=== PATIENT | female | born 1975 | race Caucasian/White ===

== ENCOUNTER → 2017-05-19 10:27 | Outpatient (CLI) | payer OTHER, SELFPAY ==
--- NOTE | 2017-05-19 10:32 | NM_ITS ---
HEPATOBILIARY SCAN WITH CCK ORDERING PHYSICIAN : Andrés Rain MD PATIENT AGE: 41 years GENDER: Female HISTORY: Right upper quadrant pain and nausea Following 8.02 millicuries Tc Choletec, images of the RUQ were obtained. There is prompt uptake of radionuclide by the liver which is grossly unremarkable. Small bowel is visualized. This initial portion of the study is normal. The gallbladder was allowed to fill out to 30 minutes. CCK was administered via infusion pump over 30 minutes 1.5 MCG CCK. Right arm IV.. The obtain data was analyzed and reveals a 85 % gallbladder ejection fraction (normal greater than 50%; borderline 35-50%). This is normal value . Visual inspection supports that there is adequate contraction of the gallbladder as well. IMPRESSION: Normal functioning gallbladder. 85 gallbladder ejection fraction by computer analysis. No pain with CCK administration
== END ==
PROVIDERS: Family Provider Emergency Medicine; PCP Emergency Medicine; Visit Provider Emergency Medicine
DX: K82.8 Other specified diseases of gallbladder (principal)
CPT/HCPCS: 78227; A9537; J2805

== ENCOUNTER → 2017-05-23 13:41 | Outpatient (REF) | payer OTHER, SELFPAY ==
[2017-05-23 20:20] LABS: Amphetamine/Metha Screen,Urine Negative ng/mL (<1000); Barbiturates Screen,Urine Negative ng/mL (<200); Benzodiazepines Screen,Urine Negative ng/mL (200); Cannabinoid Screen,Urine Negative ng/mL (<50); Cocaine Screen,Urine Negative ng/g (<300); Methadone Screen,Urine Negative ng/mL (<300); Opiate Screen,Urine Negative ng/mL (<300); Phencyclidine Screen,Urine Negative ng/mL (<25)
== END ==
LOC: LAB 13:41
PROVIDERS: Visit Provider Nurse Practitioner Family
DX: Z79.899 Other long term (current) drug therapy (principal)
CPT/HCPCS: 80305

== ENCOUNTER → 2017-10-14 14:13 | Outpatient (REF) | payer OTHER, SELFPAY ==
[2017-10-14 19:53] LABS: Amphetamine/Metha Screen,Urine Negative ng/mL (<1000); Barbiturates Screen,Urine Negative ng/mL (<200); Benzodiazepines Screen,Urine Positive ng/mL (200); Cannabinoid Screen,Urine Positive ng/mL (<50); Cocaine Screen,Urine Negative ng/g (<300); Methadone Screen,Urine Negative ng/mL (<300); Opiate Screen,Urine Negative ng/mL (<300); Phencyclidine Screen,Urine Negative ng/mL (<25)
== END ==
LOC: LAB 14:13
PROVIDERS: Visit Provider Nurse Practitioner Family
DX: Z79.899 Other long term (current) drug therapy (principal)
CPT/HCPCS: 80305

== ENCOUNTER → 2017-12-25 15:24 | Outpatient (REF) | payer OTHER, SELFPAY ==
[2017-12-25 18:33] LABS: Amphetamine/Metha Screen,Urine Negative ng/mL (<1000); Barbiturates Screen,Urine Negative ng/mL (<200); Benzodiazepines Screen,Urine Negative ng/mL (<200); Cannabinoid Screen,Urine Positive ng/mL (<50); Cocaine Screen,Urine Negative ng/mL (<300); Methadone Screen,Urine Negative ng/mL (<300); Opiate Screen,Urine Negative ng/mL (<300); Phencyclidine Screen,Urine Negative ng/mL (<25)
== END ==
LOC: LAB 15:24
PROVIDERS: Visit Provider Nurse Practitioner Family
DX: Z79.899 Other long term (current) drug therapy (principal)
CPT/HCPCS: 80305

== ENCOUNTER → 2018-01-28 14:42 | Outpatient (CLI) | payer OTHER, SELFPAY ==
--- NOTE | 2018-01-28 15:43 | XR_ITS ---
XR chest 2V HISTORY: ITS.REASON: cough ORDERING PHYSICIAN: Johnna Fox PATIENT AGE: 42 years COMPARISON: 03/05/2016 FINDINGS: The cardiomediastinal silhouette and pulmonary vascularity are within normal limits. The lungs are clear without infiltrates, suspicious nodules, or pleural effusions. No acute bony abnormalities. IMPRESSION: Negative chest, no acute finding
[2018-01-28 19:30] LABS: Amphetamine/Metha Screen,Urine Negative ng/mL (<1000); Barbiturates Screen,Urine Negative ng/mL (<200); Benzodiazepines Screen,Urine Positive ng/mL (<200); Cannabinoid Screen,Urine Positive ng/mL (<50); Cocaine Screen,Urine Negative ng/mL (<300); Methadone Screen,Urine Negative ng/mL (<300); Opiate Screen,Urine Negative ng/mL (<300); Phencyclidine Screen,Urine Negative ng/mL (<25)
== END ==
LOC: LAB 14:43 → RAD 15:45
PROVIDERS: PCP Nurse Practitioner Family; Visit Provider Nurse Practitioner Family
DX: R05 Cough (principal); Z79.899 Other long term (current) drug therapy
CPT/HCPCS: 71046; 80305

== ENCOUNTER → 2018-02-02 09:41 | Outpatient (CLI) | payer OTHER, SELFPAY ==
--- NOTE | 2018-02-02 09:43 | US_ITS ---
US breast LT complete INDICATION: Breast pain ORDERING PHYSICIAN: Johnna Fox PATIENT AGE: 42 years COMPARISON: None TECHNIQUE: Standard left breast ultrasound with axilla FINDINGS: No cystic or solid lesions demonstrated. IMPRESSION: Negative left breast ultrasound BI-RADS Category 1 negative. Recommend screening mammogram. Patient was due for screening mammogram September 2017 (A letter has been sent to the patient regarding results of the study.)
== END ==
PROVIDERS: Family Provider Emergency Medicine; PCP Nurse Practitioner Family; Visit Provider Nurse Practitioner Family
DX: N64.4 Mastodynia (principal)
CPT/HCPCS: 76641

== ENCOUNTER → 2018-03-04 20:10 | Outpatient (CLI) | payer OTHER, SELFPAY ==
[2018-03-04 20:48] LABS: Amphetamine/Metha Screen,Urine Negative ng/mL (<1000); Barbiturates Screen,Urine Negative ng/mL (<200); Benzodiazepines Screen,Urine Negative ng/mL (<200); Cannabinoid Screen,Urine Negative ng/mL (<50); Cocaine Screen,Urine Negative ng/mL (<300); Methadone Screen,Urine Negative ng/mL (<300); Opiate Screen,Urine Negative ng/mL (<300); Phencyclidine Screen,Urine Negative ng/mL (<25)
== END ==
PROVIDERS: Visit Provider Nurse Practitioner Family
DX: Z79.899 Other long term (current) drug therapy (principal)
CPT/HCPCS: 80305

== ENCOUNTER → 2018-04-02 17:55 | Outpatient (CLI) | payer OTHER, SELFPAY ==
[2018-04-02 19:46] LABS: Amphetamine/Metha Screen,Urine Negative ng/mL (<1000); Barbiturates Screen,Urine Negative ng/mL (<200); Benzodiazepines Screen,Urine Negative ng/mL (<200); Cannabinoid Screen,Urine Negative ng/mL (<50); Cocaine Screen,Urine Negative ng/mL (<300); Methadone Screen,Urine Negative ng/mL (<300); Opiate Screen,Urine Negative ng/mL (<300); Phencyclidine Screen,Urine Negative ng/mL (<25)
== END ==
PROVIDERS: Visit Provider Nurse Practitioner Family
DX: Z79.899 Other long term (current) drug therapy (principal)
CPT/HCPCS: 80305

== ENCOUNTER → 2018-05-29 18:12 | Outpatient (CLI) | payer OTHER, SELFPAY ==
[2018-05-29 20:26] LABS: Amphetamine/Metha Screen,Urine Negative ng/mL (<1000); Barbiturates Screen,Urine Negative ng/mL (<200); Benzodiazepines Screen,Urine Negative ng/mL (<200); Cannabinoid Screen,Urine Negative ng/mL (<50); Cocaine Screen,Urine Negative ng/mL (<300); Methadone Screen,Urine Negative ng/mL (<300); Opiate Screen,Urine Negative ng/mL (<300); Phencyclidine Screen,Urine Negative ng/mL (<25)
== END ==
LOC: LAB 18:13 → LAB.DROPOF 18:17
PROVIDERS: Visit Provider Nurse Practitioner Family
DX: Z79.899 Other long term (current) drug therapy (principal)
CPT/HCPCS: 80305

== ENCOUNTER → 2018-07-29 16:50 | Outpatient (CLI) | payer OTHER, SELFPAY ==
[2018-07-29 18:39] LABS: Amphetamine/Metha Screen,Urine Negative ng/mL (<1000); Barbiturates Screen,Urine Negative ng/mL (<200); Benzodiazepines Screen,Urine Negative ng/mL (<200); Cannabinoid Screen,Urine Negative ng/mL (<50); Cocaine Screen,Urine Negative ng/mL (<300); Methadone Screen,Urine Negative ng/mL (<300); Opiate Screen,Urine Negative ng/mL (<300); Phencyclidine Screen,Urine Negative ng/mL (<25)
== END ==
PROVIDERS: Visit Provider Nurse Practitioner Family
DX: Z79.899 Other long term (current) drug therapy (principal)
CPT/HCPCS: 80305

== ENCOUNTER 2018-08-14 09:00 | Outpatient (RCR) | payer OTHER, SELFPAY ==
--- NOTE | 2018-07-21 15:36 | HMH.PTOPEV ---
PT Outpatient Evaluation Rehab PT Outpatient Evaluation Start: 07/21/18 15:24 Freq: Status: Active Protocol: Document 07/21/18 15:24 VANIA (Rec: 07/21/18 15:35 VANIA [id number]) Electronically Signed By Murphy Ayoub, PT 07/21/18 15:24 Outpatient Therapy Subjective History Subjective History Pt reports injury to R ankle on 06/10/18, fall/twist inversion sprain to R ankle. Pt reports improved R ankle s/ s since initial injury, however, pt reports progress has slowed. Pt reports lingering anterio-lateral R ankle pain, chastity. w/prolonged wt. bearing. Chief Complaint Pain Stiff Swelling Weakness Symptom Type Ache Dull Symptoms Relieved By Prescription Meds Symptoms Aggravated By Twisting Walking Prior Functional Limitations Housework Standing Walking Current Functional Limitations Housework Standing Walking Stairs Symptom Description Intermittent Level of pain today (0-10) 2 Pain scale - at its best (0-10) 0 Pain scale - at its worst (0-10) 10 Ankle/Foot Eval Gait Observation General Gait Pattern Observation Antalgic Gait Assistive Device Ambulation Assistive Device None Palpation Tenderness right Ankle/Foot Palpation Findings Tenderness Ankle/Foot Palpation Overall Comment 3-4/4 ATF TTP positive PTF TTP positive CF TTP positive Deltoid ligament TTP positive ROM left Ankle/Foot Dorsiflexion w/Knee Extended 0-12 Active Range Motion (degrees) Ankle/Foot Plantar Flexion Active Range 0-60 of Motion (degrees) Ankle/Foot Eversion Active Range of 0-20 Motion (degrees) Ankle/Foot Inversion Active Range of 0-45 Motion (degrees) right Ankle/Foot Dorsiflexion w/Knee Extended 0-8 Active Range Motion (degrees) Ankle/Foot Plantar Flexion Active Range 0-35 of Motion (degrees) Ankle/Foot Eversion Active Range of 0-20 Motion (degrees) Ankle/Foot Inversion Active Range of 0-40 Motion (degrees) MMT left Ankle Dorsiflexion Strength Grade 5 Normal Ankle Plantarflexion Strength Grade 5
== END 2018-08-14 09:05 | disposition home or self-care (01) ==
LOC: PT 09:00
PROVIDERS: Visit Provider Podiatrist
DX: M76.71 Peroneal tendinitis, right leg (principal); M79.671 Pain in right foot
CPT/HCPCS: 97010; 97014; 97033; 97035; 97110; 97163; 97760; G0283

== ENCOUNTER → 2018-08-28 14:37 | Outpatient (CLI) | payer OTHER, SELFPAY ==
[2018-08-31 12:13] LABS: Amphetamine/Metha Screen,Urine Negative ng/mL (<1000); Barbiturates Screen,Urine Negative ng/mL (<200); Benzodiazepines Screen,Urine Positive ng/mL (<200); Cannabinoid Screen,Urine Negative ng/mL (<50); Cocaine Screen,Urine Negative ng/mL (<300); Methadone Screen,Urine Negative ng/mL (<300); Opiate Screen,Urine Negative ng/mL (<300); Phencyclidine Screen,Urine Negative ng/mL (<25)
== END ==
PROVIDERS: Visit Provider Nurse Practitioner Family
DX: F41.9 Anxiety disorder, unspecified (principal)
CPT/HCPCS: 80305

== ENCOUNTER → 2018-09-25 16:13 | Outpatient (CLI) | payer OTHER, SELFPAY ==
--- NOTE | 2018-09-25 16:15 | NVE_ITS ---
Venous Exam Indications: 729.81 Swelling of limb. IMPRESSIONS 1. There is no evidence of significant Reflux. 2. No evidence of deep or superficial vein thrombosis involving the left lower extremity Left lower extremity venous duplex evaluation. Doppler flow study including spectral analysis, color and burgos scale imaging. Location: Vascular laboratory. Patient status: Outpatient. CRITICAL FINDINGS - Reported to: Cortney Rain's office - 09/25/2018 - 16:27 pm - Neg for DVT Tables: Venous flow and imaging: + +-------+ + Location Overall Flow properties + +-------+ + Left common femoral Patent Normal phasicity; spontaneous; normal augmentation; compressible + +-------+ + Left saphenofemoral junction Patent Compressible + +-------+ + Left profunda femoral Patent Compressible + +-------+ + Left femoral Patent Normal phasicity; spontaneous; normal augmentation; compressible + +-------+ + Left greater saphenous Patent Normal phasicity; spontaneous; normal augmentation; compressible + +-------+ + Left popliteal Patent Normal phasicity; spontaneous; normal augmentation; compressible + +-------+ + Left posterior tibial Patent Compressible + +-------+ + Left peroneal Patent Compressible + +-------+ + Left gastrocnemius Patent Compressible + +-------+ + Left soleal Patent Compressible + +-------+ + (Report amended ) Electronically signed by: Moe Smart [id number]
== END ==
PROVIDERS: PCP Nurse Practitioner Family; Visit Provider Nurse Practitioner Family
DX: R60.9 Edema, unspecified (principal); M79.605 Pain in left leg
CPT/HCPCS: 93971

== ENCOUNTER → 2018-10-28 18:11 | Outpatient (CLI) | payer OTHER, SELFPAY ==
[2018-10-28 19:03] LABS: Amphetamine/Metha Screen,Urine Negative ng/mL (<1000); Barbiturates Screen,Urine Negative ng/mL (<200); Benzodiazepines Screen,Urine Negative ng/mL (<200); Cannabinoid Screen,Urine Negative ng/mL (<50); Cocaine Screen,Urine Negative ng/mL (<300); Methadone Screen,Urine Negative ng/mL (<300); Opiate Screen,Urine Negative ng/mL (<300); Phencyclidine Screen,Urine Negative ng/mL (<25)
== END ==
PROVIDERS: Visit Provider Nurse Practitioner Family
DX: Z79.899 Other long term (current) drug therapy (principal)
CPT/HCPCS: 80305

== ENCOUNTER 2019-12-18 13:53 | Emergency (ER) | payer OTHER, SELFPAY ==
[2019-12-18 14:02] VITALS: BP 162/96; PULSE 76; RESP 17; TEMP 37; O2SAT 96; BMI 29.6
--- NOTE | 2019-12-18 14:09 | CT_ITS ---
PROCEDURE: CT ABDOMEN PELVIS W CON CLINICAL INDICATION: right lower quadrant pain Right lower quadrant pain COMPARISON: CT CT ABDOMEN PELVIS W CON from 03/26/2019 TECHNIQUE: IV Contrast: 75ML OPTIRAY 350 Oral Contrast None Axial images obtained with sagittal and coronal reformats. All CT scans at the facility use one or more dose reduction, viz: automated exposure control, ma/kV adjustment per patient size (including targeted exams where dose is matched to indication, i.e. head), or iterative reconstruction technique. FINDINGS: LOWER THORAX: No acute finding there is small hiatal hernia with nonspecific thickening of the distal esophagus at the GE junction. ABDOMEN & PELVIS: The liver, spleen, adrenal glands, and pancreas have an unremarkable appearance. No renal or ureteral calculi. 5 mm hypodensity left kidney suggestive of a small cyst. No intestinal obstruction or free air. No evidence of appendicitis. There are post hysterectomy changes. No pelvic mass or abnormal fluid collection. No acute bony anomaly. IMPRESSION: No acute abdominal or pelvic findings. Dictated by: Moe Smart MD 12/19/2019 07:35 Moe Smart MD in [place] 12/19/2019 07:35
--- NOTE | 2019-12-18 14:10 | HMH.EDGENADL ---
ED Disposition Clinical Impression: Abdominal pain Qualifiers: Abdominal location: right lower quadrant Qualified Code(s): R10.31 - Right lower quadrant pain Disposition: Home, Self-Care Condition on Discharge: Good Instructions: DI for Acute Abdomen Additional Instructions: Follow up with your PCP. If you have any new, changing, worsening, or concerning symptoms, come back to the ED. Referrals: PCP,No [Non-Staff] - Time of Disposition: 17:44 - Critical Care Critical Care Time: No Attestation: On 12/18/19, the high probability of a clinically significant, sudden or life threatening deterioration of the following system(s) required my full and direct attention, intervention and personal management. The time I documented below is in addition to time spent performing reported procedures but includes the following listed in this critical care notation. Medical Decision Making - Medical Records Medical records reviewed: Yes: I reviewed the patient's medical records. MR Comment: 44-year-old female presents the emergency department with right lower quadrant abdominal pain that radiates to her vagina. She arrives to the ED hemodynamically stable, with reassuring vital signs, and looks well on exam. This is been constant pain for the last 4 to 5 days, UTI considered as well as ovarian pathology or appendicitis. She is nontender on exam. Will get labs and CT scan and reassess. On reassessment, patient remains well. CT scan personally reviewed and read by radiology and she does not have any concerning acute pathology. Labs with leukocytosis, otherwise not actionable. Appendix normal. She is tolerating PO and repeat abdominal exam remains benign. No UTI. She maintains history of ovarian cysts and is status post hysterecotmy. No large cysts visible on CT, US showing no free fluid and good flow. Advised followup with PCP for further evaluation. She was given strict return precautions and discharge instructions and verbalized an understanding and agreed to the plan. Safe to discharge. - Jay Inquiry Pt receiving controlled substance: No Vital Signs: 12/18/19 14:02 Temperature 98.6 F Temperature Source Oral Pulse Rate [Right Radial] 76 Respiratory Rate 17 Blood Pressure [Right Arm] 162/96 H Blood Pressure Mean [Right Arm] 118 02 Sat by Pulse Oximetry 96 - Lab Data Lab Results 12/18/19 14:20: Urine Color Yellow, Urine Appearance Clear, Urine pH 6.0, Ur Specific [place] 1.025, Urine Protein Negative, Urine Glucose (UA) Negative, Urine Ketones Negative, Urine Blood Negative, Urine Nitrate Negative, Urine Bilirubin Negative, Urine Urobilinogen 0.2, Ur Leukocyte Esterase 1+ A, Urine RBC Occasional, Urine WBC 3-5, Ur Squamous Epith Cells 3-5, Urine Bacteria None 12/18/19 15:20: WBC 16.1 H, RBC 4.58, Hgb 15.0, Hct 42.8, MCV 93.4, MCH 32.7 H, MCHC 35.0, RDW 13.1, Plt Count 231, MPV 7.0 L, Neut % (Auto) 76.6, Lymph % (Auto) 17.5, [place] % (Auto) 3.8, Eos % (Auto) 1.7, Baso % (Auto) 0.3, Neut # (Auto) 12.4 H, Lymph # (Auto) 2.8, [place] # (Auto) 0.6, Eos # (Auto) 0.3, Baso # (Auto) 0.1, Total Counted 100, Neutrophils % (Manual) 65, Lymphocytes % (Manual) 28, Monocytes % (Manual) 3, Eosinophils % (Manual) 4 H, Platelet Estimate Normal, RBC Morphology Normal 12/18/19 15:20: Sodium 140, Potassium 3.8, Chloride 105, Carbon Dioxide 24, Anion Gap 14.8, BUN 7, Creatinine 0.60, Estimated Creat Clear 139, Estimated GFR 109, Est GFR ( Amer) 131, Glucose 95, Calcium 9.8, Total Bilirubin 0.5, AST 30, ALT 21, Alkaline Phosphatase 62, Total Protein 7.6, Albumin 4.4, Globulin 3.2, Albumin/Globulin Ratio 1.4, Amylase 73, Lipase 82 Result diagrams: 12/18/19 15:20 12/18/19 15:20 Orders (Tests/Meds): ED MEDICATIONS Discontinued Medications Generic Name Dose Route Start Last Admin Trade Name Freq PRN Reason Stop Dose Admin Ioversol 50 ml 12/18/19 14:41 12/18/19 14:43 Rad-Optiray 320 50ml Syringe IV 12/18/19 14:42 50 ml ONCE ONE A
[2019-12-18 14:39] LABS: Microscopic, Urine URINE MICROSCOPIC (MICROSCOPIC)
[2019-12-18 14:42] LABS: Appearance,Urine CLEAR (Clear); Bilirubin,Urine Negative (Negative); Blood, Urine Negative (Negative); Color,Urine YELLOW (Yellow); Glucose,Urine (UA) Negative (Negative); Ketones,Urine Negative (Negative); Leukocyte Esterase,Urine 1+ (Negative); Nitrate,Urine Negative (Negative); Protein,Urine Negative (Negative); Specific Gravity, Urine 1.025 (1.005-1.030); Urobilinogen,Urine 0.2 EU/dl (0.2)
[2019-12-18 14:48] LABS: RBC,Urine Occasional #/hpf (0-3)
--- NOTE | 2019-12-18 14:51 | PC.NURSE ---
pt returned from rad
[2019-12-18 15:34] LABS: Basophils # 0.1 K/mm3 (0-0.2); Basophils % 0.3 % (0.1-2.0); Eosinophils # 0.3 K/mm3 (0.0-0.4); Eosinophils % 1.7 % (0.1-12.0); Hematocrit 42.8 % (37.0-47.0); Lymphocytes # 2.8 K/mm3 (0.7-4.5); Lymphocytes % 17.5 % (10-50); Mean Corpuscular Hemoglobin 32.7 pg (27.0-31.2); Mean Corpuscular Volume 93.4 fl (81-99); Monocytes # 0.6 K/mm3 (0.1-1.0); Monocytes % 3.8 % (1.7-9.3); Neutrophils # 12.4 K/mm3 (1.8-7.8); Neutrophils % 76.6 % (37.0-80.0); Platelet Count 231 K/mm3 (142-424); Red Blood Count 4.58 M/mm3 (4.20-5.40); Red Cell Distribution Width 13.1 % (11.5-17.5); White Blood Count 16.1 K/mm3 (4.8-10.8)
[2019-12-18 15:37] LABS: MANUAL DIFFERENTIAL MANUAL DIFFERENTIAL (MANUAL DIFF)
[2019-12-18 15:40] LABS: Chloride 105 mmol/L (98-107); Potassium 3.8 mmoL/L (3.5-5.1); Sodium 140 mmol/L (136-145)
[2019-12-18 15:43] LABS: Alanine Aminotransferase 21 U/L (12-78); Alkaline Phosphatase 62 U/L (38-126); Amylase 73 U/L (30-110); Anion Gap 14.8 mEq/L (5-15); Aspartate Amino Transferase 30 U/L (14-36); Bilirubin,Total 0.5 mg/dl (0.2-1.3); Blood Urea Nitrogen 7 mg/dl (7-17); Calcium 9.8 mg/dl (8.4-10.2); Carbon Dioxide 24 mmol/L (22.0-30.0); Creatinine Clearance Estimated 139 mL/min (50-200); Estimated Glomerular Filt Rate 109 ml/min (>60); GFR (African American) 131 ML/MIN (>60); Glucose 95 mg/dl (74-100)
[2019-12-18 15:44] LABS: Albumin Level 4.4 g/dl (3.5-5.0); Albumin/Globulin Ratio 1.4 (1.1-1.8); Globulin 3.2 g/dL (1.3-3.2); Lipase 82 U/L (23-300); Total Protein,Serum 7.6 g/dl (6.3-8.2)
[2019-12-18 15:51] LABS: Eosinophils % 4 % (0-3); Lymphocytes % 28 % (10-50); Monocytes % 3 % (2-9); Neutrophils % 65 % (42-76); Total Cells Counted 100
[2019-12-18 15:52] LABS: Platelet Estimate Normal; RBC Morphology Normal
--- NOTE | 2019-12-18 16:47 | US_ITS ---
PROCEDURE: US TRANSVAGINAL CLINICAL INDICATION: right lower quadrant pain COMPARISON: No exams were available for comparison FINDINGS: Prior hysterectomy. Right ovary is 2.2 x 1.6 cm. Left ovary is 1 point by 1 2 cm. There is bilateral ovarian blood flow. No adnexal mass or cul-de-sac fluid. IMPRESSION: Prior hysterectomy, no acute finding Dictated by: Moe Smart MD 12/19/2019 07:37 Moe Smart MD in [place] 12/19/2019 07:37
[2019-12-18 17:48] VITALS: BP 162/96; PULSE 76; RESP 17; TEMP 37; O2SAT 96
== END 2019-12-18 17:48 | disposition home or self-care (01) ==
PROVIDERS: Emergency Provider Emergency Medicine; PCP Nurse Practitioner Family
DX: R10.31 Right lower quadrant pain (principal); F41.8 Other specified anxiety disorders; K21.9 Gastro-esophageal reflux disease without esophagitis; G43.709 Chronic migraine without aura, not intractable, without status migrainosus; Z79.899 Other long term (current) drug therapy; Z90.79 Acquired absence of other genital organ(s); F17.210 Nicotine dependence, cigarettes, uncomplicated
CPT/HCPCS: 74177; 76830; 80053; 81001; 82150; 83690; 85007; 85025; 87086; 99283; Q9967

== ENCOUNTER → 2020-02-05 15:08 | Outpatient (CLI) | payer OTHER, SELFPAY ==
[2020-02-07 16:37] LABS: Covid-19 Nasal PCR Sendout UK Not Detected
== END ==
PROVIDERS: PCP Nurse Practitioner Family; Visit Provider Nurse Practitioner Family
DX: Z03.818 Encounter for observation for suspected exposure to other biological agents ruled out (principal)
CPT/HCPCS: U0003

== ENCOUNTER 2020-07-18 20:44 | Emergency (ER) | payer OTHER, SELFPAY ==
[2020-07-18 20:44] VITALS: BP 151/84; PULSE 71; RESP 14; TEMP 36.5; O2SAT 97; BMI 30.7
--- NOTE | 2020-07-18 20:46 | CT_ITS ---
PROCEDURE: CT HEAD/BRAIN WO CON CLINICAL INDICATION: paresthesia COMPARISON: CT HDWO CT HEAD W/O CONTRAST from 01/17/2017 TECHNIQUE: Axial images obtained. All CT scans at the facility use one or more dose reduction, viz: automated exposure control, ma/kV adjustment per patient size (including targeted exams where dose is matched to indication, i.e. head), or iterative reconstruction technique. FINDINGS: No midline shift, mass effect, intracranial hemorrhage, hydrocephalus, or extra-axial fluid collection is evident. The calvarium has an unremarkable appearance. The mastoid air cells and visualized paranasal sinuses are clear. IMPRESSION: No acute intracranial abnormality. Dictated by: Jaimie Chopra 07/19/2020 08:55 Jaimie Chopra in [place] 07/19/2020 08:55
--- NOTE | 2020-07-18 20:50 | HMH.EDGENADL ---
ED Disposition Clinical Impression: Migraine Qualifiers: Migraine type: unspecified Status migrainosus presence: without status migrainosus Intractability: not intractable Qualified Code(s): G43.909 - Migraine, unspecified, not intractable, without status migrainosus Disposition: Home, Self-Care Condition on Discharge: Good Referrals: Johnna Fox APRN [Primary Care Provider] - 3 days Time of Disposition: 21:52 - Critical Care Critical Care Time: No Attestation: On , the high probability of a clinically significant, sudden or life threatening deterioration of the following system(s) required my full and direct attention, intervention and personal management. The time I documented below is in addition to time spent performing reported procedures but includes the following listed in this critical care notation. Medical Decision Making - Jay Inquiry Pt receiving controlled substance: No Vital Signs: 07/18/20 20:44 07/18/20 21:31 Temperature 97.7 F Temperature Source Oral Pulse Rate 73 Pulse Rate [Left] 71 Respiratory Rate 14 Blood Pressure 115/62 Blood Pressure [Left Arm] 151/84 H Blood Pressure Mean 79 Blood Pressure Mean [Left Arm] 106 02 Sat by Pulse Oximetry 97 97 Oxygen Delivery Method Room Air - Lab Data Lab results reviewed: Yes: I reviewed the patient's lab results. Lab Results 07/18/20 21:00: WBC 9.7, RBC 4.72, Hgb 14.9, Hct 44.1, MCV 93.4, MCH 31.6 H, MCHC 33.8, RDW 13.2, Plt Count 252, MPV 6.9 L, Neut % (Auto) 60.3, Lymph % (Auto) 32.0, [place] % (Auto) 5.7, Eos % (Auto) 1.6, Baso % (Auto) 0.5, Neut # (Auto) 5.8, Lymph # (Auto) 3.1, [place] # (Auto) 0.6, Eos # (Auto) 0.2, Baso # (Auto) 0.1 07/18/20 21:00: Sodium 139, Potassium 4.1, Chloride 108 H, Carbon Dioxide 21 L, Anion Gap 14.1, BUN 13, Creatinine 0.80, Estimated Creat Clear 108, Estimated GFR 78, Est GFR ( Amer) 94, Glucose 135 H, Calcium 9.2, Troponin I < 0.01 07/18/20 21:52: Urine Color Yellow, Urine Appearance Clear, Urine pH 6.0, Ur Specific [place] >= 1.030, Urine Protein Negative, Urine Glucose (UA) Negative, Urine Ketones Negative, Urine Blood Negative, Urine Nitrate Negative, Urine Bilirubin Negative, Urine Urobilinogen 0.2, Ur Leukocyte Esterase Trace Result diagrams: 07/18/20 21:00 07/18/20 21:00 Orders (Tests/Meds): ORDERS Category Date Time Status CT head/brain wo con Stat Cat Scan 07/18/20 20:46 Taken Drug Screen,Urine Stat Lab 07/18/20 21:52 Received Urinalysis and Microscopic Stat Lab 07/18/20 21:52 Results Urine , HCG Qual. Stat Lab 07/18/20 21:52 Received - ECG Data Tracing #1 Sinus bradycardia, 57 bpm, possible incomplete right bundle branch block, no ST elevation or depression, normal intervals. ECG initial impression date: 07/18/20 ECG initial impression time: 21:02 Normal Sinus Rhythm: Yes Medical Decision Narrative: 44yo F evaluated for lightheadedness and right-sided paresthesia. Patient is in no acute distress on initial evaluation. She ambulates into the emergency department on her own power with no difficulty. Patient denies any significant past medical history. Her physical exam is benign. Her NIH stroke scale score is 0. While patient complains of paresthesia throughout her right body. She drops abruptly to sharp stimulus to her right upper and lower extremities while her eyes are closed. CT of the head shows no intracranial abnormality. Patient's blood work is benign. Pending urine studies at this time. General Adult HPI - General Stated complaint: numbnes on R side Time Seen by Provider: 07/18/20 20:50 Mode of Arrival: Ambulatory Source of Information: Patient Limitations: No Limitations - History of Present Illness HPI narrative: 44yo F with past medical history significant for chronic tobacco use, chronic marijuana use, recently diagnosed with migraine and otitis externa reports emergency department secondary to entire right side of her body paresth
--- NOTE | 2020-07-18 21:02 | ECG_ITS ---
APPROVED REPORT Exam: Resting ECG HR:57 bpm ECG Measurements Heart Rate 57 AXES [place] 156 P 72 QRSd 78 QRS 68 QT 428 T 49 QTc 416 Conclusion Sinus bradycardia Old septal changes Abnormal ECG Electronically signed by : Eulalio Roberts, 07/19/2020 13:21:36
[2020-07-18 21:15] LABS: Chloride 108 mmol/L (98-107); Potassium 4.1 mmoL/L (3.5-5.1); Sodium 139 mmol/L (136-145)
[2020-07-18 21:16] LABS: Basophils # 0.1 K/mm3 (0-0.2); Basophils % 0.5 % (0.1-2.0); Eosinophils # 0.2 K/mm3 (0.0-0.4); Eosinophils % 1.6 % (0.1-12.0); Hematocrit 44.1 % (37.0-47.0); Hemoglobin 14.9 g/dL (12.2-16.2); Lymphocytes # 3.1 K/mm3 (0.7-4.5); Mean Corpuscular HGB Conc 33.8 g/dL (31.8-35.4); Mean Corpuscular Hemoglobin 31.6 pg (27.0-31.2); Mean Corpuscular Volume 93.4 fl (81-99); Mean Platelet Volume 6.9 fl (7.4-10.4); Monocytes # 0.6 K/mm3 (0.1-1.0); Monocytes % 5.7 % (1.7-9.3); Neutrophils # 5.8 K/mm3 (1.8-7.8); Neutrophils % 60.3 % (37.0-80.0); Platelet Count 252 K/mm3 (142-424); Red Blood Count 4.72 M/mm3 (4.20-5.40); Red Cell Distribution Width 13.2 % (11.5-17.5); White Blood Count 9.7 K/mm3 (4.8-10.8)
[2020-07-18 21:18] LABS: Anion Gap 14.1 mEq/L (5-15); Blood Urea Nitrogen 13 mg/dl (7-17); Calcium 9.2 mg/dl (8.4-10.2); Carbon Dioxide 21 mmol/L (22.0-30.0); Creatinine Clearance Estimated 108 mL/min (50-200); Estimated Glomerular Filt Rate 78 ml/min (>60); GFR (African American) 94 ML/MIN (>60); Glucose 135 mg/dl (74-100)
[2020-07-18 21:31] VITALS: BP 115/62; PULSE 73; O2SAT 97
[2020-07-18 21:31] LABS: Troponin I < 0.01 ng/ml (0.00-0.034)
[2020-07-18 21:56] LABS: Microscopic, Urine URINE MICROSCOPIC (MICROSCOPIC)
[2020-07-18 22:03] LABS: Appearance,Urine CLEAR (Clear); Bilirubin,Urine Negative (Negative); Blood, Urine Negative (Negative); Color,Urine YELLOW (Yellow); Glucose,Urine (UA) Negative (Negative); Ketones,Urine Negative (Negative); Leukocyte Esterase,Urine TRACE (Negative); Nitrate,Urine Negative (Negative); Protein,Urine Negative (Negative); Specific Gravity, Urine >= 1.030 (1.005-1.030); Urobilinogen,Urine 0.2 EU/dl (0.2)
[2020-07-18 22:08] LABS: Urine Pregnancy, HCG Qual. Negative (Negative)
[2020-07-18 22:09] LABS: Barbiturates Screen,Urine Negative ng/ml (<200)
[2020-07-18 22:10] LABS: Amphetamine/Metha Screen,Urine Negative ng/ml (<1000); Benzodiazepines Screen,Urine Negative ng/ml (<200)
[2020-07-18 22:11] LABS: Methadone Screen,Urine Negative ng/ml (<300)
[2020-07-18 22:12] LABS: Cannabinoid Screen,Urine Positive ng/ml (<50)
[2020-07-18 22:13] VITALS: BP 121/74; PULSE 75; RESP 14; TEMP 36.5; O2SAT 97
[2020-07-18 22:13] LABS: Cocaine Screen,Urine Negative ng/ml (<300); Opiate Screen,Urine Negative ng/ml (<300)
[2020-07-18 22:14] LABS: Phencyclidine Screen,Urine Negative ng/ml (<25)
[2020-07-18 22:29] LABS: Bacteria,Urine 1+ /lpf; Mucus,Urine 1+ /lpf
== END 2020-07-18 22:31 | disposition home or self-care (01) ==
PROVIDERS: Emergency Provider Family Medicine; PCP Nurse Practitioner Family
DX: G43.909 Migraine, unspecified, not intractable, without status migrainosus (principal); J45.909 Unspecified asthma, uncomplicated; K21.9 Gastro-esophageal reflux disease without esophagitis; F41.8 Other specified anxiety disorders; F17.210 Nicotine dependence, cigarettes, uncomplicated; F12.10 Cannabis abuse, uncomplicated
CPT/HCPCS: 70450; 80048; 80305; 81001; 81025; 84484; 85025; 93005; 99283

== ENCOUNTER → 2020-08-03 07:36 | Outpatient (CLI) | payer OTHER, SELFPAY ==
--- NOTE | 2020-08-03 07:36 | MR_ITS ---
PROCEDURE: MR HEAD/BRAIN WO CON CLINICAL INDICATION: Headache right-sided facial numbness and hand numbness Pt c/o hx of migraines that have gotten worse in the last 3 weeks. Pt has had episodes of rt sided facial and hand numbness. Prior CT brain done 07/18/2020. COMPARISON: CT CT HEAD/BRAIN WO CON from 07/18/2020 TECHNIQUE: Routine multiplanar multi echo sequences are performed without gadolinium enhancement. FINDINGS: No midline shift, mass effect, intracranial hemorrhage, or hydrocephalus is evident. The cerebellopontine angles, cerebellum, and brainstem have an unremarkable appearance. Unremarkable white matter signal the pituitary, optic chiasm, corpus callosum, and craniocervical junction have an unremarkable appearance. No mastoid effusion or sinus air-fluid level. Expected flow void noted within the basilar artery and carotid arteries. IMPRESSION: Negative MRI of the brain without contrast. No acute intracranial findings. Dictated by: Moe Smart MD 08/04/2020 15:01 Moe Smart MD in [place] 08/04/2020 15:01
== END ==
PROVIDERS: PCP Nurse Practitioner Family; Visit Provider Nurse Practitioner Family
DX: G43.909 Migraine, unspecified, not intractable, without status migrainosus (principal)
CPT/HCPCS: 70551

== ENCOUNTER → 2020-08-22 12:40 | Outpatient (CLI) | payer OTHER, SELFPAY ==
--- NOTE | 2020-08-22 12:41 | MR_ITS ---
PROCEDURE: MR CERVICAL SPINE WO CON CLINICAL INDICATION: neck pain, hyperreflexia COMPARISON: No exams were available for comparison TECHNIQUE: Standard multiplanar multiecho sequences are performed without contrast. 3-D MIP and myelographic images are also rendered and reviewed FINDINGS: There is normal alignment. The craniocervical junction has an unremarkable appearance. There is mild degree of motion artifact on the sagittal T2 weighted images despite repeating the exam. C2-C3, C3-C4, C4-C5, C5-C6, C6-C7, and C7-T1 disc spaces have an unremarkable appearance. No disc herniation canal stenosis or foraminal stenosis apparent. No cord impingement. No evidence of acute fracture or dislocation. There is normal alignment. The spinal cord itself has an unremarkable appearance. IMPRESSION: Negative MRI of the cervical spine. Dictated by: oMe Smart MD 08/23/2020 11:24 Moe Smart MD in [place] 08/23/2020 11:24
--- NOTE | 2020-08-22 13:33 | XR_ITS ---
PROCEDURE: XR CERVICAL SPINE W FLEX/EXT CLINICAL INDICATION: neck pain, hyperflexia COMPARISON: No exams were available for comparison FINDINGS: No fracture or dislocation. No lytic or blastic change. There is normal mineralization. Normal alignment. The disc spaces are well preserved. No foraminal narrowing. There is minimal head tilt toward the right. No abnormal subluxation in flexion or extension Other findings:None. IMPRESSION: Negative cervical spine with flexion and extension Dictated by: Moe Smart MD 08/22/2020 14:45 Moe Smart MD in [place] 08/22/2020 14:45
[2020-08-22 14:38] LABS: Basophils % 0.3 % (0.1-2.0); Eosinophils # 0.1 K/mm3 (0.0-0.4); Eosinophils % 0.7 % (0.1-12.0); Hematocrit 43.3 % (37.0-47.0); Hemoglobin 14.4 g/dL (12.2-16.2); Lymphocytes # 2.8 K/mm3 (0.7-4.5); Mean Corpuscular HGB Conc 33.3 g/dL (31.8-35.4); Mean Corpuscular Hemoglobin 31.4 pg (27.0-31.2); Mean Corpuscular Volume 94.2 fl (81-99); Monocytes # 0.6 K/mm3 (0.1-1.0); Monocytes % 4.6 % (1.7-9.3); Neutrophils # 8.6 K/mm3 (1.8-7.8); Neutrophils % 71.4 % (37.0-80.0); Platelet Count 244 K/mm3 (142-424); Red Cell Distribution Width 12.9 % (11.5-17.5)
[2020-08-22 15:14] LABS: Alanine Aminotransferase 17 U/L (12-78); Albumin Level 4.3 g/dl (3.5-5.0); Albumin/Globulin Ratio 1.7 (1.1-1.8); Alkaline Phosphatase 65 U/L (38-126); Anion Gap 8.9 mEq/L (5-15); Aspartate Amino Transferase 20 U/L (14-36); Bilirubin,Total 0.4 mg/dl (0.2-1.3); Blood Urea Nitrogen 12 mg/dl (7-17); Calcium 9.4 mg/dl (8.4-10.2); Carbon Dioxide 21 mmol/L (22.0-30.0); Chloride 110 mmol/L (98-107); Estimated Glomerular Filt Rate 91 ml/min (>60); GFR (African American) 110 ML/MIN (>60); Globulin 2.6 g/dL (1.3-3.2); Glucose 89 mg/dl (74-100); Potassium 3.9 mmoL/L (3.5-5.1); Sodium 136 mmol/L (136-145); Total Protein,Serum 6.9 g/dl (6.3-8.2)
[2020-08-22 15:46] LABS: Thyroid Stimulating Hormone 1.29 uIU/mL (0.465-4.68)
[2020-08-22 16:21] LABS: Vitamin B12 310 pg/mL (239-931)
[2020-08-22 16:41] LABS: Folate 6.73 ng/mL
== END ==
PROVIDERS: Nurse Practitioner Family; PCP Nurse Practitioner Family; Visit Provider Specialist
DX: M54.2 Cervicalgia (principal); R29.2 Abnormal reflex; R51.9 Headache, unspecified
CPT/HCPCS: 36415; 72052; 72141; 76376; 80053; 82525; 82607; 82746; 84443; 85025; 86618

== ENCOUNTER 2020-11-07 19:14 | Emergency (ER) | payer OTHER, SELFPAY ==
[2020-11-07 19:15] VITALS: BP 160/95; PULSE 74; RESP 16; TEMP 36.8; O2SAT 99; BMI 30.2
[2020-11-07 19:50] VITALS: BP 160/95; PULSE 74; RESP 16; TEMP 36.8; O2SAT 99; BMI 30.3
--- NOTE | 2020-11-07 20:30 | HMH.EDUTC ---
[facility] [place] Clinical Impression: Sinusitis Qualifiers: Sinusitis location: unspecified location Chronicity: unspecified Qualified Code(s): J32.9 - Chronic sinusitis, unspecified Acute bronchitis Qualifiers: Bronchitis organism: unspecified organism Qualified Code(s): J20.9 - Acute bronchitis, unspecified Shingles Qualifiers: Herpes zoster complications: without complications Qualified Code(s): B02.9 - Zoster without complications Disposition: Home, Self-Care Condition on Discharge: Good Instructions: Sinusitis, Acute Bronchitis, DI for Shingles, DI for Sinusitis Additional Instructions: Take medication as prescribed for Shingles ? Start antibiotic today. Be sure to complete entire prescription even if feeling better ? Monitor temp. Tylenol every 4 hours as needed and / or ibuprofen every 6 hours as needed ( As long as your primary care physician has told you that it ok to take both. For fever/aches/pains ER if no less than 101 despite Tylenol or Motrin ? Humidifier/vaporizer or hot steamy shower ? Inhaler every 4-6 hours as needed like we discussed. If unsure how to use it, ask pharmacist to demonstrate how. Should help open airways and improve cough, wheezing, and shortness of breath ? Mucinex during the day for your cough and cough suppressant only at night. Be sure to drink lots of water. Insurance may not cover a prescriptions for mucinex. Might be cheaper to get 400mg tablets and take 2 tablet in the morning, mid-day and evening with lots of water. *Start steroid today. Helps with inflammation therefore, cough and wheezing. Follow directions on the package. Reviewed side effects. Patient reports taking them before. Follow up IMMEDIATELY for new or worsening of symptoms OR no noticeable improvement over the next 48-72 hours. 911 immediately for any life threatening symptoms such as chest pain or difficulty breathing Prescriptions: Acyclovir 800 mg PO 5XDAY 7 Days #35 tab Transmission Status: Received by [facility] predniSONE [Deltasone 10mg tablet] 10 mg PO BID 5 Days #10 tab Transmission Status: Received by [facility] Cefdinir [Omnicef 300mg Capsule] 300 mg PO BID #20 cap Transmission Status: Received by [facility] Referrals: Fryman,[place], [employer] [Primary Care Provider] - As needed Time of Disposition: 20:42 Medical Decision Making - Jay Inquiry Pt receiving controlled substance: No Jay was queried for this patient: No Vital Signs: 11/07/20 19:15 11/07/20 19:50 Temperature 98.2 F 98.2 F Temperature Source Oral Oral Pulse Rate [Left Radial] 74 74 Respiratory Rate 16 16 Blood Pressure [Left Arm] 160/95 H 160/95 H Blood Pressure Mean [Left Arm] 116 116 Blood Pressure Source [Left Arm] Automatic Cuff Automatic Cuff Blood Pressure Position [Left Arm] Sitting Sitting 02 Sat by Pulse Oximetry 99 99 Oxygen Delivery Method Room Air Room Air Orders (Tests/Meds): ED MEDICATIONS Generic Name Dose Route Start Last Admin Trade Name Freq PRN Reason Stop Dose Admin Albuterol Sulfate 2 puffs 11/07/20 20:37 11/07/20 20:53 Albuterol-Hfa 90mcg/Puff Inhaler 8gm IH 12/07/20 20:36 2 puffs Q4HP PRN Administration Shortness Of Breath Discontinued Medications Generic Name Dose Route Start Last Admin Trade Name Freq PRN Reason Stop Dose Admin Ceftriaxone Sodium 1 gm 11/07/20 20:37 11/07/20 20:56 Ceftriaxone 1gm Vial IM 11/07/20 20:38 1 gm ONCE ONE Administration Protocol Lidocaine HCl 0 ml 11/07/20 20:37 11/07/20 20:56 Lidocaine 1% 5ml Pf Vial IM 11/07/20 20:38 2.1 ml ONCE ONE Administration Miscellaneous 1 unit 11/07/20 20:37 11/07/20 20:57 Aerochamber/Optihaler MC 11/07/20 20:38 1 unit ONCE ONE Administration Prednisone 20 mg 11/07/20 20:49 11/07/20 20:57 Prednisone 20mg Tab PO 11/07/20 20:50 20 mg ONCE ONE Administration [facility] [place] General Stated complaint: possible
[2020-11-07 21:10] VITALS: BP 160/95; PULSE 74; RESP 16; TEMP 36.8; O2SAT 99
== END 2020-11-07 21:13 | disposition home or self-care (01) ==
PROVIDERS: Emergency Provider Nurse Practitioner; PCP Nurse Practitioner Family
DX: J20.9 Acute bronchitis, unspecified (principal); J32.9 Chronic sinusitis, unspecified; B02.9 Zoster without complications; G43.709 Chronic migraine without aura, not intractable, without status migrainosus; F41.8 Other specified anxiety disorders; K21.9 Gastro-esophageal reflux disease without esophagitis; F17.210 Nicotine dependence, cigarettes, uncomplicated; Z88.2 Allergy status to sulfonamides; Z79.899 Other long term (current) drug therapy
CPT/HCPCS: 96372; 99202; G0463

== ENCOUNTER → 2021-04-10 12:29 | Outpatient (CLI) | payer OTHER, SELFPAY | PROVIDERS: PCP Nurse Practitioner Family; Visit Provider Nurse Practitioner Family | DX: G47.00 Insomnia, unspecified (principal); R51.9 Headache, unspecified; R06.89 Other abnormalities of breathing; R53.83 Other fatigue; G43.909 Migraine, unspecified, not intractable, without status migrainosus | CPT/HCPCS: 95806 ==

== ENCOUNTER 2021-07-11 13:00 | Outpatient (RCR) | payer OTHER, SELFPAY ==
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
== END 2021-08-15 10:13 | disposition home or self-care (01) ==
LOC: PT.CARL 13:00
PROVIDERS: PCP Nurse Practitioner Family; Visit Provider Nurse Practitioner Family
DX: G43.719 Chronic migraine without aura, intractable, without status migrainosus (principal)
CPT/HCPCS: 97010; 97035; 97110; 97140; 97163

== ENCOUNTER 2021-12-26 07:28 | Emergency (ER) | payer OTHER, SELFPAY ==
[2021-12-26 07:29] VITALS: BP 151/91; PULSE 64; RESP 18; TEMP 36.6; O2SAT 98; BMI 32.9
--- NOTE | 2021-12-26 07:47 | PC.NURSE ---
DR. CHAUDHARY AT BEDSIDE FOR EVALUATION
--- NOTE | 2021-12-26 07:50 | HMH.EDSKAF ---
Discharge Plan Disposition Patient Disposition: Home, Self-Care Prescriptions Prescriptions: New valacyclovir [Valtrex] 1 gram tablet 1,000 mg PO Q8H Qty: 21 0RF No Action ubrogepant [Ubrelvy] 100 mg tablet 0RF Emgality Pen 120 mg/mL pen injector 120 mg SQ QMONTH 30 Days Qty: 1 5RF Rx Instructions: bring to clinic for initial dose, do not self administer first injection Ubrelvy 100 mg tablet 100 mg PO ONCE PRN (Reason: migraine ) Qty: 16 5RF Rx Instructions: Take 100 mg at onset of headache. May repeat after 2 hours if symptoms persist. Max dose 2 tablets in 24 hours. topiramate 50 mg tablet 150 mg PO DAILY MDD 150 mg Rx Instructions: 3 tablets at night Referrals Follow up/Referrals: Johnna Fox APRN [Primary Care Provider] - See instructions Clinical Impressions Clinical Impression: Shingles Instructions Patient Instructions: DI for Shingles Discharge ED Provider: Andrés Rain Skin/Abscess/FB HPI General Chief complaint: Skin/Abscess/Foreign Body Stated complaint: rash on left leg Time Seen by Provider: 12/26/21 07:50 Mode of Arrival: Ambulatory Source of Information: Patient and Medical Record Limitations: No Limitations Description of Symptoms (Recalled from ER Triage Doc. by RN): PT WITH QUARTER SIZE, RED BLISTERED AREA TO LEFT UPPER THIGH. STATES SHE HAS HAD SHINGLES BEFORE AND THIS IS SIMILAR History of Present Illness HPI narrative: has rash to lt thigh with hx of shingles MD complaint: rash Onset (ago): hour(s) Tetanus up to date: unsure Location: LLE Severity: moderate Quality: pruritic Context: other (recurrent shingles ) Associated symptoms: denies other symptoms Treatments prior to arrival: none Related Data Home Medications Medication Instructions Recorded Confirmed topiramate 50 mg tablet 150 mg PO DAILY MIGRAINES 04/05/21 06/05/21 Previous Rx's Medication Instructions Recorded galcanezumab-gnlm 120 mg/mL 120 mg SQ QMONTH migraine 06/05/21 subcutaneous pen injector prevention 30 days #1 mL (Emgality Pen) ubrogepant 100 mg tablet (Ubrelvy) 100 mg PO ONCE PRN migraine 06/05/21 #16 tabs valacyclovir 1 gram tablet 1,000 mg PO Q8H #21 tabs 12/26/21 (Valtrex) Allergies Allergy/AdvReac Type Severity Reaction Status Date / Time sulfamethoxazole Allergy Unknown Verified 06/05/21 11:10 [SULFAMETHOXAZOLE] trimethoprim [TRIMETHOPRIM] Allergy Unknown Ver[facility] 06/05/21 11[facility] Medical History (Updated 12/26/21 @ 07:57 by Andrés Rain MD) Anxiety Asthma History of gastroesophageal reflux (GERD) Surgical History (Updated 12/26/21 @ 07:42 by Mariama Lion RN) History of hysterectomy Family History (Updated 12/26/21 @ 07:42 by Mariama Lion, RN) No significant family history Social History (Updated 12/26/21 @ 07:43 by Mariama Lion RN) Smoking Status: Current every day smoker tobacco type: cigarettes packs per day: 1 and e-cigarettes alcohol intake: never substance use type: marijuana current occupational status: unemployed Travel in the last 8 weeks: None household members: none housing: house ROS Obtained: Yes All systems reviewed & no additional complaints except as documented Physical Exam General General appearance: alert Head Head exam: normocephalic Eye Eye exam: Present PERRL and EOMI ENT ENT exam: Present normal oropharynx Neck Neck exam: Present trachea midline Respiratory Respiratory exam: Absent respiratory distress Cardiovascular Cardiovascular exam: Present regular rate Extremities Exam Extremities exam: Present full ROM Neurological Exam Neurological exam: Present alert, oriented X3 and CN II-XII intact Skin Skin exam: Present rash (consistent with shingles ) Medical Decision Making Medical Records Medical records reviewed: Yes I reviewed the patient's medical records. Jay Inquiry Pt receiving contro
[2021-12-26 08:30] VITALS: BP 151/91; PULSE 64; RESP 18; TEMP 36.6; O2SAT 98
== END 2021-12-26 08:32 | disposition home or self-care (01) ==
PROVIDERS: Emergency Provider Emergency Medicine; PCP Nurse Practitioner Family
DX: B02.9 Zoster without complications (principal); Z88.8 Allergy status to other drugs, medicaments and biological substances; F41.9 Anxiety disorder, unspecified; J45.909 Unspecified asthma, uncomplicated; K21.9 Gastro-esophageal reflux disease without esophagitis; Z72.0 Tobacco use
CPT/HCPCS: 99283

== ENCOUNTER → 2022-02-21 07:49 | Outpatient (CLI) | payer OTHER, SELFPAY ==
--- NOTE | 2022-02-21 07:50 | MM_ITS ---
PROCEDURE INFORMATION: Exam: MG Bilateral Screening 3D Mammography Exam date and time: 02/21/2022 7:56 AM Age: 46 years old Clinical indication: Screening examination TECHNIQUE: Imaging protocol: Bilateral Screening tomosynthesis and 2D mammography including computer-aided detection (CAD) when performed. COMPARISON: 1. MG DMSB DIG MAMM-SCREEN NO W/CAD 09/27/2016 10:42 AM 2. BREASTLT US breast LT complete 02/02/2018 10:16 AM FINDINGS: MAMMOGRAPHY: Breast composition: There are scattered areas of fibroglandular density. Mass: None. Architectural distortion: None. Calcifications: No suspicious calcifications. Asymmetric density: None. Skin thickening: None. Axillary adenopathy: None. IMPRESSION: No mammographic evidence of malignancy. Annual screening is recommended unless otherwise clinically indicated. ASSESSMENT: BI-RADS Category 1: Negative
== END ==
PROVIDERS: PCP Nurse Practitioner Family; Visit Provider Nurse Practitioner Obstetrics & Gynecology
DX: Z12.31 Encounter for screening mammogram for malignant neoplasm of breast (principal)
CPT/HCPCS: 77063; 77067

== ENCOUNTER 2023-02-08 19:10 | Emergency (ER) | payer OTHER, SELFPAY ==
[2023-02-08] VITALS (9 sets, daily range): BP systolic 116–178; BP diastolic 79–92; PULSE 55–70; RESP 14–20; TEMP 36.9; O2SAT 98–99; BMI 35.6
--- NOTE | 2023-02-08 19:10 | ECG_ITS ---
APPROVED REPORT Exam: Resting ECG HR:70 bpm ECG Measurements Heart Rate 70 AXES FL 149 P 66 QRSd 88 QRS 64 QT 372 T 41 QTc 393 Conclusion SINUS RHYTHM NORMAL ECG UNCONFIRMED REPORT Electronically signed by : Eulalio Roberts MD 02/10/2023 08:33:23
--- NOTE | 2023-02-08 19:36 | XR_ITS ---
PROCEDURE INFORMATION: Exam: XR Chest Exam date and time: 02/08/2023 8:13 PM Age: 47 years old Clinical indication: Pain; Chest pressure; Additional info: Chest pain TECHNIQUE: Imaging protocol: Radiologic exam of the chest. Views: 1 view. COMPARISON: CR CXR2V XR chest 2V 01/28/2018 3:48 PM FINDINGS: Lungs: No evidence of acute pulmonary disease or infiltrates; lung wright appear clear. Pleural spaces: No evidence of pleural effusion, pneumothorax, or pleural thickening in the visualized pleural spaces. Heart/Mediastinum: No evidence of mediastinal widening or cardiac silhouette enlargement; the mediastinum and heart appear within normal limits for contour and size. Bones/joints: No evidence of acute osseous abnormalities within the visualized portions of the thoracic spine and ribs. Osseous structures appear appropriate for patient age. IMPRESSION: Negative study. No acute cardiopulmonary abnormalities identified. Osseous structures within the visualized portions of the thoracic spine and ribs show no acute abnormalities and appear appropriate for patient age.
--- NOTE | 2023-02-08 19:40 | HMH.EDGENADL ---
Discharge Plan Disposition Patient Disposition: Home, Self-Care Chief Complaint: Chest Pain Prescriptions Prescriptions: No Action Ubrelvy 100 mg tablet 100 mg PO ONCE PRN (Reason: Episodic migraine) Qty: 10 5RF Rx Instructions: Take 100 mg at onset of symptoms. May repeat after 2 hours if symptoms persist. Max dose 200 mg in 24 hours. Gemtesa 75 mg tablet 75 mg PO DAILY topiramate 50 mg tablet 150 mg PO DAILY 90 Days Qty: 270 1RF Referrals Follow up/Referrals: Mikhail Singer MD [Staff Physician] - See instructions Provider,MD Jarrell [Primary Care Provider] - See instructions Activity Restrictions/Add. Instructions Additional Instructions/Restrictions: At this time it was felt you are safe to be discharged home. If new or worsening symptoms please do not hesitate to return the emergency department. Please call and schedule a follow-up with Dr. Singer early next week Clinical Impressions Clinical Impression: Chest pain Discharge ED Provider: Benjamin Washburn General Adult HPI General Chief complaint: Chest Pain Stated complaint: Chest pain Time Seen by Provider: 02/08/23 19:26 Mode of Arrival: Ambulatory Limitations: No Limitations Description of Symptoms (Recalled from ER Triage Doc. by RN): Presents to ED with c/o mid sternal chest pain that radiates down left elbow that began this morning at approx. 0630 when she was laying down. Denies cardiac hx or SOA. Patient reports hx of anxiety and is not on any medications. History of Present Illness HPI narrative: Patient is a 47-year-old female with past medical history of anxiety who presents emergency department for evaluation of chest pain. Onset was acute, occurring this morning, radiating up into her left shoulder. Patient has had multiple episodes before which she attributes to anxiety which have spontaneously abated however due to persistence she presents here for continued evaluation. No other acute complaints at this time. Related Data Home Medications Medication Instructions Recorded Confirmed vibegron 75 mg tablet (Gemtesa) 75 mg PO DAILY 12/31/22 12/31/22 Previous Rx's Medication Instructions Recorded ubrogepant 100 mg tablet (Ubrelvy) 100 mg PO ONCE PRN Episodic 11/19/22 migraine #10 tabs topiramate 50 mg tablet 150 mg PO DAILY migraine 12/31/22 prevention 90 days #270 tabs Allergies Allergy/AdvReac Type Severity Reaction Status Date / Time sulfamethoxazole Allergy Unknown Verified 12/31/22 14:05 [SULFAMETHOXAZOLE] trimethoprim [TRIMETHOPRIM] Allergy Unknown Verified 12/31/22 14:05 [facility] Disclaimer: The information contained in this section may have been updated after the patient was seen, as this information can be updated by other users. Medical History Anxiety Asthma History of gastroesophageal reflux (GERD) Surgical History History of bladder repair surgery History of hysterectomy Family History Other Cancer No significant family history Social History Smoking Status: Current every day smoker tobacco type: cigarettes packs per day: 1 and e-cigarettes alcohol intake: never substance use type: marijuana current occupational status: unemployed Travel in the last 8 weeks: None household members: none housing: house ROS Obtained: Yes Systems reviewed as appropriate & no additional complaints except as documented Physical Exam General General appearance: alert and in no apparent distress Head Head exam: atraumatic and normocephalic Eye Eye exam: Present PERRL and EOMI ENT ENT exam: Present mucous membranes moist Neck Neck exam: Present normal inspection Chest Chest inspection: Present normal inspection and symmetric chest wall r
[2023-02-08 19:44] LABS: Basophils % 0.4 % (0.1-2.0); Chloride 113 mmol/L (98-107); Eosinophils # 0.2 K/mm3 (0.0-0.4); Eosinophils % 1.5 % (0.1-12.0); Hematocrit 43.6 % (37.0-47.0); Lymphocytes % 25.1 % (10-50); Mean Corpuscular HGB Conc 34.3 g/dL (31.8-35.4); Mean Corpuscular Hemoglobin 32.8 pg (27.0-31.2); Mean Corpuscular Volume 95.6 fl (81-99); Mean Platelet Volume 7.9 fl (7.4-10.4); Monocytes # 0.7 K/mm3 (0.1-1.0); Monocytes % 5.5 % (1.7-9.3); Neutrophils % 67.5 % (37.0-80.0); Platelet Count 214 K/mm3 (142-424); Potassium 3.8 mmoL/L (3.5-5.1); Red Blood Count 4.56 M/mm3 (4.20-5.40); Red Cell Distribution Width 13.4 % (11.5-17.5); Sodium 138 mmol/L (136-145); White Blood Count 11.8 K/mm3 (4.8-10.8)
[2023-02-08 19:46] LABS: Alanine Aminotransferase 27 U/L (12-78); Aspartate Amino Transferase 29 U/L (14-36); Blood Urea Nitrogen 12 mg/dl (7-17); Creatinine Clearance Estimated 121 mL/min (50-200); Estimated Glomerular Filt Rate 77 ml/min (>60); GFR (African American) 93 ML/MIN (>60)
[2023-02-08 19:47] LABS: Albumin Level 4.2 g/dl (3.5-5.0); Albumin/Globulin Ratio 1.4 (1.1-1.8); Alkaline Phosphatase 54 U/L (38-126); Anion Gap 9.8 mEq/L (5-15); Bilirubin,Total < 0.1 mg/dl (0.2-1.3); Calcium 8.7 mg/dl (8.4-10.2); Carbon Dioxide 19 mmol/L (22.0-30.0); Globulin 2.9 g/dL (1.3-3.2); Glucose 141 mg/dl (74-100); Total Protein,Serum 7.1 g/dl (6.3-8.2)
--- NOTE | 2023-02-08 19:50 | PC.NURSE ---
rounded on pt no needs at this time
[2023-02-08 20:13] LABS: Troponin I < 0.01 ng/ml (0.00-0.034)
--- NOTE | 2023-02-08 22:35 | PC.NURSE ---
Rounded on patient. Provided patient crackers and a drink. nothing else needed at this time. Updated on plan of care. Call light within reach
[2023-02-08 22:54] LABS: Troponin I < 0.01 ng/ml (0.00-0.034)
--- NOTE | 2023-02-08 22:56 | PC.NURSE ---
rounded on pt, no new complaints at this time. pt denies pain.
== END 2023-02-08 23:05 | disposition home or self-care (01) ==
PROVIDERS: Emergency Provider Emergency Medicine
DX: R07.9 Chest pain, unspecified (principal); F17.210 Nicotine dependence, cigarettes, uncomplicated; J45.909 Unspecified asthma, uncomplicated; K21.9 Gastro-esophageal reflux disease without esophagitis; F41.9 Anxiety disorder, unspecified
CPT/HCPCS: 36415; 71045; 80053; 84484; 85025; 93005; 96374; 96375; 99284; J0131; J2405

== ENCOUNTER 2023-02-10 20:29 | Emergency (ER) | payer OTHER, SELFPAY ==
[2023-02-10] VITALS (9 sets, daily range): BP systolic 102–174; BP diastolic 73–109; PULSE 19–92; RESP 16–28; TEMP 36.4; O2SAT 96–98; BMI 34.0
--- NOTE | 2023-02-10 20:28 | ECG_ITS ---
APPROVED REPORT Exam: Resting ECG HR:72 bpm ECG Measurements Heart Rate 72 AXES PA 151 P 66 QRSd 89 QRS 67 QT 375 T 41 QTc 398 Conclusion SINUS RHYTHM NONSPECIFIC T-WAVE ABNORMALITY BORDERLINE ECG UNCONFIRMED REPORT Electronically signed by : Eulalio Roberts MD 02/11/2023 14:42:14
--- NOTE | 2023-02-10 21:07 | CT_ITS ---
PROCEDURE INFORMATION: Exam: CTA Chest With Contrast Exam date and time: 02/10/2023 9:46 PM Age: 47 years old Clinical indication: Pain; Chest pressure; Additional info: Jeremi dowd TECHNIQUE: Imaging protocol: Computed tomographic angiography of the chest with contrast. Exam focused on the arteries. 3D rendering (Not supervised by radiologist): MIP and/or 3D reconstructed images were created by the technologist. Radiation optimization: All CT scans at this facility use at least one of these dose optimization techniques: automated exposure control; mA and/or kV adjustment per patient size (includes targeted exams where dose is matched to clinical indication); or iterative reconstruction. Contrast material: ISO 370; Contrast volume: 100 ml; Contrast route: INTRAVENOUS (IV); REPORTING DATA: Count of CT and Cardiac NM exams in prior 12 months: This patient has received 0 known CTs and 0 known cardiac nuclear medicine studies in the 12 months prior to the current study. COMPARISON: CR XR CHEST PORTABLE 02/08/2023 8:13 PM FINDINGS: Pulmonary arteries: Normal. No pulmonary emboli. Aorta: Unremarkable. No aortic aneurysm. No aortic dissection. Lungs: Emphysema. No consolidation. Right apical scarring. Pleural spaces: Unremarkable. No pneumothorax. No pleural effusion. Heart: Unremarkable. No cardiomegaly. No pericardial effusion. Lymph nodes: Unremarkable. No enlarged lymph nodes. Bones/joints: Unremarkable. No acute fracture. Soft tissues: Unremarkable. IMPRESSION: No acute findings.
--- NOTE | 2023-02-10 21:10 | CT_ITS ---
PROCEDURE INFORMATION: Exam: CT Left Upper Extremity With Contrast, Upper Arm Exam date and time: 02/10/2023 9:53 PM Age: 47 years old Clinical indication: Pain; Upper arm; Left; Additional info: Pain out of proportion to exam TECHNIQUE: Imaging protocol: Computed tomography of the left upper extremity with contrast. Exam focused on the upper arm. Radiation optimization: All CT scans at this facility use at least one of these dose optimization techniques: automated exposure control; mA and/or kV adjustment per patient size (includes targeted exams where dose is matched to clinical indication); or iterative reconstruction. Contrast material: ISOVUE; Contrast volume: 70 ml; Contrast route: IV; REPORTING DATA: Count of CT and Cardiac NM exams in prior 12 months: This patient has received 0 known CTs and 0 known cardiac nuclear medicine studies in the 12 months prior to the current study. COMPARISON: CT ANGIO CHEST 02/10/2023 9:46 PM FINDINGS: Bones/joints: Normal. No acute fracture or dislocation. Soft tissues: There is ill-defined hyperdensity in the region of the glenoid labrum.No abscess. No soft tissue gas. IMPRESSION: There is ill-defined the areas of wispy hyperdensity in the region of the glenoid labrum. This could reflect an area of possible infection or hematoma. Recommend MRI to further evaluate these findings. No abscess or soft tissue gas.
--- NOTE | 2023-02-10 21:12 | HMH.EDGENADL ---
Discharge Plan Disposition Patient Disposition: Home, Self-Care Condition: Good Prescriptions Prescriptions: No Action Ubrelvy 100 mg tablet 100 mg PO ONCE PRN (Reason: Episodic migraine) Qty: 10 5RF Rx Instructions: Take 100 mg at onset of symptoms. May repeat after 2 hours if symptoms persist. Max dose 200 mg in 24 hours. Gemtesa 75 mg tablet 75 mg PO DAILY topiramate 50 mg tablet 150 mg PO DAILY 90 Days Qty: 270 1RF Referrals Follow up/Referrals: Chong Cali DO [Staff Physician] - See instructions Provider,Referral, [Primary Care Provider] - See instructions Activity Restrictions/Add. Instructions Additional Instructions/Restrictions: At this time it was felt you are safe to be discharged home. If new or worsening symptoms please do not hesitate to return the emergency department. Please follow-up with Dr. Cali tomorrow or at his clinic for continued evaluation. Please continue to follow-up with Dr. Singer as discussed. Clinical Impressions Clinical Impression: Chest pain, Acute shoulder pain, Inflammation of joint of left shoulder region Instructions Patient Instructions: DI for Atypical Chest Pain Discharge ED Provider: Vani Alcala General Adult HPI <Benjamin Washburn MD - Last Filed: 02/10/23 23:29> General Chief complaint: Chest Pain Stated complaint: chest pain Time Seen by Provider: 02/10/23 20:40 Mode of Arrival: Ambulatory Source of Information: Patient Limitations: No Limitations Description of Symptoms (Recalled from ER Triage Doc. by RN): pt c/o sharp, 01/28, L chest pain that radiates down her L arm to her elbow and up her neck. pt states she was here 02/08 for the same thing. pt states she has has a follow up from 02/[address] Singer on 02/13. History of Present Illness HPI narrative: Patient is a 47-year-old female who presents to the emergency department for evaluation of chest pain. Patient was recently evaluated by me in the emergency department and presents for repeat evaluation of chest pain. It is left-sided, substernal radiating up into her shoulder and down her proximal left upper extremity. Pain in her proximal left upper extremity has worsened since previously. Denies trauma. Previous work-up reviewed by me, hematologic labs were nonactionable and serial troponins were below detectable limit. Chest x-ray shows no acute findings. No other acute complaints at this time. Related Data Home Medications Medication Instructions Recorded Confirmed vibegron 75 mg tablet (Gemtesa) 75 mg PO DAILY 12/31/22 12/31/22 Previous Rx's Medication Instructions Recorded ubrogepant 100 mg tablet (Ubrelvy) 100 mg PO ONCE PRN Episodic 11/19/22 migraine #10 tabs topiramate 50 mg tablet 150 mg PO DAILY migraine 12/31/22 prevention 90 days #270 tabs Allergies Allergy/AdvReac Type Severity Reaction Status Date / Time sulfamethoxazole Allergy Unknown Verified 02/10/23 20:39 [SULFAMETHOXAZOLE] trimethoprim [TRIMETHOPRIM] Allergy Unknown Verified 02/10/23 20:39 REPLACED BY [facility] <Benjamin Washburn MD - Last Filed: 02/10/23 23:29> REPLACED BY [facility] Disclaimer: The information contained in this section may have been updated after the patient was seen, as this information can be updated by other users. Medical History Anxiety Asthma History of gastroesophageal reflux (GERD) Surgical History History of bladder repair surgery History of hysterectomy Family History Other Cancer No significant family history Social History Smoking Status: Current every day smoker tobacco type: cigarettes packs per day: 1 and e-cigarettes alcohol intake: never substance use type: marijuana current occupational status: unemployed Travel i
[2023-02-10 21:18] LABS: Basophils % 0.3 % (0.1-2.0); Eosinophils # 0.1 K/mm3 (0.0-0.4); Eosinophils % 0.8 % (0.1-12.0); Hematocrit 41.4 % (37.0-47.0); Hemoglobin 14.5 g/dL (12.2-16.2); Lymphocytes # 2.8 K/mm3 (0.7-4.5); Lymphocytes % 21.1 % (10-50); Mean Corpuscular HGB Conc 35.1 g/dL (31.8-35.4); Mean Corpuscular Hemoglobin 32.9 pg (27.0-31.2); Mean Corpuscular Volume 93.9 fl (81-99); Mean Platelet Volume 7.6 fl (7.4-10.4); Monocytes # 0.7 K/mm3 (0.1-1.0); Monocytes % 5.5 % (1.7-9.3); Neutrophils # 9.5 K/mm3 (1.8-7.8); Neutrophils % 72.3 % (37.0-80.0); Platelet Count 216 K/mm3 (142-424); Red Blood Count 4.41 M/mm3 (4.20-5.40); Red Cell Distribution Width 13.4 % (11.5-17.5); White Blood Count 13.1 K/mm3 (4.8-10.8)
[2023-02-10 21:20] LABS: Alanine Aminotransferase 30 U/L (12-78); Albumin Level 4.3 g/dl (3.5-5.0); Albumin/Globulin Ratio 1.3 (1.1-1.8); Alkaline Phosphatase 66 U/L (38-126); Anion Gap 13.5 mEq/L (5-15); Aspartate Amino Transferase 29 U/L (14-36); Bilirubin,Total 0.6 mg/dl (0.2-1.3); Blood Urea Nitrogen 9 mg/dl (7-17); Calcium 8.7 mg/dl (8.4-10.2); Carbon Dioxide 18 mmol/L (22.0-30.0); Chloride 108 mmol/L (98-107); Creatinine Clearance Estimated 116 mL/min (50-200); Estimated Glomerular Filt Rate 77 ml/min (>60); GFR (African American) 93 ML/MIN (>60); Globulin 3.2 g/dL (1.3-3.2); Glucose 158 mg/dl (74-100); Potassium 3.5 mmoL/L (3.5-5.1); Sodium 136 mmol/L (136-145); Total Protein,Serum 7.5 g/dl (6.3-8.2)
[2023-02-10 21:26] LABS: C-Reactive Protein 27.3 mg/L (0-4)
[2023-02-10 21:38] LABS: Troponin I < 0.01 ng/ml (0.00-0.034)
[2023-02-11 00:34] LABS: Troponin I < 0.01 ng/ml (0.00-0.034)
[2023-02-11 00:47] VITALS: BP 122/78; PULSE 92; RESP 16; TEMP 36.6; O2SAT 97
== END 2023-02-11 00:48 | disposition home or self-care (01) ==
PROVIDERS: Emergency Medicine; Emergency Provider Emergency Medicine
DX: R07.9 Chest pain, unspecified (principal); M25.519 Pain in unspecified shoulder; M19.012 Primary osteoarthritis, left shoulder
CPT/HCPCS: 71275; 73201; 80053; 84484; 85025; 86140; 93005; 96374; 99285; J0131; Q9967

== ENCOUNTER → 2023-02-13 09:38 | Outpatient (CLI) | payer OTHER, SELFPAY ==
[2023-02-13 10:01] LABS: Basophils % 0.4 % (0.1-2.0); Eosinophils # 0.1 K/mm3 (0.0-0.4); Eosinophils % 1.6 % (0.1-12.0); Hemoglobin 13.8 g/dL (12.2-16.2); Lymphocytes # 2.2 K/mm3 (0.7-4.5); Lymphocytes % 24.1 % (10-50); Mean Corpuscular HGB Conc 35.5 g/dL (31.8-35.4); Mean Corpuscular Hemoglobin 33.6 pg (27.0-31.2); Mean Corpuscular Volume 94.7 fl (81-99); Mean Platelet Volume 7.5 fl (7.4-10.4); Monocytes # 0.4 K/mm3 (0.1-1.0); Monocytes % 4.4 % (1.7-9.3); Neutrophils # 6.3 K/mm3 (1.8-7.8); Neutrophils % 69.5 % (37.0-80.0); Platelet Count 247 K/mm3 (142-424); Red Blood Count 4.12 M/mm3 (4.20-5.40); Red Cell Distribution Width 13.2 % (11.5-17.5); White Blood Count 9.1 K/mm3 (4.8-10.8)
[2023-02-13 11:29] LABS: Alanine Aminotransferase 22 U/L (12-78); Albumin Level 4.1 g/dl (3.5-5.0); Alkaline Phosphatase 61 U/L (38-126); Anion Gap 14.1 mEq/L (5-15); Aspartate Amino Transferase 25 U/L (14-36); Bilirubin,Direct 0.2 mg/dl (0.0-0.4); Bilirubin,Total 0.2 mg/dl (0.2-1.3); Blood Urea Nitrogen 15 mg/dl (7-17); Calcium 9.3 mg/dl (8.4-10.2); Carbon Dioxide 20 mmol/L (22.0-30.0); Chloride 113 mmol/L (98-107); Chol/HDL Ratio 2.8 (1-3.5); Cholesterol 133 mg/dl (140-200); Estimated Glomerular Filt Rate 77 ml/min (>60); GFR (African American) 93 ML/MIN (>60); Glucose 87 mg/dl (74-100); HDL Cholesterol 48 mg/dl (40-60); Magnesium 1.7 mg/dl (1.6-2.3); Potassium 4.1 mmoL/L (3.5-5.1); Sodium 143 mmol/L (136-145); Total Protein,Serum 6.9 g/dl (6.3-8.2); Triglycerides 86 mg/dl (30-150); VLDL Cholesterol 17 mg/dL (0-40)
[2023-02-13 11:40] LABS: Direct LDL Cholesterol 70.86 mg/dL (100-129)
[2023-02-13 11:45] LABS: Free T4 (Free Thyroxine) 1.06 ng/dl (0.78-2.19)
[2023-02-13 11:59] LABS: Thyroid Stimulating Hormone 1.71 uIU/mL (0.465-4.68)
[2023-02-13 14:14] LABS: Hemoglobin A1C 5.5 % (4.0-6.0)
== END ==
PROVIDERS: PCP Emergency Medicine; Visit Provider Physician Assistant
DX: R06.00 Dyspnea, unspecified (principal); R07.9 Chest pain, unspecified; F41.9 Anxiety disorder, unspecified; M25.512 Pain in left shoulder
CPT/HCPCS: 36415; 80048; 80061; 80076; 83036; 83735; 84439; 84443; 85025

== ENCOUNTER → 2023-02-18 09:39 | Outpatient (CLI) | payer OTHER, SELFPAY ==
--- NOTE | 2023-02-18 09:43 | XR_ITS ---
FINAL REPORT CLINICAL HISTORY: Lt shoulder Pain POSSIBLE INFECTION COMPARISON: None FINDINGS: LEFT SHOULDER Two views demonstrate no acute fracture or dislocation. The joint spaces appear normal. The visualized bony structures are well aligned. No soft tissue abnormality is seen. IMPRESSION: No acute process. Reviewed, Interpreted and Dictated by Chidi Scott III, MD Transcribed by Vanessa Hagan Authenticated and [facility]
== END ==
PROVIDERS: PCP Emergency Medicine; Visit Provider Orthopaedic Surgery
DX: M25.512 Pain in left shoulder (principal)
CPT/HCPCS: 73030

== ENCOUNTER → 2023-02-19 07:01 | Outpatient (CLI) | payer OTHER, SELFPAY ==
--- NOTE | 2023-02-19 07:02 | NM_ITS ---
APPROVED REPORT Exam: Nuclear Stress Test Indication: chest pain..soa..tobacco use..family hx Patient Location: Outpatient Stress Tech: Elma Plasencia [place] Tech:COMPA Pro RT(R)(N) Ht: 5 ft 2 in Wt: 182 lbs Bra Size: 36dd HR: 64 bpm BP: 137/69 mmHg BSA: 1.84 m2 TID: 1.35 BMI: 33.2 History: chest pain..soa..tobacco use..family hx Procedure: Patient received 0.4 mg of intravenous Adenosine, resting heart rate 64 bpm, resting blood pressure 137/69 mmHg, with Adenosine maximum heart rate achieved was 110 bpm which is 85 % of the maximum predicted heart rate and blood pressure was 162/90 mmHg. With Lexiscan, patient denied any complaint of chest pain. Cardiac Stress and Resting SPECT Images: Cardiac Stress and Resting SPECT images were obtained using technetium 99m Myoview 31.4 mCi stress and 10.10 mCi at rest. Resting and stress imaging in supine and prone positions demonstrate a medium sized, mild, partially reversible perfusion defect in the anterior LV wall. There is increased transient ischemic dilatation ratio (TID 1.35), suggestive of possible multivessel disease or balanced ischemia. Gated imaging demonstrates low-normal global and regional LV systolic function. LVEF is calculated at 51%. Conclusion: Medium sized, mild, partially reversible perfusion defect in the anterior LV wall. Findings are suggestive of partial reversible ischemia. There is increased transient ischemic dilatation ratio (TID 1.35), suggestive of possible multivessel disease or balanced ischemia. Gated imaging demonstrates low-normal global and regional LV systolic function. LVEF is calculated at 51%. Electronically signed by : Hermelinda Romero MD 02/21/2023 23:00:54
--- NOTE | 2023-02-19 07:36 | CA_ITS ---
APPROVED REPORT EXAM: Comprehensive 2D, Doppler, and color-flow Echocardiogram Whipper Beater: Erna Man RVT Ht: 5 ft 2 in Wt: 185lbs BSA: 1.85 BP: 152/62 mmHg Indications: SOA,CP,EDEMA,SMOKER,ASTHMA 2D Dimensions IVSd 0.92 cm F: 0.6-1.0 LVEF (Visual) 53.20 % PWd 0.60 cm F: 0.6 - 1.0 LA Volume 40.80 mL LVDd 4.68 cm F: 3.9 - 5.3 LA Volume Index 22.05 mL/m2 (M/F) 16-34 LVDs 3.40 cm F: 2.2 - 3.5 LVOT 2.18 cm (M/F) 1.5-2.5 M-Mode Dimensions LA Diam 3.18 cm (1.9-4.0) Ao Diam 2.82 cm (2.0-3.7) TAPSE 2.70 (<1.7) LV Diastology E Decel Time 150.00 (160-240 msec) E/A Ratio 1.3 Aortic Valve LVOT Max 110.00 (70-110 cm/s) LVOT VTI 24.68 cm AoV Peak Jermaine. 142.00 (50-130 cm/s) AO Peak GR. 8.10 mmHg AO Mean GR. 3.30 (<5 mmHg) AO VTI 28.38 (18-25 cm) KLAUS (VTI) 3.25 (2.5-4.5 cm2) Mitral Valve MV E Max Jermaine. 81.00 (40-130 cm/s) MV A Velocity 61.00 (40-130 cm/s) E/A Ratio 1.32 MV Decel. Time 150.00 (160-240 ms) MV PHT 44.00 ms Pulmonary Valve PV Peak Velocity 101.00 (50-150 cm/s) Left Ventricle The left ventricle is normal size. The left ventricular systolic function is normal. The left ventricular ejection fraction is within the normal range. There is normal left ventricular wall thickness. There is mild hypokinesis inferior and inferior lateral LV wilkerson. The left ventricular diastolic function is normal. LVEF is 55%. Right Ventricle The right ventricle is normal size. The right ventricular systolic function is normal. Atria The left atrium size is normal. The right atrium size is normal. There is no Doppler evidence of interatrial shunt. Aortic Valve The aortic valve is mildly thickened. There is no aortic valvular stenosis. Trace aortic regurgitation. Mitral Valve The mitral valve is normal in structure. No evidence of mitral valve stenosis. Trace mitral regurgitation. Tricuspid Valve The tricuspid valve leaflets are thin and pliable. Trace tricuspid regurgitation. There is insufficient TR jet to estimate RVSP. Pulmonic Valve The pulmonary valve is normal in structure. Trace pulmonic regurgitation. Great Vessels The aortic root is normal in size. The ascending aorta is not well visualized. IVC is normal in size and collapses >50% with inspiration. Pericardium There is no pericardial effusion. Other Information Study Quality: Fair Conclusion Normal biventricular systolic function. Mild hypokinesis inferior and inferior lateral LV wilkerson. No significant valvular stenosis or regurgitation. Electronically signed by : Hermelinda Romero MD 02/21/2023 21:20:01
--- NOTE | 2023-02-19 10:32 | CA_ITS ---
APPROVED REPORT Exam: Pharmacologic Technologist: Elma Nance, Ht: 5 ft 3 in Wt: 182 lbs BSA: 1.86 m2 HR: 56 bpm BP: 137/69 mmHg Rhythm: NSR Medical History Medications: Asa,,,,, TopIRAMATE,,,,, DOxycycline,,,,, UBrogepant,,,,, MonOHYDRATE,,,,, ViBegnon,,,,, Stress Test Details Test: LEXISCAN Reason for pharmacologic stress test: physical limitation. HR Resting HR: 64 bpm Max Heart Rate (APMHR): 173 bpm Max HR Achieved: 110 bpm Target HR (85% APMHR): 147 bpm % of APMHR: 64 Recovery HR: 78 bpm BP Resting BP: 137.0/69.0 mmHg Max BP: 162.0/90.0 mmHg Recovery BP: 131.0/79.0 mmHg ECG Resting ECG: Sinus bradycardia Stress ECG: New T-wave changes in inferolateral leads Arrhythmia: PVCs Clinical Exercise duration: 04:00 min Highest Stage Achieved: Exercise capacity: 1.0 METs Stress ECG Conclusion Symptoms: mild chest discomfort, SOA, head discomfort, stomach discomfort. Arrhythmias/Ectopy: frequent PVCs ST-T Changes: New T-wave changes in inferolateral leads Conclusion: ECG changes suggestive of possible ischemia following administration of Lexiscan. Myoview images reported separately. Test Summary REST . . . . . . . Resting REST 01:34 . . 64 . 137/ 69 . . Stage 1 01:00 . . 99 . . . . Stage 2 01:00 . . 110 . . . . Stage 3 01:00 . . 101 . 160/ 90 . . Stage 4 01:00 . . 95 . 161/ 79 . Stop exercise at 04:00 RECOVERY 01:00 . . 82 . 160/ 82 . . RECOVERY 02:00 . . 79 . 154/ 79 . . RECOVERY 03:00 . . 78 . 131/ 79 . . RECOVERY 03:23 . . 80 . 131/ 79 . . Electronically signed by : Hermelinda Romero MD 02/21/2023 22:56:29
== END ==
PROVIDERS: PCP Emergency Medicine; Visit Provider Physician Assistant
DX: R06.00 Dyspnea, unspecified (principal); R07.9 Chest pain, unspecified; F41.9 Anxiety disorder, unspecified; M25.512 Pain in left shoulder
CPT/HCPCS: 78452; 93017; 93018; 93306; A9502; J2785

== ENCOUNTER → 2023-02-21 07:18 | Outpatient (CLI) | payer OTHER, SELFPAY ==
--- NOTE | 2023-02-21 07:24 | MR_ITS ---
FINAL REPORT CLINICAL HISTORY: lt shoulder pain. NO INJURY OR TRAUMA. LIMITED ROM COMPARISON: None FINDINGS: Multiplanar MR imaging of the left shoulder was performed without contrast. There is motion on many sequences which somewhat limits overall image quality. The tendons of the rotator cuff are intact without evidence of rotator cuff tear. There is mild acromioclavicular degenerative change. There is a small amount of fluid present in the subacromial subdeltoid bursa. The glenoid labrum is intact. The long head of the biceps tendon is intact. No significant glenohumeral joint effusion is seen. There is no evidence of fracture or dislocation. The musculature is intact. There is thickening of the joint capsule in the axillary recess consistent with adhesive capsulitis, with adjacent soft tissue edema. IMPRESSION: Mild acromioclavicular degenerative change with a small amount of fluid in the bursa. Thickening of the joint capsule in the axillary recess, consistent with adhesive capsulitis, with adjacent soft tissue edema. Reviewed, Interpreted and Dictated by Chidi Scott III, MD Transcribed by Vanessa Hagan Authenticated and [facility]
== END ==
PROVIDERS: PCP Emergency Medicine; Visit Provider Orthopaedic Surgery
DX: M19.012 Primary osteoarthritis, left shoulder (principal)
CPT/HCPCS: 73221

== ENCOUNTER 2023-03-25 07:02 | Day surgery (SDC) | payer OTHER, SELFPAY ==
[2023-03-25] VITALS (15 sets, daily range): BP systolic 112–186; BP diastolic 62–104; PULSE 53–71; RESP 17–18; O2SAT 94–100; BMI 33.3
--- NOTE | 2023-03-25 | IR_ITS ---
APPROVED REPORT Patient Location: Outpatient Cardiac/Vascular Sonographer: COMPA Diaz RT (R) PROCEDURES Left heart catheterization Left ventriculogram Selective coronary angiogram Drug-eluting stent deployment to the proximal to mid LAD Drug-eluting stent deployment into the ostial proximal first diagonal artery INDICATION High risk abnormal Myoview, Angina pectoris, Coronary artery disease Informed consent was obtained prior to the procedure. COMPLICATIONS None Estimated Blood Loss: Less than 10 mls TECHNIQUE One percent lidocaine used to anesthetize the right anterior aspect of the wrist. The right radial artery was accessed via the Seldinger technique. A 6 Macanese sheath was placed in the right radial artery. 2.5 mg of Verapamil, 800 mcg of nitroglycerin, 1mg Lidocaine and 5000 U Heparin were given through the arterial sheath. The papa catheter and 6 Macanese JR 3 guide catheter were also used to perform left heart catheterization, left ventriculogram and selective coronary angiogram. At the end of the diagnostic angiogram therapeutic heparin was administered giving a therapeutic ACT and the guide catheter was placed in left main artery followed by Choice PT extra-support wire being placed down the LAD. A 2.75 x 18 mm Perry frontier stent was deployed at 18 lillian reducing the stenosis. An additional wire was placed in the first diagonal artery and the struts were opened using a 2 mm compliant balloon. Following this an additional 2.75 x 12 mm Perry frontier stent was placed into the LAD extending into the first diagonal artery and deployed at 18 lillian. An additional wire was placed into the LAD and the struts from the diagonal artery asked were then dilated and a 3 mm x 8 mm noncompliant balloon was deployed at 20 lillian proximally in the LAD advanced into the mid LAD at the bifurcation of the first diagonal artery and then deployed at 12 mmHg. Excellent angiographic results were obtained with MARK-3 flow being present down the LAD and diagonal artery before and after the procedure. At the end the procedure the apparatus was removed the sheath was removed and hemostasis was achieved using TR banding patient was transferred to the postop holding in stable condition. IV labetalol and arterial nitroglycerin was administered during the procedure for hypertension ANGIOGRAPHIC RESULTS The left main artery Normal The left anterior descending artery Has proximal concentric 70% stenosis with remaining vessel being normal. Large first diagonal artery has an ostial 70 to 80% stenosis with remaining vessel being normal The circumflex artery Nondominant and normal The right coronary artery Large dominant and normal The ZAIDI ventriculogram reveals Normal at 65% The left ventricular end-diastolic pressure Elevated at 25 to 30 mmHg IMPRESSION Severe proximal LAD disease which extended into the ostial segment of the large first diagonal artery Successful stenting of the proximal LAD with bifurcating stent into a large first diagonal artery reducing the severe stenosis to 0% with 2 drug-eluting stents placed in a bifurcating manner as described above Normal ejection fraction Moderate to severely elevated LVEDP likely secondary to hypertensive heart disease PLAN 1. Effient 10 mg daily plus aspirin 81 mg daily 2. Tight control of hypertension 3. Avoidance of tobacco products 4. LDL less than 55 to be achieved with high intensity statin 5. Cardiac rehabilitation 6. Aggressive risk factor modification Electronically signed by : Mikhail Singer MD 03/25/2023 10:55:36
[2023-03-25 08:16] LABS: Basophils # 0.1 K/mm3 (0-0.2); Basophils % 0.6 % (0.1-2.0); Eosinophils # 0.1 K/mm3 (0.0-0.4); Eosinophils % 1.2 % (0.1-12.0); Hematocrit 44.5 % (37.0-47.0); Hemoglobin 14.9 g/dL (12.2-16.2); Lymphocytes # 2.3 K/mm3 (0.7-4.5); Lymphocytes % 21.2 % (10-50); Mean Corpuscular HGB Conc 33.5 g/dL (31.8-35.4); Mean Corpuscular Volume 95.3 fl (81-99); Mean Platelet Volume 7.9 fl (7.4-10.4); Monocytes # 0.4 K/mm3 (0.1-1.0); Monocytes % 3.7 % (1.7-9.3); Neutrophils % 73.3 % (37.0-80.0); Platelet Count 252 K/mm3 (142-424); Red Blood Count 4.67 M/mm3 (4.20-5.40); Red Cell Distribution Width 13.3 % (11.5-17.5); White Blood Count 10.9 K/mm3 (4.8-10.8)
[2023-03-25 08:23] LABS: Chloride 111 mmol/L (98-107); Sodium 141 mmol/L (136-145)
[2023-03-25 08:26] LABS: Blood Urea Nitrogen 13 mg/dl (7-17); Creatinine Clearance Estimated 113 mL/min (50-200); Estimated Glomerular Filt Rate 77 ml/min (>60); GFR (African American) 93 ML/MIN (>60)
[2023-03-25 08:27] LABS: Carbon Dioxide 23 mmol/L (22.0-30.0); Glucose 106 mg/dl (74-100)
[2023-03-25 08:35] LABS: HCG Qualitative, Serum Negative (Negative)
[2023-03-25 14:48] LABS: CATHL Activated Clotting Time > 400 SEC (74-125)
== END 2023-03-25 14:52 | disposition home or self-care (01) ==
PROVIDERS: PCP Emergency Medicine; Visit Provider Internal Medicine
DX: R07.9 Chest pain, unspecified (principal); I25.118 Atherosclerotic heart disease of native coronary artery with other forms of angina pectoris; Z79.899 Other long term (current) drug therapy; F17.210 Nicotine dependence, cigarettes, uncomplicated; R06.09 Other forms of dyspnea; I11.9 Hypertensive heart disease without heart failure
CPT/HCPCS: 80048; 84703; 85025; 85347; 92928; 92929; 93458; 99152; 99153; C1725; C1769; C1876; C9600; C9601; J1644; Q9967

== ENCOUNTER → 2023-04-02 08:56 | Outpatient (CLI) | payer OTHER, SELFPAY ==
[2023-04-02 09:24] LABS: Basophils # 0.1 K/mm3 (0-0.2); Basophils % 0.5 % (0.1-2.0); Eosinophils # 0.1 K/mm3 (0.0-0.4); Eosinophils % 0.9 % (0.1-12.0); Hematocrit 44.7 % (37.0-47.0); Hemoglobin 15.3 g/dL (12.2-16.2); Lymphocytes # 2.2 K/mm3 (0.7-4.5); Lymphocytes % 17.3 % (10-50); Mean Corpuscular HGB Conc 34.2 g/dL (31.8-35.4); Mean Corpuscular Hemoglobin 31.9 pg (27.0-31.2); Mean Corpuscular Volume 93.2 fl (81-99); Mean Platelet Volume 7.5 fl (7.4-10.4); Monocytes # 0.6 K/mm3 (0.1-1.0); Monocytes % 4.9 % (1.7-9.3); Neutrophils # 9.5 K/mm3 (1.8-7.8); Neutrophils % 76.5 % (37.0-80.0); Platelet Count 267 K/mm3 (142-424); Red Cell Distribution Width 13.4 % (11.5-17.5); White Blood Count 12.5 K/mm3 (4.8-10.8)
[2023-04-02 10:22] LABS: Chloride 110 mmol/L (98-107); Sodium 140 mmol/L (136-145)
[2023-04-02 10:23] LABS: Potassium 3.7 mmoL/L (3.5-5.1)
[2023-04-02 10:25] LABS: Blood Urea Nitrogen 10 mg/dl (7-17); Estimated Glomerular Filt Rate 77 ml/min (>60); GFR (African American) 93 ML/MIN (>60)
[2023-04-02 10:26] LABS: Anion Gap 11.7 mEq/L (5-15); Calcium 8.9 mg/dl (8.4-10.2); Carbon Dioxide 22 mmol/L (22.0-30.0); Glucose 95 mg/dl (74-100)
== END ==
PROVIDERS: PCP Internal Medicine; Visit Provider Internal Medicine
DX: I25.10 Atherosclerotic heart disease of native coronary artery without angina pectoris (principal); Z98.61 Coronary angioplasty status; Z72.0 Tobacco use
CPT/HCPCS: 36415; 80048; 85025

== ENCOUNTER 2023-04-15 11:57 | Emergency (ER) | payer OTHER, SELFPAY ==
[2023-04-15] VITALS (8 sets, daily range): BP systolic 107–149; BP diastolic 66–83; PULSE 53–71; RESP 10–24; TEMP 36.7; O2SAT 97–100; BMI 28.1
--- NOTE | 2023-04-15 11:59 | ECG_ITS ---
APPROVED REPORT Exam: Resting ECG HR:71 bpm ECG Measurements Heart Rate 71 AXES TX 161 P 60 QRSd 87 QRS 40 QT 374 T 40 QTc 397 Conclusion SINUS RHYTHM NONSPECIFIC T-WAVE ABNORMALITY BORDERLINE ECG UNCONFIRMED REPORT Electronically signed by : Eulalio Roberts MD 04/16/2023 09:01:46
--- NOTE | 2023-04-15 12:03 | XR_ITS ---
FINAL REPORT TECHNIQUE: Chest PA & Lateral CLINICAL HISTORY: Precordial chest pain COMPARISON: 02/08/2023 FINDINGS: 2 views of the chest were performed. The heart size is normal. The mediastinum is within normal limits. There is no acute cardiopulmonary process. There are no pleural effusions. There is no pneumothorax. The bony thorax appears intact. IMPRESSION: No acute cardiopulmonary process. Reviewed, Interpreted and Dictated by Gal Castillo MD Transcribed by Mandie Nichols Authenticated and [facility]
[2023-04-15 12:13] LABS: Basophils # 0.1 K/mm3 (0-0.2); Basophils % 0.4 % (0.1-2.0); Eosinophils # 0.2 K/mm3 (0.0-0.4); Eosinophils % 2.3 % (0.1-12.0); Hematocrit 41.9 % (37.0-47.0); Hemoglobin 14.3 g/dL (12.2-16.2); Lymphocytes # 2.1 K/mm3 (0.7-4.5); Lymphocytes % 20.3 % (10-50); Mean Corpuscular Hemoglobin 32.5 pg (27.0-31.2); Mean Corpuscular Volume 95.6 fl (81-99); Mean Platelet Volume 7.1 fl (7.4-10.4); Monocytes # 0.5 K/mm3 (0.1-1.0); Neutrophils # 7.4 K/mm3 (1.8-7.8); Platelet Count 238 K/mm3 (142-424); Red Blood Count 4.39 M/mm3 (4.20-5.40); Red Cell Distribution Width 13.5 % (11.5-17.5); White Blood Count 10.2 K/mm3 (4.8-10.8)
--- NOTE | 2023-04-15 12:13 | PC.NURSE ---
Pt gone to RAD via wheelchair
--- NOTE | 2023-04-15 12:15 | PC.NURSE ---
Pt returned from RAD
[2023-04-15 12:30] LABS: Alanine Aminotransferase 26 U/L (12-78); Albumin Level 4.2 g/dl (3.5-5.0); Albumin/Globulin Ratio 1.4 (1.1-1.8); Alkaline Phosphatase 62 U/L (38-126); Anion Gap 7.5 mEq/L (5-15); Aspartate Amino Transferase 27 U/L (14-36); Bilirubin,Total 0.4 mg/dl (0.2-1.3); Blood Urea Nitrogen 8 mg/dl (7-17); Calcium 8.6 mg/dl (8.4-10.2); Carbon Dioxide 21 mmol/L (22.0-30.0); Chloride 110 mmol/L (98-107); Estimated Glomerular Filt Rate 67 ml/min (>60); GFR (African American) 81 ML/MIN (>60); Globulin 2.9 g/dL (1.3-3.2); Glucose 132 mg/dl (74-100); Potassium 3.5 mmoL/L (3.5-5.1); Sodium 135 mmol/L (136-145); Total Protein,Serum 7.1 g/dl (6.3-8.2)
--- NOTE | 2023-04-15 12:39 | HMH.EDGENADL ---
Discharge Plan Disposition Patient Disposition: Home, Self-Care Condition: Good Prescriptions Prescriptions: New isosorbide mononitrate 30 mg tablet extended release 24 hr 30 mg PO DAILY Qty: 30 0RF ranolazine [Ranexa] 500 mg tablet extended release 12 hr 500 mg PO BID Qty: 60 0RF No Action doxycycline monohydrate 100 mg capsule 100 mg PO BID 10 Days Qty: 20 0RF aspirin 81 mg tablet,delayed release (DR/EC) 81 mg PO DAILY Qty: 30 2RF Ubrelvy 100 mg tablet 100 mg PO ONCE PRN (Reason: Episodic migraine) Qty: 10 5RF Rx Instructions: Take 100 mg at onset of symptoms. May repeat after 2 hours if symptoms persist. Max dose 200 mg in 24 hours. Gemtesa 75 mg tablet 75 mg PO DAILY topiramate 50 mg tablet 150 mg PO DAILY 90 Days Qty: 270 1RF lidocaine HCl 10 mg/mL (1 %) solution 10 mg IJ ONCE Qty: 1 0RF triamcinolone acetonide [Kenalog] 40 mg/mL suspension 40 mg IJ ONCE Qty: 1 0RF topiramate 100 mg tablet 100 mg PO DAILY ibuprofen 800 mg tablet 800 mg PO TID Qty: 90 1RF nicotine 21-14-7 mg/24 hr patch, TD daily, sequential 1 patch transdermal Q24H Qty: 56 0RF Rx Instructions: Start with the 21 mg Nicotine Patch for 14 Days 14 mg patch for 14 days 7 mg patch for 7 days bupropion HCl (smoking deter) 150 mg tablet extended release 12 hr 150 mg PO DAILY Qty: 90 0RF Rx Instructions: take one tablet once a day for the first three days and then take one tablet twice a day for remainder furosemide [Lasix] 20 mg tablet 20 mg PO DAILY Qty: 30 5RF prasugrel [Effient] 10 mg Tablet 10 mg PO DAILY 30 Days Qty: 30 3RF atorvastatin [Lipitor] 40 mg Tablet 40 mg PO HS 30 Days Qty: 30 3RF bisoprolol fumarate 5 mg Tablet 5 mg PO DAILY 30 Days Qty: 30 3RF Referrals Follow up/Referrals: Provider,Referral, MD [Referring] - See instructions Activity Restrictions/Add. Instructions Additional Instructions/Restrictions: You were evaluated in the emergency department today. Please follow-up closely with Dr. Singer. supervisor asbestos removal your prescriptions and take them as prescribed. Return to the emergency department for new or worsening symptoms. Clinical Impressions Clinical Impression: Chest pain Stand Alone Forms Stand Alone Forms: Work/School Release Instructions Patient Instructions: DI for Atypical Chest Pain Discharge ED Provider: Vani Alcala General Adult HPI <Lucero Hart MD - Last Filed: 04/15/23 15:06> General Chief complaint: Chest Pain Stated complaint: chest pain Time Seen by Provider: 04/15/23 12:31 History of Present Illness HPI narrative: Patient is a 47-year-old female who is status post left heart cath and multiple stents placed presents today with chest pain that started about 1 hour prior to arrival now has since resolved. Was substernal nonradiating was associated with diaphoresis and nausea symptoms have since completely resolved. Patient denies any fevers chills cough or any other symptoms preceding this. There is no exertional component to this during the middle of the episode. Related Data Home Medications Medication Instructions Recorded Confirmed vibegron 75 mg tablet (Gemtesa) 75 mg PO DAILY 12/31/22 04/10/23 topiramate 100 mg tablet 100 mg PO DAILY 03/06/23 04/10/23 Previous Rx's Medication Instructions Recorded ubrogepant 100 mg tablet (Ubrelvy) 100 mg PO ONCE PRN Episodic 11/19/22 migraine #10 tabs topiramate 50 mg tablet 150 mg PO DAILY migraine 12/31/22 prevention 90 days #270 tabs aspirin 81 mg tablet,delayed 81 mg PO DAILY #30 tabs 02/13/23 release doxycycline monohydrate 100 mg 100 mg PO BID 10 days #20 caps 02/13/23 capsule ibuprofen 800 mg tablet 800 mg PO TID pain #90 tabs 03/06/23 atorvastatin 40 mg tablet (Lipitor) 40 mg PO HS 30 days #30 tabs 03/25/23 bisoprolol fumarate 5 mg tablet 5 mg PO DAILY 30 days #30 tabs 03/25/23 prasugrel 10 mg tablet (Eff
[2023-04-15 12:48] LABS: Troponin I < 0.01 ng/ml (0.00-0.034)
--- NOTE | 2023-04-15 13:31 | ECG_ITS ---
APPROVED REPORT Exam: Resting ECG HR:61 bpm ECG Measurements Heart Rate 61 AXES AL 154 P 50 QRSd 81 QRS 39 QT 388 T 35 QTc 391 Conclusion SINUS RHYTHM NORMAL ECG UNCONFIRMED REPORT Electronically signed by : Eulalio Roberts MD 04/16/2023 09:01:22
--- NOTE | 2023-04-15 14:17 | PC.NURSE ---
Pt ambulatory to bathroom and back to bed. Warm blanket provided. Call light within reach.
[2023-04-15 15:45] LABS: Troponin I < 0.01 ng/ml (0.00-0.034)
--- NOTE | 2023-04-15 16:24 | PC.NURSE ---
Dr. Alcala at BS to update pt on results and POC
--- NOTE | 2023-04-15 16:29 | PC.NURSE ---
Dr Singer paged
--- NOTE | 2023-04-15 16:29 | PC.NURSE ---
Dr Alcala speaking to dr diaz
== END 2023-04-15 17:09 | disposition home or self-care (01) ==
PROVIDERS: Student in an Organized Health Care Education/Training Program; Emergency Provider Emergency Medicine; PCP Internal Medicine
DX: R07.9 Chest pain, unspecified (principal); J45.909 Unspecified asthma, uncomplicated; I25.10 Atherosclerotic heart disease of native coronary artery without angina pectoris; E78.5 Hyperlipidemia, unspecified; I10 Essential (primary) hypertension; F17.210 Nicotine dependence, cigarettes, uncomplicated
CPT/HCPCS: 71046; 80053; 84484; 85025; 93005; 96361; 96374; 99285; J2405

== ENCOUNTER 2023-04-23 10:26 | Emergency (ER) | payer OTHER, SELFPAY ==
[2023-04-23] VITALS (10 sets, daily range): BP systolic 127–187; BP diastolic 75–93; PULSE 47–60; RESP 15–18; TEMP 36.6–36.8; O2SAT 97–99; BMI 32.3
--- NOTE | 2023-04-23 | ECG_ITS ---
APPROVED REPORT Exam: Resting ECG HR:54 bpm ECG Measurements Heart Rate 54 AXES NV 173 P 73 QRSd 96 QRS 69 QT 420 T 48 QTc 407 Conclusion SINUS BRADYCARDIA NONSPECIFIC T-WAVE ABNORMALITY BORDERLINE ECG UNCONFIRMED REPORT Electronically signed by : Eulalio Roberts MD 04/24/2023 20:34:18
--- NOTE | 2023-04-23 10:31 | PC.NURSE ---
Dr. Brooks at BS for pt eval
--- NOTE | 2023-04-23 10:36 | XR_ITS ---
FINAL REPORT CLINICAL HISTORY: chest pain recent stent COMPARISON: 04/15/2023 FINDINGS: SINGLE-VIEW CHEST The heart size is normal. The mediastinum is normal. The lungs are clear. There is no pneumothorax. IMPRESSION: No acute cardiopulmonary process. Reviewed, Interpreted and Dictated by Chidi Scott III, MD Transcribed by Carmen Stinson Authenticated and . [facility]
[2023-04-23 10:44] LABS: Basophils # 0.1 K/mm3 (0-0.2); Basophils % 0.6 % (0.1-2.0); Eosinophils # 0.2 K/mm3 (0.0-0.4); Eosinophils % 1.6 % (0.1-12.0); Hematocrit 42.4 % (37.0-47.0); Hemoglobin 14.3 g/dL (12.2-16.2); Lymphocytes # 2.3 K/mm3 (0.7-4.5); Lymphocytes % 24.3 % (10-50); Mean Corpuscular HGB Conc 33.8 g/dL (31.8-35.4); Mean Corpuscular Hemoglobin 32.7 pg (27.0-31.2); Mean Corpuscular Volume 96.6 fl (81-99); Mean Platelet Volume 7.3 fl (7.4-10.4); Monocytes # 0.5 K/mm3 (0.1-1.0); Monocytes % 5.5 % (1.7-9.3); Neutrophils # 6.5 K/mm3 (1.8-7.8); Platelet Count 246 K/mm3 (142-424); Red Blood Count 4.39 M/mm3 (4.20-5.40); Red Cell Distribution Width 13.7 % (11.5-17.5); White Blood Count 9.6 K/mm3 (4.8-10.8)
[2023-04-23 10:46] LABS: Alanine Aminotransferase 22 U/L (12-78); Albumin Level 4.3 g/dl (3.5-5.0); Albumin/Globulin Ratio 1.5 (1.1-1.8); Alkaline Phosphatase 70 U/L (38-126); Anion Gap 11.5 mEq/L (5-15); Aspartate Amino Transferase 22 U/L (14-36); Bilirubin,Total 0.3 mg/dl (0.2-1.3); Blood Urea Nitrogen 10 mg/dl (7-17); Carbon Dioxide 22 mmol/L (22.0-30.0); Chloride 107 mmol/L (98-107); Creatinine Clearance Estimated 98 mL/min (50-200); Estimated Glomerular Filt Rate 67 ml/min (>60); GFR (African American) 81 ML/MIN (>60); Globulin 2.9 g/dL (1.3-3.2); Glucose 117 mg/dl (74-100); Lipase 43 U/L (23-300); Potassium 3.5 mmoL/L (3.5-5.1); Sodium 137 mmol/L (136-145); Total Protein,Serum 7.2 g/dl (6.3-8.2)
[2023-04-23 10:59] LABS: Troponin I < 0.01 ng/ml (0.00-0.034)
--- NOTE | 2023-04-23 11:01 | PC.NURSE ---
portable xray at bedside
--- NOTE | 2023-04-23 11:08 | HMH.EDGENADL ---
Discharge Plan Disposition Patient Disposition: Home, Self-Care Condition: Good Prescriptions Prescriptions: No Action doxycycline monohydrate 100 mg capsule 100 mg PO BID 10 Days Qty: 20 0RF aspirin 81 mg tablet,delayed release (DR/EC) 81 mg PO DAILY Qty: 30 2RF Ubrelvy 100 mg tablet 100 mg PO ONCE PRN (Reason: Episodic migraine) Qty: 10 5RF Rx Instructions: Take 100 mg at onset of symptoms. May repeat after 2 hours if symptoms persist. Max dose 200 mg in 24 hours. Gemtesa 75 mg tablet 75 mg PO DAILY topiramate 50 mg tablet 150 mg PO DAILY 90 Days Qty: 270 1RF lidocaine HCl 10 mg/mL (1 %) solution 10 mg IJ ONCE Qty: 1 0RF triamcinolone acetonide [Kenalog] 40 mg/mL suspension 40 mg IJ ONCE Qty: 1 0RF topiramate 100 mg tablet 100 mg PO DAILY ibuprofen 800 mg tablet 800 mg PO TID Qty: 90 1RF nicotine 21-14-7 mg/24 hr patch, TD daily, sequential 1 patch transdermal Q24H Qty: 56 0RF Rx Instructions: Start with the 21 mg Nicotine Patch for 14 Days 14 mg patch for 14 days 7 mg patch for 7 days bupropion HCl (smoking deter) 150 mg tablet extended release 12 hr 150 mg PO DAILY Qty: 90 0RF Rx Instructions: take one tablet once a day for the first three days and then take one tablet twice a day for remainder furosemide [Lasix] 20 mg tablet 20 mg PO DAILY Qty: 30 5RF prasugrel [Effient] 10 mg Tablet 10 mg PO DAILY 30 Days Qty: 30 3RF atorvastatin [Lipitor] 40 mg Tablet 40 mg PO HS 30 Days Qty: 30 3RF bisoprolol fumarate 5 mg Tablet 5 mg PO DAILY 30 Days Qty: 30 3RF isosorbide mononitrate 30 mg tablet extended release 24 hr 30 mg PO DAILY Qty: 30 0RF ranolazine [Ranexa] 500 mg tablet extended release 12 hr 500 mg PO BID Qty: 60 0RF Referrals Follow up/Referrals: Provider,Referral, MD [Primary Care Provider] - See instructions Activity Restrictions/Add. Instructions Additional Instructions/Restrictions: Call your family doctor to establish care for this visit to the emergency department and schedule follow-up within 48 hours to ensure improvement. If you have any worsening of your condition or any other concerning signs or symptoms, return to the emergency department or your primary care doctor for further evaluation. Talk to your manager housekeeping as well about following up with future appointment. Clinical Impressions Clinical Impression: Chest pain Discharge ED Provider: Guillermo Brooks [facility] Adult HPI General Chief complaint: Chest Pain Stated complaint: CP Time Seen by Provider: 04/23/23 10:28 Mode of Arrival: EMS Source of Information: Patient Limitations: No Limitations Description of Symptoms (Recalled from ER Triage Doc. by RN): pt reports substernal chest pain that started 12 hours ago and has been intermittent, ems states they were called to her house last night where they performed an ekg noted nsr and pt refused to come in, pt states she was at work and work was the one who called 911, denies cough, denies any other symptoms, reports hx of 2 stents History of Present Illness HPI narrative: 47-year-old female history of CAD stenting in March 2023, hypertension Anthony, anxiety presenting with chest pain and arm pain. 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 Started having chest pain that radiates to her left shoulder and left side of her neck in the middle of the night. Did not go away, so she came to the emergency department. Denies vomiting, fevers or chills, shortness of breath, but did have diaphoresis and nausea. Self abated not currently having symptoms, but came for further reassurance. Related Data Home Medications Medication Instructions Recorded Confirmed vibegron 75 mg tablet (Gemtesa) 75 mg PO DAILY 12/31/22 04/16/23 topiramate 100 mg tablet 100 mg PO DAILY 03/06/23 04/16/23 Previous Rx's Medication Instructions Recorded ubrogepant 100 mg tablet (Ubrelvy) 100 mg PO ONCE PRN Episodic 11/19/22 migraine #10 tabs topiramate 50 mg tablet 150 mg PO DAILY migraine 12/31/22 prevention 90 days #270 tabs aspirin 81 mg tablet,delayed 81 mg PO DAILY #30 tabs 02/13/23 release doxycycline monohydrate 100 mg 100 mg PO BID 10 days #20 caps 02/13/23 capsule ibuprofen 800 mg tablet 800 mg PO TID pain #90 tabs 03/06/23 atorvastatin 40 mg tablet (Lipitor) 40 mg PO HS 30 days #30 tabs 03/25/23 bisoprolol fumarate 5 mg tablet 5 mg PO DAILY 30 days #30 tabs 03/25/23 prasugrel 10 mg tablet (Effient) 10 mg PO DAILY 30 days #30 tabs 03/25/23 bupropion HCl (smoking deter) 150 150 mg PO DAILY #90 tabs 04/02/23 mg tablet,12 hr sustained-release(smoking deterrent) furosemide 20 mg tablet (Lasix) 20 mg PO DAILY #30 tabs 04/02/23 nicotine 1 patch transdermal Q24H #56 04/02/23 21mg/24hr-14mg/24hr-7mg/24hr daily patches transderm patches,sequentl isosorbide mononitrate 30 mg 30 mg PO DAILY #30 tabs 04/15/23 tablet,extended release 24 hr ranolazine 500 mg tablet,extended 500 mg PO BID #60 tabs 04/15/23 release,12 hr (Ranexa) Allergies Allergy/AdvReac Type Severity Reaction Status Date / Time sulfamethoxazole Allergy Unknown Verified 04/23/23 10:31 [SULFAMETHOXAZOLE] trimethoprim [TRIMETHOPRIM] Allergy Unknown Verified 04/23/23 10:31 [facility] Disclaimer: The information contained in this section may have been updated after the patient was seen, as this information can be updated by other users. Medical History Anxiety Asthma Coronary artery disease Dyspnea Elevated left ventricular end-diastolic pressure (LVEDP) History of gastroesophageal reflux (GERD) Hyperlipidemia Hypertension Tobacco dependence syndrome Surgical History History of bladder repair surgery History of hysterectomy Stented coronary artery Family History Other Cancer Heart attack No significant family history Social History Smoking Status: Former smoker tobacco type: cigarettes packs per day: 1 and e-cigarettes alcohol intake: never substance use type: marijuana current occupational status: unemployed Travel in the last 8 weeks: None household members: none housing: house ROS Obtained: Yes All systems reviewed & no additional complaints except as documented Physical Exam General General appearance: alert Head Head exam: atraumatic and normocephalic Eye Eye exam: Present normal appearance, PERRL and EOMI ENT ENT exam: Present mucous membranes moist Neck Neck exam: Present trachea midline Chest Chest inspection: Present normal inspection and symmetric chest wall rise Respiratory Respiratory exam: Present normal lung sounds bilaterally; Absent respiratory distress, wheezes, stridor, accessory muscle use or prolonged expiratory phase Cardiovascular Cardiovascular exam: Present regular rate and normal rhythm Abdominal Exam Abdominal exam: Present soft; Absent distention, tenderness, guarding, rebound or rigidity Extremities Exam Extremities exam: Absent edema Neurological Exam Neurological exam: Present alert, oriented X3 and CN II-XII intact Skin Skin exam: Present warm and dry; Absent cyanosis, diaphoresis or pallor Medical Decision Making Medical Records Medical records reviewed: Yes I reviewed the patient's medical records. Jay Inquiry Pt receiving controlled substance: No Jay was queried for this patient: No Vital Signs: 04/23/23 10:23 04/23/23 10:30 04/23/23 10:31 Temperature 97.8 F Temperature Source Oral Pulse Rate 57 L 60 Pulse Rate [Left Radial] 57 L Respiratory Rate 16 Blood Pressure 187/93 H Blood Pressure [Right Arm] 156/87 H Blood Pressure Mean Blood Pressure Mean [Right Arm] 110 Blood Pressure Source Blood Pressure Source [Right Arm] Automatic Cuff Blood Pressure Position Blood Pressure Position [Right Arm] Sitting 02 Sat by Pulse Oximetry 98 99 Oxygen Delivery Method Room Air 04/23/23 11:15 04/23/23 11:31 04/23/23 12:01 Temperature Temperature Source Pulse Rate 52 L 56 L 52 L Pulse Rate [Left Radial] Respiratory Rate Blood Pressure 153/88 H 127/75 Blood Pressure [Right Arm] Blood Pressure Mean Blood Pressure Mean [Right Arm] Blood Pressure Source Blood Pressure Source [Right Arm] Blood Pressure Position Blood Pressure Position [Right Arm] 02 Sat by Pulse Oximetry 99 99 98 Oxygen Delivery Method Room Air Room Air 04/23/23 12:30 04/23/23 13:00 04/23/23 13:30 Temperature Temperature Source Pulse Rate 47 L 57 L 54 L Pulse Rate [Left Radial] Respiratory Rate 16 15 Blood Pressure 137/81 150/85 H 129/85 Blood Pressure [Right Arm] Blood Pressure Mean 94 99 Blood Pressure Mean [Right Arm] Blood Pressure Source Blood Pressure Source [Right Arm] Blood Pressure Position Blood Pressure Position [Right Arm] 02 Sat by Pulse Oximetry 99 98 97 Oxygen Delivery Method Room Air Room Air 04/23/23 14:19 Temperature 98.3 F Temperature Source Oral Pulse Rate 54 L Pulse Rate [Left Radial] Respiratory Rate 18 Blood Pressure 130/87 Blood Pressure [Right Arm] Blood Pressure Mean Blood Pressure Mean [Right Arm] Blood Pressure Source Automatic Cuff Blood Pressure Source [Right Arm] Blood Pressure Position Sitting Blood Pressure Position [Right Arm] 02 Sat by Pulse Oximetry Oxygen Delivery Method Room Air Lab Data Lab Results 04/23/23 10:25: WBC 9.6, RBC 4.39, Hgb 14.3, Hct 42.4, MCV 96.6, MCH 32.7 H, MCHC 33.8, RDW 13.7, Plt Count 246, MPV 7.3 L, Neut % (Auto) 68.0, Lymph % (Auto) 24.3, [place] % (Auto) 5.5, Eos % (Auto) 1.6, Baso % (Auto) 0.6, Neut # (Auto) 6.5, Lymph # (Auto) 2.3, [place] # (Auto) 0.5, Eos # (Auto) 0.2, Baso # (Auto) 0.1, Sodium 137, Potassium 3.5, Chloride 107, Carbon Dioxide 22, Anion Gap 11.5, BUN 10, Creatinine 0.90, Estimated Creat Clear 98, Estimated GFR 67, Est GFR ( Amer) 81, Glucose 117 H, Calcium 9.0, Total Bilirubin 0.3, AST 22, ALT 22, Alkaline Phosphatase 70, Troponin I < 0.01, Total Protein 7.2, Albumin 4.3, Globulin 2.9, Albumin/Globulin Ratio 1.5, Lipase 43 04/23/23 13:10: Troponin I < 0.01 04/23/23 10:25 04/23/23 10:25 Orders (Tests/Meds): ED MEDICATIONS Discontinued Medications Generic Name Dose Route Start Last Admin Trade Name Freq PRN Reason Stop Dose Admin Sodium Chloride 10 ml 04/23/23 10:33 Sodium Chloride 0.9% 10ml Flush Syringe IV 05/23/23 10:32 NEEDED PRN Maintain IV Site ORDERS Category Date Time Status XR chest portable Stat Exams 04/23/23 10:36 Completed Complete Blood Count Auto Diff Stat Lab 04/23/23 10:25 Completed Comprehensive Metabolic Panel Stat Lab 04/23/23 10:25 Completed Lipase Stat Lab 04/23/23 10:25 Completed Troponin I Q3H Lab 04/23/23 13:10 Completed Troponin I Stat Lab 04/23/23 10:25 Completed HEART Score History (anamnesis): Moderately suspicious ECG: Normal Age: 45-65 years Risk factors: 3 or more risk factors Troponin: </= normal limit HEART Score: 4 Medical Decision Narrative: 47-year-old female history of CAD stenting in March 2023, hypertension Anthony, anxiety presenting with chest pain and arm pain. 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 Started having chest pain that radiates to her left shoulder and left side of her neck in the middle of the night. Did not go away, so she came to the emergency department. Denies vomiting, fevers or chills, shortness of breath, but did have diaphoresis and nausea. Self abated not currently having symptoms, but came for further reassurance. History was obtained via conversation with patient. On arrival, patient hemodynamically stable, alert, oriented x4, appropriate, GCS 15, moving all extremities spontaneously, pupils equal and reactive to light. Full physical exam performed and significant for well-appearing woman in no acute distress. Cardiopulmonary exam within normal limits. Lungs clear to auscultation bilaterally. No lower extremity edema. Differential includes ACS, AK, pneumothorax, PE, dissection, pneumothorax, aortic aneurysm, pneumonia, bronchitis, among others. Patient was given 324 mg aspirin with EMS on the way for symptomatic management and correction of underlying abnormalities. Workup independently interpreted and significant for troponin negative. Nonactionable CBC or chemistry. Lipase negative. Chest x-ray with no acute cardiopulmonary airspace disease. see radiology read for full review of final results. Independent interpretation of EKG shows sinus rhythm 54 beats a minute without ST or T wave changes concerning for acute ischemia. HI, QRS, QT intervals within normal limits. Heart score 4. Patient was placed in observation beginning at 1025 in order to rule out serial troponins and monitor patient and determine need for admission versus home-going. The patient was provided cardiac monitoring while awaiting results. Independent interpretation of results demonstrated negative delta troponin. On reevaluation, patient resting comfortably bed. At this time, I feel patient is appropriate for discharge. Total observation time 3 hours. Given patient presentation, workup, history, this most likely represents cardiac chest pain without ACS. Patient has follow-up with with cardiology tomorrow, was encouraged to keep this appointment. Because patient at baseline without signs or symptoms of clinical decompensation, deemed appropriate for discharge. Results were relayed to patient who voiced understanding and were agreeable to outpatient management and follow up. At the time of discharge the patient was hemodynamically stable, tolerating PO, and mobilizing appropriately. Critical Care Critical Care Time Critical Care Time: No
--- NOTE | 2023-04-23 12:38 | PC.NURSE ---
Rounded on pt. Updated that we would be drawing a second troponin. No other needs voiced. Call light within reach.
--- NOTE | 2023-04-23 13:11 | PC.NURSE ---
Second trop drawn and sent to lab
[2023-04-23 13:54] LABS: Troponin I < 0.01 ng/ml (0.00-0.034)
== END 2023-04-23 14:19 | disposition home or self-care (01) ==
PROVIDERS: Emergency Provider Emergency Medicine
DX: R07.9 Chest pain, unspecified (principal); M54.2 Cervicalgia; M25.512 Pain in left shoulder; I25.10 Atherosclerotic heart disease of native coronary artery without angina pectoris; J45.909 Unspecified asthma, uncomplicated; E78.5 Hyperlipidemia, unspecified; Z87.891 Personal history of nicotine dependence
CPT/HCPCS: 71045; 80053; 83690; 84484; 85025; 93005; 99285

== ENCOUNTER 2023-05-30 15:44 | Outpatient (CLI) | payer OTHER, SELFPAY ==
--- NOTE | 2023-05-30 15:45 | MR_ITS ---
FINAL REPORT CLINICAL HISTORY: Cervical Spine Pain left shoulder pain FINDINGS: Multiplanar MR imaging of the cervical spine was performed without contrast. On the sagittal T2-weighted images, disc degeneration is seen at multiple levels. There is no evidence of fracture. The vertebral alignment is normal. The cervical spinal cord has an unremarkable appearance without evidence of mass, edema or syrinx. No significant canal stenosis is identified. The cervicomedullary junction is normal. C2-3: There is no significant canal stenosis or neural foraminal narrowing. C3-4: A disc bulge is present with uncovertebral osteophytes. No significant neural foraminal narrowing is seen. C4-5: A disc bulge is present. No significant canal stenosis or neural foraminal narrowing is seen. C5-6: A disc bulge is present with small uncovertebral osteophytes. No significant neural foraminal narrowing is seen. C6-7: A mild disc bulge is present. No significant neural foraminal narrowing is identified. C7-T1: There is no significant canal stenosis or neural foraminal narrowing. IMPRESSION: Multilevel mild degenerative disc disease and spondylosis. No focal disc protrusion or significant central canal stenosis. Authenticated and ERN
== END 2023-05-30 23:59 ==
LOC: RAD 15:45
PROVIDERS: PCP Physician Assistant; Visit Provider Orthopaedic Surgery
DX: M54.2 Cervicalgia (principal)
CPT/HCPCS: 72141; 76376

== ENCOUNTER 2023-06-11 13:29 | Emergency (ER) | payer OTHER, SELFPAY ==
[2023-06-11 15:13] VITALS: BP 126/75; PULSE 57; RESP 16; TEMP 36.4; O2SAT 100; BMI 32.0
--- NOTE | 2023-06-11 15:20 | EXP.UTC ---
Discharge Plan Disposition Patient Disposition: Home, Self-Care Condition: Good Prescriptions Prescriptions: No Action Ubrelvy 100 mg tablet 100 mg PO ONCE PRN (Reason: Episodic migraine) Qty: 10 5RF Rx Instructions: Take 100 mg at onset of symptoms. May repeat after 2 hours if symptoms persist. Max dose 200 mg in 24 hours. Gemtesa 75 mg tablet 75 mg PO DAILY topiramate 50 mg tablet 150 mg PO DAILY 90 Days Qty: 270 1RF lidocaine HCl 10 mg/mL (1 %) solution 10 mg IJ ONCE Qty: 1 0RF triamcinolone acetonide [Kenalog] 40 mg/mL suspension 40 mg IJ ONCE Qty: 1 0RF ibuprofen 800 mg tablet 800 mg PO TID Qty: 90 1RF bupropion HCl (smoking deter) 150 mg tablet extended release 12 hr 150 mg PO DAILY Qty: 90 0RF Rx Instructions: take one tablet once a day for the first three days and then take one tablet twice a day for remainder furosemide [Lasix] 20 mg tablet 20 mg PO DAILY Qty: 30 5RF pantoprazole 20 mg tablet,delayed release (DR/EC) 20 mg PO DAILY Qty: 30 2RF ranolazine 1,000 mg tablet extended release 12 hr 1,000 mg PO BID Qty: 60 2RF citalopram [Celexa] 20 mg tablet 20 mg PO DAILY Qty: 30 2RF magnesium citrate Solution 150 ml PO BID Qty: 296 0RF Rx Instructions: Mix with 8 ounces of Gatorade polyethylene glycol 3350 [Miralax] 17 gram/dose powder 17 g PO DAILY Qty: 510 0RF aspirin 81 mg tablet,delayed release (DR/EC) See Rx Instructions .ROUTE .COMPLEX Qty: 90 3RF Dose Instruction: TAKE ONE TABLET BY MOUTH ONCE A DAY Rx Instructions: TAKE ONE TABLET BY MOUTH ONCE A DAY prasugrel [Effient] 10 mg Tablet 10 mg PO DAILY 30 Days Qty: 30 3RF atorvastatin [Lipitor] 40 mg Tablet 40 mg PO HS 30 Days Qty: 30 3RF bisoprolol fumarate 5 mg Tablet 5 mg PO DAILY 30 Days Qty: 30 3RF Referrals Follow up/Referrals: Yuki Ortega PA [Primary Care Provider] - See instructions Activity Restrictions/Add. Instructions Additional Instructions/Restrictions: *Monitor Temp, Over the counter Motrin or Tylenol as directed/as needed Tylenol every 4 hours and Motrin every 6 hours (as long as your family doctor has told you that you can take it) for fever or pain. and straight to ER if unable to lower temp less than 101.0 after medication given *Warm salt water gargles may help to soothe the throat *Throat Lozenges? *Warm fluids like tea with honey may help to soothe the throat? *Sleep elevated *Humidifier/Vaporizer Your throat swab was sent for culture. Those results are typically sent to your primary care. Be sure to follow up in 2-3 days with your family doctor/primary care physician if no improvement so they can review those result and treat if necessary. If you don?t have a primary care doctor, I recommend you get one but in the mean time, you will have to return to a walk in clinic Follow up IMMEDIATELY for new or worsening symptoms or no Noticeable improvement over the next 48-72 hours. 911 for difficulty breathing or swallowing You were tested for today for Upper Respiratory Panel with COVID19 your test result should be back in the next 24hours, you may Check your Results on the [facility] if your COVID test is positive you must Quarantine for 5 days Clinical Impressions Clinical Impression: Viral syndrome Stand Alone Forms Stand Alone Forms: Work/School Release Instructions Patient Instructions: Sore Throat, DI for Ear Pain-Adult Discharge ED Provider: Kallie Pierre [facility] HPI General Stated complaint: sore throat, headache, L ear pain Mode of Arrival: Ambulatory Source of Information: Patient Limitations: No Limitations Time Seen by Provider: 06/11/23 15:20 Description of Symptoms (Recalled from Triage Doc. by RN): Patient complaint of sore throat, headache, and right ear being clogged. HEENT Symptoms (Recalled from RN notes): Yes Resp Symptoms (Recalled from RN notes): No Skin Symptoms (Recalled from RN notes): No MS Symptoms (Recalled from RN notes): No Functional Status (Recalled from RN notes): wnl History of Present Illness Provider Complaint: Patient states that for the last couple of days she has been having sore throat, headache, pain in her ears and feels like her right ear is clogged up so today when she was still not feeling any better she came in to get checked Related Data Home Medications Medication Instructions Recorded Confirmed vibegron 75 mg tablet (Gemtesa) 75 mg PO DAILY 12/31/22 06/05/23 Previous Rx's Medication Instructions Recorded ubrogepant 100 mg tablet (Ubrelvy) 100 mg PO ONCE PRN Episodic 11/19/22 migraine #10 tabs topiramate 50 mg tablet 150 mg PO DAILY migraine 12/31/22 prevention 90 days #270 tabs ibuprofen 800 mg tablet 800 mg PO TID pain #90 tabs 03/06/23 atorvastatin 40 mg tablet (Lipitor) 40 mg PO HS 30 days #30 tabs 03/25/23 bisoprolol fumarate 5 mg tablet 5 mg PO DAILY 30 days #30 tabs 03/25/23 prasugrel 10 mg tablet (Effient) 10 mg PO DAILY 30 days #30 tabs 03/25/23 bupropion HCl (smoking deter) 150 150 mg PO DAILY #90 tabs 04/02/23 mg tablet,12 hr sustained-release(smoking deterrent) furosemide 20 mg tablet (Lasix) 20 mg PO DAILY #30 tabs 04/02/23 pantoprazole 20 mg tablet,delayed 20 mg PO DAILY #30 tabs 04/24/23 release ranolazine 1,000 mg 1,000 mg PO BID #60 tabs 04/24/23 tablet,extended release,12 hr citalopram 20 mg tablet (Celexa) 20 mg PO DAILY #30 tabs 04/30/23 magnesium citrate 150 ml PO BID #296 mL 04/30/23 polyethylene glycol 3350 17 17 g PO DAILY #510 grams 04/30/23 gram/dose oral powder (Miralax) aspirin 81 mg tablet,delayed See Rx Instructions .Route 05/26/23 release .COMPLEX #90 tabs Allergies Allergy/AdvReac Type Severity Reaction Status Date / Time sulfamethoxazole Allergy Unknown Verified 06/05/23 09:08 [SULFAMETHOXAZOLE] trimethoprim [TRIMETHOPRIM] Allergy Unknown Verified 06/05/23 09:08 Worker's Comp Is this a Worker's Comp case?: No [facility] Disclaimer: The information contained in this section may have been updated after the patient was seen, as this information can be updated by other users. Medical History Anxiety Trial Celexa Asthma Coronary artery disease Dyspnea Elevated left ventricular end-diastolic pressure (LVEDP) History of gastroesophageal reflux (GERD) Hyperlipidemia Hypertension Tobacco dependence syndrome Surgical History History of bladder repair surgery History of heart artery stent History of hysterectomy Stented coronary artery Family History Other Cancer Heart attack No significant family history Social History Smoking Status: Former smoker tobacco type: cigarettes packs per day: 1 and e-cigarettes alcohol intake: never substance use type: marijuana current occupational status: unemployed Travel in the last 8 weeks: None household members: none housing: house ROS Obtained: Yes All systems reviewed & no additional complaints except as documented and Yes Systems reviewed as appropriate & no additional complaints except as documented Constitutional Constitutional: Reports system reviewed and no additional complaints, except as documented, Reports as per HPI, Reports body ache and Reports chills ENT Ears, Nose, Mouth, and Throat: Reports system reviewed and no additional complaints, except as documented, Reports as per HPI, Reports otalgia and Reports sore throat Cardiovascular Cardiovascular: Reports system reviewed and no additional complaints, except as documented and Reports as per HPI Respiratory Respiratory: Reports system reviewed and no additional complaints, except as documented and Reports as per HPI Gastrointestinal Gastrointestingal: Reports system reviewed and no additional complaints, except as documented and as per HPI Genitourinary Female Genitourinary: Reports system reviewed and no additional complaints, except as documented and Reports as per HPI Physical Exam General General appearance: alert and in no apparent distress ENT ENT exam: Present mucous membranes moist Expanded ENT Exam TM/Canal exam: Bilateral TM: bulging (clear) Nose exam: Absent sinus tenderness Throat exam: Present tonsillar erythema Respiratory Respiratory exam: Present normal lung sounds bilaterally; Absent respiratory distress or wheezes Cardiovascular Cardiovascular exam: Present regular rate, normal rhythm and normal heart sounds Abdominal Exam Abdominal exam: Present soft and normal bowel sounds; Absent distention or tenderness Neurological Exam Neurological exam: Present alert, oriented X3 and normal gait Medical Decision Making Jay Inquiry Pt receiving controlled substance: No Jay was queried for this patient: No Vital Signs: 06/11/23 15:13 Temperature 97.5 F L Temperature Source Oral Pulse Rate [Radial] 57 L Respiratory Rate 16 Blood Pressure [Right Arm] 126/75 Blood Pressure Mean [Right Arm] 92 Blood Pressure Source [Right Arm] Automatic Cuff Blood Pressure Position [Right Arm] Sitting 02 Sat by Pulse Oximetry 100 Oxygen Delivery Method Room Air Lab Data Lab results reviewed: Yes I reviewed the patient's lab results.
[2023-06-11 15:47] LABS: UTC Influenza A Antigen Negative (Negative); UTC Influenza B Antigen Negative (Negative); UTC Strep Screen (Rapid) Negative (Negative)
[2023-06-11 15:57] VITALS: BP 126/75; PULSE 57; RESP 16; TEMP 36.4; O2SAT 100
[2023-06-11 16:08] LABS: Adenovirus,PCR Not Detected (NotDetected); Coronavirus 229E Not Detected (NotDetected); Coronavirus NL63 Not Detected (NotDetected); Coronavirus OC43 Not Detected (NotDetected); Coronovirus HKU1,PCR Not Detected (NotDetected); Human Metapneumovirus Not Detected (NotDetected); Influenza A, PCR Not Detected (NotDetected); Influenza AH1, 2009 Not Detected (NotDetected); Influenza AH1, PCR Not Detected (NotDetected); Influenza AH3,PCR Not Detected (NotDetected); Influenza B, PCR Not Detected (NotDetected); Parainfluenza 1, PCR Not Detected (NotDetected); Parainfluenza 2, PCR Not Detected (NotDetected); Parainfluenza 3, PCR Not Detected (NotDetected); Parainfluenza 4, PCR Not Detected (NotDetected); Respiratory Syncytial Virus Not Detected (NotDetected); Rhinovirus/Enterovirus Not Detected (NotDetected)
[2023-06-11 19:16] LABS: Coronavirus 19, PCR Detected (NotDetected)
== END 2023-06-11 15:58 | disposition home or self-care (01) ==
PROVIDERS: Emergency Provider Nurse Practitioner; PCP Physician Assistant
DX: U07.1 COVID-19 (principal); R07.0 Pain in throat; R51.9 Headache, unspecified; H92.03 Otalgia, bilateral; I11.9 Hypertensive heart disease without heart failure; I25.10 Atherosclerotic heart disease of native coronary artery without angina pectoris; E78.5 Hyperlipidemia, unspecified; K21.9 Gastro-esophageal reflux disease without esophagitis; Z87.891 Personal history of nicotine dependence; Z95.5 Presence of coronary angioplasty implant and graft
CPT/HCPCS: 87632; 87635; 87804; 87880; 99212; 99213; G0463

== ENCOUNTER 2023-06-25 10:15 | Day surgery (SDC) | payer OTHER, SELFPAY ==
[2023-06-23 12:48] VITALS: BMI 25.8
[2023-06-25 10:33] VITALS: BP 124/70; PULSE 67; RESP 18; TEMP 36.3; O2SAT 99
[2023-06-25] MEDS: LACTATED RINGERS 1000ML 1,000 ML 25 ML IV (10:44)
[2023-06-25 12:45] VITALS: BP 87/56; PULSE 55; RESP 16; TEMP 36.1; O2SAT 94
[2023-06-25 12:55] VITALS: BP 96/60; PULSE 57; RESP 16; O2SAT 95
--- NOTE | 2023-06-25 12:55 | EXP.OP.NOTE ---
Date of procedure: 06/25/23 Pre-op Diagnosis:: Left shoulder adhesive capsulitis Post-op Diagnosis:: Same Procedure performed:: Left shoulder manipulation under anesthesia Surgeon:: Chong Cali DO BUSINESS DEVELOPMENT MANAGER:: Neeraj Garland Anesthesia: MAC Estimated blood loss (mL): 0 Operative findings:: Severely restricted frozen shoulder Operative note:: Patient identified preoperatively. Left shoulder marked with yes my initials. Transferred operative suite. Given sedation. Once sedated final operative timeout performed to identify proper patient procedure and extremity. Everyone involved the case agreed. No count indication beginning. Once sedation was adequate the left shoulder was taken first through forward flexion very gentle forward flexion was held and there was a palpable release of the shoulder capsule and full forward flexion was obtained and then the shoulder was taken very gently in the abduction to maintain abduction of the shoulder and restore range of motion this was also fully restored internal and external rotation was performed as well so full range of motion was obtained of the shoulder. Patient then waken for sedation taken recovery in stable condition. Condition: stable Disposition: PACU Complications:: None apparent
[2023-06-25 13:05] VITALS: BP 142/77; PULSE 50; RESP 18; O2SAT 98
[2023-06-25 13:15] VITALS: BP 146/78; PULSE 54; RESP 18; O2SAT 99
[2023-06-25] MEDS: KETOROLAC 60MG/2ML VIAL 60 MG IV (13:15)
== END 2023-06-25 13:25 | disposition home or self-care (01) ==
PROVIDERS: PCP Physician Assistant; Visit Provider Orthopaedic Surgery
PROC: (CPT 23700; principal; 2023-06-25 11:15)
DX: M75.02 Adhesive capsulitis of left shoulder (principal); Z79.899 Other long term (current) drug therapy; I25.10 Atherosclerotic heart disease of native coronary artery without angina pectoris; I10 Essential (primary) hypertension; E78.5 Hyperlipidemia, unspecified; F17.210 Nicotine dependence, cigarettes, uncomplicated
CPT/HCPCS: 23700

== ENCOUNTER 2023-08-12 08:10 | Outpatient (CLI) | payer OTHER, SELFPAY ==
[2023-08-12 08:25] LABS: Basophils # 0.1 K/mm3 (0-0.2); Basophils % 0.7 % (0.1-2.0); Eosinophils # 0.1 K/mm3 (0.0-0.4); Hematocrit 42.1 % (37.0-47.0); Hemoglobin 13.8 g/dL (12.2-16.2); Lymphocytes # 2.6 K/mm3 (0.7-4.5); Lymphocytes % 29.5 % (10-50); Mean Corpuscular HGB Conc 32.8 g/dL (31.8-35.4); Mean Corpuscular Hemoglobin 32.3 pg (27.0-31.2); Mean Corpuscular Volume 98.7 fl (81-99); Mean Platelet Volume 7.6 fl (7.4-10.4); Monocytes # 0.4 K/mm3 (0.1-1.0); Monocytes % 4.7 % (1.7-9.3); Neutrophils # 5.6 K/mm3 (1.8-7.8); Neutrophils % 63.9 % (37.0-80.0); Platelet Count 285 K/mm3 (142-424); Red Blood Count 4.27 M/mm3 (4.20-5.40); Red Cell Distribution Width 13.6 % (11.5-17.5); White Blood Count 8.8 K/mm3 (4.8-10.8)
[2023-08-12 08:59] LABS: Alanine Aminotransferase 12 U/L (12-78); Albumin Level 3.9 g/dl (3.5-5.0); Alkaline Phosphatase 64 U/L (38-126); Anion Gap 12.1 mEq/L (5-15); Aspartate Amino Transferase 16 U/L (14-36); Bilirubin,Direct 0.1 mg/dl (0.0-0.4); Bilirubin,Indirect 0.5 mg/dL (0.0-0.9); Bilirubin,Total 0.6 mg/dl (0.2-1.3); Bilirubin,Unconjugated 0.4 mg/dL (0.0-1.1); Blood Urea Nitrogen 9 mg/dl (7-17); Calcium 9.4 mg/dl (8.4-10.2); Carbon Dioxide 23 mmol/L (22.0-30.0); Chloride 110 mmol/L (98-107); Chol/HDL Ratio 2.7 (1-3.5); Cholesterol 107 mg/dl (140-200); Estimated Glomerular Filt Rate 67 ml/min (>60); GFR (African American) 81 ML/MIN (>60); Glucose 115 mg/dl (74-100); HDL Cholesterol 40 mg/dl (40-60); Magnesium 1.7 mg/dl (1.6-2.3); Potassium 4.1 mmoL/L (3.5-5.1); Sodium 141 mmol/L (136-145); Total Protein,Serum 6.6 g/dl (6.3-8.2); Triglycerides 107 mg/dl (30-150); VLDL Cholesterol 21 mg/dL (0-40)
[2023-08-12 09:10] LABS: Direct LDL Cholesterol 47.67 mg/dL (100-129)
[2023-08-12 09:31] LABS: Thyroid Stimulating Hormone 1.35 uIU/mL (0.465-4.68)
== END 2023-08-12 23:59 | disposition home or self-care (01) ==
PROVIDERS: PCP Physician Assistant; Visit Provider Physician Assistant
DX: I25.10 Atherosclerotic heart disease of native coronary artery without angina pectoris (principal); R94.30 Abnormal result of cardiovascular function study, unspecified; R94.31 Abnormal electrocardiogram [ECG] [EKG]; E78.5 Hyperlipidemia, unspecified; I10 Essential (primary) hypertension; F17.200 Nicotine dependence, unspecified, uncomplicated; Z95.5 Presence of coronary angioplasty implant and graft
CPT/HCPCS: 36415; 80048; 80061; 80076; 83735; 84439; 84443; 85025; 93270

== ENCOUNTER 2023-10-03 15:12 | Emergency (ER) | payer OTHER, SELFPAY ==
--- NOTE | 2023-10-03 15:26 | ED_ITS ---
Discharge Plan Disposition Patient Disposition: Home, Self-Care Condition: Good Prescriptions Prescriptions: New doxycycline monohydrate 100 mg tablet 100 mg PO BID Qty: 20 0RF prednisone 20 mg tablet 20 mg PO BID Qty: 10 0RF dextromethorphan-guaifenesin [Mucinex DM] 60-1,200 mg tablet extended release 12 hr 1 tab PO BID PRN (Reason: cough) Qty: 14 0RF budesonide-formoterol [Symbicort] 160-4.5 mcg/actuation HFA aerosol inhaler 1 inh inhalation BID Qty: 10.2 0RF No Action citalopram [Celexa] 20 mg tablet 20 mg PO DAILY Qty: 90 3RF furosemide [Lasix] 20 mg tablet 20 mg PO DAILY Qty: 90 3RF ranolazine 1,000 mg tablet extended release 12 hr 1,000 mg PO BID 90 Days Qty: 180 3RF tramadol 50 mg tablet 50 mg PO BID PRN (Reason: post op pain) Qty: 40 0RF atorvastatin [Lipitor] 40 mg tablet 40 mg PO HS Qty: 90 3RF clopidogrel [Plavix] 75 mg tablet 75 mg PO DAILY Qty: 90 3RF Ubrelvy 100 mg tablet 100 mg PO ONCE PRN (Reason: Episodic migraine) Qty: 10 5RF Rx Instructions: Take 100 mg at onset of symptoms. May repeat after 2 hours if symptoms persist. Max dose 200 mg in 24 hours. Gemtesa 75 mg tablet 75 mg PO DAILY topiramate 50 mg tablet 150 mg PO DAILY 90 Days Qty: 270 1RF ibuprofen 800 mg tablet 800 mg PO TID Qty: 90 1RF bupropion HCl (smoking deter) 150 mg tablet extended release 12 hr 150 mg PO DAILY Qty: 90 0RF Rx Instructions: take one tablet once a day for the first three days and then take one tablet twice a day for remainder pantoprazole 20 mg tablet,delayed release (DR/EC) 20 mg PO DAILY Qty: 30 2RF polyethylene glycol 3350 [Miralax] 17 gram/dose powder 17 g PO DAILY Qty: 510 0RF amlodipine [Norvasc] 5 mg tablet 5 mg PO DAILY Qty: 30 2RF aspirin 81 mg tablet,delayed release (DR/EC) See Rx Instructions .ROUTE .COMPLEX Qty: 90 3RF Dose Instruction: TAKE ONE TABLET BY MOUTH ONCE A DAY Rx Instructions: TAKE ONE TABLET BY MOUTH ONCE A DAY benzonatate 200 mg capsule See Rx Instructions .ROUTE .COMPLEX Qty: 30 0RF Dose Instruction: TAKE ONE CAPSULE BY MOUTH 3 TIMES A DAY NEEDED FOR COUGH Rx Instructions: TAKE ONE CAPSULE BY MOUTH 3 TIMES A DAY NEEDED FOR COUGH albuterol sulfate 90 mcg/actuation HFA aerosol inhaler See Rx Instructions .ROUTE .COMPLEX Qty: 8.5 0RF Dose Instruction: INHALE 2 PUFFS BY MOUTH EVERY 6 HOURS Rx Instructions: INHALE 2 PUFFS BY MOUTH EVERY 6 HOURS Referrals Follow up/Referrals: Yuki Ortega PA [Primary Care Provider] - See instructions Clinical Impressions Clinical Impression: Bronchitis Instructions Patient Instructions: DI for Acute Bronchitis Discharge ED Provider: [place]uki Ortega [facility] [place] Stated complaint: Cough,Sneezing,congestion Time Seen by Provider: 10/03/23 16:29 History of Present Illness Provider Complaint: Cough, congestion, chest tightness X 2 weeks. Cough non productive. No fever. Feels like she has pleurisy in her right lung. Onset (ago): week(s) Location: chest Relieving factors: none Exacerbating factors: none Associated symptoms: cough Treatments prior to arrival: none Related Data Home Medications Medication Instructions Recorded Confirmed vibegron 75 mg tablet (Gemtesa) 75 mg PO DAILY 12/31/22 10/03/23 Previous Rx's Medication Instructions Recorded ubrogepant 100 mg tablet (Ubrelvy) 100 mg PO ONCE PRN Episodic 11/19/22 migraine #10 tabs topiramate 50 mg tablet 150 mg (3 x 50 mg) PO DAILY 12/31/22 migraine prevention 90 days #270 tabs ibuprofen 800 mg tablet 800 mg PO TID pain #90 tabs 03/06/23 bupropion HCl (smoking deter) 150 150 mg PO DAILY #90 tabs 04/02/23 mg tablet,12 hr sustained-release(smoking deterrent) pantoprazole 20 mg tablet,delayed 20 mg PO DAILY #30 tabs 04/24/23 release polyethylene glycol 3350 17 17 g PO DAILY #510 grams 04/30/23 gram/dose oral powder (Miralax) aspirin 81 mg tablet,delayed See Rx Instructions .Route 05/26/23 release .COMPLEX #90 tabs citalopram 20 mg tablet (Celexa) 20 mg PO DAILY #90 tabs 06/19/23 albuterol sulfate 90 mcg/actuation See Rx Instructions .Route 07/04/23 aerosol inhaler .COMPLEX #8.5 grams benzonatate 200 mg capsule See Rx Instructions .Route 07/04/23 .COMPLEX #30 caps tramadol 50 mg tablet 50 mg PO BID PRN post op pain #40 07/10/23 tabs furosemide 20 mg tablet (Lasix) 20 mg PO DAILY #90 tabs 08/12/23 ranolazine 1,000 mg 1,000 mg PO BID 90 days #180 tabs 08/12/23 tablet,extended release,12 hr amlodipine 5 mg tablet (Norvasc) 5 mg PO DAILY #30 tabs 08/26/23 atorvastatin 40 mg tablet (Lipitor) 40 mg PO HS #90 tabs 09/25/23 clopidogrel 75 mg tablet (Plavix) 75 mg PO DAILY #90 tabs 09/25/23 budesonide-formoterol HFA 160 1 inh inhalation BID #10.2 grams 10/03/23 mcg-4.5 mcg/actuation aerosol inhaler (Symbicort) dextromethorphan-guaifenesin ER 60 1 tab PO BID PRN cough #14 tabs 10/03/23 mg-1,200 mg tab,extend release,12hr (Mucinex DM) doxycycline monohydrate 100 mg 100 mg PO BID #20 tabs 10/03/23 tablet prednisone 20 mg tablet 20 mg PO BID #10 tabs 10/03/23 Allergies Allergy/AdvReac Type Severity Reaction Status Date / Time sulfamethoxazole Allergy Unknown Verified 10/03/23 15:46 [SULFAMETHOXAZOLE] trimethoprim [TRIMETHOPRIM] Allergy Unknown Verified 10/03/23 15:46 [facility] Disclaimer: The information contained in this section may have been updated after the patient was seen, as this information can be updated by other users. Medical History Left shoulder pain Bradycardia Hyperlipidemia Hypertension Elevated left ventricular end-diastolic pressure (LVEDP) Tobacco dependence syndrome Coronary artery disease Dyspnea Asthma History of gastroesophageal reflux (GERD) Anxiety RF Celexa Surgical History History of heart artery stent Stented coronary artery History of bladder repair surgery History of hysterectomy Family History Other Cancer Heart attack No significant family history Social History Smoking Status: Current every day smoker tobacco type: cigarettes packs per day: 1 and e-cigarettes alcohol intake: never substance use type: marijuana current occupational status: employed Travel in the last 8 weeks: None household members: none housing: house ROS Obtained: Yes All systems reviewed & no additional complaints except as documented Cardiovascular Cardiovascular: Reports dyspnea Respiratory Respiratory: Reports chest congestion, Reports cough, Reports dyspnea and Reports pain with breathing Physical Exam General General appearance: alert and in no apparent distress Head Head exam: atraumatic, normocephalic and normal inspection Eye Eye exam: Present normal appearance, PERRL and EOMI ENT ENT exam: Present normal exam, normal oropharynx, mucous membranes moist, TM's normal bilaterally and normal external ear exam Neck Neck exam: Present normal inspection, full ROM and trachea midline; Absent meningismus or lymphadenopathy Chest Chest inspection: Present normal inspection and symmetric chest wall rise; Absent tenderness Respiratory Respiratory exam: Present wheezes; Absent respiratory distress Cardiovascular Cardiovascular exam: Present regular rate and normal rhythm; Absent JVD Abdominal Exam Abdominal exam: Present soft and normal bowel sounds; Absent distention, tenderness or guarding Extremities Exam Extremities exam: Present normal inspection, full ROM and normal capillary refill; Absent calf tenderness Back Exam Back exam: Present normal inspection; Absent tenderness Neurological Exam Neurological exam: Present alert and oriented X3 Psychiatric Psychiatric exam: Present normal affect and normal mood Skin Skin exam: Present warm, dry, intact and normal color Lymphatic Lymphatic Findings: no adenopathy Medical Decision Making Jay Inquiry Pt receiving controlled substance: No Radiology Data #1: Image(s): Chest Image Reviewed: Yes I reviewed the patient's radiology results Preliminary Findings: Normal/NAD
[2023-10-03 15:35] VITALS: BP 169/85; PULSE 85; RESP 19; TEMP 36.9; O2SAT 96; BMI 26.6
--- NOTE | 2023-10-03 15:42 | XR_ITS ---
FINAL REPORT CLINICAL HISTORY: Nonspecific cough COMPARISON: 04/15/2023 FINDINGS: Two views of the chest were obtained. The heart size and pulmonary vascularity are within normal limits. The mediastinum is normal. No acute pulmonary abnormality is identified. There is no pneumothorax. The bony thorax is intact. IMPRESSION: No active cardiopulmonary disease. Reviewed, Interpreted and Dictated by Chidi Scott III, MD Transcribed by Mandie Nichols Authenticated and [facility]
--- NOTE | 2023-10-03 15:46 | PC.NURSE ---
Pt's blood pressure is 169/85 she is aware and has not taken her blood pressure medication today.
--- NOTE | 2023-10-03 15:48 | PC.NURSE ---
Pt denies chest pain. She stated I know what chest pain is this is not related to my heart. This is lung pain. I see a heart doctor.
[2023-10-03 16:40] VITALS: BP 169/85; PULSE 85; RESP 19; TEMP 36.7; O2SAT 96
== END 2023-10-03 16:40 | disposition home or self-care (01) ==
PROVIDERS: Emergency Provider Physician Assistant; PCP Physician Assistant
DX: R07.1 Chest pain on breathing; R09.81 Nasal congestion; R05.9 Cough, unspecified; F17.210 Nicotine dependence, cigarettes, uncomplicated; J20.9 Acute bronchitis, unspecified; J44.89 Other specified chronic obstructive pulmonary disease
CPT/HCPCS: 71046; 99212; 99214; G0463

== ENCOUNTER 2023-10-23 22:49 | Emergency (ER) | payer OTHER, SELFPAY ==
[2023-10-23 22:49] VITALS: BP 120/87; PULSE 76; RESP 17; TEMP 36.6; O2SAT 97; BMI 25.7
--- NOTE | 2023-10-23 22:49 | ECG_ITS ---
APPROVED REPORT Exam: Resting ECG HR:75 bpm ECG Measurements Heart Rate 75 AXES MD 168 P 58 QRSd 77 QRS 45 QT 336 T 49 QTc 364 Conclusion SINUS RHYTHM WITH OCCASIONAL VENTRICULAR PREMATURE COMPLEXES Electronically signed by : ALEXEI LO, 10/24/2023 23:07:00
[2023-10-23 22:53] VITALS: PULSE 80
--- NOTE | 2023-10-23 22:53 | XR_ITS ---
PROCEDURE INFORMATION: Exam: XR Chest Exam date and time: 10/23/2023 11:02 PM Age: 48 years old Clinical indication: Pain; Angina pectoris; Additional info: Chest pain TECHNIQUE: Imaging protocol: Radiologic exam of the chest. Views: 1 view. COMPARISON: CR XR CHEST 2V 10/03/2023 3:37 PM FINDINGS: Lungs: Unremarkable. No consolidation. Pleural spaces: Unremarkable. No pleural effusion. No pneumothorax. Heart/Mediastinum: Unremarkable. No cardiomegaly. Bones/joints: Unremarkable. IMPRESSION: No acute findings.
--- NOTE | 2023-10-23 22:58 | ED_ITS ---
Discharge Plan Disposition Patient Disposition: Home, Self-Care Prescriptions Prescriptions: No Action atorvastatin 40 mg tablet 40 mg PO HS valacyclovir 1 gram tablet 1,000 mg PO BID clopidogrel 75 mg tablet 75 mg PO DAILY amlodipine 5 mg tablet 5 mg PO DAILY aspirin 81 mg tablet,delayed release (DR/EC) 81 mg PO DAILY bisoprolol fumarate 5 mg tablet 5 mg PO DAILY citalopram 20 mg tablet 20 mg PO DAILY pantoprazole 40 mg tablet,delayed release (DR/EC) 40 mg PO DAILY furosemide 20 mg tablet 20 mg PO DAILY budesonide-formoterol [Symbicort] 160-4.5 mcg/actuation HFA aerosol inhaler 1 inh INHALATION DAILY ranolazine 1,000 mg tablet extended release 12 hr 1,000 mg PO DAILY prasugrel 10 mg tablet 10 mg PO DAILY Gemtesa 75 mg tablet 75 mg PO DAILY Referrals Follow up/Referrals: Provider,Referral, MD [Referring] - See instructions Activity Restrictions/Add. 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 Please return to the emergency department if you develop any new or worsening symptoms or become concerned for your health. Clinical Impressions Clinical Impression: Chest pain Discharge ED Provider: Donis Rasmussen General Adult HPI General Chief complaint: Chest Pain Stated complaint: Chest pain/Pressure Time Seen by Provider: 10/23/23 22:58 Mode of Arrival: EMS Source of Information: Patient and EMS Limitations: No Limitations Description of Symptoms (Recalled from ER Triage Doc. by RN): 48 F presents from home via EMS with c/o chest pain/pressure that started approximately 2205 [address]. Patient reports cardiac history with last [place] March 2023. Patient had 4mg IVP Zofran, 324mg ASA, and 2 subligual 0.4mg nitro. Pain was 10/10 and after the Nitro she is 5/10. NAD on arrival, 18g RAC per EMS History of Present Illness HPI narrative: 48-year-old female with history of coronary artery disease, PTSD, COPD, got 2 stents in March 2023 at [facility], on aspirin and clopidogrel, presents for central chest pain. Reports some shortness of breath. She reports the chest pain started this afternoon maybe around 3, but got worse this evening shortly prior to arrival. She was given full dose aspirin and nitro x 2 with EMS with significant improvement in pain. Also given Zofran. She reports no abdominal pain. No recent surgery or immobilization, no history of DVT or PE Related Data Home Medications Medication Instructions Recorded Confirmed amlodipine 5 mg tablet 5 mg PO DAILY 10/23/23 10/23/23 aspirin 81 mg tablet,delayed 81 mg PO DAILY 10/23/23 10/23/23 release atorvastatin 40 mg tablet 40 mg PO HS 10/23/23 10/23/23 bisoprolol fumarate 5 mg tablet 5 mg PO DAILY 10/23/23 10/23/23 budesonide-formoterol HFA 160 1 inh inhalation DAILY 10/23/23 10/23/23 mcg-4.5 mcg/actuation aerosol inhaler (Symbicort) citalopram 20 mg tablet 20 mg PO DAILY 10/23/23 10/23/23 clopidogrel 75 mg tablet 75 mg PO DAILY 10/23/23 10/23/23 furosemide 20 mg tablet 20 mg PO DAILY 10/23/23 10/23/23 pantoprazole 40 mg tablet,delayed 40 mg PO DAILY 10/23/23 10/23/23 release prasugrel 10 mg tablet 10 mg PO DAILY 10/23/23 10/23/23 ranolazine 1,000 mg 1,000 mg PO DAILY 10/23/23 10/23/23 tablet,extended release,12 hr valacyclovir 1 gram tablet 1,000 mg PO BID 10/23/23 10/23/23 vibegron 75 mg tablet (Gemtesa) 75 mg PO DAILY 10/23/23 10/23/23 Allergies Allergy/AdvReac Type Severity Reaction Status Date / Time sulfamethoxazole Allergy Unknown Hives Verified 10/23/23 23:00 [SULFAMETHOXAZOLE] trimethoprim [TRIMETHOPRIM] Allergy Unknown Hives Verified 10/23/23 23:00 [facility] Disclaimer: The information contained in this section may have been updated after the patient was seen, as this information can be updated by other users. Medical History Left shoulder pain Bradycardia Hyperlipidemia Hypertension Elevated left ventricular end-diastolic pressure (LVEDP) Tobacco dependence syndrome Coronary artery disease Dyspnea Asthma History of gastroesophageal reflux (GERD) Anxiety RF Celexa Surgical History History of heart artery stent Stented coronary artery History of bladder repair surgery History of hysterectomy Family History Other Cancer Heart attack No significant family history Social History Smoking Status: Current every day smoker tobacco type: cigarettes packs per day: 1 and e-cigarettes alcohol intake: never substance use type: marijuana current occupational status: employed Travel in the last 8 weeks: None household members: none housing: house ROS Obtained: Yes All systems reviewed & no additional complaints except as documented Physical Exam General General appearance: alert and in no apparent distress Head Head exam: atraumatic and normocephalic Eye Eye exam: Present normal appearance, PERRL and EOMI ENT ENT exam: Present normal oropharynx and normal external ear exam Neck Neck exam: Present normal inspection and full ROM Chest Chest inspection: Present normal inspection and symmetric chest wall rise; Absent tenderness Respiratory Respiratory exam: Present normal lung sounds bilaterally; Absent respiratory distress Cardiovascular Cardiovascular exam: Present regular rate and normal rhythm Abdominal Exam Abdominal exam: Present soft; Absent distention, tenderness or guarding Extremities Exam Extremities exam: Present normal inspection; Absent edema or joint swelling Back Exam Back exam: Present normal inspection; Absent tenderness Neurological Exam Neurological exam: Present alert and oriented X3; Absent motor sensory deficit Psychiatric Psychiatric exam: Present normal affect and normal mood Skin Skin exam: Present warm, dry and normal color Lymphatic Lymphatic Findings: no adenopathy Medical Decision Making Medical Records Medical records reviewed: Yes I reviewed the patient's medical records. Jay Inquiry Pt receiving controlled substance: No Jay was queried for this patient: No Vital Signs: 10/23/23 22:49 10/23/23 22:53 10/23/23 23:00 Temperature 97.8 F Temperature Source Oral Pulse Rate 80 71 Pulse Rate [Left] 76 Respiratory Rate 17 18 Blood Pressure 136/84 Blood Pressure [Right Arm] 120/87 Blood Pressure Mean 101 Blood Pressure Mean [Right Arm] 98 Blood Pressure Source [Right Arm] Automatic Cuff Blood Pressure Position [Right Arm] Supine 02 Sat by Pulse Oximetry 97 97 Oxygen Delivery Method Room Air Room Air 10/23/23 23:30 10/24/23 00:00 10/24/23 00:30 Temperature Temperature Source Pulse Rate 75 69 64 Pulse Rate [Left] Respiratory Rate 14 12 16 Blood Pressure 102/80 L 135/77 129/82 Blood Pressure [Right Arm] Blood Pressure Mean 98 Blood Pressure Mean [Right Arm] Blood Pressure Source [Right Arm] Blood Pressure Position [Right Arm] 02 Sat by Pulse Oximetry 97 99 98 Oxygen Delivery Method Room Air Room Air 10/24/23 01:00 10/24/23 01:31 10/24/23 02:00 Temperature Temperature Source Pulse Rate 66 64 64 Pulse Rate [Left] Respiratory Rate 17 21 22 Blood Pressure 136/80 110/64 130/76 Blood Pressure [Right Arm] Blood Pressure Mean 84 89 Blood Pressure Mean [Right Arm] Blood Pressure Source [Right Arm] Blood Pressure Position [Right Arm] 02 Sat by Pulse Oximetry 98 97 96 Oxygen Delivery Method Room Air Lab Data Lab results reviewed: Yes I reviewed the patient's lab results. Lab Results 10/23/23 22:48: WBC 11.6 H, RBC 4.12 L, Hgb 13.4, Hct 40.1, MCV 97.3, MCH 32.5 H , MCHC 33.4, RDW 14.1, Plt Count 282, MPV 7.3 L, Neut % (Auto) 65.6, Lymph % (Auto) 26.7, [place] % (Auto) 5.3, Eos % (Auto) 1.5, Baso % (Auto) 1.0, Neut # (Auto) 7.6, Lymph # (Auto) 3.1, [place] # (Auto) 0.6, Eos # (Auto) 0.2, Baso # (Auto) 0.1, PT 10.5, INR 0.93, APTT 27.3, Sodium 136, Potassium 3.5, Chloride 111 H, Carbon Dioxide 23, Anion Gap 5.5, BUN 4 L, Creatinine 0.70, Estimated Creat Clear 102, Estimated GFR 89, Est GFR ( Amer) 108, Glucose 102 H, Calcium 9.1, Total Bilirubin 0.2, AST 17, ALT 14, Alkaline Phosphatase 86, Troponin I < 0.01, Total Protein 6.6, Albumin 3.7, Globulin 2.9, Albumin/Globulin Ratio 1.3, Lipase 58 10/24/23 02:00: Troponin I < 0.01 10/23/23 22:48 10/23/23 22:48 Orders (Tests/Meds): ED MEDICATIONS Generic Name Dose Route Start Last Admin Trade Name Caydenq PRN Reason Stop Dose Admin Sodium Chloride 10 ml 10/23/23 22:53 Sodium Chloride 0.9% 10ml Flush Syringe IV 11/22/23 22:52 NEEDED PRN Maintain IV Site Discontinued Medications Generic Name Dose Route Start Last Admin Trade Name Caydenq PRN Reason Stop Dose Admin Acetaminophen 1,000 mg 10/23/23 23:26 10/23/23 23:35 Acetaminophen 500mg Tab PO 10/23/23 23:27 1,000 mg ONCE ONE Administration Lidocaine HCl 15 ml 10/23/23 23:26 10/23/23 23:36 Lidocaine 2% Viscous Olive 15ml Udc PO 10/23/23 23:27 15 ml ONCE ONE Administration ORDERS Category Date Time Status XR chest portable Stat Exams 10/23/23 22:53 Completed Activated Partial Thrombo Time Stat Lab 10/23/23 22:48 Completed Complete Blood Count Auto Diff Stat Lab 10/23/23 22:48 Completed Comprehensive Metabolic Panel Stat Lab 10/23/23 22:48 Completed Lipase Stat Lab 10/23/23 22:48 Completed Prothrombin Time INR Stat Lab 10/23/23 22:48 Completed Troponin I Q3H Lab 10/23/23 22:48 Completed Troponin I Q3H Lab 10/24/23 02:00 Completed Troponin I Q3H Lab 10/24/23 05:00 Ordered ECG Data Tracing #1: I reviewed this ECG and interpreted as documented below: Sinus rhythm, rate of 75, no significant ST changes. No evidence of arrhythmia ECG initial impression date: 10/23/23 ECG initial impression time: 22:59 HEART Score History (anamnesis): Moderately suspicious ECG: Normal Age: 45-65 years Risk factors: Atherosclerosis history Troponin: </= normal limit HEART Score: 4 Medical Decision Narrative: 48-year-old female with history of coronary artery disease status post stent in March, hypertension, PTSD presents for 1 day of worsening central chest pain.. History was obtained via interactive discussion with patient, family, chart review. On arrival, patient is [afebrile, hemodynamically stable, satting appropriately, alert, oriented x4, GCS 15], moving all extremities spontaneously. Full physical exam performed and significant for no significant physical exam abnormalities. Differential includes but is not limited to ACS, PE, musculoskeletal chest pain, GERD, pneumonia, pneumothorax. Patient was given full dose aspirin and nitro x 2 by EMS prior to arrival. For symptomatic management and correction of underlying abnormalities. Given viscous lidocaine and Tylenol in ED. Workup initiated including CBC CMP troponin lipase chest x-ray EKG. D-dimer was considered but deemed unnecessary given patient is PERC negative.. On re-evaluation, patient [remains afebrile, HD stable.] Laboratory workup independently interpreted by me and significant for negative initial troponin, mild leukocytosis, normal renal function, no significant electrolyte derangement.. Given this, patient requires observation for repeat troponin to establish need for admission. Patient placed in observation at 2330. Imaging independently interpreted by me and significant for clear lungs bilaterally without evidence of opacity or pneumothorax.. See radiology read for full review of final results. After period of observation, patient's chest pain is resolved. Repeat troponin is undetectably low. Given this, it is felt the patient is low risk and is appropriate for discharge at this time with PCP and cardiology follow-up. Total time in observation 3 hours. Interactive discussion was had with patient regarding her presentation. Less than 30 minutes was utilized in preparing patient's discharge. Procedures Risk/Benefits of Procedure(s) Were Explained: Yes Critical Care Critical Care Time Critical Care Time: No
[2023-10-23 22:59] LABS: Basophils # 0.1 K/mm3 (0-0.2); Eosinophils # 0.2 K/mm3 (0.0-0.4); Eosinophils % 1.5 % (0.1-12.0); Hematocrit 40.1 % (37.0-47.0); Hemoglobin 13.4 g/dL (12.2-16.2); Lymphocytes # 3.1 K/mm3 (0.7-4.5); Lymphocytes % 26.7 % (10-50); Mean Corpuscular HGB Conc 33.4 g/dL (31.8-35.4); Mean Corpuscular Hemoglobin 32.5 pg (27.0-31.2); Mean Corpuscular Volume 97.3 fl (81-99); Mean Platelet Volume 7.3 fl (7.4-10.4); Monocytes # 0.6 K/mm3 (0.1-1.0); Monocytes % 5.3 % (1.7-9.3); Neutrophils # 7.6 K/mm3 (1.8-7.8); Neutrophils % 65.6 % (37.0-80.0); Platelet Count 282 K/mm3 (142-424); Red Blood Count 4.12 M/mm3 (4.20-5.40); Red Cell Distribution Width 14.1 % (11.5-17.5); White Blood Count 11.6 K/mm3 (4.8-10.8)
[2023-10-23 23:00] VITALS: BP 136/84; PULSE 71; RESP 18; O2SAT 97
[2023-10-23 23:01] LABS: Chloride 111 mmol/L (98-107); Sodium 136 mmol/L (136-145)
[2023-10-23 23:02] LABS: Potassium 3.5 mmoL/L (3.5-5.1)
[2023-10-23 23:04] LABS: Alanine Aminotransferase 14 U/L (12-78); Albumin Level 3.7 g/dl (3.5-5.0); Albumin/Globulin Ratio 1.3 (1.1-1.8); Alkaline Phosphatase 86 U/L (38-126); Anion Gap 5.5 mEq/L (5-15); Aspartate Amino Transferase 17 U/L (14-36); Bilirubin,Total 0.2 mg/dl (0.2-1.3); Blood Urea Nitrogen 4 mg/dl (7-17); Carbon Dioxide 23 mmol/L (22.0-30.0); Creatinine Clearance Estimated 102 mL/min (50-200); Estimated Glomerular Filt Rate 89 ml/min (>60); GFR (African American) 108 ML/MIN (>60); Globulin 2.9 g/dL (1.3-3.2); Total Protein,Serum 6.6 g/dl (6.3-8.2)
[2023-10-23 23:05] LABS: Calcium 9.1 mg/dl (8.4-10.2); Glucose 102 mg/dl (74-100)
[2023-10-23 23:07] LABS: Activated Partial Thrombo Time 27.3 seconds (22.8-30.6); INR 0.93 (0.9-1.1); Prothrombin Time 10.5 seconds (10.1-12.5)
[2023-10-23 23:21] LABS: Troponin I < 0.01 ng/ml (0.00-0.034)
[2023-10-23 23:30] VITALS: BP 102/80; PULSE 75; RESP 14; O2SAT 97
[2023-10-23] MEDS: ACETAMINOPHEN 500MG TAB 1000 MG PO (23:35)
[2023-10-23 23:36] LABS: Lipase 58 U/L (23-300)
[2023-10-23] MEDS: LIDOCAINE 2% VISCOUS SOL 15ML UDC 15 ML PO (23:36)
[2023-10-24] VITALS (7 sets, daily range): BP systolic 110–136; BP diastolic 64–83; PULSE 64–69; RESP 12–22; TEMP 36.6; O2SAT 96–99
[2023-10-24 02:25] LABS: Troponin I < 0.01 ng/ml (0.00-0.034)
== END 2023-10-24 02:54 | disposition home or self-care (01) ==
PROVIDERS: Emergency Medicine; Emergency Provider Emergency Medicine; PCP Physician Assistant
DX: R07.9 Chest pain, unspecified (principal); J44.9 Chronic obstructive pulmonary disease, unspecified; F17.210 Nicotine dependence, cigarettes, uncomplicated; E78.5 Hyperlipidemia, unspecified; I11.9 Hypertensive heart disease without heart failure; I25.10 Atherosclerotic heart disease of native coronary artery without angina pectoris; K21.9 Gastro-esophageal reflux disease without esophagitis; Z95.5 Presence of coronary angioplasty implant and graft
CPT/HCPCS: 71045; 80053; 83690; 84484; 85025; 85610; 85730; 93005; 99284

== ENCOUNTER 2023-10-31 14:53 | Outpatient (CLI) | payer OTHER, SELFPAY ==
--- NOTE | 2023-10-31 15:20 | PC.NURSE ---
Pt unable to complete a full PFT due to coughing. Able to do a before and after PFT. Yuki Vineland office staff notified.
== END 2023-10-31 23:59 | disposition home or self-care (01) ==
LOC: RT 14:53
PROVIDERS: PCP Physician Assistant; Visit Provider Physician Assistant
DX: J44.89 Other specified chronic obstructive pulmonary disease (principal); F17.210 Nicotine dependence, cigarettes, uncomplicated; F17.290 Nicotine dependence, other tobacco product, uncomplicated
CPT/HCPCS: 94060

== ENCOUNTER 2023-11-11 08:48 | Day surgery (SDC) | payer OTHER, SELFPAY ==
[2023-11-07 14:14] VITALS: BMI 26.5
[2023-11-11 09:10] VITALS: BP 135/86; PULSE 81; RESP 18; TEMP 36.2; O2SAT 97
[2023-11-11] MEDS: LACTATED RINGERS 1000ML 1,000 ML 25 ML IV (09:14)
--- NOTE | 2023-11-11 09:14 | [facility].SCOPE ---
Procedure: Date: 11/11/23 Patient Date of :: 1975 Procedure Performed:: Esophagogastroduodenoscopy with biopsy Indications:: Dysphagia Atypical chest pain Performing Provider:: Nacho Rosas MD Referring Provider:: . Sedation:: Monitored anesthesia care Procedure:: After informed consent was obtained the patient was taken to the endoscopy suite. Sedation ensued after the patient was transferred to the left lateral decubitus position. Pulse, blood pressure, and oxygen saturation were monitored throughout the procedure. The endoscope was advanced beyond the duodenal bulb. Retroflexion within the gastric lumen was accomplished. The gastroscope was carefully removed and the patient was transferred to recovery in stable condition. Please see findings and specimens below for detail. Findings:: Spasm and tortuosity versus extrinsic compression at 22 cm Somewhat patulous/tortuous/dilated esophagus and general Gastroesophageal junction displaced to 31 cm Sliding hiatal hernia Duodenal polyp (distal to sweep ) Specimens:: Duodenal polyp biopsy Antral biopsy Recommendations:: Follow-up pathology Barium swallow and possible modified barium swallow in near future Complications:: No immediate Estimated blood obtained (mL): 1 Colonoscopy Component Colonoscopy Component Was a colonoscopy performed during today's procedure?: No
[2023-11-11 09:25] VITALS: O2SAT 95
[2023-11-11 09:35] VITALS: BP 111/72; PULSE 85; RESP 16; TEMP 36.7; O2SAT 95
--- NOTE | 2023-11-11 09:41 | EXP.ANES.CKL ---
[facility] Disclaimer: The information contained in this section may have been updated after the patient was seen, as this information can be updated by other users. Medical History Anxiety Manic depression Left shoulder pain Bradycardia Hyperlipidemia Hypertension Elevated left ventricular end-diastolic pressure (LVEDP) Tobacco dependence syndrome Coronary artery disease Dyspnea Asthma History of gastroesophageal reflux (GERD) Anxiety Surgical History History of heart artery stent Stented coronary artery History of bladder repair surgery History of hysterectomy Family History Other Cancer Heart attack Social History Smoking Status: Current every day smoker tobacco type: cigarettes packs per day: 1 and e-cigarettes alcohol intake: never substance use type: marijuana current occupational status: employed Travel in the last 8 weeks: None household members: none housing: house [facility] Anesthesia Checklist Patient Identification Patient Identification: Arm Band Structural Data Admitted From: Home Planned Operative Procedure/s: EGD Consent for Planned Operative Procedure(s) Verified: Yes Verified Documents: Surgical Consent and History and Physical NPO Status Verified Time NPO: 00:00 Additional verifications Anesthesia Reactions: No Hx Blood Transfusions: No Blood Transfusion Reaction: No Airway Assessment Mallampati Score:: Class II C-Spine Mobility Assessed: Yes TMJ Mobility Assessed: Yes Dentition: Edentulous Neurological Assessment Level of Consciousness: Awake, Alert and Appropriate Anesthesia Plan Anesthesia Risk discussed: Yes Anesthesia Plan: Verified ASA Class: III Anesthesia Type: MAC
[2023-11-11 09:45] VITALS: BP 121/82; PULSE 81; RESP 16; O2SAT 98
[2023-11-11 09:55] VITALS: BP 113/72; PULSE 76; RESP 18; O2SAT 98
[2023-11-11 10:05] VITALS: BP 129/83; PULSE 76; RESP 16; O2SAT 97
== END 2023-11-11 10:05 | disposition home or self-care (01) ==
PROVIDERS: PCP Physician Assistant; Visit Provider Surgery
PROC: 0DJ08ZZ Inspection of Upper Intestinal Tract, Via Natural or Artificial Opening Endoscopic (ICD-10-PCS; CPT 43235; principal; 2023-11-11 09:30)
DX: R13.10 Dysphagia, unspecified (principal); R07.89 Other chest pain; K44.9 Diaphragmatic hernia without obstruction or gangrene; K31.7 Polyp of stomach and duodenum
CPT/HCPCS: 43239; J7120

== ENCOUNTER 2023-11-28 09:47 | Outpatient (CLI) | payer OTHER, SELFPAY ==
--- NOTE | 2023-11-28 09:48 | FL_ITS ---
FINAL REPORT CLINICAL HISTORY: .dysphagia 335.05 dap .43 fluoro time FINDINGS: ESOPHAGRAM HISTORY: Dysphagia PROCEDURE: The patient ingested barium. Effervescent crystals were also administered. Spot and overhead films were obtained. FINDINGS: There is persistent esophageal narrowing of the esophagus beginning just below the aortic arch. This does not allow passage of a 13 mm barium tablet. The area of narrowing appears to cover several centimeters. There is no hiatal hernia. There is mild gastroesophageal reflux. Peristalsis is normal. IMPRESSION: Narrowing of the distal esophagus not allowing passage of a 13 mm barium tablet. Endoscopic correlation is recommended Fluoroscopy time: 43 seconds Fluoro dose: 335 DAP in [id number] reviewed , interpreted and dictated by Dr. Scott Transcribed by Neeraj Gee PA-C. Reviewed, Interpreted and Dictated by Chidi Scott III, MD Transcribed by ROBERTA Cody Authenticated and [facility]
[2023-11-28] MEDS: BARIUM SULFATE(E-Z-AC);750ML BOTTLE 750 ML PO (11:13)
[2023-11-28] MEDS: BARIUM SULFATE (E-Z-HD 340GM);135ML BOTTLE 135 ML PO (11:13)
== END 2023-11-28 23:59 | disposition home or self-care (01) ==
LOC: RAD 09:48
PROVIDERS: PCP Physician Assistant; Visit Provider Surgery
DX: R13.10 Dysphagia, unspecified (principal)
CPT/HCPCS: 74220

== ENCOUNTER 2023-12-06 13:13 | Emergency (ER) | payer OTHER, SELFPAY ==
[2023-12-06] VITALS (10 sets, daily range): BP systolic 124–183; BP diastolic 72–98; PULSE 64–93; RESP 18–26; TEMP 36.6–36.8; O2SAT 93–97; BMI 27.4
--- NOTE | 2023-12-06 13:15 | ECG_ITS ---
APPROVED REPORT Exam: Resting ECG HR:92 bpm ECG Measurements Heart Rate 92 AXES [place] 163 P 71 QRSd 88 QRS 61 QT 346 T 47 QTc 396 Conclusion SINUS RHYTHM LOW QRS VOLTAGE IN PRECORDIAL LEADS [QRS DEFLECTION < 1.0 mV IN CHEST LEADS] BORDERLINE ECG Electronically signed by : NATACHA HILL, 12/06/2023 15:38:32
--- NOTE | 2023-12-06 13:17 | HMH.EDGENADL ---
Discharge Plan Disposition Chief Complaint: Chest Pain Prescriptions Prescriptions: No Action atorvastatin 40 mg tablet 40 mg PO HS valacyclovir 1 gram tablet 1,000 mg PO BID clopidogrel 75 mg tablet 75 mg PO DAILY amlodipine 5 mg tablet 5 mg PO DAILY aspirin 81 mg tablet,delayed release (DR/EC) 81 mg PO DAILY bisoprolol fumarate 5 mg tablet 5 mg PO DAILY citalopram 20 mg tablet 20 mg PO DAILY pantoprazole 40 mg tablet,delayed release (DR/EC) 40 mg PO DAILY furosemide 20 mg tablet 20 mg PO DAILY budesonide-formoterol [Symbicort] 160-4.5 mcg/actuation HFA aerosol inhaler 1 inh INHALATION DAILY ranolazine 1,000 mg tablet extended release 12 hr 1,000 mg PO DAILY Gemtesa 75 mg tablet 75 mg PO DAILY Referrals Follow up/Referrals: Yuki Ortega PA [Primary Care Provider] - See instructions Print Language Print Language: Norwegian Discharge ED Provider: Silas Manzo General Adult HPI <Jose Maria Loving MD - Last Filed: 12/06/23 15:48> General Chief complaint: Chest Pain Stated complaint: Chest pain Time Seen by Provider: 12/06/23 13:17 History of Present Illness HPI narrative: The patient presents with a chief complaint of severe chest pain that has been ongoing for about a week, with worsening symptoms today. She also reports waking up with facial swelling. The chest pain is described as a heavy sensation, radiating through the chest. The patient has a history of coronary artery disease and has two stents placed. She has been experiencing difficulty swallowing for the past month, with an inability to eat and episodes of vomiting when attempting to consume food. The patient reports that her medication gets caught in her throat and is not providing relief. She has been experiencing constant chest pain and difficulty sleeping due to the pain, with multiple awakenings since 1:30 AM. The chest pain is exacerbated by certain movements, sitting up straight, and lying back. She also reports having a cough, but states it is a chronic issue. The patient is currently taking medications for GERD and to prevent stent spasms, but is unsure of the names. The stents were placed on March 25. She has seen a manager medical affairs for her throat issue and is scheduled for a second scope on Friday. Please note that above description of symptoms, in this electronic medical record under categorization of recalled from ER triage doctor by RN are reflective of an initial nursing assessment, however, is not reflective of my full history and physical exam that was personally taken and clarified. Consequentially, this preceding description of symptoms, which may include the patient's categorized chief complaint in the EMR, do not reflect my personal clinical impression, and the ultimate description of history of present illness and patient stated complaints should be deferred to this section of the note. Unless stated otherwise or congruent with this section of the note, additional signs, symptoms, or incongruence should be interpreted as inaccurate with my clinical impression. Related Data Home Medications ?Medication ?Instructions ?Recorded ?Confirmed amlodipine 5 mg tablet 5 mg PO DAILY 10/23/23 11/19/23 aspirin 81 mg tablet,delayed 81 mg PO DAILY 10/23/23 11/19/23 release atorvastatin 40 mg tablet 40 mg PO HS 10/23/23 11/19/23 bisoprolol fumarate 5 mg tablet 5 mg PO DAILY 10/23/23 11/19/23 budesonide-formoterol HFA 160 1 inh inhalation DAILY 10/23/23 11/19/23 mcg-4.5 mcg/actuation aerosol inhaler (Symbicort) citalopram 20 mg tablet 20 mg PO DAILY 10/23/23 11/19/23 clopidogrel 75 mg tablet 75 mg PO DAILY 10/23/23 11/19/23 furosemide 20 mg tablet 20 mg PO DAILY 10/23/23 11/19/23 pantoprazole 40 mg tablet,delayed 40 mg PO DAILY 10/23/23 11/19/23 release ranolazine 1,000 mg 1,000 mg PO DAILY 10/23/23 11/19/23 tablet,extended release,12 hr valacyclovir 1 gram tablet 1,000 mg PO BID 10/23/23 11/19/23 vibegron 75 mg tablet (Gemtesa) 75 mg PO DAILY 10/23/23 11/19/23 Allergies Allergy/AdvReac Type Severity Reaction Status Date / Time sulfamethoxazole Allergy Unknown Hives Verified 11/19/23 11:04 [SULFAMETHOXAZOLE] trimethoprim [TRIMETHOPRIM] Allergy Unknown Hives Verified 11/19/23 11:04 [facility] <Jose Maria Loving MD - Last Filed: 12/06/23 15:48> [facility] Disclaimer: The information contained in this section may have been updated after the patient was seen, as this information can be updated by other users. Medical History (Updated 11/19/23 @ 12:06 by Nacho Rosas MD) Anxiety Manic depression Left shoulder pain Bradycardia Hyperlipidemia Hypertension Elevated left ventricular end-diastolic pressure (LVEDP) Tobacco dependence syndrome Coronary artery disease Dyspnea Asthma History of gastroesophageal reflux (GERD) Anxiety Surgical History (Updated 11/19/23 @ 11:05 by MAURILIO Tovar) History of esophagogastroduodenoscopy (EGD) History of heart artery stent Stented coronary artery History of bladder repair surgery History of hysterectomy Family History Other Cancer Heart attack Social History Smoking Status: Never smoker alcohol intake: never substance use type: marijuana current occupational status: employed Travel in the last 8 weeks: None household members: none housing: house <Jose Maria Loving MD - Last Filed: 12/06/23 15:48> ROS Obtained: Yes other As per HPI Physical Exam <Jose Maria Loving MD - Last Filed: 12/06/23 15:48> General General appearance: alert and anxious Head Head exam: atraumatic and normocephalic Eye Eye exam: Present normal appearance Neck Neck exam: Present normal inspection Chest Chest inspection: Present normal inspection and symmetric chest wall rise Respiratory Respiratory exam: Present normal lung sounds bilaterally; Absent respiratory distress Cardiovascular Cardiovascular exam: Present regular rate and normal rhythm Abdominal Exam Abdominal exam: Present soft Neurological Exam Neurological exam: Present alert and oriented X3 Psychiatric Psychiatric exam: Present normal affect and normal mood Skin Skin exam: Present warm and dry Medical Decision Making <Jose Maria Loving MD - Last Filed: 12/06/23 15:48> Medical Records Medical records reviewed: Yes I reviewed the patient's medical records. Jay Inquiry Pt receiving controlled substance: No Vital Signs: 12/06/23 13:23 12/06/23 13:45 12/06/23 14:00 Temperature 98.2 F Temperature Source Oral Pulse Rate 75 Pulse Rate [Left Radial] 93 H Respiratory Rate 20 20 Blood Pressure 161/93 H Blood Pressure [Right Arm] 183/96 H Blood Pressure Mean 115 Blood Pressure Mean [Right Arm] 125 02 Sat by Pulse Oximetry 97 97 Oxygen Delivery Method Room Air 12/06/23 14:30 12/06/23 15:00 12/06/23 15:30 Temperature Temperature Source Pulse Rate 67 65 68 Pulse Rate [Left Radial] Respiratory Rate 25 H 26 H 26 H Blood Pressure 139/94 H 154/91 H 124/77 Blood Pressure [Right Arm] Blood Pressure Mean Blood Pressure Mean [Right Arm] 02 Sat by Pulse Oximetry 93 L 95 96 Oxygen Delivery Method 12/06/23 16:00 12/06/23 16:30 12/06/23 17:00 Temperature Temperature Source Pulse Rate 64 66 66 Pulse Rate [Left Radial] Respiratory Rate 23 24 22 Blood Pressure 164/98 H 150/90 H 150/92 H Blood Pressure [Right Arm] Blood Pressure Mean Blood Pressure Mean [Right Arm] 02 Sat by Pulse Oximetry 94 L 95 95 Oxygen Delivery Method Room Air Room Air Lab Data Lab Results 12/06/23 13:17: WBC 8.9, RBC 4.44, Hgb 14.2, Hct 44.7, MCV 100.8 H, MCH 32.1 H, MCHC 31.8, RDW 13.3, Plt Count 274, MPV 6.4 L, Neut % (Auto) 71.2, Lymph % (Auto) 23.0, [place] % (Auto) 4.5, Eos % (Auto) 0.8, Baso % (Auto) 0.5, Neut # (Auto) 6.3, Lymph # (Auto) 2.1, [place] # (Auto) 0.4, Eos # (Auto) 0.1, Baso # (Auto) 0.0, Sodium 138, Potassium 3.2 L, Chloride 107, Carbon Dioxide 24, Anion Gap 10.2, BUN < 2 L, Creatinine 0.70, Estimated GFR 89, Est GFR ( Amer) 108, Glucose 145 H, Calcium 8.9, Magnesium 1.7, Total Bilirubin 0.5, AST 22, ALT 23, Alkaline Phosphatase 77, Troponin I < 0.01, Total Protein 7.0, Albumin 4.1, Globulin 2.9, Albumin/Globulin Ratio 1.4, Lipase 34 12/06/23 16:16: Troponin I < 0.01 12/06/23 13:17 12/06/23 13:17 Orders (Tests/Meds): ED MEDICATIONS Discontinued Medications Generic Name Dose Route Start Last Admin Trade Name Freq PRN Reason Stop Dose Admin Belladonna Alkaloids 60 ml 12/06/23 13:41 12/06/23 13:49 Belladonna Alkaloids 60 Ml Ml PO 12/06/23 13:42 60 ml ONCE ONE Administration Lactated Ringer's 1,000 mls @ 999 mls/hr 12/06/23 13:41 12/06/23 13:49 Lactated Ringer's 1000 Ml Bag IV 12/06/23 14:41 999 mls/hr .Q1H1M ONE Administration ORDERS Category Date Time Status XR chest 2V Stat Exams 12/06/23 13:41 Completed CBC w/Auto Diff [Complete Blood Count Auto Diff] Stat Lab 12/06/23 13:17 Completed CMP [Comprehensive Metabolic Panel] Stat Lab 12/06/23 13:17 Completed Lipase Stat Lab 12/06/23 13:17 Completed MAG [Magnesium] Stat Lab 12/06/23 13:17 Completed Troponin I Q3H Lab 12/06/23 13:17 Completed Troponin I Q3H Lab 12/06/23 16:16 Completed HEART Score History (anamnesis): Slightly suspicious ECG: Non-specific disturbance Age: 45-65 years Risk factors: Atherosclerosis history Troponin: </= normal limit HEART Score: 4 Medical Decision Narrative: Patient with history and exam per above presenting for evaluation of chest pain Diagnoses considered include ACS, costochondritis, referred pain from pneumonia, GERD, esophageal stricture, pancreatitis, among others ED workup and treatment included: ED MEDICATIONS Discontinued Medications Generic Name Dose Route Start Last Admin Trade Name Freq PRN Reason Stop Dose Admin Belladonna Alkaloids 60 ml 12/06/23 13:41 12/06/23 13:49 Belladonna Alkaloids 60 Ml Ml PO 12/06/23 13:42 60 ml ONCE ONE Administration Lactated Ringer's 1,000 mls @ 999 mls/hr 12/06/23 13:41 12/06/23 13:49 Lactated Ringer's 1000 Ml Bag IV 12/06/23 14:41 999 mls/hr .Q1H1M ONE Administration ORDERS Category Date Time Status XR chest 2V Stat Exams 12/06/23 13:41 Completed CBC w/Auto Diff [Complete Blood Count Auto Diff] Stat Lab 12/06/23 13:17 Completed CMP [Comprehensive Metabolic Panel] Stat Lab 12/06/23 13:17 Completed Lipase Stat Lab 12/06/23 13:17 Completed MAG [Magnesium] Stat Lab 12/06/23 13:17 Completed Troponin I Q3H Lab 12/06/23 13:17 Completed Troponin I Q3H Lab 12/06/23 16:45 Ordered Labs were independently interpreted by me, significant for initial troponin undetectable, no other acute findings, second troponin pending Imaging was independently visualized and interpreted by me, significant for possible small right pleural effusion versus atelectasis. Please refer to radiology report for full details. EKG independently visualized and interpreted me significant for normal axis, sinus rhythm, no acute ST changes Care is transferred to incoming physician. <Silas Manzo, - Last Filed: 12/06/23 17:07> Vital Signs: 12/06/23 13:23 12/06/23 13:45 12/06/23 14:00 Temperature 98.2 F Temperature Source Oral Pulse Rate 75 Pulse Rate [Left Radial] 93 H Respiratory Rate 20 20 Blood Pressure 161/93 H Blood Pressure [Right Arm] 183/96 H Blood Pressure Mean 115 Blood Pressure Mean [Right Arm] 125 02 Sat by Pulse Oximetry 97 97 Oxygen Delivery Method Room Air 12/06/23 14:30 12/06/23 15:00 12/06/23 15:30 Temperature Temperature Source Pulse Rate 67 65 68 Pulse Rate [Left Radial] Respiratory Rate 25 H 26 H 26 H Blood Pressure 139/94 H 154/91 H 124/77 Blood Pressure [Right Arm] Blood Pressure Mean Blood Pressure Mean [Right Arm] 02 Sat by Pulse Oximetry 93 L 95 96 Oxygen Delivery Method 12/06/23 16:00 12/06/23 16:30 12/06/23 17:00 Temperature Temperature Source Pulse Rate 64 66 66 Pulse Rate [Left Radial] Respiratory Rate 23 24 22 Blood Pressure 164/98 H 150/90 H 150/92 H Blood Pressure [Right Arm] Blood Pressure Mean Blood Pressure Mean [Right Arm] 02 Sat by Pulse Oximetry 94 L 95 95 Oxygen Delivery Method Room Air Room Air Lab Data Lab Results 12/06/23 13:17: WBC 8.9, RBC 4.44, Hgb 14.2, Hct 44.7, MCV 100.8 H, MCH 32.1 H, MCHC 31.8, RDW 13.3, Plt Count 274, MPV 6.4 L, Neut % (Auto) 71.2, Lymph % (Auto) 23.0, [place] % (Auto) 4.5, Eos % (Auto) 0.8, Baso % (Auto) 0.5, Neut # (Auto) 6.3, Lymph # (Auto) 2.1, [place] # (Auto) 0.4, Eos # (Auto) 0.1, Baso # (Auto) 0.0, Sodium 138, Potassium 3.2 L, Chloride 107, Carbon Dioxide 24, Anion Gap 10.2, BUN < 2 L, Creatinine 0.70, Estimated GFR 89, Est GFR ( Amer) 108, Glucose 145 H, Calcium 8.9, Magnesium 1.7, Total Bilirubin 0.5, AST 22, ALT 23, Alkaline Phosphatase 77, Troponin I < 0.01, Total Protein 7.0, Albumin 4.1, Globulin 2.9, Albumin/Globulin Ratio 1.4, Lipase 34 12/06/23 16:16: Troponin I < 0.01 Orders (Tests/Meds): ED MEDICATIONS Discontinued Medications Generic Name Dose Route Start Last Admin Trade Name Freq PRN Reason Stop Dose Admin Belladonna Alkaloids 60 ml 12/06/23 13:41 12/06/23 13:49 Belladonna Alkaloids 60 Ml Ml PO 12/06/23 13:42 60 ml ONCE ONE Administration Lactated Ringer's 1,000 mls @ 999 mls/hr 12/06/23 13:41 12/06/23 13:49 Lactated Ringer's 1000 Ml Bag IV 12/06/23 14:41 999 mls/hr .Q1H1M ONE Administration ORDERS Category Date Time Status XR chest 2V Stat Exams 12/06/23 13:41 Completed CBC w/Auto Diff [Complete Blood Count Auto Diff] Stat Lab 12/06/23 13:17 Completed CMP [Comprehensive Metabolic Panel] Stat Lab 12/06/23 13:17 Completed Lipase Stat Lab 12/06/23 13:17 Completed MAG [Magnesium] Stat Lab 12/06/23 13:17 Completed Troponin I Q3H Lab 12/06/23 13:17 Completed Troponin I Q3H Lab 12/06/23 16:16 Completed HEART Score HEART Score: 4 Medical Decision Narrative: Patient with history and exam per above presenting for evaluation of chest pain Diagnoses considered include ACS, costochondritis, referred pain from pneumonia, GERD, esophageal stricture, pancreatitis, among others ED workup and treatment included: ED MEDICATIONS Discontinued Medications Generic Name Dose Route Start Last Admin Trade Name Freq PRN Reason Stop Dose Admin Belladonna Alkaloids 60 ml 12/06/23 13:41 12/06/23 13:49 Belladonna Alkaloids 60 Ml Ml PO 12/06/23 13:42 60 ml ONCE ONE Administration Lactated Ringer's 1,000 mls @ 999 mls/hr 12/06/23 13:41 12/06/23 13:49 Lactated Ringer's 1000 Ml Bag IV 12/06/23 14:41 999 mls/hr .Q1H1M ONE Administration ORDERS Category Date Time Status XR chest 2V Stat Exams 12/06/23 13:41 Completed CBC w/Auto Diff [Complete Blood Count Auto Diff] Stat Lab 12/06/23 13:17 Completed CMP [Comprehensive Metabolic Panel] Stat Lab 12/06/23 13:17 Completed Lipase Stat Lab 12/06/23 13:17 Completed MAG [Magnesium] Stat Lab 12/06/23 13:17 Completed Troponin I Q3H Lab 12/06/23 13:17 Completed Troponin I Q3H Lab 12/06/23 16:45 Ordered Labs were independently interpreted by me, significant for initial troponin undetectable, no other acute findings, second troponin pending Imaging was independently visualized and interpreted by me, significant for possible small right pleural effusion versus atelectasis. Please refer to radiology report for full details. EKG independently visualized and interpreted me significant for normal axis, sinus rhythm, no acute ST changes Care is transferred to incoming physician. Care was assumed by Manzo DO pending repeat troponin. Repeat troponin negative. On reassessment patient has positional chest pain that is reproducible with palpation of costochondral junctions. Do not believe patient to have cardiac source of chest pain at this time. Patient has follow-up with her doctor this coming week and has been encouraged to keep this appointment. Patient to return to ED if symptoms worsen. Discharged home with hemodynamically stable vitals Critical Care <Jose Maria Loving MD - Last Filed: 12/06/23 15:48> Critical Care Time Critical Care Time: No
--- NOTE | 2023-12-06 13:41 | XR_ITS ---
PROCEDURE INFORMATION: Exam: XR Chest Exam date and time: 12/06/2023 1:56 PM Age: 48 years old Clinical indication: Pain; Chest pressure; Additional info: SOA, chest pain, dysphagia TECHNIQUE: Imaging protocol: Radiologic exam of the chest. Views: 2 views. COMPARISON: CR XR CHEST PORTABLE 10/23/2023 11:02 PM FINDINGS: Lungs: Unremarkable. No consolidation. Pleural spaces: Possible small right pleural effusion. Heart/Mediastinum: Unremarkable. No cardiomegaly. Bones/joints: Unremarkable. IMPRESSION: Possible small right pleural effusion. No focal consolidation
[2023-12-06] MEDS: BELLADONNA ALKALOIDS 60 ML ML PO (13:49)
[2023-12-06] MEDS: LACTATED RINGERS 1000ML 1,000 ML 999 ML IV (13:49)
[2023-12-06 13:53] LABS: Albumin Level 4.1 g/dl (3.5-5.0); Chloride 107 mmol/L (98-107); Potassium 3.2 mmoL/L (3.5-5.1); Sodium 138 mmol/L (136-145)
[2023-12-06 13:55] LABS: Alanine Aminotransferase 23 U/L (12-78); Aspartate Amino Transferase 22 U/L (14-36); Estimated Glomerular Filt Rate 89 ml/min (>60); GFR (African American) 108 ML/MIN (>60)
[2023-12-06 13:56] LABS: Albumin/Globulin Ratio 1.4 (1.1-1.8); Alkaline Phosphatase 77 U/L (38-126); Anion Gap 10.2 mEq/L (5-15); Basophils % 0.5 % (0.1-2.0); Bilirubin,Total 0.5 mg/dl (0.2-1.3); Calcium 8.9 mg/dl (8.4-10.2); Carbon Dioxide 24 mmol/L (22.0-30.0); Eosinophils # 0.1 K/mm3 (0.0-0.4); Eosinophils % 0.8 % (0.1-12.0); Globulin 2.9 g/dL (1.3-3.2); Glucose 145 mg/dl (74-100); Hematocrit 44.7 % (37.0-47.0); Hemoglobin 14.2 g/dL (12.2-16.2); Lipase 34 U/L (23-300); Lymphocytes # 2.1 K/mm3 (0.7-4.5); Magnesium 1.7 mg/dl (1.6-2.3); Mean Corpuscular HGB Conc 31.8 g/dL (31.8-35.4); Mean Corpuscular Hemoglobin 32.1 pg (27.0-31.2); Mean Corpuscular Volume 100.8 fl (81-99); Mean Platelet Volume 6.4 fl (7.4-10.4); Monocytes # 0.4 K/mm3 (0.1-1.0); Monocytes % 4.5 % (1.7-9.3); Neutrophils # 6.3 K/mm3 (1.8-7.8); Neutrophils % 71.2 % (37.0-80.0); Platelet Count 274 K/mm3 (142-424); Red Blood Count 4.44 M/mm3 (4.20-5.40); Red Cell Distribution Width 13.3 % (11.5-17.5); White Blood Count 8.9 K/mm3 (4.8-10.8)
--- NOTE | 2023-12-06 14:05 | PC.NURSE ---
Pt gone to RAD via wheelchair
--- NOTE | 2023-12-06 14:08 | PC.NURSE ---
Pt returned from RAD
[2023-12-06 14:12] LABS: Blood Urea Nitrogen < 2 mg/dl (7-17); Troponin I < 0.01 ng/ml (0.00-0.034)
[2023-12-06 16:46] LABS: Troponin I < 0.01 ng/ml (0.00-0.034)
--- NOTE | 2023-12-06 17:03 | PC.NURSE ---
Dr. Manzo at BS to update pt on results and POC
== END 2023-12-06 17:20 | disposition home or self-care (01) ==
PROVIDERS: Emergency Medicine; Emergency Provider Student in an Organized Health Care Education/Training Program; PCP Physician Assistant
DX: E87.6 Hypokalemia (principal); R07.9 Chest pain, unspecified; R05.3 Chronic cough; J44.9 Chronic obstructive pulmonary disease, unspecified; K21.9 Gastro-esophageal reflux disease without esophagitis; I11.9 Hypertensive heart disease without heart failure; I25.10 Atherosclerotic heart disease of native coronary artery without angina pectoris; E78.5 Hyperlipidemia, unspecified; Z95.5 Presence of coronary angioplasty implant and graft
CPT/HCPCS: 71046; 80053; 83690; 83735; 84484; 85025; 93005; 96360; 99284; J7120

== ENCOUNTER 2023-12-11 10:58 | Day surgery (SDC) | payer OTHER, SELFPAY ==
--- NOTE | 2023-12-11 11:15 | P.PNANES_ITS ---
[facility] Disclaimer: The information contained in this section may have been updated after the patient was seen, as this information can be updated by other users. Medical History Anxiety Manic depression Left shoulder pain Bradycardia Hyperlipidemia Hypertension Elevated left ventricular end-diastolic pressure (LVEDP) Tobacco dependence syndrome Coronary artery disease Dyspnea Asthma History of gastroesophageal reflux (GERD) Anxiety RF Celexa Surgical History History of esophagogastroduodenoscopy (EGD) History of heart artery stent Stented coronary artery History of bladder repair surgery History of hysterectomy Family History Other Cancer Heart attack Social History Smoking Status: Never smoker alcohol intake: never substance use type: marijuana current occupational status: employed Travel in the last 8 weeks: None household members: none housing: house [facility] Anesthesia Checklist Patient Identification Patient Identification: Arm Band, Family and Verbal (Name & ) Structural Data Admitted From: Home Planned Operative Procedure/s: EGD w/dilation Consent for Planned Operative Procedure(s) Verified: Yes Verified Documents: Surgical Consent and History and Physical NPO Status Verified Time NPO: 20:00 Chart Verification Results Verified: CBC, BMP, ECG and Chest Xray Additional verifications Patient : No Anesthesia Reactions: No Hx Blood Transfusions: No Blood Transfusion Reaction: No Cardiovascular Assessment Heart Sounds: S1 & S2 Pulse Rhythm: Irregular Peripheral Edema: No Airway Assessment Mallampati Score:: Class II C-Spine Mobility Assessed: Yes (FROM) TMJ Mobility Assessed: Yes Dentition: Edentulous Neurological Assessment Level of Consciousness: Awake, Alert, Appropriate and Follows Commands Hx Seizures: No Numbness or tingling in extremities: No Anesthesia Plan Anesthesia Risk discussed: Yes Anesthesia Plan: Verified ASA Class: III Anesthesia Type: MAC
[2023-12-11 11:20] VITALS: BP 141/83; PULSE 85; RESP 18; TEMP 36.1; O2SAT 96; BMI 28.2
[2023-12-11] MEDS: LACTATED RINGERS 1000ML 1,000 ML 25 ML IV (11:25)
[2023-12-11 12:23] VITALS: O2SAT 98
--- NOTE | 2023-12-11 12:51 | HMH.SCOPE ---
Procedure: Date: 12/11/23 Patient Date of :: 1975 Procedure Performed:: Esophagoscopy with dilatation (balloon dilatation to 20 mm) Indications:: Esophageal stricture of undetermined etiology Performing Provider:: Nacho Rosas MD Referring Provider:: . Sedation:: Monitored anesthesia care Procedure:: After informed consent was obtained the patient was taken to the endoscopy suite. Sedation ensued after the patient was transferred to the left lateral decubitus position. Pulse, blood pressure, and oxygen saturation were monitored throughout the procedure. The endoscope was advanced beyond the area of concern to the gastroesophageal junction. Tortuosity and ill-defined stricture / extrinsic compression / focal spasticity noted between 22 and 26 cm. Serial dilatation from 14 mm to 20 mm was completed. No obvious/significant mucosal rents noted. The gastroscope more easily passed beyond the site of stricture; however, normal lumen diameter was not restored. The gastroscope was carefully removed and the patient was transferred to recovery in stable condition. Please see findings and specimens below for detail. Findings:: Tortuosity and ill-defined stricture / extrinsic compression / focal spasticity between 22 and 26 cm Serial pneumatic dilatation from 14 to 20 mm completed Specimens:: None Recommendations:: Discussion with regard to further evaluation (possible repeat esophagogastroduodenoscopy, possible chest CT, etc.) will be ongoing Complications:: No immediate Estimated blood obtained (mL): 0 Colonoscopy Component Colonoscopy Component Was a colonoscopy performed during today's procedure?: No
[2023-12-11 12:55] VITALS: BP 81/35; PULSE 86; RESP 18; TEMP 36.9; O2SAT 95
[2023-12-11 13:10] VITALS: BP 100/63; PULSE 87; RESP 18; O2SAT 95
[2023-12-11 13:25] VITALS: BP 100/73; PULSE 97; RESP 18; O2SAT 96
[2023-12-11 13:40] VITALS: BP 159/74; PULSE 73; RESP 18; O2SAT 96
== END 2023-12-11 13:45 | disposition home or self-care (01) ==
PROVIDERS: PCP Physician Assistant; Visit Provider Surgery
PROC: 0DJ08ZZ Inspection of Upper Intestinal Tract, Via Natural or Artificial Opening Endoscopic (ICD-10-PCS; CPT 43235; principal; 2023-12-11 12:00)
DX: K22.2 Esophageal obstruction (principal); K21.9 Gastro-esophageal reflux disease without esophagitis
CPT/HCPCS: 43249; C1726; J2704; J7120

== ENCOUNTER 2023-12-16 12:09 | Emergency (ER) | payer OTHER, SELFPAY ==
[2023-12-16 12:20] VITALS: BP 140/86; PULSE 77; RESP 20; TEMP 36.5; O2SAT 97; BMI 27.2
--- NOTE | 2023-12-16 12:37 | EXP.UTC ---
Discharge Plan Disposition Patient Disposition: Home, Self-Care Condition: Good Prescriptions Prescriptions: New doxycycline hyclate 100 mg capsule 100 mg PO BID Qty: 20 0RF prednisone 20 mg tablet 20 mg PO BID 5 Days Qty: 10 0RF albuterol sulfate [Proventil HFA] 90 mcg/actuation HFA aerosol inhaler 1 inh inhalation Q4-6H PRN (Reason: shortness of breath or wheezing) Qty: 8.5 0RF guaifenesin [Mucinex] 600 mg tablet extended release 12hr 1,200 mg PO BID PRN (Reason: cough) Qty: 20 0RF No Action atorvastatin 40 mg tablet 40 mg PO DAILY valacyclovir 1 gram tablet 1,000 mg PO DAILY clopidogrel 75 mg tablet 75 mg PO DAILY amlodipine 5 mg tablet 5 mg PO DAILY aspirin 81 mg tablet,delayed release (DR/EC) 81 mg PO DAILY citalopram 20 mg tablet 20 mg PO DAILY pantoprazole 40 mg tablet,delayed release (DR/EC) 40 mg PO DAILY Gemtesa 75 mg tablet 75 mg PO DAILY Referrals Follow up/Referrals: Yuki Ortega PA [Primary Care Provider] - See instructions Activity Restrictions/Add. Instructions Additional Instructions/Restrictions: Start antibiotic today. Be sure to complete entire prescription even if feeling better Monitor temp. Tylenol every 4 hours as needed and / or ibuprofen every 6 hours as needed ( As long as your primary care physician has told you that it ok to take both. For fever/aches/pains ER if no less than 101 despite Tylenol or Motrin Humidifier/vaporizer or hot steamy shower Inhaler every 4-6 hours as needed like we discussed. If unsure how to use it, ask pharmacist to demonstrate how. Should help open airways and improve cough, wheezing, and shortness of breath Mucinex for your cough Be sure to drink lots of water. *Start steroid today. Helps with inflammation therefore, cough and wheezing. Follow directions on the package. Reviewed side effects. Patient reports taking them before. Follow up IMMEDIATELY for new or worsening of symptoms OR no noticeable improvement over the next 48-72 hours. 911 immediately for any life threatening symptoms such as chest pain or difficulty breathing Clinical Impressions Clinical Impression: Bronchitis Instructions Patient Instructions: Acute Bronchitis, DI for Acute Bronchitis Print Language Print Language: Welsh Discharge ED Provider: Kallie Pierre [facility] [place] General Stated complaint: soa lung pain Mode of Arrival: Ambulatory Source of Information: Patient Limitations: No Limitations Time Seen by Provider: 12/16/23 12:37 Description of Symptoms (Recalled from Triage Doc. by RN): PATIENT C/O CHEST TIGHTNESS, LUNG PAIN, SOA AND COUGH THAT STARTED LAST NIGHT HEENT Symptoms (Recalled from RN notes): No Resp Symptoms (Recalled from RN notes): Yes Skin Symptoms (Recalled from RN notes): No MS Symptoms (Recalled from RN notes): No Functional Status (Recalled from RN notes): WNL History of Present Illness Provider Complaint: Patient states that she has been having sinus pain and pressure for about a week then last night she felt like it was trying to move into her chest States that she started coughing last night and feeling tight in her lungs and she has COPD and gets bronchitis easily so today she wanted to come in and get something to help it before it got bad states that she is also out of her albuterol inhaler wanting a refill Related Data Home Medications ?Medication ?Instructions ?Recorded ?Confirmed amlodipine 5 mg tablet 5 mg PO DAILY 12/16/23 12/16/23 aspirin 81 mg tablet,delayed 81 mg PO DAILY 12/16/23 12/16/23 release atorvastatin 40 mg tablet 40 mg PO DAILY 12/16/23 12/16/23 citalopram 20 mg tablet 20 mg PO DAILY 12/16/23 12/16/23 clopidogrel 75 mg tablet 75 mg PO DAILY 12/16/23 12/16/23 pantoprazole 40 mg tablet,delayed 40 mg PO DAILY 12/16/23 12/16/23 release valacyclovir 1 gram tablet 1,000 mg PO DAILY
[2023-12-16 12:50] VITALS: BP 140/86; PULSE 77; RESP 20; TEMP 36.5; O2SAT 97
== END 2023-12-16 12:54 | disposition home or self-care (01) ==
PROVIDERS: Emergency Provider Nurse Practitioner; PCP Physician Assistant
DX: J20.9 Acute bronchitis, unspecified (principal); R07.81 Pleurodynia; R06.02 Shortness of breath; J44.9 Chronic obstructive pulmonary disease, unspecified; Z87.891 Personal history of nicotine dependence
CPT/HCPCS: 99212; 99214; G0463

== ENCOUNTER 2023-12-23 11:46 | Outpatient (CLI) | payer OTHER, SELFPAY ==
[2023-12-23 12:34] LABS: Basophils % 0.6 % (0.1-2.0); Eosinophils % 0.4 % (0.1-12.0); Hematocrit 45.7 % (37.0-47.0); Hemoglobin 14.7 g/dL (12.2-16.2); Lymphocytes # 2.2 K/mm3 (0.7-4.5); Mean Corpuscular HGB Conc 32.2 g/dL (31.8-35.4); Mean Corpuscular Hemoglobin 32.1 pg (27.0-31.2); Mean Corpuscular Volume 99.7 fl (81-99); Mean Platelet Volume 7.3 fl (7.4-10.4); Monocytes # 0.6 K/mm3 (0.1-1.0); Monocytes % 7.1 % (1.7-9.3); Neutrophils # 5.2 K/mm3 (1.8-7.8); Neutrophils % 64.9 % (37.0-80.0); Platelet Count 302 K/mm3 (142-424); Red Blood Count 4.58 M/mm3 (4.20-5.40); Red Cell Distribution Width 13.6 % (11.5-17.5)
[2023-12-23 12:48] LABS: D-Dimer 0.39 ug/mL (0.0-0.5)
[2023-12-23 13:01] LABS: Chloride 106 mmol/L (98-107); Potassium 3.5 mmoL/L (3.5-5.1); Sodium 137 mmol/L (136-145)
[2023-12-23 13:04] LABS: Alanine Aminotransferase 15 U/L (12-78); Alkaline Phosphatase 83 U/L (38-126); Anion Gap 8.5 mEq/L (5-15); Aspartate Amino Transferase 17 U/L (14-36); Bilirubin,Direct 0.4 mg/dl (0.0-0.4); Bilirubin,Indirect 0.2 mg/dL (0.0-0.9); Bilirubin,Total 0.6 mg/dl (0.2-1.3); Bilirubin,Unconjugated 0.2 mg/dL (0.0-1.1); Calcium 9.2 mg/dl (8.4-10.2); Carbon Dioxide 26 mmol/L (22.0-30.0); Cholesterol 149 mg/dl (140-200); Estimated Glomerular Filt Rate 107 ml/min (>60); GFR (African American) 129 ML/MIN (>60); Glucose 101 mg/dl (74-100); Magnesium 1.6 mg/dl (1.6-2.3); Total Protein,Serum 6.6 g/dl (6.3-8.2); Triglycerides 111 mg/dl (30-150); VLDL Cholesterol 22 mg/dL (0-40)
[2023-12-23 13:05] LABS: Chol/HDL Ratio 2.4 (1-3.5); HDL Cholesterol 61 mg/dl (40-60)
[2023-12-23 13:13] LABS: Blood Urea Nitrogen < 2 mg/dl (7-17)
[2023-12-23 13:16] LABS: Direct LDL Cholesterol 59.97 mg/dL (100-129); Troponin I < 0.01 ng/ml (0.00-0.034)
[2023-12-23 13:22] LABS: Free T4 (Free Thyroxine) 1.11 ng/dl (0.78-2.19)
[2023-12-23 13:34] LABS: Thyroid Stimulating Hormone 1.91 uIU/mL (0.465-4.68)
== END 2023-12-23 23:59 | disposition home or self-care (01) ==
LOC: LAB 11:48
PROVIDERS: PCP Physician Assistant; Visit Provider Nurse Practitioner Family
DX: I25.10 Atherosclerotic heart disease of native coronary artery without angina pectoris (principal); F17.200 Nicotine dependence, unspecified, uncomplicated; R06.00 Dyspnea, unspecified; R07.9 Chest pain, unspecified; R94.30 Abnormal result of cardiovascular function study, unspecified; F41.9 Anxiety disorder, unspecified; J90 Pleural effusion, not elsewhere classified; R06.09 Other forms of dyspnea; J44.89 Other specified chronic obstructive pulmonary disease; E78.2 Mixed hyperlipidemia; I10 Essential (primary) hypertension; I25.118 Atherosclerotic heart disease of native coronary artery with other forms of angina pectoris
CPT/HCPCS: 36415; 80048; 80061; 80076; 83735; 84439; 84443; 84484; 85025; 85378

== ENCOUNTER 2023-12-30 07:43 | Outpatient (CLI) | payer OTHER, SELFPAY ==
--- NOTE | 2023-12-30 | CA_ITS ---
APPROVED REPORT Exam: Pharmacologic Technologist: Elma Nance, Ht: 5 ft 2 in Wt: 152 lbs BSA: 1.70 m2 HR: 65 bpm BP: 142/72 mmHg Rhythm: NSR Medical History Medications: Aspirin,,,,, Pantoprazole,,,,, Atorvastatin,,,,, Citalopram,,,,, Albuterol,,,,, CloPIdogrel,,,,, MuCINEX,,,,, Toprol XL,,,,, ValACYCLOVIR,,,,, Isosorbide Monoitrate ER,,,,, Ranolazine ER,,,,, ViBegron,,,,, Stress Test Details Test: LEXISCAN Reason for pharmacologic stress test: physical limitation. HR Resting HR: 65 bpm Max Heart Rate (APMHR): 172 bpm Max HR Achieved: 103 bpm Target HR (85% APMHR): 146 bpm % of APMHR: 60 Recovery HR: 88 bpm BP Resting BP: 142.0/72.0 mmHg Max BP: 151.0/89.0 mmHg Recovery BP: 150.0/87.0 mmHg ECG Resting ECG: NSR Stress ECG: No significant ST changes Arrhythmia: PACs Clinical Exercise duration: 04:01 min Highest Stage Achieved: Stress ECG Conclusion Symptoms: Chest tightness, Dyspnea, nausea. Arrhythmias/Ectopy: PAC ST-T Changes: No significant ST changes Conclusion: EKG unremarkable due to Lexiscan infusion. Myoview images reported separately. Test Summary REST . . . . . . . Resting REST 02:38 . . 65 . 142/ 72 . . Stage 1 . . . . . . . Myoview Injected Stage 1 01:00 . . 92 . . . . Stage 2 01:00 . . 97 . 128/ 84 . . Stage 3 01:00 . . 96 . 132/ 74 . . Stage 4 01:00 . . 95 . 127/ 80 . . Stage 4 01:01 . . 95 . 127/ 80 . Stop exercise at 04:01 RECOVERY 01:00 . . 88 . . . . RECOVERY 02:00 . . 91 . 151/ 89 . . RECOVERY 02:59 . . 87 . 150/ 87 . . Electronically signed by : Hermelinda Romero MD 12/31/2023 12:07:28
--- NOTE | 2023-12-30 07:44 | NM_ITS ---
APPROVED REPORT Exam: Nuclear Stress Test Indication: Chest pain, SOB, HTN, High cholesterol, Tobacco use, CAD, Family history Patient Location: Inpatient Stress Tech: Elma Plasencia [place] Tech:Terri Salamanca, ARRT, RT (R)(N) Ht: 5 ft 2 in Wt: 150 lbs Bra Size: C HR: 65 bpm BP: 142/72 mmHg BSA: 1.69 m2 TID: 1.54 BMI: 27.4 History: Chest pain, SOB, HTN, High cholesterol, Tobacco use, CAD, Family history Procedure: Patient received 0.4 mg of intravenous Lexiscan, resting heart rate 65 bpm, resting blood pressure 142/72 mmHg, with Lexiscan maximum heart rate achieved was 103 bpm which is % of the maximum predicted heart rate and blood pressure was 151/89 mmHg. Cardiac Stress and Resting SPECT Images: Cardiac Stress and Resting SPECT images were obtained using technetium 99m Myoview 31.0 mCi stress and 10.82 mCi at rest. Resting and stress imaging in supine and prone positions are straight a small sized, moderate, fixed perfusion defect in the distal anterior LV wall. There is increase in transient ischemic dilatation ratio (TID 1.57), suggestive of possible multivessel disease or balanced ischemia. Gated imaging demonstrates normal global and regional LV systolic function. LVEF is calculated at 57%. Conclusion: Small sized, moderate, fixed perfusion defect in the distal anterior LV wall. There is increase in transient ischemic dilatation ratio (TID 1.57), suggestive of possible multivessel disease or balanced ischemia. Gated imaging demonstrates normal global and regional LV systolic function. LVEF is calculated at 57%. Electronically signed by : Hermelinda Romero MD 12/31/2023 12:09:38
[2023-12-30] MEDS: SODIUM CHLORIDE 0.9% 10ML SYR (RAD ONLY) 10 ML IV ×2 (09:41)
[2023-12-30] MEDS: ISOTOPE MYOVIEW (PER STUDY) 1 DOSE IV (09:41)
[2023-12-30] MEDS: REGADENOSON 0.4MG/5ML SYRINGE 0.4 MG IV (09:41)
== END 2023-12-30 23:59 | disposition home or self-care (01) ==
LOC: RAD 07:44
PROVIDERS: PCP Physician Assistant; Visit Provider Nurse Practitioner Family
DX: I25.118 Atherosclerotic heart disease of native coronary artery with other forms of angina pectoris (principal); R06.09 Other forms of dyspnea
CPT/HCPCS: 78452; 93017; 93018; A9502; J2785

== ENCOUNTER 2024-01-06 08:51 | Observation (INO) | payer OTHER, SELFPAY ==
[2024-01-06] VITALS (17 sets, daily range): BP systolic 122–187; BP diastolic 55–144; PULSE 58–77; RESP 16–20; TEMP 36.6–36.8; O2SAT 95–98; BMI 25.6; BMI 26.5
--- NOTE | 2024-01-06 09:17 | CT_ITS ---
FINAL REPORT TECHNIQUE: Routine axial images were obtained from the lung apices to below the diaphragm following IV contrast administration. Individualized dose reduction techniques using automated exposure control or adjustment of the mA and/or kV according to the patient size were employed. CLINICAL HISTORY: facial swelling, soa, r/o thoracic outlet vs SVC COMPARISON: None FINDINGS: CT CHEST WITH CONTRAST: At the confluence of the subclavian and internal jugular veins on the right side there is thrombus in the brachiocephalic vein, which extends from the confluence to 3.8 cm within the right brachiocephalic vein. There is a 2.8 x 2.1 cm mass immediately superior to the confluence. There is also a spiculated mass present in the right lung apex, measuring 1.9 x 1.5 cm in size, that may be extending through and invading the medial pleura. A small right pleural effusion is present. There are several enlarged mediastinal lymph nodes in the subcarinal and left hilar regions, as well as a 18 mm mass in the anterior mediastinum with an enhancing margin, that may represent thrombus and an enlarged vein or metastatic adenopathy. 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 Spiculated mass in the right lung apex as described, which may be extending through and invading the medial pleura of the right lung. Right pleural effusion. These results were discussed with Dr. Brooks, 01/06/2024 at 10:50 AM, [facility] emergency department. Reviewed, Interpreted and Dictated by Gal Castillo MD Transcribed by Vanessa Hagan Authenticated and [facility]
--- NOTE | 2024-01-06 09:17 | CT_ITS ---
FINAL REPORT TECHNIQUE: Thin section axial CT images with coronal and sagittal reformats were performed after the administration of IV contrast. This study was performed with techniques to keep radiation doses as low as reasonably achievable (ALARA). Individualized dose reduction techniques using automated exposure control or adjustment of mA and/or kV according to the patient's size were employed. CLINICAL HISTORY: facial swelling, soa, r/o thoracic outlet vs SVC COMPARISON: None FINDINGS: At the confluence of the right subclavian vein and the right internal jugular vein there appears to be thrombus which extends into the right brachiocephalic vein. The length of the thrombus measures 3.8 cm in greatest dimension. There is a 2.8 x 2.1 cm mass immediately superior to the confluence of the right internal jugular and subclavian veins, which may be responsible for the adjacent thrombus. There is a spiculated mass present in the right lung apex, which measures 1.9 x 1.5 cm in size, is adjacent to and may extend through the pleura of the medial right upper lobe. IMPRESSION: Thrombus is present at the confluence of the right subclavian vein and right internal jugular vein, with 3.8 cm of thrombus extending into the brachiocephalic vein. There is a 2.8 x 2.1 cm mass immediately superior to the confluence of the right internal jugular and subclavian veins, that may represent adenopathy. Spiculated mass in the right lung apex, 1.9 x 1.5 cm in size, which appears to extend through the pleura of the medial right upper lobe. These results were discussed with Dr. Brooks, [facility] emergency room, 01/06/2024 at 10:50 AM. Reviewed, Interpreted and Dictated by Gal Castillo MD Transcribed by Vanessa Hagan Authenticated and [facility]
--- NOTE | 2024-01-06 09:17 | XR_ITS ---
FINAL REPORT CLINICAL HISTORY: soa,facial [id number] COMPARISON: None FINDINGS: The heart size is normal. Contrast is present in the left upper extremity venous system. The mediastinum is normal. Mild atelectasis is present in the right lung base. There are no pleural effusions. There is no pneumothorax. There is no osseous abnormality. IMPRESSION: Mild atelectasis in the right lung base. Contrast present in the left upper extremity venous system. Reviewed, Interpreted and Dictated by Gal Castillo MD Transcribed by Vanessa Hagan Authenticated and . [facility]
[2024-01-06 09:42] LABS: Basophils % 0.5 % (0.1-2.0); Eosinophils # 0.2 K/mm3 (0.0-0.4); Eosinophils % 1.9 % (0.1-12.0); Hematocrit 46.5 % (37.0-47.0); Lymphocytes # 2.3 K/mm3 (0.7-4.5); Lymphocytes % 27.2 % (10-50); Mean Corpuscular HGB Conc 32.2 g/dL (31.8-35.4); Mean Corpuscular Hemoglobin 31.8 pg (27.0-31.2); Mean Platelet Volume 6.4 fl (7.4-10.4); Monocytes # 0.5 K/mm3 (0.1-1.0); Monocytes % 5.4 % (1.7-9.3); Neutrophils # 5.4 K/mm3 (1.8-7.8); Neutrophils % 64.9 % (37.0-80.0); Platelet Count 283 K/mm3 (142-424); Red Cell Distribution Width 13.3 % (11.5-17.5); White Blood Count 8.3 K/mm3 (4.8-10.8)
[2024-01-06 09:48] LABS: Albumin Level 4.4 g/dl (3.5-5.0); Chloride 106 mmol/L (98-107); Potassium 3.6 mmoL/L (3.5-5.1); Sodium 137 mmol/L (136-145)
[2024-01-06] MEDS: SODIUM CHLORIDE 0.9% 10ML SYR (RAD ONLY) 10 ML IV (09:49)
[2024-01-06 09:50] LABS: Blood Urea Nitrogen 3 mg/dl (7-17); Creatinine Clearance Estimated 115 mL/min (50-200); Estimated Glomerular Filt Rate 107 ml/min (>60); GFR (African American) 129 ML/MIN (>60)
[2024-01-06] MEDS: IOPAMIDOL-370 (76%);100ML BOTTLE 100 ML IV (09:50)
--- NOTE | 2024-01-06 09:50 | HMH.EDCP ---
Discharge Plan Disposition Patient Disposition: Admitted Prescriptions Prescriptions: No Action ranolazine 1,000 mg tablet extended release 12 hr 1,000 mg PO BID isosorbide mononitrate 30 mg tablet extended release 24 hr 30 mg PO DAILY Qty: 30 2RF metoprolol succinate 25 mg tablet extended release 24 hr 12.5 mg PO DAILY Qty: 30 2RF amlodipine 5 mg tablet 5 mg PO DAILY Qty: 90 1RF furosemide 20 mg tablet 20 mg PO DAILY Qty: 30 2RF atorvastatin 40 mg tablet 40 mg PO DAILY valacyclovir 1 gram tablet 1,000 mg PO BID clopidogrel 75 mg tablet 75 mg PO DAILY aspirin 81 mg tablet,delayed release (DR/EC) 81 mg PO DAILY citalopram 20 mg tablet 20 mg PO DAILY pantoprazole 40 mg tablet,delayed release (DR/EC) 40 mg PO DAILY Gemtesa 75 mg tablet 75 mg PO DAILY albuterol sulfate [Proventil HFA] 90 mcg/actuation HFA aerosol inhaler 1 inh inhalation Q4HP PRN (Reason: shortness of breath or wheezing) Referrals Follow up/Referrals: Yuki Ortega PA [Primary Care Provider] - See instructions Clinical Impressions Clinical Impression: Acute brachiocephalic vein thrombosis, Superior vena cava compression syndrome Print Language Print Language: Luxembourgish Discharge ED Provider: Guillermo Brooks HPI General Chief Complaint: Shortness of Breath/Dyspnea Stated Complaint: soa light headed Time Seen by Provider: 01/06/24 09:01 Mode of Arrival: Ambulatory Source of Information: Patient Limitations: No Limitations Description of Symptoms (Recalled from ER Triage Doc. by RN): Pt c/o of SOB, facial swelling, trouble swallowing and unexplained wt loss. Pt is being followed by cardiology and had a recent stress test. Pt also recently had her esophagus stretched. History of Present Illness HPI narrative: Please note that above description of symptoms, in this electronic medical record under categorization of recalled from ER triage doctor by RN are reflective of an initial nursing assessment, however, is not reflective of my full history and physical exam that was personally taken and clarified. Consequentially, this preceding description of symptoms, which may include the patient's categorized chief complaint in the EMR, do not reflect my personal clinical impression, and the ultimate description of history of present illness and patient stated complaints should be deferred to this section of the note. Unless stated otherwise or congruent with this section of the note, additional signs, symptoms, or incongruence should be interpreted as inaccurate with my clinical impression. Related Data Home Medications ?Medication ?Instructions ?Recorded ?Confirmed aspirin 81 mg tablet,delayed 81 mg PO DAILY 12/16/23 01/06/24 release atorvastatin 40 mg tablet 40 mg PO DAILY 12/16/23 01/06/24 citalopram 20 mg tablet 20 mg PO DAILY 12/16/23 01/06/24 clopidogrel 75 mg tablet 75 mg PO DAILY 12/16/23 01/06/24 pantoprazole 40 mg tablet,delayed 40 mg PO DAILY 12/16/23 01/06/24 release valacyclovir 1 gram tablet 1,000 mg PO BID 12/16/23 01/06/24 vibegron 75 mg tablet (Gemtesa) 75 mg PO DAILY 12/16/23 01/06/24 ranolazine 1,000 mg 1,000 mg PO BID 12/23/23 01/06/24 tablet,extended release,12 hr albuterol sulfate 90 mcg/actuation 1 inh inhalation Q4HP PRN 01/06/24 01/06/24 aerosol inhaler (Proventil HFA) shortness of breath or wheezing Previous Rx's ?Medication ?Instructions ?Recorded amlodipine 5 mg tablet 5 mg PO DAILY #90 tabs 12/23/23 furosemide 20 mg tablet 20 mg PO DAILY #30 tabs 12/23/23 isosorbide mononitrate 30 mg 30 mg PO DAILY #30 tabs 12/23/23 tablet,extended release 24 hr metoprolol succinate 25 mg 12.5 mg (1/2 x 25 mg) PO DAILY #30 12/23/23 tablet,extended release 24 hr tabs Allergies Allergy/AdvReac Type Severity Reaction Status Date / Time sulfamethoxazole Allergy Unknown Hives Verified 01/02/24 13:38 [SULFAMETHOXAZOLE] trimethoprim [TRIMETHOPRIM] Allergy Unknown Hives Verified 01/02/24 13:38 isosorbide AdvReac Mild Headache Verified 01/06/24 14:31 PFSH [facility] Disclaimer: The information contained in this section may have been updated after the patient was seen, as this information can be updated by other users. Medical History (Updated 01/06/24 @ 14:54 by Guillermo Brooks MD) Breast pain, right Abnormal ECG Dyspnea Pleural effusion, right Atypical angina Anxiety Manic depression Left shoulder pain Bradycardia Hyperlipidemia Hypertension Elevated left ventricular end-diastolic pressure (LVEDP) Tobacco dependence syndrome Coronary artery disease Asthma History of gastroesophageal reflux (GERD) Anxiety Surgical History (Updated 01/02/24 @ 13:48 by MAURILIO Nguyen) H/O shoulder surgery History of esophagogastroduodenoscopy (EGD) History of heart artery stent Stented coronary artery History of bladder repair surgery History of hysterectomy Family History Other Cancer Heart attack Social History (Updated 01/02/24 @ 13:48 by MAURILIO Nguyen) Smoking Status: Current every day smoker tobacco type: cigarettes packs per day: 1 and e-cigarettes alcohol intake: never substance use type: marijuana current occupational status: employed Travel in the last 8 weeks: None household members: none housing: house ROS Obtained: Yes All systems reviewed & no additional complaints except as documented Physical Exam General General appearance: alert Head Head exam: other (Subjective facial swelling, confirmed by visitor. Not notably swollen or plethoric) Neck Neck exam: Present trachea midline Chest Chest inspection: Present normal inspection and symmetric chest wall rise Respiratory Respiratory exam: Present normal lung sounds bilaterally; Absent respiratory distress, wheezes, stridor, accessory muscle use or prolonged expiratory phase Cardiovascular Cardiovascular exam: Present regular rate, normal rhythm and other (Pulses equal and symmetric in upper and lower extremities) Extremities Exam Extremities exam: Absent edema Neurological Exam Neurological exam: Present alert, oriented X3 and CN II-XII intact Skin Skin exam: Present warm and dry; Absent cyanosis, diaphoresis or pallor HEART Score HEART Score HEART Score assessment performed?: No Critical Care Critical Care Time Critical Care Time: Yes (vascular) Attestation: On 01/06/24, the high probability of a clinically significant, sudden or life threatening deterioration of the following system(s) required my full and direct attention, intervention and personal management. The time I documented below is in addition to time spent performing reported procedures but includes the following listed in this critical care notation. Total Time Total Critical Care Time: 60 Medical Decision Making Medical Records Medical records reviewed: Yes I reviewed the patient's medical records. Jay Inquiry Pt receiving controlled substance: No Jay was queried for this patient: No Vital Signs Vital Signs: 01/06/24 09:00 01/06/24 09:15 01/06/24 10:00 Pulse Rate 75 69 Pulse Rate [Right Brachial] 75 Respiratory Rate 17 Blood Pressure 149/90 H Blood Pressure [Right Arm] 140/101 H Blood Pressure Mean 115 Blood Pressure Mean [Right Arm] 114 02 Sat by Pulse Oximetry 97 98 97 Oxygen Delivery Method Room Air Room Air 01/06/24 10:30 01/06/24 11:00 01/06/24 11:30 Pulse Rate 61 61 76 Pulse Rate [Right Brachial] Respiratory Rate Blood Pressure 144/93 H 160/92 H 172/144 H Blood Pressure [Right Arm] Blood Pressure Mean 114 109 150 Blood Pressure Mean [Right Arm] 02 Sat by Pulse Oximetry 97 97 98 Oxygen Delivery Method Room Air Room Air Room Air 01/06/24 12:00 01/06/24 13:00 01/06/24 14:00 Pulse Rate 77 64 75 Pulse Rate [Right Brachial] Respiratory Rate Blood Pressure 187/96 H 158/93 H 163/131 H Blood Pressure [Right Arm] Blood Pressure Mean 144 142 Blood Pressure Mean [Right Arm] 02 Sat by Pulse Oximetry 97 96 96 Oxygen Delivery Method Room Air Room Air Lab Data Labs: Lab Results 01/06/24 09:30: WBC 8.3, RBC 4.70, Hgb 15.0, Hct 46.5, MCV 99.0, MCH 31.8 H, MCHC 32.2, RDW 13.3, Plt Count 283, MPV 6.4 L, Neut % (Auto) 64.9, Lymph % (Auto) 27.2, [place] % (Auto) 5.4, Eos % (Auto) 1.9, Baso % (Auto) 0.5, Neut # (Auto) 5.4, Lymph # (Auto) 2.3, [place] # (Auto) 0.5, Eos # (Auto) 0.2, Baso # (Auto) 0.0, PT 11.4, INR 1.02, APTT 28.8 01/06/24 09:30: APTT 29.1 L, Sodium 137, Potassium 3.6, Chloride 106, Carbon Dioxide 29, Anion Gap 5.6, BUN 3 L, Creatinine 0.60, Estimated Creat Clear 115, Estimated GFR 107, Est GFR ( Amer) 129, Glucose 119 H, Calcium 9.4, Total Bilirubin 0.7, AST 21, ALT 20, Alkaline Phosphatase 76, Troponin I < 0.01, NT-Pro-B Natriuret Pep 49.1, Total Protein 7.6, Albumin 4.4, Globulin 3.2, Albumin/Globulin Ratio 1.4 01/06/24 12:52: Troponin I < 0.01 01/06/24 09:30 01/06/24 09:30 Response Orders (Tests/Meds): ED MEDICATIONS Generic Name Dose Route Start Last Admin Trade Name Freq PRN Reason Stop Dose Admin Heparin Sodium/Dextrose 500 mls @ 23 mls/hr 01/06/24 14:00 01/06/24 14:29 Heparin 25,000 Units In D5w 500ml Premix IV 02/05/24 13:59 23 mls/hr .[id number] JENNIFER Administration 1,150 UNITS/HR Discontinued Medications Generic Name Dose Route Start Last Admin Trade Name Freq PRN Reason Stop Dose Admin Heparin Sodium (Porcine) 5,000 unit 01/06/24 11:06 01/06/24 11:41 Heparin Sodium 5,000 Unit/Ml Vial IV 01/06/24 11:07 5,000 unit ONCE ONE Administration Iopamidol 100 ml 01/06/24 09:49 01/06/24 09:50 Iopamidol-370 (76%);100ml Bottle IV 01/06/24 09:50 100 ml ONCE ONE Administration Miscellaneous 1 each 01/06/24 13:45 01/06/24 14:24 Heparin Drip Consult NOTAPPLIC 02/05/24 13:44 1 each CONSULT PHARMACY JENNIFER Administration Sodium Chloride 10 ml 01/06/24 09:49 01/06/24 09:49 Sodium Chloride 0.9% 10ml Syr (Rad Only) IV 01/06/24 09:50 10 ml ONCE ONE Administration ORDERS Category Date Time Status CT chest w con Stat Cat Scan 01/06/24 09:[address] soft tissue neck w con Stat Cat Scan 01/06/24 09:17 Completed CXR --portable [XR chest portable] Stat Exams 01/06/24 09:17 Completed C1 Est.Inhib.Funct. Stat Lab 01/06/24 11:20 Received C1 Esterase Inhibitor Stat Lab 01/06/24 11:20 Received CBC w/Auto Diff [Complete Blood Count Auto Diff] Stat Lab 01/06/24 09:30 Completed CMP [Comprehensive Metabolic Panel] Stat Lab 01/06/24 09:30 Completed Heparin drip PTT [PTT Heparin (inpatient only)] Stat Lab 01/06/24 09:30 Completed Heparin drip PTT [PTT Heparin (inpatient only)] Stat Lab 01/06/24 15:30 Ordered Heparin drip PTT [PTT Heparin (inpatient only)] Stat Lab 01/06/24 17:00 Ordered NT Pro Brain Natriuretic Pep. Stat Lab 01/06/24 09:30 Completed PT INR [Prothrombin Time INR] Stat Lab 01/06/24 09:30 Completed PTT [Activated Partial Thrombo Time] Stat Lab 01/06/24 09:30 Completed Trop I [Troponin I] Stat Lab 01/06/24 09:30 Completed Troponin I Q3H Lab 01/06/24 12:52 Completed Troponin I Q3H Lab 01/06/24 15:30 Ordered MDM Narrative Medical Decision Narrative: Is a 48-year-old female history of hypertension, hyperlipidemia, CAD status post stenting, current tobacco use, no home oxygen, anxiety, illness anxiety disorder, presenting with facial swelling and shortness of breath. Patient states is been going on for weeks to months. Has seen multiple doctors for this, has not gotten diagnosed. States that shortness of breath and facial swelling are made better with being up and immobile. Shortness of breath and facial swelling made worse with lying flat, so she has been sleeping propped up on a couple of pillows. No upper extremity swelling, lower extremity swelling, cough, nausea, vomiting. States that the facial swelling has been getting worse and progressive. Friend at bedside corroborates story and states that her face does appear more swollen than usual. Patient denies vision changes, headache, nausea, vomiting, change in mental status, or any other concern. History was obtained via conversation with patient and friend. On arrival, patient hemodynamically stable, alert, oriented x4, appropriate, GCS 15, moving all extremities spontaneously, pupils equal and reactive to light. Full physical exam performed and significant for face is subjectively swollen, not appreciably so on physical exam. No evidence of angioedema or intraoral changes. Full range of motion of neck without issue. No stridor. No bruit. Cardiac exam without murmurs gallops or rubs, pulses are equal and symmetric in upper and lower extremities without delay or deficit. No edema of upper or lower extremities. Lungs are clear to auscultation anterior and posterior bilaterally. Saturating appropriately on room air. Patient states that her symptoms are made worse with elevating her hands above her head and holding them there for 30 seconds to a minute. Differential includes ACS, HI, CHF, intrathoracic malignancy, SVC syndrome, thoracic inlet versus outlet syndrome, C1 esterase inhibitor deficiency, among others. Patient was given aspirin, heparin bolus and drip for symptomatic management and correction of underlying abnormalities. Patient placed on continuous cardiac monitoring and continuous pulse ox with initial blood pressure 140/101, heart rate 75, saturation 97% on room air. Independent interpretation of EKG shows sinus rhythm 61 beats a minute without ST or T wave changes concerning for acute ischemia. HI, QRS, QT intervals 157, 94, 432 respectively. Normal axis. Workup independently interpreted and significant for 2.8 x 2.1 cm mass right upper lobe which is spiculated, appears to be impinging venous flow. Nonactionable CBC or chemistry, negative troponin and BNP. C1 esterase inhibitor lab pending at time of disposition. Clot extending from brachiocephalic vein into right subclavian and right IJ. Associated right-sided pleural effusion. See radiology read for full review of final results. Thoracic surgery [facility] was contacted and case was discussed at length, recommended vascular surgery. Vascular surgery was attempted be contacted numerous times over a few hours, [facility] vascular surgery was contacted. Facility at [facility], waitlisted patient. Vascular surgery was reached at [facility] around 3:30 PM. Recommended anticoagulation, pulmonology workup for mass, as well as oncology workup. Because we have all of the services at [facility], deemed appropriate for inpatient management here. Because patient high risk for clinical decompensation, deemed appropriate for inpatient admission. Results were relayed to patient who voiced understanding and patient was agreeable to inpatient admission and management. Patient was admitted to the hospital for further definitive management. Certified Medication Aide disclaimer Much of this encounter note is an electronic oil fire specialist spoken language to printed text. Electronic oil fire specialist of the spoken language may permit errors. Although I have reviewed the note, some errors may still exist.
[2024-01-06 09:51] LABS: Alanine Aminotransferase 20 U/L (12-78); Albumin/Globulin Ratio 1.4 (1.1-1.8); Alkaline Phosphatase 76 U/L (38-126); Anion Gap 5.6 mEq/L (5-15); Aspartate Amino Transferase 21 U/L (14-36); Bilirubin,Total 0.7 mg/dl (0.2-1.3); Calcium 9.4 mg/dl (8.4-10.2); Carbon Dioxide 29 mmol/L (22.0-30.0); Globulin 3.2 g/dL (1.3-3.2); Glucose 119 mg/dl (74-100); Total Protein,Serum 7.6 g/dl (6.3-8.2)
[2024-01-06 09:54] LABS: Activated Partial Thrombo Time 28.8 seconds (22.8-30.6); INR 1.02 (0.9-1.1); Prothrombin Time 11.4 seconds (10.1-12.5)
[2024-01-06 10:01] LABS: NT Pro Brain Natriuretic Pep. 49.1 pg/mL (0-125)
[2024-01-06 10:03] LABS: Troponin I < 0.01 ng/ml (0.00-0.034)
--- NOTE | 2024-01-06 10:04 | ECG_ITS ---
APPROVED REPORT Exam: Resting ECG HR:61 bpm ECG Measurements Heart Rate 61 AXES IL 157 P 70 QRSd 94 QRS 82 QT 428 T 66 QTc 432 Conclusion SINUS RHYTHM Electronically signed by : ALEXEI LO, 01/07/2024 07:30:57
[2024-01-06] MEDS: HEPARIN SODIUM 5,000 UNIT/ML VIAL 5000 UNIT IV (11:41)
[2024-01-06 11:52] LABS: PTT Heparin (inpatient only) 29.1 Seconds (50-75)
[2024-01-06 13:32] LABS: Troponin I < 0.01 ng/ml (0.00-0.034)
--- NOTE | 2024-01-06 13:57 | HMH.PHAINT1 ---
Pharmacy Intervention Comments: MEDICATION RECONCILIATION COMPLETED ON PATIENT USING EXTERNAL FILL HISTORY FROM PHARMACY AND LIST FROM CARDIOLOGY OFFICE. -LIZABETH CRABTREE, CHRISTEND
--- NOTE | 2024-01-06 14:04 | P.CONPHA_ITS ---
[facility] Pharmacy Heparin Dosing Demographic Data Admission date:: 01/06/24 Date: 01/06/24 Time: 14:04 Allergies Allergy/AdvReac Type Severity Reaction Status Date / Time sulfamethoxazole Allergy Unknown Hives Verified 01/02/24 13:38 [SULFAMETHOXAZOLE] trimethoprim [TRIMETHOPRIM] Allergy Unknown Hives Verified 01/02/24 13:38 isosorbide AdvReac Mild Headache Verified 01/06/24 14:31 Height: 1.57 m Weight: 63.5 kg Indication Medication therapy:: Heparin Current Indications:: VTE Current Active Problems (Updated 01/06/24 @ 14:54 by Guillermo Brooks MD) Superior vena cava compression syndrome (Acute) Acute brachiocephalic vein thrombosis (Acute) Pleural effusion, right (Acute) Dyspnea (Acute) Atypical angina (Acute) Esophageal stricture (Acute) 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) CVA?: No Bleeding problem?: No Kidney disease?: No MS?: No Desired PTT range:: 50-75 seconds Labs Anticoagulation Lab Results:: 01/06/24 09:30 Hgb 15.0 Hct 46.5 Plt Count 283 Monitoring Dose Monitor 1: Date: 01/06/24 Time: 14:09 PTT Result:: 29.1 Infusion Rate:: HEPARIN BOLUS 5000 UNITS; HEPARIN INFUSION AT 1150 UNITS/HR (23 ML/HR) Dose Monitor 2: Date: 01/06/24 Time: 15:30 PTT Result:: 50.4 Infusion Rate:: 1150 UNITS/HR Dose Monitor 3: Date: 01/06/24 Time: 17:00 PTT Result:: 57.3 Infusion Rate:: HEPARIN 1150 UNITS/HR Dose Monitor 4: Date: 01/06/24 Time: 22:00 PTT Result:: 78.5 Infusion Rate:: HEPARIN DOSE REDUCE TO 1050 UNITS/HR Dose Monitor 5: Date: 01/07/24 Time: 02:05 PTT Result:: 102.2 Infusion Rate:: REDUCE TO HEPARIN 850 UNITS/HR Dose Monitor 6: Date: 01/07/24 Time: 05:50 PTT Result:: 89.3 Infusion Rate:: HEPARIN DOSE REDUCED TO 700 UNIT/HR Dose Monitor 7: Date: 01/07/24 Time: 12:11 Comment:: stopped changed to lovenox Core Measures Is INR > or = 2 at discharge?: No Most Recent Labs:: Laboratory Results - last 24 hr 01/06/24 09:30: WBC 8.3, RBC 4.70, Hgb 15.0, Hct 46.5, MCV 99.0, MCH 31.8 H, MCHC 32.2, RDW 13.3, Plt Count 283, MPV 6.4 L, Neut % (Auto) 64.9, Lymph % (Auto) 27.2, [place] % (Auto) 5.4, Eos % (Auto) 1.9, Baso % (Auto) 0.5, Neut # (Auto) 5.4, Lymph # (Auto) 2.3, [place] # (Auto) 0.5, Eos # (Auto) 0.2, Baso # (Auto) 0.0, PT 11.4, INR 1.02, APTT 28.8 01/06/24 09:30: APTT 29.1 L, Sodium 137, Potassium 3.6, Chloride 106, Carbon Dioxide 29, Anion Gap 5.6, BUN 3 L, Creatinine 0.60, Estimated Creat Clear 115, Estimated GFR 107, Est GFR ( Amer) 129, Glucose 119 H, Calcium 9.4, Total Bilirubin 0.7, AST 21, ALT 20, Alkaline Phosphatase 76, Troponin I < 0.01, NT-Pro-B Natriuret Pep 49.1, Total Protein 7.6, Albumin 4.4, Globulin 3.2, Albumin/Globulin Ratio 1.4 01/06/24 12:52: Troponin I < 0.01 If INR was < than 2.0 why was therapy stopped?: LOVENOX Were Heparin and Warfarin started on the same day?: No If not, why?: LOVENOX
[2024-01-06] MEDS: HEPARIN DRIP CONSULT 1 EACH NOTAPPLIC (14:24)
--- NOTE | 2024-01-06 14:25 | PC.NURSE ---
Called [facility]. [facility] is paging the vascular surgeon. Waiting for a call back.
[2024-01-06] MEDS: HEPARIN 25,000 UNITS/D5W 500 ML 23 UNIT IV (14:29)
--- NOTE | 2024-01-06 16:24 | PC.NURSE ---
HS aware of admission
--- NOTE | 2024-01-06 16:34 | PC.NURSE ---
updated pt on poc
[2024-01-06 16:36] LABS: Troponin I < 0.01 ng/ml (0.00-0.034)
[2024-01-06 16:37] LABS: PTT Heparin (inpatient only) 50.4 Seconds (50-75)
--- NOTE | 2024-01-06 17:06 | PC.NURSE ---
gave report to vera anguiano on 2nd floor and answered questions
[2024-01-06 17:36] LABS: PTT Heparin (inpatient only) 57.3 Seconds (50-75)
[2024-01-06] MEDS: HYDROCODONE/APAP 5/325 MG TABLET 2 TAB PO (17:59)
--- NOTE | 2024-01-06 18:31 | EXP.HP ---
History of Present Illness *Admission Date: 01/06/24 *Reason for visit:: Right-sided chest pain, shortness of breath *History of present illness: Xander Johnson is a 48-year-old female with a medical history significant for COPD (no home O2), CAD s/p DENIA 04/12, esophageal stricture, GERD, HSV presents with worsening right-sided chest pain, shortness of breath for the past 2 months. She went to urgent care about 2 weeks ago and given antibiotics, steroids. Patient finished antibiotics but not the steroids. During this time, patient also states that she has had on and off right-sided facial/neck swelling. She was recently evaluated by cardiology on 12/23/2023 for chest pain and underwent a stress test. Patient states she is supposed to follow-up with cardiology in the next week for the results. Workup in the ED included CT of soft tissue/neck revealed thrombus at the confluence of right subclavian vein and right internal jugular vein, with 3.8 cm thrombus extending into the brachiocephalic vein. There is also a spiculated mass in the right lung apex. Given these findings, ED provider spoke with vascular surgery who recommended medical management with anticoagulation and further evaluation of pulmonary mass. Did not recommend thrombolytics or invasive interventions at this time. [facility] vascular surgery was contacted in the interim awaiting for , and patient is waitlisted at this time. Hospital medicine team was contacted for further evaluation and management. [facility] Disclaimer: The information contained in this section may have been updated after the patient was seen, as this information can be updated by other users. Medical History (Updated 01/06/24 @ 14:54 by Guillermo Brooks MD) Breast pain, right Abnormal ECG Dyspnea Pleural effusion, right Atypical angina Anxiety Manic depression Left shoulder pain Bradycardia Hyperlipidemia Hypertension Elevated left ventricular end-diastolic pressure (LVEDP) Tobacco dependence syndrome Coronary artery disease Asthma History of gastroesophageal reflux (GERD) Anxiety Surgical History (Updated 01/02/24 @ 13:48 by MAURILIO Nguyen) H/O shoulder surgery History of esophagogastroduodenoscopy (EGD) History of heart artery stent Stented coronary artery History of bladder repair surgery History of hysterectomy Family History Other Cancer Heart attack Social History (Updated 01/02/24 @ 13:48 by MAURILIO Nguyen) Smoking Status: Current every day smoker tobacco type: cigarettes packs per day: 1 and e-cigarettes alcohol intake: never substance use type: marijuana current occupational status: employed Travel in the last 8 weeks: None household members: none housing: house Meds Home Medications and Allergies Home Medications ?Medication ?Instructions ?Recorded ?Confirmed ?Type aspirin 81 mg tablet,delayed 81 mg PO DAILY 12/16/23 01/06/24 History release atorvastatin 40 mg tablet 40 mg PO DAILY 12/16/23 01/06/24 History citalopram 20 mg tablet 20 mg PO DAILY 12/16/23 01/06/24 History clopidogrel 75 mg tablet 75 mg PO DAILY 12/16/23 01/06/24 History pantoprazole 40 mg tablet,delayed 40 mg PO DAILY 12/16/23 01/06/24 History release valacyclovir 1 gram tablet 1,000 mg PO BID 12/16/23 01/06/24 History vibegron 75 mg tablet (Gemtesa) 75 mg PO DAILY 12/16/23 01/06/24 History amlodipine 5 mg tablet 5 mg PO DAILY #90 tabs 12/23/23 01/06/24 Rx furosemide 20 mg tablet 20 mg PO DAILY #30 tabs 12/23/23 01/06/24 Rx isosorbide mononitrate 30 mg 30 mg PO DAILY #30 tabs 12/23/23 01/06/24 Rx tablet,extended release 24 hr metoprolol succinate 25 mg 12.5 mg (1/2 x 25 mg) PO DAILY #30 12/23/23 01/06/24 Rx tablet,extended release 24 hr tabs ranolazine 1,000 mg 1,000 mg PO BID 12/23/23 01/06/24 History tablet,extended release,12 hr albuterol sulfate 90 mcg/actuation 1 inh inhalation Q4HP PRN 01/06/24 01/06/24 History aerosol inhaler (Proventil HFA) shortness of breath or wheezing New Prescriptions to Start Prescriptions: Allergies Allergy/AdvReac Type Severity Reaction Status Date / Time sulfamethoxazole Allergy Unknown Hives Verified 01/02/24 13:38 [SULFAMETHOXAZOLE] trimethoprim [TRIMETHOPRIM] Allergy Unknown Hives Verified 01/02/24 13:38 isosorbide AdvReac Mild Headache Verified 01/06/24 14:31 Exam Data for Last 24 hours Vital signs and Labs for Last 24 Hours: Temp Pulse Resp BP Pulse Ox O2 Del Method 98.3 F 73 18 150/79 H 96 Room Air 01/06/24 18:22 01/06/24 18:22 01/06/24 18:22 01/06/24 18:22 01/06/24 18:22 01/06/24 18:22 Laboratory Results - last 24 hr 01/06/24 09:30: WBC 8.3, RBC 4.70, Hgb 15.0, Hct 46.5, MCV 99.0, MCH 31.8 H, MCHC 32.2, RDW 13.3, Plt Count 283, MPV 6.4 L, Neut % (Auto) 64.9, Lymph % (Auto) 27.2, [place] % (Auto) 5.4, Eos % (Auto) 1.9, Baso % (Auto) 0.5, Neut # (Auto) 5.4, Lymph # (Auto) 2.3, [place] # (Auto) 0.5, Eos # (Auto) 0.2, Baso # (Auto) 0.0, PT 11.4, INR 1.02, APTT 28.8 01/06/24 09:30: APTT 29.1 L, Sodium 137, Potassium 3.6, Chloride 106, Carbon Dioxide 29, Anion Gap 5.6, BUN 3 L, Creatinine 0.60, Estimated Creat Clear 115, Estimated GFR 107, Est GFR ( Amer) 129, Glucose 119 H, Calcium 9.4, Total Bilirubin 0.7, AST 21, ALT 20, Alkaline Phosphatase 76, Troponin I < 0.01, NT-Pro-B Natriuret Pep 49.1, Total Protein 7.6, Albumin 4.4, Globulin 3.2, Albumin/Globulin Ratio 1.4 01/06/24 12:52: Troponin I < 0.01 01/06/24 15:55: APTT 50.4, Troponin I < 0.01 01/06/24 17:09: APTT 57.3 I & O for Last 24 hours: Intake & Output 01/03/24 01/04/24 01/05/24 01/06/24 23:59 23:59 23:59 23:59 Intake Total 360 / 360 Balance 360 / 360 Weight 65.799 kg Constitutional Constitutional: no acute distress *Routine HEENT Exam Head: Present normocephalic Eye: Present EOMI and PERRL ENT: Present mucous membranes moist *Routine Neck Exam Neck: Present supple; Absent lymphadenopathy *Routine Respiratory Exam Respiratory: Present wheezes and diminished air movement; Absent accessory muscle use, patient mechanically ventilated or CTA bilaterally *Routine Cardiovascular Exam Cardiovascular: Present RRR *Routine Abdominal Exam Abdominal: Present soft and normoactive bowel sounds; Absent tenderness *Routine Rectal Exam Rectal:: deferred *Routine Genitalia Exam Genitalia:: deferred *Routine Extremities Exam Extremities: Absent cyanosis, clubbing or edema *Routine Skin Exam Skin: Present warm; Absent rash *Routine Neurological Exam Neurological: Present alert and oriented X3 Assessment and Plan *Assessment and plan (1) Acute brachiocephalic vein thrombosis: Status: Acute Category: Medical Code(s): I82.290 - Acute embolism and thrombosis of other thoracic veins (2) Pleural effusion, right: Status: Acute Category: Medical Code(s): J90 - Pleural effusion, not elsewhere classified (3) Dyspnea: Status: Acute Qualifiers: Dyspnea type: dyspnea on exertion Qualified Code(s): R06.09 - Other forms of dyspnea Category: Medical Code(s): R06.00 - Dyspnea, unspecified (4) Atypical angina: Status: Acute Category: Medical Code(s): I20.89 - Other forms of angina pectoris (5) Esophageal stricture: Problem Comment: Pathophysiologic stricture of undefined etiology (extrinsic compression, spasm, tortuosity, etc.) Status: Acute Category: Medical Code(s): K22.2 - Esophageal obstruction (6) COPD (chronic obstructive pulmonary disease) with chronic bronchitis: Status: Chronic Category: Medical Code(s): J44.89 - Other specified chronic obstructive pulmonary disease Plan Xander Johnson is a 48-year-old female with a medical history significant for COPD (no home O2), CAD s/p DENIA 04/12, esophageal stricture, GERD, HSV presents with worsening right-sided chest pain, shortness of breath, and intermittent right sided facial/neck swelling for the past 2 months. Workup in the ED included chest CT revealed thrombus at the confluence of right subclavian vein and right internal jugular vein, with 3.8 cm thrombus extending into the brachiocephalic vein. There is also a spiculated mass in the right lung apex. [facility] vascular surgery recommended medical management with anticoagulation and further evaluation of pulmonary mass. [facility] vascular surgery was contacted in the interim awaiting for [facility], and patient is waitlisted at this time. Case discussed with ED attending and decision was made to admit patient for malignancy associated thrombi, pulmonary mass, and COPD exacerbation. #Thrombus extending into brachiocephalic vein #Right pulmonary mass #Right pleural effusion - Thrombus is present at the confluence of the right subclavian vein and right internal jugular vein, with 3.8 cm of thrombus extending into the brachiocephalic vein. There is a 2.8 x 2.1 cm mass immediately superior to the confluence of the right internal jugular and subclavian veins, that may represent adenopathy. Spiculated mass in the right lung apex, 1.9 x 1.5 cm in size, which appears to extend through the pleura of the medial right upper lobe. ? Sequela are highly suggestive of malignancy associated mass and thrombus. ? [facility] vascular surgery recommend medical management with anticoagulation. ? Pulmonary mass will need biopsy workup. Plan: ? IV heparin drip. ? Pulmonology consulted, appreciate recommendations. ? Percocet for pain control for right sided mass. #COPD exacerbation ? Decreased air movement, mild wheezing in bilateral lung wright with green productive sputum. ? Currently on room air which is baseline for patient. ? DuoNebs scheduled and as needed. ? Pulmicort twice daily. ? Prednisone day 1/5. ? No antibiotics indicated at this time given no purulent sputum. ? Follow-up VBG. #CAD s/p DENIA 04/12 ? Aspirin, Plavix, statin. #Hypertension ? Amlodipine 5 mg. #GERD ? Protonix 40 mg. CODE STATUS: Full code Diet: Cardiac. DVT prophylaxis: Heparin drip
--- NOTE | 2024-01-06 19:10 | PC.NURSE ---
called sue for next ptt order. ptt ordered for 2099.
[2024-01-06 20:47] LABS: Lactate Venous 1.2 mmol/L (0.4-2.0); VBG Base Excess -0.4 mmol/L (-2.4-2.3); VBG HCO3 24.5 mmol/L (23-30); VBG Oxygen Saturation 79.7 % (50-70); VBG PCO2 40.9 mmol/L (35-51); VBG PO2 46.2 mmol/L (28-40); VBG Total CO2 25.7 mmol/L (23-27)
[2024-01-06 20:49] LABS: Adenovirus,PCR Not Detected (NotDetected); Bordetella Pertussis Not Detected (NotDetected); Chlamydophila Pneumoniae, PCR Not Detected (NotDetected); Coronavirus 19, PCR Not Detected (NotDetected); Coronavirus 229E Not Detected (NotDetected); Coronavirus NL63 Not Detected (NotDetected); Coronavirus OC43 Not Detected (NotDetected); Coronovirus HKU1,PCR Not Detected (NotDetected); Human Metapneumovirus Not Detected (NotDetected); Influenza A, PCR Not Detected (NotDetected); Influenza AH1, 2009 Not Detected (NotDetected); Influenza AH1, PCR Not Detected (NotDetected); Influenza AH3,PCR Not Detected (NotDetected); Influenza B, PCR Not Detected (NotDetected); Mycoplasma Pneumoniae, PCR Not Detected (NotDetected); Parainfluenza 1, PCR Not Detected (NotDetected); Parainfluenza 2, PCR Not Detected (NotDetected); Parainfluenza 3, PCR Not Detected (NotDetected); Parainfluenza 4, PCR Not Detected (NotDetected); Respiratory Syncytial Virus Not Detected (NotDetected); Rhinovirus/Enterovirus Not Detected (NotDetected)
[2024-01-06] MEDS: IPRATROPIUM/ALBUTEROL 3 ML NEB IH (21:24)
[2024-01-06 21:52] LABS: PTT Heparin (inpatient only) 78.5 Seconds (50-75)
--- NOTE | 2024-01-06 22:06 | PC.NURSE ---
Spoke with Susan from [facility] about a critical ptt. Heparin drip rate was changed from 1150 units/hr to 1050 units/hr. Recheck ptt at 0200
[2024-01-07] VITALS (7 sets, daily range): BP systolic 120–138; BP diastolic 72–89; PULSE 56–80; RESP 16–18; TEMP 36.4–36.7; O2SAT 95–97; BMI 27.6
[2024-01-07] MEDS: HYDROCODONE/APAP 5/325 MG TABLET 2 TAB PO ×2 (01:18→15:12)
[2024-01-07] MEDS: IPRATROPIUM/ALBUTEROL 3 ML NEB IH ×3 (01:56→12:59)
[2024-01-07 02:41] LABS: PTT Heparin (inpatient only) 102.2 Seconds (50-75)
[2024-01-07] MEDS: HEPARIN 25,000 UNITS/D5W 500 ML 17 UNIT IV (02:54)
--- NOTE | 2024-01-07 06:16 | PC.NURSE ---
Pt is A&OX4 and has tolerated room air. VSS. Pt has remained of a heparin drip. She did call out once complaining of pain on her right side and was treated per MAR. She has ambulated independently to the bathroom. No complaints at this time, call light within reach.
[2024-01-07 06:25] LABS: Alanine Aminotransferase 13 U/L (12-78); Albumin Level 3.3 g/dl (3.5-5.0); Albumin/Globulin Ratio 1.2 (1.1-1.8); Alkaline Phosphatase 66 U/L (38-126); Anion Gap 4.5 mEq/L (5-15); Aspartate Amino Transferase 17 U/L (14-36); Bilirubin,Total 0.4 mg/dl (0.2-1.3); Blood Urea Nitrogen 2 mg/dl (7-17); Calcium 8.9 mg/dl (8.4-10.2); Carbon Dioxide 28 mmol/L (22.0-30.0); Chloride 106 mmol/L (98-107); Chol/HDL Ratio 2.7 (1-3.5); Cholesterol 118 mg/dl (140-200); Creatinine Clearance Estimated 106 mL/min (50-200); Estimated Glomerular Filt Rate 89 ml/min (>60); GFR (African American) 108 ML/MIN (>60); Globulin 2.7 g/dL (1.3-3.2); Glucose 99 mg/dl (74-100); HDL Cholesterol 44 mg/dl (40-60); Potassium 3.5 mmoL/L (3.5-5.1); Sodium 135 mmol/L (136-145); Triglycerides 97 mg/dl (30-150); VLDL Cholesterol 19 mg/dL (0-40)
[2024-01-07 06:36] LABS: Direct LDL Cholesterol 48.16 mg/dL (100-129)
[2024-01-07] MEDS: BUDESONIDE 0.5MG/2ML NEB 0.5 MG IH (06:40)
[2024-01-07 06:54] LABS: PTT Heparin (inpatient only) 89.3 Seconds (50-75)
[2024-01-07] MEDS: hydrOXYzine pamoate 25MG CAPSULE 25 MG PO (08:02)
[2024-01-07] MEDS: ASPIRIN EC 81MG TABLET 81 MG PO (08:39)
[2024-01-07] MEDS: CLOPIDOGREL 75MG TAB 75 MG PO (08:40)
[2024-01-07] MEDS: CITALOPRAM 20MG TABLET 20 MG PO (08:40)
[2024-01-07] MEDS: AMLODIPINE 5MG TABLET 5 MG PO (08:40)
[2024-01-07] MEDS: predniSONE 20MG TAB 40 MG PO (08:40)
--- NOTE | 2024-01-07 09:43 | EXP.PULM.CON ---
History of Present Illness History of present illness: Ms. Johnson is a 48-year-old female with reported history of COPD CAD esophageal stricture GERD presented to the ER with worsening right-sided chest pain shortness of breath for the last 2 months recently received antibiotic and steroids from urgent care recently admitted for further evaluation and management. Patient other complaints include right-sided facial and neck swelling. [facility] Disclaimer: The information contained in this section may have been updated after the patient was seen, as this information can be updated by other users. Medical History (Updated 01/07/24 @ 13:09 by Meena Barnes MD) Venous thromboembolism Pulmonary emphysema Mediastinal lymphadenopathy Lung nodule Breast pain, right Abnormal ECG Dyspnea Pleural effusion, right Atypical angina Anxiety Manic depression Left shoulder pain Bradycardia Hyperlipidemia Hypertension Elevated left ventricular end-diastolic pressure (LVEDP) Tobacco dependence syndrome Coronary artery disease Asthma History of gastroesophageal reflux (GERD) Anxiety Surgical History (Updated 01/02/24 @ 13:48 by MAURILIO Nguyen) H/O shoulder surgery History of esophagogastroduodenoscopy (EGD) History of heart artery stent Stented coronary artery History of bladder repair surgery History of hysterectomy Family History Other Cancer Heart attack Social History (Updated 01/02/24 @ 13:48 by MAURILIO Nguyen) Smoking Status: Current every day smoker tobacco type: cigarettes packs per day: 1 and e-cigarettes alcohol intake: never substance use type: marijuana current occupational status: employed Travel in the last 8 weeks: None household members: none housing: house Review of Systems Constitutional Constitutional: Reports anorexia, Reports body ache(s) and Reports fatigue Eyes Eyes: Denies eye discharge, Denies dry eyes, Denies irritation and Denies itchy eyes ENT Ears, Nose, Mouth, and Throat: Denies epistaxis, Denies facial pain, Denies lip swelling and Denies throat swelling Comments: facial swelling *Cardiovascular Cardiovascular: Denies dyspnea and Reports dyspnea on exertion *Respiratory Respiratory: Denies change in phlegm color, Reports chest congestion, Reports cough, Denies dyspnea, Reports dyspnea on exertion, Denies excessive phlegm production and Denies wheezing *Gastrointestinal Gastrointestinal: Denies abdominal pain, Denies belching and Denies cramping *Musculoskeletal Musculoskeletal: Reports back pain, Reports myalgias and Reports other (No small joint swelling or Pain) Psychiatric Psychiatric: Denies homicidal ideation and Denies suicidal ideation Endocrine Endocrine: Reports fatigue and Denies heat intolerance Hematologic/Lymphatic Hematologic/Lymphatic: Denies easy bleeding and Denies lymphadenopathy Allergic/Immunologic Allergic/Immunologic: Denies itchy eyes, Denies lip swelling, Denies throat swelling and Denies wheezing Pulmonology Exam Inpatient Vital signs and Labs for Last 24 Hours: Temp Pulse Resp BP Pulse Ox O2 Del Method 97.5 F L 78 16 138/89 97 Room Air 01/07/24 07:56 01/07/24 07:56 01/07/24 07:56 01/07/24 07:56 01/07/24 07:56 01/07/24 09:00 Laboratory Results - last 24 hr 01/06/24 09:30: WBC 8.3, RBC 4.70, Hgb 15.0, Hct 46.5, MCV 99.0, MCH 31.8 H, MCHC 32.2, RDW 13.3, Plt Count 283, MPV 6.4 L, Neut % (Auto) 64.9, Lymph % (Auto) 27.2, [place] % (Auto) 5.4, Eos % (Auto) 1.9, Baso % (Auto) 0.5, Neut # (Auto) 5.4, Lymph # (Auto) 2.3, [place] # (Auto) 0.5, Eos # (Auto) 0.2, Baso # (Auto) 0.0, PT 11.4, INR 1.02, APTT 28.8 01/06/24 09:30: APTT 29.1 L, Sodium 137, Potassium 3.6, Chloride 106, Carbon Dioxide 29, Anion Gap 5.6, BUN 3 L, Creatinine 0.60, Estimated Creat Clear 115, Estimated GFR 107, Est GFR ( Amer) 129, Glucose 119 H, Calcium 9.4, Total Bilirubin 0.7, AST 21, ALT 20, Alkaline Phosphatase 76, Troponin I < 0.01, NT-Pro-B Natriuret Pep 49.1, Total Protein 7.6, Albumin 4.4, Globulin 3.2, Albumin/Globulin Ratio 1.4 01/06/24 12:52: Troponin I < 0.01 01/06/24 15:55: APTT 50.4, Troponin I < 0.01 01/06/24 17:09: APTT 57.3 01/06/24 18:55: VBG pH 7.40, VBG pCO2 40.9, VBG pO2 46.2 H, VBG HCO3 24.5, VBG Total CO2 25.7, VBG O2 Saturation 79.7 H, VBG Base Excess -0.4, VBG Lactic Acid 1.2 01/06/24 20:16: Chlamy pneumoniae PCR Not detected, Adenovirus (PCR) Not detected, B. pertussis DNA (PCR) Not detected, Coronavirus OC43 (PCR) Not detected, Coronavirus HKU1 (PCR) Not detected, Coronavirus 229E (PCR) Not detected, SARS-CoV-2 (PCR) Not detected, Coronavirus NL63 (PCR) Not detected, Human Metapneumovir PCR Not detected, Influenza A (H1) PCR Not detected, Influ A (H1N1/09) PCR Not detected, Influenza A (H3) PCR Not detected, Influenza Type A (PCR) Not detected, Influenza Type B (PCR) Not detected, M. pneumoniae (PCR) Not detected, Parainfluenza 1 (PCR) Not detected, Parainfluenza 2 (PCR) Not detected, Parainfluenza 3 (PCR) Not detected, Parainfluenza 4 (PCR) Not detected, RSV (PCR) Not detected, Entero/Rhino (PCR) Not detected 01/06/24 21:00: APTT 78.5 H* 01/07/24 02:05: APTT 102.2 H* 01/07/24 05:50: APTT 89.3 H*, Sodium 135 L, Potassium 3.5, Chloride 106, Carbon Dioxide 28, Anion Gap 4.5 L, BUN 2 L D, Creatinine 0.70, Estimated Creat Clear 106, Estimated GFR 89, Est GFR ( Amer) 108, Glucose 99, Calcium 8.9, Total Bilirubin 0.4, AST 17, ALT 13 D, Alkaline Phosphatase 66, Total Protein 6.0 L, Albumin 3.3 L D, Globulin 2.7, Albumin/Globulin Ratio 1.2, Triglycerides 97, Cholesterol 118 L, LDL Cholesterol Direct 48.16 L, VLDL Cholesterol 19, HDL Cholesterol 44, Cholesterol/HDL Ratio 2.7 I & O for Labs for Last 24 Hours: Intake & Output 01/04/24 01/05/24 01/06/24 01/07/24 23:59 23:59 23:59 23:59 Intake Total 360 / 660 1180 / 1180 Output Total 0 / 0 Balance 360 / 660 1180 / 1180 Weight 145 lb 1 oz 150 lb 8 oz Constitutional: Present moderate distress Head: Present normocephalic and atraumatic ENT: Present normal exam, normal oropharynx and mucous membranes moist Neck: Present normal inspection and full ROM Respiratory: Present able to speak in complete sentences; Absent respiratory distress, wheezes, crackles or diminished air movement Cardiac: Present S1/S2, Tachycardia and radial pulses present GI: Present soft and distention; Absent tenderness or guarding Rectal (female): Present deferred (female): Present deferred Skin: Present intact; Absent cyanosis or jaundice Neuro: Present alert, awake and oriented x 3 Extremities: Present normal inspection; Absent clubbing or cyanosis Psychiatric: Present normal affect and cooperative Meds Home Medications and Allergies Home Medications ?Medication ?Instructions ?Recorded ?Confirmed ?Type aspirin 81 mg tablet,delayed 81 mg PO DAILY 12/16/23 01/06/24 History release atorvastatin 40 mg tablet 40 mg PO DAILY 12/16/23 01/06/24 History citalopram 20 mg tablet 20 mg PO DAILY 12/16/23 01/06/24 History clopidogrel 75 mg tablet 75 mg PO DAILY 12/16/23 01/06/24 History pantoprazole 40 mg tablet,delayed 40 mg PO DAILY 12/16/23 01/06/24 History release valacyclovir 1 gram tablet 1,000 mg PO BID 12/16/23 01/06/24 History vibegron 75 mg tablet (Gemtesa) 75 mg PO DAILY 12/16/23 01/06/24 History amlodipine 5 mg tablet 5 mg PO DAILY #90 tabs 12/23/23 01/06/24 Rx furosemide 20 mg tablet 20 mg PO DAILY #30 tabs 12/23/23 01/06/24 Rx ranolazine 1,000 mg 1,000 mg PO BID 12/23/23 01/06/24 History tablet,extended release,12 hr albuterol sulfate 90 mcg/actuation 1 inh inhalation Q4HP PRN 01/06/24 01/06/24 History aerosol inhaler (Proventil HFA) shortness of breath or wheezing enoxaparin 80 mg/0.8 mL 70 mg (0.7 mL) SQ Q12H 30 days #42 01/07/24 Rx subcutaneous syringe mL hydrocodone 5 mg-acetaminophen 325 2 tab PO Q6HP PRN Moderate To 01/07/24 Rx mg tablet Severe Pain (4-10) 7 days #28 tabs New Prescriptions to Start Prescriptions: hydrocodone-acetaminophen Jayden Rausch enoxaparin Jayden Rausch Allergies Allergy/AdvReac Type Severity Reaction Status Date / Time sulfamethoxazole Allergy Unknown Hives Verified 01/02/24 13:38 [SULFAMETHOXAZOLE] trimethoprim [TRIMETHOPRIM] Allergy Unknown Hives Verified 01/02/24 13:38 isosorbide AdvReac Mild Headache Verified 01/06/24 14:31 Results Laboratory Findings 01/06/24 09:30 01/07/24 05:50 PT/INR, D-dimer PT 11.4 seconds (10.1-12.5) 01/06/24 09:30 INR 1.02 (0.9-1.1) 01/06/24 09:30 Abnormal lab findings: Abnormal Labs 01/06/24 01/06/24 01/06/24 09:30 18:55 21:00 MCH 31.8 H MPV 6.4 L APTT 29.1 L 78.5 H* VBG pO2 46.2 H VBG O2 Saturation 79.7 H Sodium Anion Gap BUN 3 L Glucose 119 H Total Protein Albumin Cholesterol LDL Cholesterol Direct 01/07/24 01/07/24 02:05 05:50 MCH MPV APTT 102.2 H* 89.3 H* VBG pO2 VBG O2 Saturation Sodium 135 L Anion Gap 4.5 L BUN 2 L D Glucose Total Protein 6.0 L Albumin 3.3 L D Cholesterol 118 L LDL Cholesterol Direct 48.16 L Assessment and Plan *Assessment and plan (1) Lung nodule: Status: Acute Category: Medical Code(s): R91.1 - Solitary pulmonary nodule (2) Mediastinal lymphadenopathy: Status: Acute Category: Medical Code(s): R59.0 - Localized enlarged lymph nodes (3) Pulmonary emphysema: Status: Acute Category: Medical Code(s): J43.9 - Emphysema, unspecified (4) Pleural effusion, right: Status: Acute Category: Medical Code(s): J90 - Pleural effusion, not elsewhere classified (5) Venous thromboembolism: Status: Acute Category: Medical Code(s): I82.90 - Acute embolism and thrombosis of unspecified vein Plan Ms. Johnson is a 48-year-old female with reported history of COPD CAD esophageal stricture GERD presented to the ER with worsening right-sided chest pain shortness of breath for the last 2 months recently received antibiotic and steroids from urgent care recently admitted for further evaluation and management. Patient other complaints include right-sided facial and neck swelling. CT upon admission right upper lobe spiculated mass at 2 cm in size along with station 7 lymphadenopathy. Smallright pleural effusion noted. The concerning right upper lobe lesion has been present on her CT from 2022 appeared to be slightly worsening. Other than station 7 lymphadenopathy no other lymph node stations appreciated. Will other noted findings include extensive clot burden in the right subclavian and internal jugular and brachiocephalic veins. Also concerning mass in the anterior mediastinum. Patient also complains of breast tenderness, due to undergo mammography. No obvious lesions noted on the CT scan. Afebrile. Hemodynamically stable. On room air. Patient does not appear to be in any respiratory distress. On room air. Plan: Albuterol/DuoNebs every 6 hours on as-needed basis Will follow-up with the mammogram to determine any accessible lesions for biopsy and if mammogram is unremarkable then we will proceed with a PET CT scan before biopsy. Will follow the patient in pulmonary clinic 01/12/2024 Recommend to be on anticoagulation to Lovenox 1 mg/kg twice daily for the noted venous thromboembolism
[2024-01-07] MEDS: ENOXAPARIN 80MG/0.8ML SYRINGE 70 MG SQ (12:12)
--- NOTE | 2024-01-08 14:59 | CARE MANAGER ---
Contacted patient related to hospital discharge. She states she is doing about the same as when she left and she does have her new medication. She contacted bag maker as she felt inhaler wasn't working and he is ordering a nebulizer. They also rescheduled her appt as he wants a scan prior to her visit. She denies any questions or concerns at this time. JOYA Mitchell
[2024-01-09 12:42] LABS: C1 Esterase Inhibitor 38 mg/dL (21-39)
[2024-01-12 19:27] LABS: C1 Est.Inhib.Funct. >110 (.)
--- NOTE | 2024-01-14 13:36 | EXP.DC.SUM ---
General Admission date:: 01/06/24 HPI HPI HPI: Xander Johnson is a 48-year-old female with a medical history significant for COPD (no home O2), CAD s/p DENIA 04/12, esophageal stricture, GERD, HSV presents with worsening right-sided chest pain, shortness of breath for the past 2 months. She went to urgent care about 2 weeks ago and given antibiotics, steroids. Patient finished antibiotics but not the steroids. During this time, patient also states that she has had on and off right-sided facial/neck swelling. She was recently evaluated by cardiology on 12/23/2023 for chest pain and underwent a stress test. Patient states she is supposed to follow-up with cardiology in the next week for the results. Workup in the ED included CT of soft tissue/neck revealed thrombus at the confluence of right subclavian vein and right internal jugular vein, with 3.8 cm thrombus extending into the brachiocephalic vein. There is also a spiculated mass in the right lung apex. Given these findings, ED provider spoke with vascular surgery who recommended medical management with anticoagulation and further evaluation of pulmonary mass. Did not recommend thrombolytics or invasive interventions at this time. [facility] vascular surgery was contacted in the interim awaiting for , and patient is waitlisted at this time. Hospital medicine team was contacted for further evaluation and management. Hospital Course Hospital Course Hospital Course: #Right chest pain #Thrombus extending into brachiocephalic vein #Right pulmonary mass #Right pleural effusion #History of breast cancer - CT chest revealing thrombus is present at the confluence of the right subclavian vein and right internal jugular vein, with 3.8 cm of thrombus extending into the brachiocephalic vein. There is a 2.8 x 2.1 cm mass immediately superior to the confluence of the right internal jugular and subclavian veins, that may represent adenopathy. Spiculated mass in the right lung apex, 1.9 x 1.5 cm in size, which appears to extend through the pleura of the medial right upper lobe. - Clinically stable, normal respiratory status on room air. ? Sequela are highly suggestive of malignancy associated mass and thrombus. ? [facility] vascular surgery consulted in the ED before admission and recommend medical management with anticoagulation. - Patient also states she has a strong family history of breast cancer, and has an upcoming mammogram this Friday. There is some right sided chest pain worse with palpation over the right lateral breast. Patient was advised to keep this appointment for further evaluation. - Patient was started on heparin drip, then transitioned to Lovenox. ? Pulmonology consulted, plan to perform bronchoscopy outpatient. - Discharged to therapeutic Lovenox BID in the setting of likely upcoming procedures such as bronchoscopy, and [place] for pain control. - Advised to hold metoprolol, imdur started by cardiology 2 weeks ago as right sided chest pain mostly likely from mass effect from right pulmonary mass and/or right breast pain. ? Patient will follow up with pulmonology next Friday further evaluation and management. ? #COPD exacerbation ? Decreased air movement, mild wheezing in bilateral lung wright with green productive sputum. ? Improved with Duonebs, Pulmicort breathing treatments and prednisone. ? Currently on room air which is baseline for patient. Exam Data for Last 24 hours Vital signs and Labs for Last 24 Hours: Temp Pulse Resp BP Pulse Ox O2 Del Method 97.9 F 77 18 120/72 96 Room Air 01/07/24 12:00 01/07/24 12:59 01/07/24 12:00 01/07/24 12:00 01/07/24 12:00 01/07/24 15:00 Constitutional Constitutional: no acute distress *Routine HEENT Exam Head: Present normocephalic Eye: Present EOMI and PERRL ENT: Present mucous membranes moist *Routine Neck Exam Neck: Present supple; Absent lymphadenopathy *Routine Respiratory Exam Respiratory: Present CTA bilaterally *Routine Cardiovascular Exam Cardiovascular: Present RRR *Routine Abdominal Exam Abdominal: Present soft and normoactive bowel sounds; Absent tenderness *Routine Extremities Exam Extremities: Absent cyanosis, clubbing or edema *Routine Skin Exam Skin: Present warm; Absent rash *Routine Neurological Exam Neurological: Present alert and oriented X3 DS: Diagnosis Discharge Diagnosis (1) Lung nodule: Status: Acute Code(s): R91.1 - Solitary pulmonary nodule (2) Mediastinal lymphadenopathy: Status: Acute Code(s): R59.0 - Localized enlarged lymph nodes (3) Pulmonary emphysema: Status: Acute Code(s): J43.9 - Emphysema, unspecified (4) Pleural effusion, right: Status: Acute Code(s): J90 - Pleural effusion, not elsewhere classified (5) Venous thromboembolism: Status: Deleted Code(s): I82.90 - Acute embolism and thrombosis of unspecified vein Meds Home Medications and Allergies Home Medications ?Medication ?Instructions ?Recorded ?Confirmed ?Type aspirin 81 mg tablet,delayed 81 mg PO DAILY 12/16/23 01/14/24 History release atorvastatin 40 mg tablet 40 mg PO DAILY 12/16/23 01/14/24 History citalopram 20 mg tablet 20 mg PO DAILY 12/16/23 01/14/24 History clopidogrel 75 mg tablet 75 mg PO DAILY 12/16/23 01/14/24 History pantoprazole 40 mg tablet,delayed 40 mg PO DAILY 12/16/23 01/14/24 History release valacyclovir 1 gram tablet 1,000 mg PO BID 12/16/23 01/14/24 History vibegron 75 mg tablet (Gemtesa) 75 mg PO DAILY 12/16/23 01/14/24 History amlodipine 5 mg tablet 5 mg PO DAILY #90 tabs 12/23/23 01/14/24 Rx furosemide 20 mg tablet 20 mg PO DAILY #30 tabs 12/23/23 01/14/24 Rx ranolazine 1,000 mg 1,000 mg PO BID 12/23/23 01/14/24 History tablet,extended release,12 hr albuterol sulfate 90 mcg/actuation 1 inh inhalation Q4HP PRN 01/06/24 01/14/24 History aerosol inhaler (Proventil HFA) shortness of breath or wheezing enoxaparin 80 mg/0.8 mL 70 mg (0.7 mL) SQ Q12H 30 days #42 01/07/24 01/14/24 Rx subcutaneous syringe mL hydrocodone 5 mg-acetaminophen 325 2 tab PO Q6H PRN pain 3 days #24 01/07/24 01/14/24 Rx mg tablet tabs hydrocodone 5 mg-acetaminophen 325 2 tab PO Q6HP PRN Moderate To 01/07/24 01/14/24 Rx mg tablet Severe Pain (4-10) 7 days #28 tabs New Prescriptions to Start Prescriptions: enoxaparin Jayden Rausch hydrocodone-acetaminophen Jayden Rausch hydrocodone-acetaminophen Leroy Rowe Allergies Allergy/AdvReac Type Severity Reaction Status Date / Time sulfamethoxazole Allergy Unknown Hives Verified 01/14/24 13:45 [SULFAMETHOXAZOLE] trimethoprim [TRIMETHOPRIM] Allergy Unknown Hives Verified 01/14/24 13:45 isosorbide AdvReac Mild Headache Verified 01/14/24 13:45 Discharge Plan Disposition Patient Disposition: Home, Self-Care Condition: Fair Follow up Plan Follow up with: Meena Barnes MD [Physician] - 01/12/24 1:00 pm Prescriptions/Medication Reconciliation: New enoxaparin 80 mg/0.8 mL Syringe 70 mg SQ Q12H 30 Days Qty: 42 0RF hydrocodone-acetaminophen 5-325 mg Tablet 2 tab PO Q6HP PRN (Reason: Moderate To Severe Pain (4-10)) 7 Days Qty: 28 0RF hydrocodone-acetaminophen 5-325 mg tablet 2 tab PO Q6H PRN (Reason: pain) 3 Days Qty: 24 0RF Continued ranolazine 1,000 mg tablet extended release 12 hr 1,000 mg PO BID amlodipine 5 mg tablet 5 mg PO DAILY Qty: 90 1RF furosemide 20 mg tablet 20 mg PO DAILY Qty: 30 2RF atorvastatin 40 mg tablet 40 mg PO DAILY valacyclovir 1 gram tablet 1,000 mg PO BID clopidogrel 75 mg tablet 75 mg PO DAILY aspirin 81 mg tablet,delayed release (DR/EC) 81 mg PO DAILY citalopram 20 mg tablet 20 mg PO DAILY pantoprazole 40 mg tablet,delayed release (DR/EC) 40 mg PO DAILY Gemtesa 75 mg tablet 75 mg PO DAILY albuterol sulfate [Proventil HFA] 90 mcg/actuation HFA aerosol inhaler 1 inh inhalation Q4HP PRN (Reason: shortness of breath or wheezing) Discontinued isosorbide mononitrate 30 mg tablet extended release 24 hr 30 mg PO DAILY Qty: 30 2RF metoprolol succinate 25 mg tablet extended release 24 hr 12.5 mg PO DAILY Qty: 30 2RF metoprolol succinate 25 mg tablet extended release 24 hr 12.5 mg PO DAILY Qty: 30 2RF Problem Reconciliation Problems Reviewed?: Yes Patient Discharge Instructions ACTIVITY: Ambulate as tolerated DIET: cardiac Additional Instructions: Please follow-up our program management manager Dr. Barnes on 01/11 for further evaluation of your right lung mass. Take Lovenox twice a day. Your program management manager will continue to manage this medication. Patient Instructions: Chronic Obstructive Pulmonary Disease (Alternative Therapy), Chronic Obstructive Pulmonary Disease, Be a Partner in Your COPD Care, COPD: When to Call for Help, Physical Activity for People with COPD Print Language: [place] Citizen Providers Primary Care Provider: Yuki Ortega Admit Provider: Jayden Rausch Attending Provider: Jayden Rausch
== END 2024-01-07 16:07 | disposition home or self-care (01) ==
LOC: ER 15:32 → 2ND 16:51
PROVIDERS: Nurse Practitioner Family; Admitting Provider Student in an Organized Health Care Education/Training Program; Emergency Provider Emergency Medicine; PCP Physician Assistant; Visit Provider Student in an Organized Health Care Education/Training Program
DX: I82.290 Acute embolism and thrombosis of other thoracic veins (principal); J90 Pleural effusion, not elsewhere classified; J44.9 Chronic obstructive pulmonary disease, unspecified; K22.2 Esophageal obstruction; R91.1 Solitary pulmonary nodule; R59.0 Localized enlarged lymph nodes; E78.5 Hyperlipidemia, unspecified; I10 Essential (primary) hypertension; F17.210 Nicotine dependence, cigarettes, uncomplicated; K21.9 Gastro-esophageal reflux disease without esophagitis; Z79.899 Other long term (current) drug therapy; I25.118 Atherosclerotic heart disease of native coronary artery with other forms of angina pectoris
CPT/HCPCS: 70491; 71045; 71260; 80053; 80061; 82803; 83880; 84484; 85025; 85610; 85730; 86161; 87265; 87486; 87581; 87632; 87635; 93005; 94640; 99291; G0378; J1644; J1650; J7620; Q9967

== ENCOUNTER 2024-01-09 09:50 | Outpatient (CLI) | payer OTHER, SELFPAY ==
--- NOTE | 2024-01-09 09:50 | US_ITS ---
PROCEDURE INFORMATION: Exam: US Right Breast, Complete MG Bilateral Screening 3D Mammography Exam date and time: 01/09/2024 9:59 AM Age: 48 years old Clinical indication: Screening mammogram. Diffuse right breast pain. TECHNIQUE: Imaging protocol: Complete ultrasound of all four quadrants of the right breast and the retroareolar regions, including ultrasound of the axilla when performed. Bilateral Screening tomosynthesis and 2D mammography including computer-aided detection (CAD) when performed. COMPARISON: MG MM DIG SCREENING MAMM BI W/CAD 01/09/2024 9:46 AM FINDINGS: MAMMOGRAPHY: Breast composition: There are scattered areas of fibroglandular density. No new mass, architectural distortion, or suspicious calcifications have developed to suggest malignancy. No axillary adenopathy. ULTRASOUND: Right breast 4 quadrants and retroareolar breast ultrasound and right axilla ultrasound Only normal glandular structures are present in the regions assessed No suspicious solid or cystic mass is present. No benign-appearing solid or cystic mass is present. No architectural distortion or shadowing is present. No axillary adenopathy is present. IMPRESSION: No mammographic or sonographic evidence of malignancy. Annual screening is recommended unless otherwise clinically indicated. ASSESSMENT: Screening mammogram BIRADS: BI-RADS category 1: Negative Overall BIRADS: BI-RADS category 1: Negative
== END 2024-01-09 23:59 | disposition home or self-care (01) ==
LOC: RAD 09:50
PROVIDERS: PCP Physician Assistant; Visit Provider Obstetrics & Gynecology
DX: N64.4 Mastodynia (principal); Z12.31 Encounter for screening mammogram for malignant neoplasm of breast
CPT/HCPCS: 76641; 77063; 77067

== ENCOUNTER 2024-01-16 10:23 | Outpatient (CLI) | payer OTHER, SELFPAY ==
--- NOTE | 2024-01-16 10:24 | US_ITS ---
FINAL REPORT CLINICAL HISTORY: Effusion-rt-- pt schd for thora but not enough fluid seen on us to do procedure per michael araujo FINDINGS: Ultrasound limited Clinical history: Patient presents for thoracentesis. Findings: Ultrasound imaging for thoracentesis reveals only a minimal pleural effusion. This is of insufficient amount to allow for safe thoracentesis. Examination was discontinued. IMPRESSION: Insufficient amount of pleural fluid for thoracentesis. Films reviewed , interpreted and dictated by Dr. Baird. Transcribed by Michael Gee PA-C. Reviewed, Interpreted and Dictated by Nusrat Baird MD Transcribed by ROBERTA Cody Authenticated and [facility]
[2024-01-16 10:43] VITALS: BMI 27.0
[2024-01-16 10:50] VITALS: BP 131/80; PULSE 63; RESP 18; TEMP 36.3; O2SAT 95
== END 2024-01-16 23:59 | disposition home or self-care (01) ==
LOC: RAD 10:24
PROVIDERS: PCP Internal Medicine; Visit Provider Internal Medicine Pulmonary Disease
DX: J90 Pleural effusion, not elsewhere classified (principal)
CPT/HCPCS: 76604

== ENCOUNTER 2024-01-22 07:42 | Day surgery (SDC) | payer OTHER, SELFPAY ==
[2024-01-22] VITALS (13 sets, daily range): BP systolic 97–142; BP diastolic 57–94; PULSE 57–72; RESP 16–18; TEMP 36.9; O2SAT 90–100; BMI 27.6
--- NOTE | 2024-01-22 07:17 | IR_ITS ---
APPROVED REPORT Patient Location: Outpatient Crime Investigator Special Agent: COMPA Jara RT (R) PROCEDURES Left heart catheterization Left ventriculogram Selective coronary angiogram INDICATION Recurrent angina pectoris, Known coronary artery disease Informed consent was obtained prior to the procedure. COMPLICATIONS none Estimated Blood Loss: less than 10ml TECHNIQUE One percent lidocaine used to anesthetize the right anterior aspect of the wrist. The right radial artery was accessed via the Seldinger technique. A 6 [place] sheath was placed in the right radial artery. 2.5 mg of Verapamil, 800 mcg of nitroglycerin, 1mg Lidocaine and 5000 U Heparin were given through the arterial sheath. The papa catheter was also used to perform left heart catheterization, left ventriculogram and selective coronary angiogram. At the end of the procedure the sheath was removed good hemostasis was achieved using Traclet band, patient was transferred to the postop holding area in stable condition. ANGIOGRAPHIC RESULTS The left main artery Normal The left anterior descending artery Has a stent in the proximal LAD which is widely patent free of in-stent restenosis. A large first diagonal artery has a bifurcating stent of the LAD and has an ostial 40% nonflow limiting stenosis and is otherwise widely patent The circumflex artery Normal The right coronary artery Nondominant normal The ZAIDI ventriculogram reveals Normal 65% The left ventricular end-diastolic pressure 10 mmHg IMPRESSION Patent coronary arteries as described above with moderate in-stent restenosis in the ostial segment of a large first diagonal artery Normal ejection fraction Normal LVEDP PLAN 1. Recommend medical management 2. Maximize antianginal medications with aggressive risk factor modification Electronically signed by : Mikhail Singer MD 01/22/2024 10:21:48
[2024-01-22 08:16] LABS: Basophils % 0.3 % (0.1-2.0); Eosinophils # 0.1 K/mm3 (0.0-0.4); Eosinophils % 0.8 % (0.1-12.0); Hematocrit 41.4 % (37.0-47.0); Hemoglobin 13.5 g/dL (12.2-16.2); Lymphocytes # 1.4 K/mm3 (0.7-4.5); Lymphocytes % 10.9 % (10-50); Mean Corpuscular HGB Conc 32.5 g/dL (31.8-35.4); Mean Corpuscular Hemoglobin 32.2 pg (27.0-31.2); Mean Platelet Volume 6.4 fl (7.4-10.4); Monocytes # 0.6 K/mm3 (0.1-1.0); Monocytes % 4.7 % (1.7-9.3); Neutrophils # 10.8 K/mm3 (1.8-7.8); Neutrophils % 83.3 % (37.0-80.0); Platelet Count 283 K/mm3 (142-424); Red Blood Count 4.19 M/mm3 (4.20-5.40); Red Cell Distribution Width 13.7 % (11.5-17.5)
[2024-01-22 08:20] LABS: Chloride 99 mmol/L (98-107); Potassium 3.2 mmoL/L (3.5-5.1); Sodium 132 mmol/L (136-145)
[2024-01-22 08:23] LABS: Anion Gap 11.2 mEq/L (5-15); Blood Urea Nitrogen 7 mg/dl (7-17); Calcium 9.7 mg/dl (8.4-10.2); Carbon Dioxide 25 mmol/L (22.0-30.0); Creatinine Clearance Estimated 124 mL/min (50-200); Estimated Glomerular Filt Rate 107 ml/min (>60); GFR (African American) 129 ML/MIN (>60); Glucose 101 mg/dl (74-100)
[2024-01-22] MEDS: VERAPAMIL 2.5MG/ML 2ML VIAL 2.5 MG IV (09:01)
[2024-01-22] MEDS: HEPARIN 1,000 UNITS/ML 10ML VIAL (CATH LAB) 10000 UNIT IV (09:02)
[2024-01-22] MEDS: LIDOCAINE 1% 10ML MDV 20 ML IJ (09:02)
[2024-01-22] MEDS: diphenhydrAMINE 50MG/ML VIAL 50 MG IV (09:02)
[2024-01-22] MEDS: NITROGLYCERIN 800MCG/8ML SYR (CATH LAB) 800 MCG IA (09:03)
[2024-01-22] MEDS: HEPARIN 1,000 UNITS/500ML NS (CATH LAB) 3000 UNIT IV (09:03)
[2024-01-22] MEDS: 0.9 % SODIUM CHLORIDE 500 ML 25 ML IV (09:03)
[2024-01-22] MEDS: FENTANYL 100MCG/2ML VIAL 50 MCG IV (09:32)
[2024-01-22] MEDS: MIDAZOLAM HCL 1MG/1ML 5ML VIAL 1 MG IV (09:32)
[2024-01-22] MEDS: IOPAMIDOL-370 (76%);100ML BOTTLE 50 ML IV (11:39)
== END 2024-01-22 13:29 | disposition home or self-care (01) ==
PROVIDERS: PCP Family Medicine; Visit Provider Internal Medicine
DX: R93.1 Abnormal findings on diagnostic imaging of heart and coronary circulation (principal); I25.118 Atherosclerotic heart disease of native coronary artery with other forms of angina pectoris; F17.210 Nicotine dependence, cigarettes, uncomplicated; Z79.899 Other long term (current) drug therapy; Z95.5 Presence of coronary angioplasty implant and graft; T82.855A Stenosis of coronary artery stent, initial encounter; Y83.1 Surgical operation with implant of artificial internal device as the cause of abnormal reaction of the patient, or of later complication, without mention of misadventure at the time of the procedure
CPT/HCPCS: 80048; 85025; 93458; 99152; C1769; J1200; J1644; J2250; J3010; Q9967

== ENCOUNTER 2024-02-06 07:48 | Outpatient (CLI) | payer OTHER, SELFPAY ==
--- NOTE | 2024-02-06 08:36 | PC.NURSE ---
Pt unable to perform PFT due to SOA. 6MWT performed. Pt taken to Dr Barnes's office.
== END 2024-02-06 23:59 | disposition home or self-care (01) ==
LOC: RT 07:49
PROVIDERS: PCP Family Medicine; Visit Provider Internal Medicine Pulmonary Disease
DX: R06.02 Shortness of breath (principal)
CPT/HCPCS: 94618

== ENCOUNTER 2024-02-06 09:00 | Inpatient (IN) | payer OTHER, SELFPAY ==
[2024-02-06] VITALS (11 sets, daily range): BP systolic 101–151; BP diastolic 59–96; PULSE 66–92; RESP 16–29; TEMP 36.3–36.7; O2SAT 92–99; BMI 27.4; BMI 26.6; BMI 27.3
--- NOTE | 2024-02-06 09:04 | HMH.EDGENADL ---
Discharge Plan Disposition Patient Disposition: Admitted Clinical Impressions Clinical Impression: Pleural effusion, Respiratory failure Discharge ED Provider: Jose Maria Loving General Adult HPI General Chief complaint: Shortness of Breath/Dyspnea Stated complaint: soa Time Seen by Provider: 02/06/24 09:04 History of Present Illness HPI narrative: The patient presents with a chief complaint of worsening shortness of breath, which has been ongoing for an unspecified duration. She reports that the breathing difficulty has progressively worsened since the diagnosis of a mass. She is currently using an albuterol inhaler and albuterol breathing treatment for symptom management. Her condition worsened today, with the patient stating that she slept all day yesterday due to not feeling well and experiencing slightly worse breathing than usual. She has a history of COPD and a blood clot in one of her veins, for which she is taking blood thinners. The last dose of blood thinners was taken last night. She denies any leg pain or leg swelling. After receiving a breathing treatment, she reports feeling slightly better, with reduced wheezing. Additionally, she was unable to take her usual pulmonary medications today due to pulmonary function testing. She mentions feeling worse today compared to yesterday, describing it as a lot worse. 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 Please note that above description of symptoms, in this electronic medical record under categorization of recalled from ER triage doctor by RN are reflective of an initial nursing assessment, however, is not reflective of my full history and physical exam that was personally taken and clarified. Consequentially, this preceding description of symptoms, which may include the patient's categorized chief complaint in the EMR, do not reflect my personal clinical impression, and the ultimate description of history of present illness and patient stated complaints should be deferred to this section of the note. Unless stated otherwise or congruent with this section of the note, additional signs, symptoms, or incongruence should be interpreted as inaccurate with my clinical impression. Related Data Home Medications ?Medication ?Instructions ?Recorded ?Confirmed aspirin 81 mg tablet,delayed 81 mg PO DAILY 12/16/23 02/06/24 release atorvastatin 40 mg tablet 40 mg PO DAILY 12/16/23 02/06/24 citalopram 20 mg tablet 20 mg PO DAILY 12/16/23 02/06/24 clopidogrel 75 mg tablet 75 mg PO DAILY 12/16/23 02/06/24 pantoprazole 40 mg tablet,delayed 40 mg PO DAILY 12/16/23 02/06/24 release valacyclovir 1 gram tablet 1,000 mg PO BID 12/16/23 02/06/24 vibegron 75 mg tablet (Gemtesa) 75 mg PO DAILY 12/16/23 02/06/24 ranolazine 1,000 mg 1,000 mg PO BID 12/23/23 02/06/24 tablet,extended release,12 hr albuterol sulfate 90 mcg/actuation 1 inh inhalation Q4HP PRN 01/06/24 02/06/24 aerosol inhaler (Proventil HFA) shortness of breath or wheezing enoxaparin 80 mg/0.8 mL 70 mg SQ Q12H 02/03/24 02/06/24 subcutaneous syringe metoprolol succinate 25 mg 25 mg PO DAILY 02/03/24 02/06/24 tablet,extended release 24 hr Previous Rx's ?Medication ?Instructions ?Recorded amlodipine 5 mg tablet 5 mg PO DAILY #90 tabs 12/23/23 furosemide 20 mg tablet 20 mg PO DAILY #30 tabs 12/23/23 ipratropium 0.5 mg-albuterol 3 mg 3 ml inhalation QID PRN shortness 01/14/24 (2.5 mg base)/3 mL nebulization of breath or wheezing 90 days #270 soln mL tiotropium 2.5 mcg-olodaterol 2.5 2 puff inhalation DAILY 90 days #4 01/14/24 mcg/actuation mist for inhalation grams (Stiolto Respimat) nicotine (polacrilex) 4 mg buccal 4 mg buccal Q6H PRN nicotine 02/03/24 lozenge cravings #72 ea oxycodone 10 mg tablet 10 mg PO Q6H PRN pain #60 tabs 02/03/24 enoxaparin 80 mg/0.8 mL 80 mg (0.8 mL) SQ Q12H 14 days 02/06/24 subcutaneous syringe (Lovenox) #22.4 mL Allergies Allergy/AdvReac Type Severity Reaction Status Date / Time sulfamethoxazole Allergy Unknown Hives Verified 02/06/24 08:32 [SULFAMETHOXAZOLE] trimethoprim [TRIMETHOPRIM] Allergy Unknown Hives Verified 02/06/24 08:32 isosorbide AdvReac Mild Headache Verified 02/06/24 08:32 [facility] Disclaimer: The information contained in this section may have been updated after the patient was seen, as this information can be updated by other users. Medical History Tobacco abuse Mass of right lung Benign polyp of duodenum Preserved villous architecture and gastric metaplasia suggestive of possible peptic injury noted Herpes simplex Bronchitis Inflammation of joint of left shoulder region Abnormal gastrointestinal PET scan Smoking greater than 30 pack years Atypical angina Abnormal findings on diagnostic imaging of heart and coronary circulation Viral syndrome Constipation Pulmonary emphysema Mediastinal lymphadenopathy Lung nodule Breast pain, right Abnormal ECG Dyspnea Pleural effusion, right Anxiety Manic depression Left shoulder pain Bradycardia Hyperlipidemia Hypertension Elevated left ventricular end-diastolic pressure (LVEDP) Tobacco dependence syndrome Coronary artery disease Asthma History of gastroesophageal reflux (GERD) Anxiety RF Celexa Surgical History H/O shoulder surgery History of esophagogastroduodenoscopy (EGD) History of heart artery stent Stented coronary artery History of bladder repair surgery History of hysterectomy Family History Other Cancer Heart attack Social History Smoking Status: Current every day smoker tobacco type: cigarettes packs per day: 1 and e-cigarettes alcohol intake: never substance use type: marijuana current occupational status: employed Travel in the last 8 weeks: None household members: none housing: house Other Medical History Have you received the Flu Vaccine for this season: No Have you received the Pneumonia Vaccine: No ROS Obtained: Yes other As per HPI Physical Exam General General appearance: alert Comment: Increased work of breathing Head Head exam: atraumatic and normocephalic Eye Eye exam: Present normal appearance Neck Neck exam: Present normal inspection Chest Chest inspection: Present normal inspection and symmetric chest wall rise Respiratory Respiratory exam: Present wheezes and prolonged expiratory phase Cardiovascular Cardiovascular exam: Present regular rate and normal rhythm Abdominal Exam Abdominal exam: Present soft Neurological Exam Neurological exam: Present alert and oriented X3 Psychiatric Psychiatric exam: Present normal affect and normal mood Skin Skin exam: Present warm and dry Medical Decision Making Medical Records Medical records reviewed: Yes I reviewed the patient's medical records. Screening: Per USPSTF and CDC recommendations, given the prevalence of disease in our region, it is our hospital?s policy to screen for HIV and viral Hepatitis for all patients aged 18 and over and those with ongoing risk factors. Jay Inquiry Pt receiving controlled substance: No Vital Signs: 02/06/24 09:03 02/06/24 10:36 02/06/24 11:00 Temperature 97.8 F Temperature Source Oral Pulse Rate 87 66 Pulse Rate [Right] 79 Respiratory Rate 29 H Blood Pressure 151/86 H 140/84 Blood Pressure [Right Arm] 141/96 H Blood Pressure Mean [Right Arm] 111 Blood Pressure Source Blood Pressure Source [Right Arm] Automatic Cuff Blood Pressure Position 02 Sat by Pulse Oximetry 95 95 93 L Oxygen Delivery Method Room Air Room Air Room Air 02/06/24 12:00 02/06/24 12:30 02/06/24 13:00 Temperature Temperature Source Pulse Rate 75 78 82 Pulse Rate [Right] Respiratory Rate Blood Pressure 128/72 124/81 133/67 Blood Pressure [Right Arm] Blood Pressure Mean [Right Arm] Blood Pressure Source Blood Pressure Source [Right Arm] Blood Pressure Position 02 Sat by Pulse Oximetry 99 99 93 L Oxygen Delivery Method Room Air 02/06/24 18:28 Temperature 98.0 F Temperature Source Oral Pulse Rate 82 Pulse Rate [Right] Respiratory Rate 16 Blood Pressure 133/67 Blood Pressure [Right Arm] Blood Pressure Mean [Right Arm] Blood Pressure Source Automatic Cuff Blood Pressure Source [Right Arm] Blood Pressure Position Sitting 02 Sat by Pulse Oximetry Oxygen Delivery Method Room Air Lab Data Lab Results 02/06/24 09:30: SARS-CoV-2 (PCR) Not detected, Influenza A Untype (PCR) Not detected, Influenza Type B (PCR) Not detected 02/06/24 09:38: WBC 12.9 H, RBC 4.34, Hgb 13.9, Hct 40.6, MCV 93.7, MCH 32.1 H, MCHC 34.2, RDW 14.4, Plt Count 310, MPV 6.8 L, Neut % (Auto) 82.1 H, Lymph % (Auto) 11.6, [place] % (Auto) 5.4, Eos % (Auto) 0.6, Baso % (Auto) 0.3, Neut # (Auto) 10.6 H, Lymph # (Auto) 1.5, [place] # (Auto) 0.7, Eos # (Auto) 0.1, Baso # (Auto) 0.0, Sodium 135 L, Potassium 3.2 L, Chloride 102, Carbon Dioxide 28, Anion Gap 8.2, BUN 3 L, Creatinine 0.60, Estimated Creat Clear 131, Estimated GFR 107, Est GFR ( Amer) 129, Glucose 126 H, Calcium 9.6, Magnesium 1.5 L, Total Bilirubin 0.7, AST 20, ALT 18, Alkaline Phosphatase 80, Troponin I < 0.01, NT-Pro-B Natriuret Pep 94.3, Total Protein 6.7, Albumin 3.9, Globulin 2.8, Albumin/Globulin Ratio 1.4, Procalcitonin 0.096, HIV 1&2 Antibody Rapid Nonreactive 02/06/24 10:08: VBG pH 7.46 H, VBG pCO2 37.6, VBG pO2 45.9 H, VBG HCO3 25.8, VBG Total CO2 27.0, VBG O2 Saturation 82.3 H, VBG Base Excess 1.9, VBG Lactic Acid 1.5 02/06/24 12:34: Troponin I < 0.01 02/06/24 09:38 02/06/24 09:38 Orders (Tests/Meds): ED MEDICATIONS Generic Name Dose Route Start Last Admin Trade Name Freq PRN Reason Stop Dose Admin Sodium Chloride 10 ml 02/06/24 09:48 Sodium Chloride 0.9% 10ml Flush Syringe IV 03/07/24 09:47 NEEDED PRN Maintain IV Site Sodium Chloride 10 ml 02/06/24 12:49 02/06/24 12:51 Sodium Chloride 0.9% 10ml Syr (Rad Only) IV 03/07/24 12:48 10 ml NEEDED PRN Administration Maintain IV Site Discontinued Medications Generic Name Dose Route Start Last Admin Trade Name Freq PRN Reason Stop Dose Admin Albuterol/Ipratropium 9 ml 02/06/24 09:22 02/06/24 09:22 Ipratropium/Albuterol 3 Ml Neb IH 02/06/24 09:23 9 ml ONCE ONE Administration Albuterol/Ipratropium 3 ml 02/06/24 11:27 02/06/24 11:34 Ipratropium/Albuterol 3 Ml Neb IH 02/06/24 11:28 3 ml ONCE ONE Administration Magnesium Sulfate 2 gm in 50 mls @ 50 mls/hr 02/06/24 10:07 02/06/24 10:37 Magnesium Sulfate 2gm/50ml Premix IV 02/06/24 11:06 50 mls/hr ONCE ONE Administration Iopamidol 70 ml 02/06/24 12:49 02/06/24 12:51 Iopamidol-370 (76%);100ml Bottle IV 02/06/24 12:50 70 ml ONCE ONE Administration Ketorolac Tromethamine 15 mg 02/06/24 11:27 02/06/24 11:34 Ketorolac 30mg/Ml Vial IV 02/06/24 11:28 15 mg ONCE ONE Administration Methocarbamol 1,000 mg 02/06/24 11:27 02/06/24 11:34 Methocarbamol 500mg Tablet PO 02/06/24 11:28 1,000 mg ONCE ONE Administration Methylprednisolone Sodium Succinate 80 mg 02/06/24 10:07 02/06/24 10:37 Methylprednisolone Sod Succ 40mg Vial IV 02/06/24 10:08 80 mg ONCE ONE Administration Ondansetron HCl 4 mg 02/06/24 11:27 02/06/24 11:34 Ondansetron 4mg/2ml Vial IV 02/06/24 11:28 4 mg ONCE ONE Administration Sodium Chloride 50 ml 02/06/24 12:49 02/06/24 12:51 0.9 % Sodium Chloride 50 Ml Vial IV 02/06/24 12:50 50 ml ONCE ONE Administration ORDERS Category Date Time Status CTA Chest [CT angio chest PE protocol] Stat Cat Scan 02/06/24 10:08 Completed BNP [NT Pro Brain Natriuretic Pep.] Stat Lab 02/06/24 09:38 Completed CBC w/Auto Diff [Complete Blood Count Auto Diff] Stat Lab 02/06/24 09:38 Completed CMP [Comprehensive Metabolic Panel] Stat Lab 02/06/24 09:38 Completed HIV (1&2) Antibody Rapid Stat Lab 02/06/24 09:38 Completed Hep C Ab with Reflex to RNA Stat Lab 02/06/24 09:38 Received MAG [Magnesium] Stat Lab 02/06/24 09:38 Completed Procalcitonin Stat Lab 02/06/24 09:38 Completed Rapid PCR Covid and Flu A/B Stat Lab 02/06/24 09:30 Completed Troponin I Q3H Lab 02/06/24 09:38 Completed Troponin I Q3H Lab 02/06/24 12:34 Completed VBG [Venous Blood Gas] Stat RT 02/06/24 10:08 Completed Medical Decision Narrative: Patient with history and exam per above presenting for evaluation of shortness of breath Diagnoses considered include COPD, pulmonary embolism, ACS, pneumonia, neoplasm, among others ED workup and treatment included: ED MEDICATIONS Generic Name Dose Route Start Last Admin Trade Name Freq PRN Reason Stop Dose Admin Sodium Chloride 10 ml 02/06/24 09:48 Sodium Chloride 0.9% 10ml Flush Syringe IV 03/07/24 09:47 NEEDED PRN Maintain IV Site Sodium Chloride 10 ml 02/06/24 12:49 02/06/24 12:51 Sodium Chloride 0.9% 10ml Syr (Rad Only) IV 03/07/24 12:48 10 ml NEEDED PRN Administration Maintain IV Site Discontinued Medications Generic Name Dose Route Start Last Admin Trade Name Freq PRN Reason Stop Dose Admin Albuterol/Ipratropium 9 ml 02/06/24 09:22 02/06/24 09:22 Ipratropium/Albuterol 3 Ml Neb IH 02/06/24 09:23 9 ml ONCE ONE Administration Albuterol/Ipratropium 3 ml 02/06/24 11:27 02/06/24 11:34 Ipratropium/Albuterol 3 Ml Neb IH 02/06/24 11:28 3 ml ONCE ONE Administration Magnesium Sulfate 2 gm in 50 mls @ 50 mls/hr 02/06/24 10:07 02/06/24 10:37 Magnesium Sulfate 2gm/50ml Premix IV 02/06/24 11:06 50 mls/hr ONCE ONE Administration Iopamidol 70 ml 02/06/24 12:49 02/06/24 12:51 Iopamidol-370 (76%);100ml Bottle IV 02/06/24 12:50 70 ml ONCE ONE Administration Ketorolac Tromethamine 15 mg 02/06/24 11:27 02/06/24 11:34 Ketorolac 30mg/Ml Vial IV 02/06/24 11:28 15 mg ONCE ONE Administration Methocarbamol 1,000 mg 02/06/24 11:27 02/06/24 11:34 Methocarbamol 500mg Tablet PO 02/06/24 11:28 1,000 mg ONCE ONE Administration Methylprednisolone Sodium Succinate 80 mg 02/06/24 10:07 02/06/24 10:37 Methylprednisolone Sod Succ 40mg Vial IV 02/06/24 10:08 80 mg ONCE ONE Administration Ondansetron HCl 4 mg 02/06/24 11:27 02/06/24 11:34 Ondansetron 4mg/2ml Vial IV 02/06/24 11:28 4 mg ONCE ONE Administration Sodium Chloride 50 ml 02/06/24 12:49 02/06/24 12:51 0.9 % Sodium Chloride 50 Ml Vial IV 02/06/24 12:50 50 ml ONCE ONE Administration ORDERS Category Date Time Status CTA Chest [CT angio chest PE protocol] Stat Cat Scan 02/06/24 10:08 Completed BNP [NT Pro Brain Natriuretic Pep.] Stat Lab 02/06/24 09:38 Completed CBC w/Auto Diff [Complete Blood Count Auto Diff] Stat Lab 02/06/24 09:38 Completed CMP [Comprehensive Metabolic Panel] Stat Lab 02/06/24 09:38 Completed HIV (1&2) Antibody Rapid Stat Lab 02/06/24 09:38 Completed Hep C Ab with Reflex to RNA Stat Lab 02/06/24 09:38 Received MAG [Magnesium] Stat Lab 02/06/24 09:38 Completed Procalcitonin Stat Lab 02/06/24 09:38 Completed Rapid PCR Covid and Flu A/B Stat Lab 02/06/24 09:30 Completed Troponin I Q3H Lab 02/06/24 09:38 Completed Troponin I Q3H Lab 02/06/24 12:34 Completed VBG [Venous Blood Gas] Stat RT 02/06/24 10:08 Completed Labs were independently interpreted by me, significant for leukocytosis, hypokalemia, mild hyponatremia Imaging was independently visualized and interpreted by me, significant for worsening right-sided pleural effusion Please refer to radiology report for full details. Given severity of symptoms and unclear etiology, transudative versus exudative of new worsening pleural effusion, patient will benefit from admission for further workup and treatment. Patient was admitted to hospital medicine service. Critical Care Critical Care Time Critical Care Time: No
[2024-02-06] MEDS: IPRATROPIUM/ALBUTEROL 3 ML NEB 9 ML IH (09:22)
--- NOTE | 2024-02-06 09:23 | ECG_ITS ---
APPROVED REPORT Exam: Resting ECG HR:65 bpm ECG Measurements Heart Rate 65 AXES NH 159 P 84 QRSd 86 QRS 80 QT 389 T 67 QTc 400 Conclusion SINUS RHYTHM WITH OCCASIONAL VENTRICULAR PREMATURE COMPLEXES LOW QRS VOLTAGE IN PRECORDIAL LEADS [QRS DEFLECTION < 1.0 mV IN CHEST LEADS] NONSPECIFIC T-WAVE ABNORMALITY BORDERLINE ECG UNCONFIRMED REPORT Electronically signed by : RICCI SANDHU, 02/08/2024 06:10:15
[2024-02-06 09:34] LABS: Coronavirus 19, PCR Not Detected (NotDetected); Influenza A, PCR Not Detected (NotDetected); Influenza B, PCR Not Detected (NotDetected)
[2024-02-06 10:01] LABS: Basophils % 0.3 % (0.1-2.0); Eosinophils # 0.1 K/mm3 (0.0-0.4); Eosinophils % 0.6 % (0.1-12.0); Hematocrit 40.6 % (37.0-47.0); Hemoglobin 13.9 g/dL (12.2-16.2); Lymphocytes # 1.5 K/mm3 (0.7-4.5); Lymphocytes % 11.6 % (10-50); Mean Corpuscular HGB Conc 34.2 g/dL (31.8-35.4); Mean Corpuscular Hemoglobin 32.1 pg (27.0-31.2); Mean Corpuscular Volume 93.7 fl (81-99); Mean Platelet Volume 6.8 fl (7.4-10.4); Monocytes # 0.7 K/mm3 (0.1-1.0); Monocytes % 5.4 % (1.7-9.3); Neutrophils # 10.6 K/mm3 (1.8-7.8); Neutrophils % 82.1 % (37.0-80.0); Platelet Count 310 K/mm3 (142-424); Red Blood Count 4.34 M/mm3 (4.20-5.40); Red Cell Distribution Width 14.4 % (11.5-17.5); White Blood Count 12.9 K/mm3 (4.8-10.8)
--- NOTE | 2024-02-06 10:03 | PC.NURSE ---
Dr. Loving at bedside
--- NOTE | 2024-02-06 10:08 | CT_ITS ---
PROCEDURE INFORMATION: Exam: CTA Chest With Contrast Exam date and time: 02/06/2024 12:43 PM Age: 48 years old Clinical indication: Dyspnea; Additional info: SOA, HX svc syndrome TECHNIQUE: Imaging protocol: Computed tomographic angiography of the chest with contrast. Exam focused on the arteries. 3D rendering (Not supervised by radiologist): MIP and/or 3D reconstructed images were created by the technologist. Radiation optimization: All CT scans at this facility use at least one of these dose optimization techniques: automated exposure control; mA and/or kV adjustment per patient size (includes targeted exams where dose is matched to clinical indication); or iterative reconstruction. Contrast material: ISOVUE 370; Contrast volume: 70 ml; Contrast route: INTRAVENOUS (IV); COMPARISON: 1. CT ANGIO CHEST 02/10/2023 9:[address] CHEST W CON 01/06/2024 9:50 AM FINDINGS: Pulmonary arteries: Normal. No pulmonary emboli. Aorta: Unremarkable. No aortic aneurysm. No aortic dissection. 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 Numerous right chest wall venous collaterals. Lungs: Multiple subpleural blebs at the lung apices. There are 2 pleural-based pulmonary masses of the right apex measuring about 1.9 and 1.1 cm each. The 1.9 cm right apical mass is stable but the 1.1 cm mass has increased in size as it previously had measured 8-9 mm. Pleural spaces: The previously identified small right pleural effusion is now large. There is a new, small left pleural effusion. Heart: Stable small pericardial effusion. The heart is normal in size. Coronary arteries: There is calcified coronary artery disease. Mediastinal space: Stable confluence soft tissue mass along the right paratracheal, subcarinal and right hilar regions. Lymph nodes: Stable 1.9 cm nodule in the anterior mediastinal space likely representing adenopathy. Adrenal glands: Stable 10 mm low-density nodule in the left adrenal gland likely representing a adrenal adenoma which is not significantly changed from the prior study. Bones/joints: Unremarkable. No acute fracture. Soft tissues: Unremarkable. IMPRESSION: 1. 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 2. Stable appearing right-sided mediastinal and subcarinal adenopathy. 3. There is a large right pleural effusion and new small left pleural effusion. The right pleural effusion was small at the time of the previous study but has significantly enlarged. 4. No evidence of PE and the thoracic aorta is unremarkable. 5. There are two right upper lobe spiculated pulmonary nodules. The 1.9 cm is stable but the 1.1 cm nodule has slightly increased in size over the past 1 month. Consider biopsy.
[2024-02-06 10:20] LABS: Albumin Level 3.9 g/dl (3.5-5.0); Chloride 102 mmol/L (98-107); Potassium 3.2 mmoL/L (3.5-5.1); Procalcitonin 0.096 ng/mL (0.0-2.0); Sodium 135 mmol/L (136-145); Troponin I < 0.01 ng/ml (0.00-0.034)
[2024-02-06 10:22] LABS: Blood Urea Nitrogen 3 mg/dl (7-17); Creatinine Clearance Estimated 131 mL/min (50-200); Estimated Glomerular Filt Rate 107 ml/min (>60); GFR (African American) 129 ML/MIN (>60)
[2024-02-06 10:23] LABS: Alanine Aminotransferase 18 U/L (12-78); Albumin/Globulin Ratio 1.4 (1.1-1.8); Alkaline Phosphatase 80 U/L (38-126); Anion Gap 8.2 mEq/L (5-15); Aspartate Amino Transferase 20 U/L (14-36); Bilirubin,Total 0.7 mg/dl (0.2-1.3); Calcium 9.6 mg/dl (8.4-10.2); Carbon Dioxide 28 mmol/L (22.0-30.0); Globulin 2.8 g/dL (1.3-3.2); Glucose 126 mg/dl (74-100); Magnesium 1.5 mg/dl (1.6-2.3); Total Protein,Serum 6.7 g/dl (6.3-8.2)
[2024-02-06 10:32] LABS: NT Pro Brain Natriuretic Pep. 94.3 pg/mL (0-125)
[2024-02-06] MEDS: MAGNESIUM SULFATE IN WATER 2 GM/50 ML PIGGYBACK IV (10:37)
[2024-02-06] MEDS: METHYLPREDNISOLONE SOD SUCC 40MG VIAL 80 MG IV (10:37)
--- NOTE | 2024-02-06 10:42 | PC.NURSE ---
rounded on patient, pillow given at this time and vitals obtained at this time.
--- NOTE | 2024-02-06 10:43 | PC.NURSE ---
patient gone to CT at this time.
[2024-02-06 10:44] LABS: HIV (1&2) Antibody Rapid NONREACTIVE (NONREACTIVE)
--- NOTE | 2024-02-06 10:44 | HMH.ITSTN ---
patient states she is unable to lay down for CT scan at this time. Patient taken back to ER room.
--- NOTE | 2024-02-06 10:57 | PC.NURSE ---
PT REPORTS UNABLE TO HAVE CT SCAN. REPORTS SHORTNESS OF BREATH AND BACK PAIN, UNABLE TO LIE FLAT. DR HOUSTON NOTIFIED
[2024-02-06 11:00] LABS: Lactate Venous 1.5 mmol/L (0.4-2.0); VBG Base Excess 1.9 mmol/L (-2.4-2.3); VBG HCO3 25.8 mmol/L (23-30); VBG Oxygen Saturation 82.3 % (50-70); VBG PCO2 37.6 mmol/L (35-51); VBG PH 7.46 mmol/L (7.31-7.41); VBG PO2 45.9 mmol/L (28-40)
[2024-02-06] MEDS: METHOCARBAMOL 500MG TABLET 1000 MG PO (11:34)
[2024-02-06] MEDS: KETOROLAC 30MG/ML VIAL 15 MG IV (11:34)
[2024-02-06] MEDS: IPRATROPIUM/ALBUTEROL 3 ML NEB IH ×2 (11:34→20:50)
[2024-02-06] MEDS: ONDANSETRON 4MG/2ML VIAL 4 MG IV (11:34)
[2024-02-06] MEDS: IOPAMIDOL-370 (76%);100ML BOTTLE 70 ML IV (12:51)
[2024-02-06] MEDS: SODIUM CHLORIDE 0.9% 10ML SYR (RAD ONLY) 10 ML IV (12:51)
[2024-02-06] MEDS: 0.9 % SODIUM CHLORIDE 50 ML VIAL IV (12:51)
[2024-02-06 13:06] LABS: Troponin I < 0.01 ng/ml (0.00-0.034)
--- NOTE | 2024-02-06 14:25 | PC.NURSE ---
Dr. Loving notified of ct scan has resulted.
--- NOTE | 2024-02-06 15:26 | PC.NURSE ---
Macie rounded on patient, voiced no needs at this time. Call light within reach, family at bedside.
--- NOTE | 2024-02-06 17:27 | PC.NURSE ---
DR NEELY SPEAKING WITH HOSPITALIST
--- NOTE | 2024-02-06 18:12 | PC.NURSE ---
Report given to Med Surg.
--- NOTE | 2024-02-06 18:27 | PC.NURSE ---
arrived by w/c from ED
--- NOTE | 2024-02-06 20:37 | PC.NURSE ---
RT notified at this time to admin PRN richard
[2024-02-06] MEDS: ENOXAPARIN 80MG/0.8ML SYRINGE 70 MG SQ (20:38)
[2024-02-06] MEDS: OXYCODONE 5MG IMMEDIATE RELEASE TABLET 10 MG PO (21:11)
--- NOTE | 2024-02-06 21:30 | P.HP_ITS ---
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 On arrival, patient was saturating appropriately on room air but did have increased work of breathing. She was given breathing treatments. Chest CTA revealed worsening to now large right pleural effusion, and stable severe stenosis of the SVC. On exam however, patient did have mild diffuse facial swelling from SVC syndrome. Other workup in the ED significant for WBC 12.9 and relatively normal VBG. Case discussed with ED provider, and given worsening shortness of breath with growing right-sided pleural effusion decision was made to admit patient for further evaluation and management of right-sided pleural effusion, pulmonary nodules, SVC syndrome. [facility] Disclaimer: The information contained in this section may have been updated after the patient was seen, as this information can be updated by other users. Medical History (Updated 02/13/24 @ 10:50 by Guilherme Foote) COPD (chronic obstructive pulmonary disease) Pleural effusion, bilateral Multiple lung nodules on CT Tobacco abuse Mass of right lung Benign polyp of duodenum Herpes simplex Bronchitis Inflammation of joint of left shoulder region Abnormal gastrointestinal PET scan Smoking greater than 30 pack years Atypical angina Abnormal findings on diagnostic imaging of heart and coronary circulation Viral syndrome Constipation Pulmonary emphysema Mediastinal lymphadenopathy Lung nodule Breast pain, right Abnormal ECG Dyspnea Pleural effusion, right Anxiety Manic depression Left shoulder pain Bradycardia Hyperlipidemia Hypertension Elevated left ventricular end-diastolic pressure (LVEDP) Tobacco dependence syndrome Coronary artery disease Asthma History of gastroesophageal reflux (GERD) Anxiety Surgical History H/O shoulder surgery History of esophagogastroduodenoscopy (EGD) History of heart artery stent Stented coronary artery History of bladder repair surgery History of hysterectomy Family History Other Cancer Heart attack Social History (Updated 02/13/24 @ 10:52 by Guilherme Foote) Smoking Status: Current every day smoker tobacco type: cigarettes packs per day: 1 and e-cigarettes alcohol intake: never substance use type: marijuana current occupational status: employed Travel in the last 8 weeks: None household members: none housing: house Other Medical History Have you received the Flu Vaccine for this season: No Have you received the Pneumonia Vaccine: No Meds Home Medications and Allergies Home Medications ?Medication ?Instructions ?Recorded ?Confirmed ?Type atorvastatin 40 mg tablet 40 mg PO HS 12/16/23 02/13/24 History citalopram 20 mg tablet 20 mg PO DAILY 12/16/23 02/13/24 History clopidogrel 75 mg tablet 75 mg PO DAILY 12/16/23 02/13/24 History pantoprazole 40 mg tablet,delayed 40 mg PO HS 12/16/23 02/13/24 History release vibegron 75 mg tablet (Gemtesa) 75 mg PO DAILY 12/16/23 02/13/24 History amlodipine 5 mg tablet 5 mg PO DAILY #90 tabs 12/23/23 02/13/24 Rx furosemide 20 mg tablet 20 mg PO DAILY #30 tabs 12/23/23 02/13/24 Rx ranolazine 1,000 mg 1,000 mg PO BID 12/23/23 02/13/24 History tablet,extended release,12 hr albuterol sulfate 90 mcg/actuation 1 inh inhalation Q4HP PRN 01/06/24 02/13/24 History aerosol inhaler (Proventil HFA) shortness of breath or wheezing tiotropium 2.5 mcg-olodaterol 2.5 2 puff inhalation DAILY 90 days #4 01/14/24 02/13/24 Rx mcg/actuation mist for inhalation grams (Stiolto Respimat) enoxaparin 80 mg/0.8 mL 70 mg SQ Q12H 02/03/24 02/13/24 History subcutaneous syringe metoprolol succinate 25 mg 25 mg PO DAILY 02/03/24 02/13/24 History tablet,extended release 24 hr ipratropium 0.5 mg-albuterol 3 mg 3 ml inhalation QIDP PRN Shortness 02/07/24 02/13/24 History (2.5 mg base)/3 mL nebulization Of Breath Or Wheezing soln nicotine (polacrilex) 4 mg buccal 4 mg buccal Q6HP PRN nicotine 02/07/24 02/13/24 History lozenge cravings oxycodone 10 mg tablet 10 mg PO Q6HP PRN Severe Pain 02/07/24 02/13/24 History (Scale Score 7-10) amoxicillin 500 mg capsule 500 mg PO BID 02/13/24 02/13/24 History ondansetron HCl 4 mg tablet 4 mg PO Q6H PRN Nausea 02/13/24 02/13/24 History prednisone 20 mg tablet 20 mg PO DAILY 02/13/24 02/13/24 History New Prescriptions to Start Prescriptions: Allergies Allergy/AdvReac Type Severity Reaction Status Date / Time sulfamethoxazole Allergy Unknown Hives Verified 02/13/24 10:58 [SULFAMETHOXAZOLE] trimethoprim [TRIMETHOPRIM] Allergy Unknown Hives Verified 02/13/24 10:58 isosorbide AdvReac Mild Headache Verified 02/13/24 10:58 Exam Data for Last 24 hours Vital signs and Labs for Last 24 Hours: Temp Pulse Resp BP Pulse Ox O2 Del Method O2 Flow Rate 97.6 F 85 16 111/71 96 Nasal Cannula 2 02/06/24 19:51 02/06/24 20:55 02/06/24 19:51 02/06/24 19:51 02/06/24 20:55 02/06/24 20:55 02/06/24 20:55 Laboratory Results - last 24 hr 02/06/24 09:30: SARS-CoV-2 (PCR) Not detected, Influenza A Untype (PCR) Not detected, Influenza Type B (PCR) Not detected 02/06/24 09:38: WBC 12.9 H, RBC 4.34, Hgb 13.9, Hct 40.6, MCV 93.7, MCH 32.1 H, MCHC 34.2, RDW 14.4, Plt Count 310, MPV 6.8 L, Neut % (Auto) 82.1 H, Lymph % (Auto) 11.6, [place] % (Auto) 5.4, Eos % (Auto) 0.6, Baso % (Auto) 0.3, Neut # (Auto) 10.6 H, Lymph # (Auto) 1.5, [place] # (Auto) 0.7, Eos # (Auto) 0.1, Baso # (Auto) 0.0, Sodium 135 L, Potassium 3.2 L, Chloride 102, Carbon Dioxide 28, Anion Gap 8.2, BUN 3 L, Creatinine 0.60, Estimated Creat Clear 131, Estimated GFR 107, Est GFR ( Amer) 129, Glucose 126 H, Calcium 9.6, Magnesium 1.5 L , Total Bilirubin 0.7, AST 20, ALT 18, Alkaline Phosphatase 80, Troponin I < 0.01, NT-Pro-B Natriuret Pep 94.3, Total Protein 6.7, Albumin 3.9, Globulin 2.8, Albumin/Globulin Ratio 1.4, Procalcitonin 0.096, HIV 1&2 Antibody Rapid Nonreactive 02/06/24 10:08: VBG pH 7.46 H, VBG pCO2 37.6, VBG pO2 45.9 H, VBG HCO3 25.8, VBG Total CO2 27.0, VBG O2 Saturation 82.3 H, VBG Base Excess 1.9, VBG Lactic Acid 1.5 02/06/24 12:34: Troponin I < 0.01 I & O for Last 24 hours: Intake & Output 02/03/24 02/04/24 02/05/24 02/06/24 23:59 23:59 23:59 23:59 Weight 67.67 kg Constitutional Constitutional: no acute distress *Routine HEENT Exam Head: Present normocephalic Eye: Present EOMI and PERRL ENT: Present mucous membranes moist *Routine Neck Exam Neck: Present supple; Absent lymphadenopathy *Routine Respiratory Exam Respiratory: Present CTA bilaterally *Routine Cardiovascular Exam Cardiovascular: Present RRR *Routine Abdominal Exam Abdominal: Present soft and normoactive bowel sounds; Absent tenderness *Routine Rectal Exam Rectal:: deferred *Routine Genitalia Exam Genitalia:: deferred *Routine Extremities Exam Extremities: Absent cyanosis, clubbing or edema *Routine Skin Exam Skin: Present warm; Absent rash *Routine Neurological Exam Neurological: Present alert and oriented X3 Assessment and Plan *Assessment and plan (1) Superior vena cava compression syndrome: Status: Acute Category: Medical Code(s): I87.1 - Compression of vein (2) Mass of right lung: Status: Acute Category: Medical Code(s): R91.8 - Other nonspecific abnormal finding of lung field Plan Xander Johnson is a 48-year-old female with a medical history significant for SVC syndrome, 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 On arrival, patient was saturating appropriately on room air but did have increased work of breathing. She was given breathing treatments. Chest CTA revealed worsening to now large right pleural effusion, and stable severe stenosis of the SVC. On exam however, patient did have mild diffuse facial swelling from SVC syndrome. Other workup in the ED significant for WBC 12.9 and relatively normal VBG. Case discussed with ED provider, and given worsening shortness of breath with growing right-sided pleural effusion decision was made to admit patient for further evaluation and management of right-sided pleural effusion, pulmonary nodules, SVC syndrome. #Right pulmonary masses #Right-sided pleural effusion #Suspected lung malignancy ? Known right pulmonary masses, being evaluated in the pulmonology clinic. ? Chest CTA reveals 1.9 cm stable, however second nodule has grown to 1.1 cm in the last month. Negative for PE. ? Patient has had a PET which was unremarkable for uptake from these nodules. ? However, this constellation of findings is very suspicious for lung malignancy. Patient has a smoking history. ? Spoke with Dr. Barnes who plans for thoracentesis on Friday. N.p.o. at midnight. Hold Lovenox that morning. ? Ultimately, patient will need biopsy of these masses which will be done outpatient. #Severe stenosis of SVC #SVC syndrome ? Known severe stenosis SVC, stable per CTA chest on admission. ? Mild facial swelling over the past 2 weeks. Vital signs stable. ? Etiology likely from underlying malignancy as above. ? Continue therapeutic Lovenox. ? Bed elevation, patient advised to keep upright position to help reduce symptoms. #COPD #Tobacco use ? COPD currently stable. ? Continue home Stiolto. DuoNebs as needed. ? Nicotine patch. #CAD ? Continue home aspirin, Plavix, ranolazine, metoprolol, statin. Full code Therapeutic Lovenox
[2024-02-07] VITALS (7 sets, daily range): BP systolic 102–134; BP diastolic 63–82; PULSE 63–88; RESP 16–19; TEMP 36.4–36.7; O2SAT 92–100; BMI 27.4
--- NOTE | 2024-02-07 04:53 | PC.NURSE ---
Pt is alert and oriented x4 nd currently tolerating 2L well and sating at 95%. At the beginning of this shift pt did not have her O2 on, and had a persistent cough and was SOB. Pt was asked to place O2 back on, and this nurse notified RT and requested a PRN duoneb. Continuous pulse ox was placed on pt at that time to monitor O2 sats. Pt has c/o of mild to moderate pain, and was treated per JUN. Pt has slept intermittently this shift. Pt denies needs and pain at this time. Daughter at bedside.
--- NOTE | 2024-02-07 05:04 | PC.NURSE ---
Rt notified at this time for PRN richard.
[2024-02-07] MEDS: IPRATROPIUM/ALBUTEROL 3 ML NEB IH (05:12)
[2024-02-07] MEDS: ENOXAPARIN 80MG/0.8ML SYRINGE 70 MG SQ ×2 (06:30→18:45)
[2024-02-07 06:55] LABS: Basophils % 0.2 % (0.1-2.0); Eosinophils % 0.1 % (0.1-12.0); Hemoglobin 12.7 g/dL (12.2-16.2); Lymphocytes # 1.8 K/mm3 (0.7-4.5); Lymphocytes % 16.7 % (10-50); Mean Corpuscular HGB Conc 34.2 g/dL (31.8-35.4); Mean Corpuscular Hemoglobin 31.5 pg (27.0-31.2); Mean Corpuscular Volume 92.1 fl (81-99); Mean Platelet Volume 6.7 fl (7.4-10.4); Monocytes # 0.8 K/mm3 (0.1-1.0); Monocytes % 6.9 % (1.7-9.3); Neutrophils # 8.3 K/mm3 (1.8-7.8); Platelet Count 298 K/mm3 (142-424); Red Blood Count 4.02 M/mm3 (4.20-5.40); Red Cell Distribution Width 14.5 % (11.5-17.5)
[2024-02-07 06:57] LABS: Chloride 104 mmol/L (98-107); Potassium 3.7 mmoL/L (3.5-5.1); Sodium 137 mmol/L (136-145)
--- NOTE | 2024-02-07 06:59 | PC.NURSE ---
When giving morning dose of lovenox this nurse noted moderate swelling around both eyes. Pt denies signs and symptoms of allergic reation and seems to have no other issues. Dr. Urbina notified and made aware.
[2024-02-07 07:00] LABS: Anion Gap 8.7 mEq/L (5-15); Blood Urea Nitrogen 4 mg/dl (7-17); Calcium 9.6 mg/dl (8.4-10.2); Carbon Dioxide 28 mmol/L (22.0-30.0); Creatinine Clearance Estimated 122 mL/min (50-200); Estimated Glomerular Filt Rate 107 ml/min (>60); GFR (African American) 129 ML/MIN (>60); Glucose 103 mg/dl (74-100)
[2024-02-07 08:11] LABS: C-Reactive Protein 15.6 mg/L (0-4)
[2024-02-07 08:28] LABS: HCV Ab Non Reactive (Non Reactive)
[2024-02-07 08:37] LABS: Erythrocyte Sedimentation Rate 26 mm/hr (0-20)
[2024-02-07] MEDS: CLOPIDOGREL 75MG TAB 75 MG PO (09:49)
[2024-02-07] MEDS: RANOLAZINE 500MG ER TABLET 1000 MG PO ×2 (09:49→20:03)
[2024-02-07] MEDS: METOPROLOL SUCCINATE XL 25MG TABLET 25 MG PO (09:49)
[2024-02-07] MEDS: FUROSEMIDE 20MG TABLET 20 MG PO (09:50)
[2024-02-07] MEDS: STIOLTO RESPIMAT 2 EACH IH (09:51)
--- NOTE | 2024-02-07 09:52 | HMH.PHAINT1 ---
Pharmacy Intervention Comments: MEDICATION RECONCILIATION COMPLETE USING EXTERNAL PHARMACY FILL HISTORY AND RECENT MD OFFICE VISIT NOTES (CARDIOLOGY, DR LOPEZ, AND PULMONOLOGY).
[2024-02-07] MEDS: OXYCODONE 5MG IMMEDIATE RELEASE TABLET 10 MG PO ×2 (11:08→18:48)
--- NOTE | 2024-02-07 16:55 | PC.NURSE ---
Pt is A&O x4. Currently resting in bed with head elevated per MD request. Pt continues have have periorbital edema. No other edema noted to any other areas. Pt stated to MD that she has Hx of difficulty swallowing. She has tolerated swallowing her PO medication and [facility]. VS have remained stable. O2 titrated as needed. Pt was on 2L NC initially. She is currently on RA. Has ambulated to BR without difficulty. Call light within reach.
--- NOTE | 2024-02-07 17:43 | P.PN_ITS ---
Subjective *Date: 02/07/24 *Time: 17:43 Exam Data for Last 24 hours Vital signs and Labs for Last 24 Hours: Temp Pulse Resp BP Pulse Ox O2 Del Method O2 Flow Rate 97.7 F 63 19 102/63 L 93 L Room Air 1 02/07/24 16:00 02/07/24 16:00 02/07/24 16:00 02/07/24 16:00 02/07/24 16:00 02/07/24 16:53 02/07/24 16:00 Laboratory Results - last 24 hr 02/06/24 09:38: Hepatitis C Antibody Non reactive 02/07/24 06:00: ESR 26 H, C-Reactive Protein 15.6 H 02/07/24 06:11: WBC 11.0 H, RBC 4.02 L, Hgb 12.7, Hct 37.0, MCV 92.1, MCH 31.5 H , MCHC 34.2, RDW 14.5, Plt Count 298, MPV 6.7 L, Neut % (Auto) 76.0, Lymph % (Auto) 16.7, [place] % (Auto) 6.9, Eos % (Auto) 0.1, Baso % (Auto) 0.2, Neut # (Auto) 8.3 H, Lymph # (Auto) 1.8, [place] # (Auto) 0.8, Eos # (Auto) 0.0, Baso # ( Auto) 0.0, Sodium 137, Potassium 3.7, Chloride 104, Carbon Dioxide 28, Anion Gap 8.7, BUN 4 L D, Creatinine 0.60, Estimated Creat Clear 122, Estimated GFR 107, Est GFR ( Amer) 129, Glucose 103 H, Calcium 9.6 I & O for Last 24 hours: Intake & Output 02/04/24 02/05/24 02/06/24 02/07/24 23:59 23:59 23:59 23:59 Intake Total 980 / 980 Output Total 0 / 0 Balance 980 / 980 Weight 67.67 kg 67.67 kg Constitutional Constitutional: no acute distress Comments: Mild facial swelling. *Routine HEENT Exam Head: Present normocephalic Eye: Present EOMI and PERRL ENT: Present mucous membranes moist *Routine Neck Exam Neck: Present supple; Absent lymphadenopathy *Routine Respiratory Exam Respiratory: Present CTA bilaterally *Routine Cardiovascular Exam Cardiovascular: Present RRR *Routine Abdominal Exam Abdominal: Present soft and normoactive bowel sounds; Absent tenderness *Routine Extremities Exam Extremities: Absent cyanosis, clubbing or edema *Routine Skin Exam Skin: Present warm; Absent rash *Routine Neurological Exam Neurological: Present alert and oriented X3 Assessment and Plan *Assessment and plan (1) Superior vena cava compression syndrome: Status: Acute Category: Medical Code(s): I87.1 - Compression of vein Plan Xander Johnson is a 48-year-old female with a medical history significant for SVC syndrome, 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 On arrival, patient was saturating appropriately on room air but did have increased work of breathing. She was given breathing treatments. Chest CTA revealed worsening to now large right pleural effusion, and stable severe stenosis of the SVC. On exam however, patient did have mild diffuse facial swelling from SVC syndrome. Other workup in the ED significant for WBC 12.9 and relatively normal VBG. Case discussed with ED provider, and given worsening shortness of breath with growing right-sided pleural effusion decision was made to admit patient for further evaluation and management of right-sided pleural effusion, pulmonary nodules, SVC syndrome. #Right pulmonary masses #Right-sided pleural effusion #Suspected lung malignancy ? Known right pulmonary masses, being evaluated in the pulmonology clinic. ? Chest CTA reveals 1.9 cm stable, however second nodule has grown to 1.1 cm in the last month. Negative for PE. ? Patient has had a PET which was unremarkable for uptake from these nodules. ? However, this constellation of findings is very suspicious for lung malignancy. Patient has a smoking history. ? Spoke with Dr. Barnes who plans for thoracentesis on Friday. N.p.o. at midnight. Hold Lovenox that morning. ? Ultimately, patient will need biopsy of these masses which will be done outpatient. #Severe stenosis of SVC #SVC syndrome ? Known severe stenosis SVC, stable per CTA chest on admission. ? However, patient endorses worsening facial swelling, dysphagia over the past 2 weeks. - Given this, I reached out to [facility] and their vascular surgeon advised that this can be followed up outpatient for potential endovascular treatment of SVC stenosis. ? Etiology likely from underlying malignancy as above. ? Continue therapeutic Lovenox. ? Bed elevation, patient advised to keep upright position to help reduce symptoms. #COPD #Tobacco use ? COPD currently stable. ? Continue home Stiolto. DuoNebs as needed. ? Nicotine patch. #CAD ? Continue home aspirin, Plavix, ranolazine, metoprolol, statin. Full code Therapeutic Lovenox
[2024-02-07] MEDS: PANTOPRAZOLE 40MG TABLET 40 MG PO (20:03)
[2024-02-07] MEDS: ATORVASTATIN 40MG TABLET 40 MG PO (20:03)
[2024-02-08] VITALS (7 sets, daily range): BP systolic 90–123; BP diastolic 51–69; PULSE 55–70; RESP 16–18; TEMP 36.4–36.8; O2SAT 94–97; BMI 28.5
[2024-02-08] MEDS: ENOXAPARIN 80MG/0.8ML SYRINGE 70 MG SQ ×2 (06:18→20:13)
[2024-02-08 06:24] LABS: Basophils # 0.1 K/mm3 (0-0.2); Basophils % 0.5 % (0.1-2.0); Eosinophils % 0.3 % (0.1-12.0); Hematocrit 37.1 % (37.0-47.0); Hemoglobin 12.6 g/dL (12.2-16.2); Lymphocytes % 19.5 % (10-50); Mean Corpuscular HGB Conc 33.9 g/dL (31.8-35.4); Mean Corpuscular Hemoglobin 31.5 pg (27.0-31.2); Mean Platelet Volume 6.9 fl (7.4-10.4); Monocytes # 0.7 K/mm3 (0.1-1.0); Monocytes % 6.5 % (1.7-9.3); Neutrophils # 7.4 K/mm3 (1.8-7.8); Neutrophils % 73.2 % (37.0-80.0); Platelet Count 296 K/mm3 (142-424); Red Blood Count 3.98 M/mm3 (4.20-5.40); Red Cell Distribution Width 14.4 % (11.5-17.5); White Blood Count 10.2 K/mm3 (4.8-10.8)
[2024-02-08] MEDS: STIOLTO RESPIMAT 2 EACH IH (06:28)
[2024-02-08] MEDS: IPRATROPIUM/ALBUTEROL 3 ML NEB IH (06:28)
[2024-02-08 06:35] LABS: Chloride 103 mmol/L (98-107); Sodium 135 mmol/L (136-145)
[2024-02-08 06:36] LABS: Potassium 3.7 mmoL/L (3.5-5.1)
[2024-02-08 06:38] LABS: Blood Urea Nitrogen 5 mg/dl (7-17); Creatinine Clearance Estimated 109 mL/min (50-200); Estimated Glomerular Filt Rate 89 ml/min (>60); GFR (African American) 108 ML/MIN (>60)
[2024-02-08 06:39] LABS: Anion Gap 5.7 mEq/L (5-15); Calcium 9.1 mg/dl (8.4-10.2); Carbon Dioxide 30 mmol/L (22.0-30.0); Glucose 117 mg/dl (74-100)
[2024-02-08] MEDS: METOPROLOL SUCCINATE XL 25MG TABLET 25 MG PO (09:01)
[2024-02-08] MEDS: CITALOPRAM 20MG TABLET 20 MG PO (09:01)
[2024-02-08] MEDS: RANOLAZINE 500MG ER TABLET 1000 MG PO ×2 (09:01→20:14)
[2024-02-08] MEDS: CLOPIDOGREL 75MG TAB 75 MG PO (09:01)
[2024-02-08] MEDS: FUROSEMIDE 20MG TABLET 20 MG PO (09:01)
[2024-02-08] MEDS: OXYCODONE 5MG IMMEDIATE RELEASE TABLET 10 MG PO (11:31)
--- NOTE | 2024-02-08 12:42 | EXP.PN ---
Subjective *Date: 02/08/24 *Time: 12:42 Interval history: Patient feels well today, no chest pain or shortness of breath. Mild facial swelling stable. Plan for thoracentesis tomorrow. Exam Data for Last 24 hours Vital signs and Labs for Last 24 Hours: Temp Pulse Resp BP Pulse Ox O2 Del Method O2 Flow Rate 98.2 F 67 18 101/55 L 95 Room Air 2 02/08/24 11:20 02/08/24 11:20 02/08/24 11:20 02/08/24 11:20 02/08/24 11:20 02/08/24 11:20 02/08/24 08:00 Laboratory Results - last 24 hr 02/08/24 06:03: WBC 10.2, RBC 3.98 L, Hgb 12.6, Hct 37.1, MCV 93.0, MCH 31.5 H, MCHC 33.9, RDW 14.4, Plt Count 296, MPV 6.9 L, Neut % (Auto) 73.2, Lymph % (Auto) 19.5, [place] % (Auto) 6.5, Eos % (Auto) 0.3, Baso % (Auto) 0.5, Neut # (Auto) 7.4, Lymph # (Auto) 2.0, [place] # (Auto) 0.7, Eos # (Auto) 0.0, Baso # (Auto) 0.1, Sodium 135 L, Potassium 3.7, Chloride 103, Carbon Dioxide 30, Anion Gap 5.7, BUN 5 L, Creatinine 0.70, Estimated Creat Clear 109, Estimated GFR 89, Est GFR ( Amer) 108, Glucose 117 H, Calcium 9.1 I & O for Last 24 hours: Intake & Output 02/05/24 02/06/24 02/07/24 02/08/24 23:59 23:59 23:59 23:59 Intake Total 1320 / 1560 640 / 640 Output Total 0 / 0 0 / 0 Balance 1320 / 1560 640 / 640 Weight 67.67 kg 67.67 kg 70.261 kg Constitutional Constitutional: no acute distress Comments: Mild facial swelling. *Routine HEENT Exam Head: Present normocephalic Eye: Present EOMI and PERRL ENT: Present mucous membranes moist *Routine Neck Exam Neck: Present supple; Absent lymphadenopathy *Routine Respiratory Exam Respiratory: Present CTA bilaterally *Routine Cardiovascular Exam Cardiovascular: Present RRR *Routine Abdominal Exam Abdominal: Present soft and normoactive bowel sounds; Absent tenderness *Routine Extremities Exam Extremities: Absent cyanosis, clubbing or edema *Routine Skin Exam Skin: Present warm; Absent rash *Routine Neurological Exam Neurological: Present alert and oriented X3 Assessment and Plan *Assessment and plan (1) Superior vena cava compression syndrome: Status: Acute Category: Medical Code(s): I87.1 - Compression of vein (2) Mass of right lung: Status: Acute Category: Medical Code(s): R91.8 - Other nonspecific abnormal finding of lung field Plan Xander Johnson is a 48-year-old female with a medical history significant for SVC syndrome, 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 On arrival, patient was saturating appropriately on room air but did have increased work of breathing. She was given breathing treatments. Chest CTA revealed worsening to now large right pleural effusion, and stable severe stenosis of the SVC. On exam however, patient did have mild diffuse facial swelling from SVC syndrome. Other workup in the ED significant for WBC 12.9 and relatively normal VBG. Case discussed with ED provider, and given worsening shortness of breath with growing right-sided pleural effusion decision was made to admit patient for further evaluation and management of right-sided pleural effusion, pulmonary nodules, SVC syndrome. #Right pulmonary masses #Right-sided pleural effusion #Suspected lung malignancy ? Known right pulmonary masses, being evaluated in the pulmonology clinic. ? Chest CTA reveals 1.9 cm stable mass, however second nodule has grown to 1.1 cm in the last month. Negative for PE. ? Patient has had a PET which was unremarkable for uptake from these nodules. ? However, this constellation of findings is very suspicious for lung malignancy. Patient has a smoking history. ? Spoke with Dr. Barnes who plans for thoracentesis on Friday. N.p.o. at midnight. Hold Lovenox that morning. ? Ultimately, patient will need biopsy of these masses which will be done outpatient. ? Patient feels well today, no chest pain or shortness of breath. Mild facial swelling stable. Plan for thoracentesis tomorrow. #Severe stenosis of SVC #SVC syndrome ? Known severe stenosis SVC, stable per CTA chest on admission. ? However, patient endorses worsening facial swelling, dysphagia over the past 2 weeks. - Given this, I reached out to transfer center and their vascular surgeon advised that this can be followed up outpatient for potential endovascular treatment of SVC stenosis. ? Etiology likely from underlying malignancy as above. ? Continue therapeutic Lovenox. ? Bed elevation, patient advised to keep upright position to help reduce symptoms. #COPD #Tobacco use ? COPD currently stable. ? Continue home Stiolto. DuoNebs as needed. ? Nicotine patch. #CAD ? Continue home aspirin, Plavix, ranolazine, metoprolol, statin. Full code Therapeutic Lovenox
--- NOTE | 2024-02-08 16:28 | PC.NURSE ---
aox4, not requiring o2 support at this time. medicated with prn oxycodone per mar with good effectiveness. tolerating diet well.
[2024-02-08] MEDS: PANTOPRAZOLE 40MG TABLET 40 MG PO (20:14)
[2024-02-08] MEDS: ATORVASTATIN 40MG TABLET 40 MG PO (20:14)
[2024-02-09] VITALS (8 sets, daily range): BP systolic 109–145; BP diastolic 63–87; PULSE 62–83; RESP 16–18; TEMP 36.4–36.8; O2SAT 90–97; BMI 28.8
--- NOTE | 2024-02-09 05:54 | PC.NURSE ---
Pt is alert and oriented x4 and currently tolerating RA well at this time. Pt remains NPO for procedure this am. Pt denies pain and needs at this time.
[2024-02-09] MEDS: STIOLTO RESPIMAT 2 EACH IH (06:23)
[2024-02-09 07:00] LABS: Basophils % 0.4 % (0.1-2.0); Eosinophils % 0.2 % (0.1-12.0); Hematocrit 38.3 % (37.0-47.0); Hemoglobin 13.1 g/dL (12.2-16.2); Lymphocytes # 1.6 K/mm3 (0.7-4.5); Lymphocytes % 17.6 % (10-50); Mean Corpuscular HGB Conc 34.1 g/dL (31.8-35.4); Mean Corpuscular Hemoglobin 31.8 pg (27.0-31.2); Mean Corpuscular Volume 93.3 fl (81-99); Mean Platelet Volume 6.9 fl (7.4-10.4); Monocytes # 0.6 K/mm3 (0.1-1.0); Monocytes % 6.6 % (1.7-9.3); Neutrophils % 75.3 % (37.0-80.0); Platelet Count 297 K/mm3 (142-424); Red Cell Distribution Width 14.4 % (11.5-17.5); White Blood Count 9.3 K/mm3 (4.8-10.8)
[2024-02-09 07:06] LABS: Anion Gap 1.5 mEq/L (5-15); Blood Urea Nitrogen 3 mg/dl (7-17); Carbon Dioxide 31 mmol/L (22.0-30.0); Chloride 107 mmol/L (98-107); Creatinine Clearance Estimated 110 mL/min (50-200); Estimated Glomerular Filt Rate 89 ml/min (>60); GFR (African American) 108 ML/MIN (>60); Glucose 95 mg/dl (74-100); Potassium 3.5 mmoL/L (3.5-5.1); Sodium 136 mmol/L (136-145)
[2024-02-09] MEDS: OXYCODONE 5MG IMMEDIATE RELEASE TABLET 10 MG PO ×2 (08:25→20:25)
[2024-02-09] MEDS: CITALOPRAM 20MG TABLET 20 MG PO (08:26)
[2024-02-09] MEDS: FUROSEMIDE 20MG TABLET 20 MG PO (08:26)
[2024-02-09] MEDS: METOPROLOL SUCCINATE XL 25MG TABLET 25 MG PO (08:26)
--- NOTE | 2024-02-09 09:49 | US_ITS ---
PROCEDURE INFORMATION: Exam: US Chest, Pleural Spaces Exam date and time: 02/09/2024 11:39 AM Age: 48 years old Clinical indication: Pleural effusion RT TECHNIQUE: Imaging protocol: Real time ultrasound of the chest was performed with image documentation. Exam focused on the pleural spaces. Concurrent real time US visualization of vascular needle entry. Permanent recording and reporting. COMPARISON: PT P.E.T./CT SKULL BASE TO MID-THIGH 01/12/2024 12:00 PM FINDINGS: Pleural spaces: Moderate-sized right pleural effusion with passive atelectasis in the right lung base. IMPRESSION: 1. Images acquired for ultrasound guided right thoracentesis. Please refer to operative report for details. 2. Moderate-sized right pleural effusion with passive atelectasis in the right lung base.
--- NOTE | 2024-02-09 09:49 | P.CONS_ITS ---
History of Present Illness History of present illness: Ms. Johnson is a 48-year-old female with a history of subclavian on outpatient basis to the [facility], sent to the ER during which evaluation showed worsening right pleural effusion and small left effusion admitted to the hospital and pulmonary was consulted for further evaluation and management. Patient admits gradually worsening respiratory distress and also admits difficulty swallowing. [facility] Disclaimer: The information contained in this section may have been updated after the patient was seen, as this information can be updated by other users. Medical History (Updated 02/09/24 @ 13:29 by Meena Barnes MD) Pleural effusion, bilateral Multiple lung nodules on CT Tobacco abuse Mass of right lung Benign polyp of duodenum Herpes simplex Bronchitis Inflammation of joint of left shoulder region Abnormal gastrointestinal PET scan Smoking greater than 30 pack years Atypical angina Abnormal findings on diagnostic imaging of heart and coronary circulation Viral syndrome Constipation Pulmonary emphysema Mediastinal lymphadenopathy Lung nodule Breast pain, right Abnormal ECG Dyspnea Pleural effusion, right Anxiety Manic depression Left shoulder pain Bradycardia Hyperlipidemia Hypertension Elevated left ventricular end-diastolic pressure (LVEDP) Tobacco dependence syndrome Coronary artery disease Asthma History of gastroesophageal reflux (GERD) Anxiety Surgical History H/O shoulder surgery History of esophagogastroduodenoscopy (EGD) History of heart artery stent Stented coronary artery History of bladder repair surgery History of hysterectomy Family History Other Cancer Heart attack Social History (Updated 02/06/24 @ 18:43 by Silvia Mukherjee, RN) Smoking Status: Current every day smoker tobacco type: cigarettes packs per day: 1 and e-cigarettes alcohol intake: never substance use type: marijuana current occupational status: employed Travel in the last 8 weeks: None household members: none housing: house Review of Systems Constitutional Constitutional: Reports anorexia, Reports body ache(s) and Reports fatigue Eyes Eyes: Denies eye discharge, Denies dry eyes, Denies irritation and Denies itchy eyes ENT Ears, Nose, Mouth, and Throat: Reports dysphagia, Denies epistaxis, Denies facial pain, Denies lip swelling and Denies throat swelling *Cardiovascular Cardiovascular: Reports dyspnea, Reports dyspnea on exertion and Reports orthopnea *Respiratory Respiratory: Reports chest congestion, Reports cough, Reports dyspnea, Reports dyspnea on exertion, Denies excessive phlegm production, Denies hemoptysis, Denies pain on inspiration, Denies pain with cough and Reports wheezing *Gastrointestinal Gastrointestinal: Denies abdominal pain, Denies belching, Denies cramping and Reports dysphagia *Musculoskeletal Musculoskeletal: Reports back pain and Denies myalgias Psychiatric Psychiatric: Denies homicidal ideation and Denies suicidal ideation Endocrine Endocrine: Reports fatigue and Denies heat intolerance Hematologic/Lymphatic Hematologic/Lymphatic: Denies easy bleeding and Denies lymphadenopathy Allergic/Immunologic Allergic/Immunologic: Denies itchy eyes, Denies lip swelling, Denies throat swelling and Reports wheezing Pulmonology Exam Inpatient Vital signs and Labs for Last 24 Hours: Temp Pulse Resp BP Pulse Ox O2 Del Method O2 Flow Rate 98.1 F 71 16 145/78 H 93 L Room Air 2 02/09/24 08:00 02/09/24 08:00 02/09/24 08:00 02/09/24 08:00 02/09/24 08:00 02/09/24 09:00 02/08/24 08:00 Laboratory Results - last 24 hr 02/09/24 05:55: WBC 9.3, RBC 4.10 L, Hgb 13.1, Hct 38.3, MCV 93.3, MCH 31.8 H, MCHC 34.1, RDW 14.4, Plt Count 297, MPV 6.9 L, Neut % (Auto) 75.3, Lymph % (Auto) 17.6, [place] % (Auto) 6.6, Eos % (Auto) 0.2, Baso % (Auto) 0.4, Neut # (Auto) 7.0, Lymph # (Auto) 1.6, [place] # (Auto) 0.6, Eos # (Auto) 0.0, Baso # (Auto) 0.0, Sodium 136, Potassium 3.5, Chloride 107, Carbon Dioxide 31 H, Anion Gap 1.5 L, BUN 3 L D, Creatinine 0.70, Estimated Creat Clear 110, Estimated GFR 89, Est GFR ( Amer) 108, Glucose 95, Calcium 9.0 I & O for Labs for Last 24 Hours: Intake & Output 02/06/24 02/07/24 02/08/24 02/09/24 23:59 23:59 23:59 23:59 Intake Total 1320 / 1560 1260 / 1500 270 / 270 Output Total 0 / 0 0 / 0 0 / 0 Balance 1320 / 1560 1260 / 1500 270 / 270 Weight 149 lb 3 oz 149 lb 2.989 oz 154 lb 14.4 oz 157 lb Constitutional: Present moderate distress Head: Present normocephalic and atraumatic ENT: Present normal exam, normal oropharynx and mucous membranes moist Neck: Present normal inspection and full ROM Respiratory: Present prolonged expiratory phase, respiratory distress, wheezes, crackles, diminished air movement and able to speak in complete sentences Cardiac: Present S1/S2, Tachycardia and radial pulses present GI: Present soft and distention; Absent tenderness or guarding Rectal (female): Present deferred (female): Present deferred Skin: Present intact; Absent cyanosis or jaundice Neuro: Present alert, awake and oriented x 3 Extremities: Present normal inspection; Absent clubbing or cyanosis Psychiatric: Present normal affect and cooperative Meds Home Medications and Allergies Home Medications ?Medication ?Instructions ?Recorded ?Confirmed ?Type atorvastatin 40 mg tablet 40 mg PO HS 12/16/23 02/07/24 History citalopram 20 mg tablet 20 mg PO DAILY 12/16/23 02/07/24 History clopidogrel 75 mg tablet 75 mg PO DAILY 12/16/23 02/07/24 History pantoprazole 40 mg tablet,delayed 40 mg PO HS 12/16/23 02/07/24 History release vibegron 75 mg tablet (Gemtesa) 75 mg PO DAILY 12/16/23 02/07/24 History amlodipine 5 mg tablet 5 mg PO DAILY #90 tabs 12/23/23 02/07/24 Rx furosemide 20 mg tablet 20 mg PO DAILY #30 tabs 12/23/23 02/07/24 Rx ranolazine 1,000 mg 1,000 mg PO BID 12/23/23 02/07/24 History tablet,extended release,12 hr albuterol sulfate 90 mcg/actuation 1 inh inhalation Q4HP PRN 01/06/24 02/07/24 History aerosol inhaler (Proventil HFA) shortness of breath or wheezing tiotropium 2.5 mcg-olodaterol 2.5 2 puff inhalation DAILY 90 days #4 01/14/24 02/07/24 Rx mcg/actuation mist for inhalation grams (Stiolto Respimat) enoxaparin 80 mg/0.8 mL 70 mg SQ Q12H 02/03/24 02/07/24 History subcutaneous syringe metoprolol succinate 25 mg 25 mg PO DAILY 02/03/24 02/07/24 History tablet,extended release 24 hr ipratropium 0.5 mg-albuterol 3 mg 3 ml inhalation QIDP PRN Shortness 02/07/24 02/07/24 History (2.5 mg base)/3 mL nebulization Of Breath Or Wheezing soln nicotine (polacrilex) 4 mg buccal 4 mg buccal Q6HP PRN nicotine 02/07/24 02/07/24 History lozenge cravings oxycodone 10 mg tablet 10 mg PO Q6HP PRN Severe Pain 02/07/24 02/07/24 History (Scale Score 7-10) New Prescriptions to Start Prescriptions: Allergies Allergy/AdvReac Type Severity Reaction Status Date / Time sulfamethoxazole Allergy Unknown Hives Verified 02/06/24 08:32 [SULFAMETHOXAZOLE] trimethoprim [TRIMETHOPRIM] Allergy Unknown Hives Verified 02/06/24 08:32 isosorbide AdvReac Mild Headache Verified 02/06/24 08:32 Results Laboratory Findings 02/09/24 05:55 02/09/24 05:55 Abnormal lab findings: Abnormal Labs 02/06/24 02/06/24 02/07/24 09:38 10:08 06:00 WBC 12.9 H RBC MCH 32.1 H MPV 6.8 L Neut % (Auto) 82.1 H Neut # (Auto) 10.6 H ESR 26 H VBG pH 7.46 H VBG pO2 45.9 H VBG O2 Saturation 82.3 H Sodium 135 L Potassium 3.2 L Carbon Dioxide Anion Gap BUN 3 L Glucose 126 H Magnesium 1.5 L C-Reactive Protein 15.6 H 02/07/24 02/08/24 02/09/24 06:11 06:03 05:55 WBC 11.0 H RBC 4.02 L 3.98 L 4.10 L MCH 31.5 H 31.5 H 31.8 H MPV 6.7 L 6.9 L 6.9 L Neut % (Auto) Neut # (Auto) 8.3 H ESR VBG pH VBG pO2 VBG O2 Saturation Sodium 135 L Potassium Carbon Dioxide 31 H Anion Gap 1.5 L BUN 4 L D 5 L 3 L D Glucose 103 H 117 H Magnesium C-Reactive Protein Assessment and Plan *Assessment and plan (1) Multiple lung nodules on CT: Status: Acute Category: Medical Code(s): R91.8 - Other nonspecific abnormal finding of lung field (2) Mediastinal lymphadenopathy: Status: Acute Category: Medical Code(s): R59.0 - Localized enlarged lymph nodes (3) Pleural effusion, bilateral: Status: Acute Category: Medical Code(s): J90 - Pleural effusion, not elsewhere classified (4) Pulmonary emphysema: Status: Acute Category: Medical Code(s): J43.9 - Emphysema, unspecified Plan Ms. Johnson is a 48-year-old female with a history of subclavian on outpatient basis to the [facility], sent to the ER during which evaluation showed worsening right pleural effusion and small left effusion admitted to the hospital and pulmonary was consulted for further evaluation and management. Patient admits gradually worsening respiratory distress and also admits difficulty swallowing. Afebrile. Hemodynamically stable. COVID-19 and flu PCR panel negative. CTA upon admission no evidence of pulmonary embolism noted. Showed large right and small left pleural effusion. Adjacent atelectasis noted. Continued to show subcarinal lymphadenopathy slightly worsened from prior along with the previously noted lung nodules in the right apex. CT also showed narrowing of the SVC.. Afebrile. Hemodynamically stable. Receiving DuoNebs as needed on home Lasix 20 p.o. twice daily. On examination patient does not appear to be mild to moderate respiratory distress. No significant wheezing noted on auscultation decreased breath sounds both lung wright. Plan: Initiate respiratory inhaler 2 puffs twice a day, home inhaler DuoNebs 4 times daily as needed Status post thoracentesis, follow-up pleural fluid studies Follow with echocardiogram report Given worsening clinical status, will expedite her bronchoscopy EBUS FNA
--- NOTE | 2024-02-09 09:54 | CA_ITS ---
APPROVED REPORT EXAM: Comprehensive 2D, Doppler, and color-flow Echocardiogram Research Study Assistant: Guerita York CRT Ht: 5 ft 1 in Wt: 157lbs BSA: 1.70 BP: 145/78 mmHg Indications: Shortness of Breath, large right pleural effusion, stent, HTN, edema, smoker 2D Dimensions LA Volume 21.80 mL LA Volume Index 12.50 mL/m2 (M/F) 16-34 M-Mode Dimensions RVDd 2.00 cm (0.9-2.6) LA Diam 3.30 cm (1.9-4.0) LVDd 4.86 cm (3.5-5.7) LVDs 3.07 cm (3.5-5.7) IVSd 0.82 cm (0.6-1.1) PWd 0.68 cm (0.6-1.1) EF (Teich) 66.60% FS 36.80% EDV (Teich) 110.70 mL ESV (Teich) 37.00 mL LV Diastology E Decel Time 200 (160-240 msec) E/A Ratio 1.22 MED A' 13.00 cm/s LAT A' 9.60 cm/s Aortic Valve AO Peak GR. 8.20 mmHg Mitral Valve MV A Velocity 65.0 (40-130 cm/s) E/A Ratio 1.22 Pulmonary Valve PV Peak Velocity 80.0 (50-150 cm/s) Tricuspid Valve TR P. Velocity 267.00 cm/s RAP Estimate 10.00 mmHg RVSP 38.50 mmHg Left Ventricle The left ventricle is normal size. The left ventricular systolic function is normal. The left ventricular ejection fraction is within the normal range. There is increased LV wall thickness. There is normal LV segmental wall motion. The left ventricular diastolic function is normal. LVEF is 55%. Right Ventricle The right ventricle is mildly dilated. The right ventricular systolic function is normal. Atria The left atrium size is normal. The right atrium size is normal. There is no Doppler evidence of interatrial shunt. Aortic Valve The aortic valve is mildly thickened. There is no aortic valvular stenosis. No aortic regurgitation is present. Mitral Valve The mitral valve is normal in structure. No evidence of mitral valve stenosis. Trace mitral regurgitation. Tricuspid Valve The tricuspid valve leaflets are thin and pliable. Trace tricuspid regurgitation. There is insufficient TR jet to estimate RVSP. Pulmonic Valve The pulmonary valve is normal in structure. Trace pulmonic regurgitation. Great Vessels The aortic root is normal in size. The ascending aorta is normal in size. IVC is normal in size and collapses >50% with inspiration. Pericardium There is a small sized, anterior pericardial effusion present. The largest pocket measures approximately 0.3 cm in diastole. No echo indications of tamponade. Other Information Study Quality: Technically Difficult Conclusion Technically difficult study due to poor acoustic windows. Normal biventricular systolic function. Mild RV dilation. No significant valvular stenosis or regurgitation. Small sized, anterior pericardial effusion present. The largest pocket measures approximately 0.3 cm in diastole. No echo indications of tamponade. Electronically signed by : Hermelinda Romero MD 02/09/2024 13:24:14
--- NOTE | 2024-02-09 10:29 | PC.NURSE ---
Hospitalist informed me of possible transfer to [facility]. awaiting bed at this time.
[2024-02-09 10:30] LABS: Lactate Dehydrogenase 173 U/L (313-618)
[2024-02-09 10:37] LABS: NT Pro Brain Natriuretic Pep. 69.9 pg/mL (0-125)
--- NOTE | 2024-02-09 12:50 | P.PCN_ITS ---
[facility] Procedure Note Date: 02/09/24 Time: 12:10 Procedure Note:: Procedure: Right Thoracentesis Indication for procedure: Pleural Effusion, Hypoxic Respiratory failure A time out was performed, and the chest x-ray was reviewed, the appropriate side was confirmed and marked. My hands were washed immediately prior to the procedure. I wore a surgical cap, mask with protective eyewear, sterile gown, and sterile gloves throughout the procedure. The patient was prepped and draped in a sterile manner using chlorhexidine scrub after the appropriate level was percussed and confirmed by ultrasound. 1% lidocaine was used to anesthetize the skin, ?subcutaneous tissue, superior aspect of the rib periosteum and parietal pleura.? A finder needle was then introduced at the seventh intercoastal space posteriorly?to locate the pleural fluid; straw colored fluid was aspirated. A 10-blade scalpel was used to dionne the skin at the insertion site. The [id number] needle was then introduced through the skin incision into the pleural space using negative aspiration pressure and the red colorimetric indicator to confirm appropriate positioning of the needle. The thoracentesis catheter was then threaded without difficulty.? 570 ml of straw-colored?fluid was removed without difficulty. The catheter was then removed. No immediate complications were noted during the procedure. A post-procedure chest X-ray is pending at the time of this note. The fluid will be sent for routine pleural studies, cultures along with cytopathology.? Patient tolerated the procedure well? Estimated blood loss is 5cc.
--- NOTE | 2024-02-09 12:50 | XR_ITS ---
PROCEDURE INFORMATION: Exam: XR Chest Exam date and time: 02/09/2024 1:55 PM Age: 48 years old Clinical indication: Other: Post thoracentesis; Additional info: Post thoracetesis TECHNIQUE: Imaging protocol: Radiologic exam of the chest. Views: 1 view. COMPARISON: CT ANGIO CHEST PE PROTOCOL 02/06/2024 12:43 PM FINDINGS: Lungs: No evidence of airspace infiltrate. No pulmonary edema. Pleural spaces: Moderate sized right pleural effusion, not significantly changed from 02/06/2024 exam. No evidence of pneumothorax. No visible left pleural effusion. Heart/Mediastinum: Cardiomediastinal silouhette is within normal limits. Bones/joints: No evidence of acute osseous abnormality. IMPRESSION: Moderate sized right pleural effusion, not significantly changed from 02/06/2024 exam. No evidence of pneumothorax.
[2024-02-09] MEDS: CLOPIDOGREL 75MG TAB 75 MG PO (14:06)
[2024-02-09 15:01] LABS: Appearance,Body Fld. Cloudy; RBC,Body Fluid < 10 cells/uL (< 10 X 10^3); Source, Body Fld. Pleural Fluid; TNC,Body Fluid 1099 cells/uL (< 1000); Volume,Body Fld. 750 mL
[2024-02-09 15:02] LABS: Mononuclear WBCs,Body Fluid 91 %; Polynuclear WBC,Body Fluid 9 %
--- NOTE | 2024-02-09 15:25 | PC.NURSE ---
pt has remained on room air this shift. pt had throacentesis performed this morning. 570ml of fluid was removed. pt tolerated procedure well. thoracentesis site is currently covered with bandaid and tegaderm. pt has been accepted at , however there is no bed available at this time. no new orders. call light within reach.
[2024-02-09] MEDS: IPRATROPIUM/ALBUTEROL 3 ML NEB IH (16:43)
--- NOTE | 2024-02-09 20:08 | P.DS_ITS ---
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 On arrival, patient was saturating appropriately on room air but did have increased work of breathing. She was given breathing treatments. Chest CTA revealed worsening to now large right pleural effusion, and stable severe stenosis of the SVC. On exam however, patient did have mild diffuse facial swelling from SVC syndrome. Other workup in the ED significant for WBC 12.9 and relatively normal VBG. Case discussed with ED provider, and given worsening shortness of breath with growing right-sided pleural effusion decision was made to admit patient for further evaluation and management of right-sided pleural effusion, pulmonary nodules, SVC syndrome. #Right pulmonary masses #Right-sided pleural effusion #Suspected lung malignancy ? Known right pulmonary masses, being evaluated in the pulmonology clinic. ? Chest CTA reveals 1.9 cm stable mass, however second nodule has grown to 1.1 cm in the last month. Negative for PE. ? Patient has had a PET which was unremarkable for uptake from these nodules. ? However, this constellation of findings is very suspicious for lung malignancy. Patient has a smoking history. ? Ultimately, patient will need biopsy of these masses which will be done outpatient. ? Dr. Barnes performed thoracentesis today with 570 mL of straw-colored fluid that was removed. #Severe stenosis of SVC #SVC syndrome ? Known severe stenosis SVC, stable per CTA chest on admission. ? However, patient endorses worsening facial swelling, dysphagia over the past 2 weeks. - Given this, I reached out to [facility] and their vascular surgeon advised that this can be followed up outpatient for potential endovascular treatment of SVC stenosis. ? Etiology likely from underlying malignancy as above. ? Continue therapeutic Lovenox. ? Bed elevation, patient advised to keep upright position to help reduce symptoms. ? Patient's symptoms have worsened today. She has increased facial swelling with appreciable veins, neck swelling, right upper extremity swelling, increased right upper thorax pain, and mildly worsening dysphagia. ? Given worsening SVC syndrome likely secondary to mass effect from pulmonary masses, I reached out to and [facility] in [place] and both accepted patient for aggressive workup of cancer and treatment. [facility] was able to offer bed tonight, as such she will be transferred to [facility] in [facility]. #COPD #Tobacco use ? COPD currently stable. ? Continue home Stiolto. DuoNebs as needed. ? Nicotine patch. #CAD ? Continue home aspirin, Plavix, ranolazine, metoprolol, statin. Full code Therapeutic Lovenox Exam Data for Last 24 hours Vital signs and Labs for Last 24 Hours: Temp Pulse Resp BP Pulse Ox O2 Del Method O2 Flow Rate 98.1 F 66 17 129/74 95 Room Air 2 02/09/24 19:35 02/09/24 19:35 02/09/24 19:35 02/09/24 19:35 02/09/24 19:35 02/09/24 19:35 02/08/24 08:00 Laboratory Results - last 24 hr 02/09/24 05:55: WBC 9.3, RBC 4.10 L, Hgb 13.1, Hct 38.3, MCV 93.3, MCH 31.8 H, MCHC 34.1, RDW 14.4, Plt Count 297, MPV 6.9 L, Neut % (Auto) 75.3, Lymph % (Auto) 17.6, [place] % (Auto) 6.6, Eos % (Auto) 0.2, Baso % (Auto) 0.4, Neut # (Auto) 7.0, Lymph # (Auto) 1.6, [place] # (Auto) 0.6, Eos # (Auto) 0.0, Baso # (Auto) 0.0, Sodium 136, Potassium 3.5, Chloride 107, Carbon Dioxide 31 H, Anion Gap 1.5 L, BUN 3 L D, Creatinine 0.70, Estimated Creat Clear 110, Estimated GFR 89, Est GFR ( Amer) 108, Glucose 95, Calcium 9.0, Lactate Dehydrogenase 173 L 02/09/24 10:06: NT-Pro-B Natriuret Pep 69.9 02/09/24 12:20: Fluid Source Pleural fluid, Fluid Volume 750, Fluid Appearance Cloudy, Fluid RBC (Auto) < 10, Fld Tot Nucleated Cell 1099, Fld Polynuclear WBCs % 9, Fld Mononuclear WBCs % 91 I & O for Last 24 hours: Intake & Output 02/06/24 02/07/24 02/08/24 02/09/24 23:59 23:59 23:59 23:59 Intake Total 1320 / 1560 1260 / 1500 1325 / 1325 Output Total 0 / 0 0 / 0 1 / 1 Balance 1320 / 1560 1260 / 1500 1324 / 1324 Weight 67.67 kg 67.67 kg 70.261 kg 71.21 kg Microbiology Reports for the Last 24 Hours: Microbiology 02/09/24 12:20 Pleural Fluid Gram Stain - Final Constitutional Constitutional: no acute distress Comments: Moderate facial, neck, right upper extremity, right thorax swelling with appreciable veins. *Routine HEENT Exam Head: Present normocephalic Eye: Present EOMI and PERRL ENT: Present mucous membranes moist *Routine Neck Exam Neck: Present supple; Absent lymphadenopathy *Routine Respiratory Exam Respiratory: Present CTA bilaterally *Routine Cardiovascular Exam Cardiovascular: Present RRR *Routine Abdominal Exam Abdominal: Present soft and normoactive bowel sounds; Absent tenderness *Routine Extremities Exam Extremities: Absent cyanosis, clubbing or edema *Routine Skin Exam Skin: Present warm; Absent rash *Routine Neurological Exam Neurological: Present alert and oriented X3 Results Data Completed and Pending Labs on day of discharge: Labs from last 24 hours 02/09/24 02/09/24 02/09/24 12:20 10:06 05:55 WBC 9.3 RBC 4.10 L Hgb 13.1 Hct 38.3 MCV 93.3 MCH 31.8 H MCHC 34.1 RDW 14.4 Plt Count 297 MPV 6.9 L Neut % (Auto) 75.3 Lymph % (Auto) 17.6 [place] % (Auto) 6.6 Eos % (Auto) 0.2 Baso % (Auto) 0.4 Neut # (Auto) 7.0 Lymph # (Auto) 1.6 [place] # (Auto) 0.6 Eos # (Auto) 0.0 Baso # (Auto) 0.0 Sodium 136 Potassium 3.5 Chloride 107 Carbon Dioxide 31 H Anion Gap 1.5 L BUN 3 L D Creatinine 0.70 Estimated Creat Clear 110 Estimated GFR 89 Est GFR ( Amer) 108 Glucose 95 Calcium 9.0 Lactate Dehydrogenase 173 L NT-Pro-B Natriuret Pep 69.9 Fluid Source Pleural fluid Fluid Volume 750 Fluid Appearance Cloudy Fluid RBC (Auto) < 10 Fld Tot Nucleated Cell 1099 Fld Polynuclear WBCs % 9 Fld Mononuclear WBCs % 91 DS: Diagnosis Discharge Diagnosis (1) Multiple lung nodules on CT: Status: Acute Code(s): R91.8 - Other nonspecific abnormal finding of lung field (2) Mediastinal lymphadenopathy: Status: Acute Code(s): R59.0 - Localized enlarged lymph nodes (3) Pleural effusion, bilateral: Status: Acute Code(s): J90 - Pleural effusion, not elsewhere classified (4) Pulmonary emphysema: Status: Acute Code(s): J43.9 - Emphysema, unspecified Meds Home Medications and Allergies Home Medications ?Medication ?Instructions ?Recorded ?Confirmed ?Type atorvastatin 40 mg tablet 40 mg PO HS 12/16/23 02/07/24 History citalopram 20 mg tablet 20 mg PO DAILY 12/16/23 02/07/24 History clopidogrel 75 mg tablet 75 mg PO DAILY 12/16/23 02/07/24 History pantoprazole 40 mg tablet,delayed 40 mg PO HS 12/16/23 02/07/24 History release vibegron 75 mg tablet (Gemtesa) 75 mg PO DAILY 12/16/23 02/07/24 History amlodipine 5 mg tablet 5 mg PO DAILY #90 tabs 12/23/23 02/07/24 Rx furosemide 20 mg tablet 20 mg PO DAILY #30 tabs 12/23/23 02/07/24 Rx ranolazine 1,000 mg 1,000 mg PO BID 12/23/23 02/07/24 History tablet,extended release,12 hr albuterol sulfate 90 mcg/actuation 1 inh inhalation Q4HP PRN 01/06/24 02/07/24 History aerosol inhaler (Proventil HFA) shortness of breath or wheezing tiotropium 2.5 mcg-olodaterol 2.5 2 puff inhalation DAILY 90 days #4 01/14/24 02/07/24 Rx mcg/actuation mist for inhalation grams (Stiolto Respimat) enoxaparin 80 mg/0.8 mL 70 mg SQ Q12H 02/03/24 02/07/24 History subcutaneous syringe metoprolol succinate 25 mg 25 mg PO DAILY 02/03/24 02/07/24 History tablet,extended release 24 hr ipratropium 0.5 mg-albuterol 3 mg 3 ml inhalation QIDP PRN Shortness 02/07/24 02/07/24 History (2.5 mg base)/3 mL nebulization Of Breath Or Wheezing soln nicotine (polacrilex) 4 mg buccal 4 mg buccal Q6HP PRN nicotine 02/07/24 02/07/24 History lozenge cravings oxycodone 10 mg tablet 10 mg PO Q6HP PRN Severe Pain 02/07/24 02/07/24 History (Scale Score 7-10) New Prescriptions to Start Prescriptions: Allergies Allergy/AdvReac Type Severity Reaction Status Date / Time sulfamethoxazole Allergy Unknown Hives Verified 02/06/24 08:32 [SULFAMETHOXAZOLE] trimethoprim [TRIMETHOPRIM] Allergy Unknown Hives Verified 02/06/24 08:32 isosorbide AdvReac Mild Headache Verified 02/06/24 08:32 Discharge Plan Disposition Patient Disposition: Xfer Other Discharge Order Discharge Orders: Discharge Order (Routine); Ordered 02/09/24 Ordered By: Jayden Rausch Follow up Plan Prescriptions/Medication Reconciliation: No Action ranolazine 1,000 mg tablet extended release 12 hr 1,000 mg PO BID amlodipine 5 mg tablet 5 mg PO DAILY Qty: 90 1RF furosemide 20 mg tablet 20 mg PO DAILY Qty: 30 2RF Stiolto Respimat 2.5-2.5 mcg/actuation mist 2 puff inhalation DAILY 90 Days Qty: 4 2RF enoxaparin 80 mg/0.8 mL syringe 70 mg SQ Q12H metoprolol succinate 25 mg tablet extended release 24 hr 25 mg PO DAILY ipratropium-albuterol 0.5 mg-3 mg(2.5 mg base)/3 mL solution for nebulization 3 ml INHALATION QIDP PRN (Reason: Shortness Of Breath Or Wheezing) oxycodone 10 mg tablet 10 mg PO Q6HP PRN (Reason: Severe Pain (Scale Score 7-10)) nicotine (polacrilex) 4 mg lozenge 4 mg buccal Q6HP PRN (Reason: nicotine cravings) atorvastatin 40 mg tablet 40 mg PO HS clopidogrel 75 mg tablet 75 mg PO DAILY citalopram 20 mg tablet 20 mg PO DAILY pantoprazole 40 mg tablet,delayed release (/EC) 40 mg PO HS Gemtesa 75 mg tablet 75 mg PO DAILY albuterol sulfate [Proventil HFA] 90 mcg/actuation HFA aerosol inhaler 1 inh inhalation Q4HP PRN (Reason: shortness of breath or wheezing) Problem Reconciliation Problems Reviewed?: Yes Patient Discharge Instructions Patient Instructions: Pleural Effusion, DI for Respiratory Failure, DI for Pleural Effusion Print Language: Thai Providers Primary Care Provider: Eulalio Rush Admit Provider: Jayden Rausch Attending Provider: Jayden Rausch
[2024-02-09] MEDS: PANTOPRAZOLE 40MG TABLET 40 MG PO (20:24)
[2024-02-09] MEDS: ENOXAPARIN 80MG/0.8ML SYRINGE 70 MG SQ (20:24)
[2024-02-09] MEDS: ATORVASTATIN 40MG TABLET 40 MG PO (20:24)
[2024-02-09] MEDS: BREZTRI 2 EACH IH (22:32)
[2024-02-10] VITALS: BP 112/70; PULSE 64; RESP 17; TEMP 36.7; O2SAT 94
[2024-02-12 11:02] LABS: Albumin, Body Fluid 1.5 g/dL (Not Estab.); Glucose, Body Fluid 101 mg/dL (.); LD, Body Fluid 104 IU/L (.); Protein, Body Fluid 2.3 g/dL (.)
== END 2024-02-10 02:09 | disposition short-term general hospital (02) | DRG 181 ==
LOC: ER 13:43 → 2ND 18:20
PROVIDERS: Internal Medicine Pulmonary Disease; Admitting Provider Student in an Organized Health Care Education/Training Program; Emergency Provider Emergency Medicine; PCP Family Medicine; Visit Provider Student in an Organized Health Care Education/Training Program
DX: C34.91 Malignant neoplasm of unspecified part of right bronchus or lung (principal); I87.1 Compression of vein; J90 Pleural effusion, not elsewhere classified; J44.9 Chronic obstructive pulmonary disease, unspecified; I25.10 Atherosclerotic heart disease of native coronary artery without angina pectoris; I10 Essential (primary) hypertension; J43.9 Emphysema, unspecified; F17.210 Nicotine dependence, cigarettes, uncomplicated; F17.290 Nicotine dependence, other tobacco product, uncomplicated; Z95.5 Presence of coronary angioplasty implant and graft
CPT/HCPCS: 32554; 32555; 36415; 71045; 71275; 80048; 80053; 82042; 82803; 82945; 83615; 83735; 83880; 84145; 84155; 84484; 85025; 85651; 86140; 86803; 87070; 87205; 87389; 87636; 89051; 93005; 93306; 94618; 94640; 94761; 99285; J1650; J1885; J2405; J2919; J3475; J7620; Q9967

== ENCOUNTER 2024-02-16 09:31 | Day surgery (SDC) | payer OTHER, SELFPAY ==
[2024-02-13 11:07] VITALS: BMI 26.1
[2024-02-16] VITALS (10 sets, daily range): BP systolic 90–150; BP diastolic 53–96; PULSE 61–95; RESP 16–18; TEMP 36.2–36.6; O2SAT 89–98; BMI 30.2
--- NOTE | 2024-02-16 11:14 | EXP.ANES.CKL ---
[facility] Disclaimer: The information contained in this section may have been updated after the patient was seen, as this information can be updated by other users. Medical History COPD (chronic obstructive pulmonary disease) Pleural effusion, bilateral Multiple lung nodules on CT Tobacco abuse Mass of right lung Benign polyp of duodenum Herpes simplex Bronchitis Inflammation of joint of left shoulder region Abnormal gastrointestinal PET scan Smoking greater than 30 pack years Atypical angina Abnormal findings on diagnostic imaging of heart and coronary circulation Viral syndrome Constipation Pulmonary emphysema Mediastinal lymphadenopathy Lung nodule Breast pain, right Abnormal ECG Dyspnea Pleural effusion, right Anxiety Manic depression Left shoulder pain Bradycardia Hyperlipidemia Hypertension Elevated left ventricular end-diastolic pressure (LVEDP) Tobacco dependence syndrome Coronary artery disease Asthma History of gastroesophageal reflux (GERD) Anxiety Surgical History H/O shoulder surgery History of esophagogastroduodenoscopy (EGD) History of heart artery stent Stented coronary artery History of bladder repair surgery History of hysterectomy Family History Other Cancer Heart attack Social History Smoking Status: Current every day smoker tobacco type: cigarettes packs per day: 1 and e-cigarettes alcohol intake: never substance use type: marijuana current occupational status: employed Travel in the last 8 weeks: None household members: none housing: house [facility] Anesthesia Checklist Patient Identification Patient Identification: Arm Band Structural Data Admitted From: Home Planned Operative Procedure/s: Bronchoscopy with Biopsy and EBUS Consent for Planned Operative Procedure(s) Verified: Yes Verified Documents: Surgical Consent and History and Physical NPO Status Verified Time NPO: 00:00 Additional verifications Anesthesia Reactions: No Hx Blood Transfusions: No Blood Transfusion Reaction: No Airway Assessment Mallampati Score:: Class II C-Spine Mobility Assessed: Yes TMJ Mobility Assessed: Yes Dentition: Edentulous Neurological Assessment Level of Consciousness: Awake, Alert and Appropriate Anesthesia Plan Anesthesia Risk discussed: Yes Anesthesia Plan: Verified ASA Class: IV Anesthesia Type: General
--- NOTE | 2024-02-16 13:08 | XR_ITS ---
PROCEDURE INFORMATION: Exam: XR Chest Exam date and time: 02/16/2024 1:12 PM Age: 48 years old Clinical indication: Cough; Prior surgery; Surgery date: Post-operative (0-2 days); Surgery type: Post bronch TECHNIQUE: Imaging protocol: Radiologic exam of the chest. Views: 1 view. COMPARISON: CR XR CHEST PORTABLE 02/09/2024 1:55 PM FINDINGS: Lungs: Volume loss on the right. Probable subpulmonic effusion. Patchy interstitial airspace disease within the right upper lobe. This represents an interval change in suspicious for a no Modic process. Follow-up to ensure resolution. Left lung is well aerated. Dense right hilum and infrahilar region. Pleural spaces: See Lungs finding. Heart/Mediastinum: Unremarkable. No cardiomegaly. Bones/joints: Unremarkable. IMPRESSION: 1. Volume loss on the right. Probable subpulmonic effusion. Patchy interstitial airspace disease within the right upper lobe. This represents an interval change in suspicious for a no Modic process. Follow-up to ensure resolution. 2. Left lung is well aerated. 3. Dense right hilum and infrahilar region.
--- NOTE | 2024-02-16 13:17 | P.PNANES_ITS ---
[facility] Anesthesia Record Part I Anesthesia Record I Intake, IV Amount: 550 Hydration: Adequate Estimated blood loss (mL): 10 Urine output (mL): 0 Blood Products used (#): none Blood Pressure: 129/62 SaO2: 96 Pulse Rate: 95 Airway Patency: Patent Respiratory Rate: 18 Temperature: 97.3 F Patient is:: Awake (Talking) and Stable Stable to PACU at:: 13:15
--- NOTE | 2024-02-16 13:56 | EXP.ANES.II ---
[facility] Anesthesia Record Part II Anesthesia Record Part II Discharge Time: 13:40 Destination: Surgical Day Care (OP Surgery) PACU nurse assessment reviewed?: Yes Patient Condition:: Good Anesthesia Complications:: None Swallowing reflex intact?: Yes Airway Patency: Patent Cyanosis?: No Blood Pressure: 119/71 SaO2: 97 Respiratory Rate: 16 Pulse Rate: 61 Temperature: 98 F Mental Status: Alert & Oriented Pain level:: 0 Nausea and/or vomitting:: None Intake, IV Amount: 550 Hydration: Adequate
[2024-02-16] MEDS: IPRATROPIUM/ALBUTEROL 3 ML NEB IH (14:37)
--- NOTE | 2024-02-16 14:40 | P.PCN_ITS ---
Procedure: Date: 02/16/24 Patient Date of :: 1975 Procedure Performed:: Bronchoscopy with airway examination bronchoalveolar lavage, endobronchial ultrasound-guided fine-needle aspirate Indications:: Lung nodule and lymphadenopathy Performing Provider:: Meena Barnes MD Referring Provider:: Dr: Eulalio Rush MD Sedation:: General anesthesia Procedure:: Bronchoscopy with airway examination bronchoalveolar lavage, endobronchial ultrasound-guided fine-needle aspirate: A clean EBUS bronchoscopy was advanced to the ET tube and lymph node surveillance was performed. Patient noted to have lymphadenopathy at station 10R, station 7 and station 10L. The lymph nodes at station 7, greater than 2 cm in size. EBUS FNA was performed at all the above-mentioned 3 lymph node statio ns. The fine-needle aspiration sample from the lymph nodes sent separately in CytoLyt for cytopathologic examination. Lymph node sample were also sent [place] medium for flow cytometry. Sample was also sent for bacterial fungal and AFB stain cultures. EBUS bronchoscopy was retracted and a clean diagnostic bronchoscopy was advanced to the ET tube for airway patient. Airways appeared clear with no mucoid secretions. Airway thickening noted in the right upper lobe bronchi and right bronchus intermedius. 2 endobronchial biopsies were performed and sent in formalin for cytopathologic examination. Bronchoalveolar lavage was performed of the right upper lobe, total of 60 cc of normal saline was instilled with return of 15 cc back. BAL fluid was sent in CytoLyt for cytopathologic examin ation. Bronchoalveolar lavage fluid was not sent for cell count differential and cultures. Patient tolerated the procedure well. No acute immediate complication Findings:: Please see the procedure note Recommendations:: Postoperative bronchoscopy instructions Complications:: No acute immediate complications Estimated blood obtained (mL): 10
== END 2024-02-16 14:15 | disposition home or self-care (01) ==
PROVIDERS: PCP Family Medicine; Visit Provider Internal Medicine Pulmonary Disease
PROC: (CPT 31624; principal; 2024-02-16 10:30)
DX: R59.1 Generalized enlarged lymph nodes (principal); R91.8 Other nonspecific abnormal finding of lung field
CPT/HCPCS: 31624; C7512; 71045; 87070; 87102; 87116; 87186; 87205; 87206; J3490; J1100; J2250; J2405; J3010; J7620

== ENCOUNTER 2024-02-19 11:39 | Outpatient (CLI) | payer OTHER, SELFPAY ==
[2024-02-19 12:00] LABS: Basophils % 0.4 % (0.1-2.0); Eosinophils # 0.1 K/mm3 (0.0-0.4); Eosinophils % 0.8 % (0.1-12.0); Hematocrit 39.4 % (37.0-47.0); Hemoglobin 13.2 g/dL (12.2-16.2); Lymphocytes # 1.6 K/mm3 (0.7-4.5); Mean Corpuscular HGB Conc 33.6 g/dL (31.8-35.4); Mean Corpuscular Hemoglobin 31.5 pg (27.0-31.2); Mean Corpuscular Volume 93.8 fl (81-99); Mean Platelet Volume 7.1 fl (7.4-10.4); Monocytes # 0.7 K/mm3 (0.1-1.0); Monocytes % 6.4 % (1.7-9.3); Neutrophils # 8.4 K/mm3 (1.8-7.8); Neutrophils % 77.3 % (37.0-80.0); Platelet Count 306 K/mm3 (142-424); Red Cell Distribution Width 14.4 % (11.5-17.5); White Blood Count 10.9 K/mm3 (4.8-10.8)
[2024-02-19 12:11] LABS: Alanine Aminotransferase 19 U/L (12-78); Albumin Level 3.7 g/dl (3.5-5.0); Albumin/Globulin Ratio 1.5 (1.1-1.8); Alkaline Phosphatase 68 U/L (38-126); Anion Gap 9.6 mEq/L (5-15); Aspartate Amino Transferase 21 U/L (14-36); Bilirubin,Total 0.6 mg/dl (0.2-1.3); Blood Urea Nitrogen 4 mg/dl (7-17); Carbon Dioxide 29 mmol/L (22.0-30.0); Chloride 103 mmol/L (98-107); Estimated Glomerular Filt Rate 107 ml/min (>60); GFR (African American) 129 ML/MIN (>60); Globulin 2.5 g/dL (1.3-3.2); Glucose 113 mg/dl (74-100); Potassium 3.6 mmoL/L (3.5-5.1); Sodium 138 mmol/L (136-145); Total Protein,Serum 6.2 g/dl (6.3-8.2)
== END 2024-02-19 23:59 | disposition home or self-care (01) ==
LOC: LAB 11:40
PROVIDERS: PCP Family Medicine; Visit Provider Internal Medicine Medical Oncology
DX: R91.1 Solitary pulmonary nodule (principal)
CPT/HCPCS: 36415; 80053; 85025

== ENCOUNTER 2024-02-25 06:50 | Outpatient (CLI) | payer OTHER, SELFPAY | END 2024-02-25 23:59 | disposition home or self-care (01) | LOC: RAD 06:51 | PROVIDERS: PCP Family Medicine; Visit Provider Internal Medicine Medical Oncology | DX: C34.90 Malignant neoplasm of unspecified part of unspecified bronchus or lung (principal) ==

== ENCOUNTER 2024-03-05 08:33 | Outpatient (CLI) | payer OTHER, SELFPAY ==
[2024-03-05] VITALS (7 sets, daily range): BP systolic 111–130; BP diastolic 70–83; PULSE 69–86; RESP 16–18; TEMP 36.3; O2SAT 95–100; BMI 23.9
--- NOTE | 2024-03-05 | XR_ITS ---
FINAL REPORT CLINICAL HISTORY: post right thoracentesis COMPARISON: 01/06/2024 FINDINGS: Two views of the chest were obtained. The heart size and pulmonary vascularity are within normal limits. Right apical scarring is present. The mediastinum is normal. Right basilar opacities are present, favor atelectasis. There is no pneumothorax. The bony thorax is intact. IMPRESSION: Right basilar opacities, favor atelectasis. No pneumothorax is identified. Reviewed, Interpreted and Dictated by Chidi Scott III, MD Transcribed by Vanessa Hagan Authenticated and [facility]
--- NOTE | 2024-03-05 08:33 | US_ITS ---
FINAL REPORT CLINICAL HISTORY: PLEURAL EFFUSION -- RT THORACENTESIS -- SHAWN GRANADOS -- 850ML FINDINGS: ULTRASOUND GUIDED RIGHT THORACENTESIS HISTORY: Right pleural effusion. ATTENDING PHYSICIAN: Dr. Scott PHYSICIAN LINK CUTTER: Sandra Aguilar PA-C TECHNIQUE: Informed consent was obtained from the patient. Timeout procedure was performed prior to beginning. Appropriate pocket was localized for drainage. The patient was prepped and draped in routine fashion over the right back. Local anesthesia was achieved with 1% lidocaine. Using imaging guidance with images acquired, an 18-gauge sheath needle was directed into the pleural fluid. Approximately 850 mL of josh fluid was aspirated. 50 mL of fluid was sent for laboratory analysis. IMPRESSION: Successful ultrasound guided right thoracentesis. Reviewed, Interpreted and Dictated by Chidi Scott III, MD Transcribed by Sandra Aguilar PA-C Authenticated and [facility]
--- NOTE | 2024-03-05 10:38 | XR_ITS ---
FINAL REPORT CLINICAL HISTORY: post right thoracentesis COMPARISON: 1 hour prior FINDINGS: A single portable view of the chest was obtained. The heart size and pulmonary vascularity are within normal limits. The mediastinum is within normal limits. There is persistent right base atelectasis. There is no pneumothorax. The bony thorax is intact. IMPRESSION: Persistent right base atelectasis. No pneumothorax. Reviewed, Interpreted and Dictated by Chidi Scott III, MD Transcribed by Patience Mejia Authenticated and [facility]
== END 2024-03-05 12:10 | disposition home or self-care (01) ==
PROVIDERS: PCP Family Medicine; Visit Provider Internal Medicine Medical Oncology
DX: J90 Pleural effusion, not elsewhere classified (principal)
CPT/HCPCS: 32555; 71045; 71046

== ENCOUNTER 2024-03-10 10:09 | Outpatient (CLI) | payer OTHER, SELFPAY ==
--- NOTE | 2024-03-10 10:16 | CT_ITS ---
FINAL REPORT TECHNIQUE: Multiple axial CT sections were performed from the foramen magnum to the vertex. Coronal and sagittal reformatted images were also obtained. Precontrast and postcontrast injection images were obtained. This study was performed with technique to keep radiation doses as low as reasonably achievable, (ALARA). Individualized dose reduction techniques using automated exposure control or adjustment of mA and/or kV according to the patient size were employed. CLINICAL HISTORY: LUNG CANCER R/O METS PATIENT WAS UNABLE TO FINISH MRI COMPARISON: None FINDINGS: The ventricles are normal in size. There is no evidence of hemorrhage. No masses are identified. No extra-axial fluid collection is seen. The sinuses are normal. There is minimal fluid in the mastoid air cells. No osseous abnormality is seen on the bone window images. Postcontrast images demonstrate no abnormal enhancement. IMPRESSION: Unremarkable CT of the head with and without contrast. Reviewed, Interpreted and Dictated by Gal Castillo MD Transcribed by Vanessa Hagan Authenticated and [facility]
[2024-03-10] MEDS: SODIUM CHLORIDE 0.9% 10ML SYR (RAD ONLY) 10 ML IV (11:02)
[2024-03-10] MEDS: IOPAMIDOL-300 (61%) 100ML VIAL 100 ML IV (11:03)
== END 2024-03-10 23:59 | disposition home or self-care (01) ==
LOC: RAD 10:11
PROVIDERS: PCP Family Medicine; Visit Provider Internal Medicine Medical Oncology
DX: C34.91 Malignant neoplasm of unspecified part of right bronchus or lung (principal)
CPT/HCPCS: 70470; Q9967